=== PATIENT | male | born 1970 | race Caucasian/White ===

== ENCOUNTER 2019-08-17 10:34 | Emergency (ER) | payer SELFPAY ==
--- OUTSIDE RECORDS SUMMARY | 2019-08-17 10:36 | XMS REPORT ---
:1970 [facility] [address] [place] [address] Dr. Mccartney [address] [place] [id number] Care Team Providers Name Role Phone Unavailable Unavailable Unavailable Problems This patient has no known problems. Allergies, Adverse Reactions, Alerts This patient has no known allergies or adverse reactions. Medications This patient has no known medications.
[2019-08-17] MEDS ORDERED: NA CHLORIDE 0.9% 2,000 ML ONE (10:57)
[2019-08-17 11:29] LABS: Urine Blood 2+ (NEG); Urine Glucose TRACE (NEG); Urine Protein 2+ (NEG)
[2019-08-17 11:29] LABS: Protime INR 1.02
[2019-08-17 11:36] LABS: Barbiturates NEGATIVE (NEGATIVE); Benzodiazepines POSITIVE (NEGATIVE); Cocaine NEGATIVE (NEGATIVE); METHAMPHETAM NEGATIVE (NEGATIVE); Methadone NEGATIVE (NEGATIVE); Opiates NEGATIVE (NEGATIVE); Phencyclidine NEGATIVE (NEGATIVE); THC Cannibis NEGATIVE (NEGATIVE)
[2019-08-17 11:41] LABS: Absolute Lymphocytes (CBC) 2.1 K/uL (0.7-4.9); Basophils % 0.6 % (0-1.3); Hematocrit 45.2 % (39.6-49.0); Lymphocytes % 18.9 % (15.3-44.8); MPV 9.1 fL (7.6-11.3); RBC Red Blood Cell Count 5.22 M/uL (4.33-5.43)
[2019-08-17 11:45] LABS: ALT/SGPT 16 U/L (12-78); AST/SGOT 16 U/L (15-37); Albumin 4.1 g/dL (3.4-5.0); Alkaline Phosphatase 97 U/L (45-117); BUN Blood Urea Nitrogen 10 mg/dL (7-18); Bicarbonate 21 mmol/L (21-32); Bilirubin Direct 0.1 mg/dL (0-0.2); Bilirubin Total 0.7 mg/dL (0.2-1.0); Glucose Level 127 mg/dL (74-106); Lipase 49 U/L (73-393); Magnesium 1.7 mg/dL (1.8-2.4); NT PRO-BNP 34 pg/mL (<125); Potassium 3.3 mmol/L (3.5-5.1); Protein, Total 8.2 g/dL (6.4-8.2); Sodium Level 137 mmol/L (136-145); Troponin (Emerg Dept Use Only) < 0.02 ng/mL (0.0-0.045)
--- NOTE | 2019-08-17 11:56 | RAD REPORT ---
EXAM DESCRIPTION: Luis Single View08/17/2019 11:51 am CLINICAL HISTORY: Shortness of breath COMPARISON: 2017 FINDINGS: The lungs appear clear of acute infiltrate. The heart is normal size IMPRESSION: No acute abnormalities displayed
[2019-08-17] MEDS ORDERED: KCL 20 MEQ/100 mL IVPB 20 MEQ/100 ML BAG IV ONE (12:07)
[2019-08-17] MEDS ORDERED: LORazepam 2 MG/ML VIAL ONE (12:07)
[2019-08-17] MEDS ORDERED: cloNIDine HCL 0.1 MG TAB ONE (12:07)
[2019-08-17] MEDS ORDERED: MAGNESIUM SULFATE 1 gm IVPB 1 GM/100 ML BAG IV ONE (12:07)
[2019-08-17] MEDS ORDERED: ONDANSETRON 4 MG/2 ML VIAL ONE (12:20)
--- NOTE | 2019-08-17 13:42 | RAD REPORT ---
EXAM DESCRIPTION: CT - Abdomen Pelvis W Contrast - 08/17/2019 1:26 pm CLINICAL HISTORY: ABD PAIN COMPARISON: No comparisons TECHNIQUE: Biphasic, helical CT imaging of the abdomen and pelvis was performed following 100 ml non -ionic IV contrast. No oral contrast given. All CT scans are performed using dose optimization technique as appropriate and may include automated exposure control or mA/KV adjustment according to patient size. FINDINGS: No suspicious findings in the lung bases. The liver, spleen, and pancreas show no suspicious findings. Multiple punctate gallstones layer in th e dependent portion of the gallbladder. No active gallbladder process seen. No biliary tree abnormali ty. Symmetric renal function is seen with no hydronephrosis or suspicious renal mass. No pyelonephritis o r acute parenchymal process. No bladder abnormalities. No adrenal abnormalities. No dilated bowel loops or bowel wall thickening. Appendix is normal. No free air, free fluid or infla mmatory stranding. No hernia, mass or bulky lymphadenopathy. No suspicious bony findings. IMPRESSION: Contrast enhanced CT abdomen and pelvis showing no significant or suspicious finding. Punctate gallstones are present but there is no evidence for an active gallbladder or biliary tree pr ocess.
[2019-08-17] MEDS ORDERED: ACETAMINOPHEN 500 MG TAB ONE (13:49)
--- NOTE | 2019-08-17 14:37 | EKG ---
Test Date: 2019-08-17 Test Time: 11:13:02 Sales And Marketing Intern: OSMAR MEASUREMENT RESULTS: Intervals: Rate: 111 IL: 158 QRSD: 96 QT: 340 QTc: 462 [place]: P: 47 IL: 158 QRS: 39 T: 49 INTERPRETIVE STATEMENTS: Sinus tachycardia Otherwise normal ECG Compared to ECG 07/31/2017 21:41:24 Sinus rhythm no longer present Electronically Signed On 08-17-19 14:36:37 CDT by Tyler Carey
--- NOTE | 2019-08-17 14:57 | EDPHYS ---
Physician Documentation [facility] Name: Osbaldo León Age: 49 yrs Sex: Male : 1970 Arrival Date: 08/17/2019 Time: 10:36 Bed 2 Private MD: Joe Malloy ED Physician Chris Cohn HPI: 08/16 12:57 This 49 yrs old Male presents to ER via Wheelchair with complaints of jr8 Diarrhea, Urinary Frequency, Abdominal Pain, Shortness Of Breath. 12:57 The patient presents to the emergency department with nausea, vomiting, diarrhea. jr8 Onset: The symptoms/episode began/occurred gradually, 2 week(s) ago. Possible causes: withdrawal. The symptoms are aggravated by nothing. The symptoms are alleviated by nothing. Associated signs and symptoms: Pertinent positives: shortness of breath, anxiety and tremors. Severity of symptoms: At their worst the symptoms were moderate in the emergency department the symptoms are unchanged. It is unknown whether or not the patient has had similar symptoms in the past. The patient has not recently seen a physician. 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 Has been weaning himself off and finished about 2 weeks ago. Since then has had diffuse pain, n/v/d, anxiety. Historical: - Allergies: 10:54 Clindamycin; ca1 10:54 Morphine; ca1 - Home Meds: 10:54 lisinopril 5 mg oral tab 1 tab once daily [Active]; aspirin 81 mg Oral TbEC 1 tab once ca1 daily [Active]; Zoloft 150 mg Oral 1 tab once daily [Active]; Methadone 90 mg Oral 1 tab once daily [Active]; Seroquel 200 mg Oral tab 1 tab nightly [Active]; Insulin: Novolin R 10 units Sub-Q every morning [Active]; Insulin: Novolin N 10 units Sub-Q nightly [Active]; - PMHx: 10:54 CVA; Hypertension; Diabetes - IDDM; ca1 - PSHx: 10:54 None; ca1 - Immunization history:: Adult Immunizations up to date, Flu vaccine is not up to date. - Social history:: Smoking status: Patient denies any tobacco usage or history of. Patient/guardian denies using alcohol, street drugs, IV drugs. ROS: 12:57 Eyes: Negative for injury, pain, redness, and discharge, ENT: Negative for injury, jr8 pain, and discharge, Neck: Negative for injury, pain, and swelling, Cardiovascular: Negative for chest pain, palpitations, and edema, Back: Negative for injury and pain, MS/Extremity: Negative for injury and deformity, Skin: Negative for injury, rash, and discoloration. 12:57 Respiratory: Positive for shortness of breath. 12:57 Abdomen/GI: Positive for abdominal pain, nausea, vomiting, and diarrhea. 12:57 Neuro: Positive for tremor. Exam: 12:57 Eyes: Pupils equal round and reactive to light, extra-ocular motions intact. Lids and jr8 lashes normal. Conjunctiva and sclera are non-icteric and not injected. Cornea within normal limits. Periorbital areas with no swelling, redness, or edema. ENT: Nares patent. No nasal discharge, no septal abnormalities noted. Tympanic membranes are normal and external auditory canals are clear. Oropharynx with no redness, swelling, or masses, exudates, or evidence of obstruction, uvula midline. Mucous membranes moist. Neck: Trachea midline, no thyromegaly or masses palpated, and no cervical lymphadenopathy. Supple, full range of motion without nuchal rigidity, or vertebral point tenderness. No Meningismus. Respiratory: Lungs have equal breath sounds bilaterally, clear to auscultation and percussion. No rales, rhonchi or wheezes noted. No increased work of breathing, no retractions or nasal flaring. Abdomen/GI: Soft, non-tender, with normal bowel sounds. No distension or tympany. No guarding or rebound. No evidence of tenderness throughout. Back: No spinal tenderness. No costovertebral tenderness. Full range of motion. Skin: Warm, dry with normal turgor. Normal color with no rashes, no lesions, and no evidence of cellulitis. MS/ Extremity: Pulses equal, no cyanosis. Neurovascular intact. Full, normal range of motion. Neuro: Awake and alert, GCS 15, oriented to person, place, time, and situation. Cranial nerves II-XII grossly intact. Motor strength 5/5 in all extremities. Sensory grossly intact. Cerebellar exam normal. Normal gait. Resting tremor present 12:57 Cardiovascular: Rate: tachycardic, Rhythm: regular, Pulses: Pulses are 2+ in right radial artery and left radial artery. Heart sounds: normal, normal S1and S2, no S3 or S4, no murmur, no rub, no gallop, Edema: is not appreciated, JVD: is not appreciated. 12:57 ECG was reviewed by the Attending Physician. Vital Signs: 10:48 BP 146 / 129; Pulse 142; Resp 19 S; Temp 97.9(TE); Pulse Ox 100% on R/A; Weight 79.38 ca1 kg (R); Height 6 ft. 0 in. (182.88 cm) (R); 12:09 BP 168 / 112; Pulse 102; Resp 18; Pulse Ox 100% on R/A; em 12:30 BP 170 / 104; Pulse 101; Resp 16; Pulse Ox 98% ; jl7 13:00 BP 172 / 109; Pulse 102; Resp 16; Pulse Ox 98% ; jl7 13:41 BP 162 / 105; Pulse 103; Resp 16; Pulse Ox 97% ; jl7 14:22 BP 168 / 108; Pulse 124; Resp 15; Pulse Ox 100% ; jl7 14:37 BP 159 / 100; Pulse 98; Resp 16; Pulse Ox 100% ; jl7 10:48 Body Mass Index 23.73 (79.38 kg, 182.88 cm) ca1 MDM: 10:42 Patient medically screened. 8 14:04 Data reviewed: vital signs, nurses notes, lab test result(s), EKG, radiologic studies, jr8 CT scan. Data interpreted: Pulse oximetry: on room air is 97 %. Interpretation: normal. Counseling: I had a detailed discussion with the patient and/or guardian regarding: the historical points, exam findings, and any diagnostic results supporting the discharge/admit diagnosis, lab results, radiology results, the need for outpatient follow up, a family practitioner, to return to the emergency department if symptoms worsen or persist or if there are any questions or concerns that arise at home. 14:55 ED course: Patient doing better. Has moderate severity opioid withdrawal. Talked to Dr. geovanna Irizarry who will see patient in office on Tuesday. Will start on Buprenorphine/naloxone . 16:39 ED course: Patients prescriptions changed to Flexeril QD and Clonidine 0.1 mg TID per geovanna Irizarry since Buprenorphine/Naloxone cannot be prescribed at this time . 04/03 10:59 Order name: Basic Metabolic Panel; Complete Time: 12:11 jr8 08/16 10:59 Order name: CBC with Diff; Complete Time: 11:47 jr8 08/16 10:59 Order name: LFT's; Complete Time: 12:11 jr8 08/16 10:59 Order name: Magnesium; Complete Time: 12:11 jr8 08/16 10:59 Order name: NT PRO-BNP; Complete Time: 12:11 jr8 08/16 10:59 Order name: PT-INR; Complete Time: 11:42 jr8 08/16 10:59 Order name: Troponin (emerg Dept Use Only); Complete Time: 12:11 jr8 08/16 10:59 Order name: XRAY Chest (1 view); Complete Time: 12:00 08/16 10:59 Order name: Lipase; Complete Time: 12:11 8 08/16 10:59 Order name: Ketone, Serum; Complete Time: 12:11 8 08/16 10:59 Order name: Urine Drug Screen; Complete Time: 11:42 jr8 08/16 10:59 Order name: ETOH Level; Complete Time: 11:42 jr8 08/16 11:09 Order name: Glucose, Ancillary Testing; Complete Time: 11:22 EDMS 08/16 11:27 Order name: Urine Dipstick--Ancillary (enter results); Complete Time: 11:42 3 08/16 10:59 Order name: EKG; Complete Time: 11:00 jr8 08/16 10:59 Order name: Cardiac monitoring; Complete Time: 11:24 jr8 08/16 10:59 Order name: EKG - Nurse/Tech; Complete Time: 11:24 jr8 08/16 10:59 Order name: IV Saline Lock; Complete Time: 11:24 jr8 08/16 10:59 Order name: Labs collected and sent; Complete Time: 11:24 jr8 08/16 10:59 Order name: O2 Per Protocol; Complete Time: 11:24 8 08/16 10:59 Order name: O2 Sat Monitoring; Complete Time: 11:24 jr8 08/16 13:09 Order name: CT Abd/Pelvis - IV Contrast Only; Complete Time: 13:45 jr8 08/16 10:59 Order name: Urine Dipstick-Ancillary (obtain specimen); Complete Time: 13:19 jr8 08/16 10:59 Order name: Glucose Level; Complete Time: :23 jr8 EC:57 Rate is 111 beats/min. Rhythm is regular, Sinus tachycardia. QRS [place] is Normal. NE jr8 interval is normal at 158 msec. QRS interval is normal at 96 msec. QT interval is prolonged at 462 msec. No Q waves. T waves are Normal. No ST changes noted. Clinical impression: Sinus tachycardia. Interpreted by me. Reviewed by me. Administered Medications: 11:23 Drug: NS 0.9% 1000 ml Route: IV; Rate: 1000 ml; Site: left forearm; jl7 12:00 Follow up: Response: No adverse reaction; IV Status: Completed infusion; IV Intake: jl7 1000ml 11:24 Drug: NS 0.9% 1000 ml Route: IV; Rate: 1000 ml; Site: left forearm; jl7 13:19 Follow up: Response: No adverse reaction; IV Status: Completed infusion; IV Intake: jl7 1000ml 12:05 Drug: Ativan 1 mg Route: IVP; Site: left forearm; jl7 12:45 Follow up: Response: No adverse reaction jl7 12:08 Drug: cloNIDine 0.2 mg Route: PO; jl7 13:40 Follow up: Response: Blood pressure is unchanged jl7 12:17 Drug: Magnesium Sulfate 1 grams Route: IVPB; Infused Over: 1 hrs; Site: left forearm; jl7 13:18 Follow up: Response: No adverse reaction; IV Status: Completed infusion jl7 12:18 Drug: Potassium Chloride 20 mEq Route: IV; Rate: calculated rate; Site: left forearm; jl7 13:18 Follow up: IV Status: Completed infusion jl7 13:18 Follow up: Response: No adverse reaction jl7 12:19 Drug: Zofran (Ondansetron) 4 mg Route: IVP; Site: left forearm; jl7 12:30 Follow up: Response: No adverse reaction; Nausea is decreased jl7 13:46 Drug: Tylenol 1000 mg Route: PO; jl7 14:36 Follow up: Response: No adverse reaction jl7 Point of Care Testing: Blood Glucose: 11:03 Blood Glucose: 131 mg/dL; em Ranges: Critical Glucose Levels:Adult <50 mg/dl or >400 mg/dl <40 mg/dl or >180 mg/dl Disposition: 16:05 Co-signature as Attending Physician, Chris Cohn MD. rn Disposition: 08/17/19 14:57 Discharged to Home. Impression: Withdrawal from Opioid . - Condition is Stable. - Discharge Instructions: Opioid Withdrawal. - Medication Reconciliation Form, Thank You Letter, Antibiotic Education, Prescription Opioid Use form. - Follow up: Graeme Irizarry MD; When: 1 week; Reason: Recheck today's complaints, Continuance of care, Re-evaluation by your physician. - Problem is new. - Symptoms have improved. Signatures: Dispatcher [employer] EDMS Chris Cohn MD MD rn Colby Douglass PA PA jr8 Joleen Aiken RN RN jl7 Allison Bliss RN RN ca1 Corrections: (The following items were deleted from the chart) 15:26 14:57 08/17/2019 14:57 Discharged to Home. Impression: Withdrawal from Opioid . jl7 Condition is Stable. Forms are Medication Reconciliation Form, Thank You Letter, Antibiotic Education, Prescription Opioid Use. Follow up: Graeme Irizarry; When: 1 week; Reason: Recheck today's complaints, Continuance of care, Re-evaluation by your physician. Problem is new. Symptoms have improved. jr8
--- NOTE | 2019-08-17 14:57 | ER ---
Nurse's Notes [facility] Name: Osbaldo León Age: 49 yrs Sex: Male : 1970 Arrival Date: 08/17/2019 Time: 10:36 Bed 2 Private MD: Joe Malloy Diagnosis: Withdrawal from Opioid Presentation: 08/16 10:48 Chief complaint: Patient states: "I am experiencing withdrawal symptoms. On Methadone ca1 for 10 years and I ran out of it. I can't afford it anymore". Reports headache, N/V/diarrhea, abdominal pain, shakiness, cold chills and sweats. Coronavirus screen: Patient denies fever greater than 100.4F, cough, shortness of breath, or difficulty breathing. Proceed with normal triage process. Ebola Screen: Patient negative for fever greater than or equal to 101.5 degrees Fahrenheit, and additional compatible Ebola Virus Disease symptoms Patient denies exposure to infectious person. Patient denies travel to an Ebola-affected area in the 21 days before illness onset. No symptoms or risks identified at this time. Initial Sepsis Screen: Does the patient meet any 2 criteria? No. Patient's initial sepsis screen is negative. Does the patient have a suspected source of infection? No. Patient's initial sepsis screen is negative. Risk Assessment: Do you want to hurt yourself or someone else? Patient reports no desire to harm self or others. Onset of symptoms was August 17, 2019. 10:48 Method Of Arrival: Wheelchair ca1 10:48 Acuity: [place] 2 ca1 Historical: - Allergies: 10:54 Clindamycin; ca1 10:54 Morphine; ca1 - Home Meds: 10:54 lisinopril 5 mg oral tab 1 tab once daily [Active]; aspirin 81 mg Oral TbEC 1 tab once ca1 daily [Active]; Zoloft 150 mg Oral 1 tab once daily [Active]; Methadone 90 mg Oral 1 tab once daily [Active]; Seroquel 200 mg Oral tab 1 tab nightly [Active]; Insulin: Novolin R 10 units Sub-Q every morning [Active]; Insulin: Novolin N 10 units Sub-Q nightly [Active]; - PMHx: 10:54 CVA; Hypertension; Diabetes - IDDM; ca1 - PSHx: 10:54 None; ca1 - Immunization history:: Adult Immunizations up to date, Flu vaccine is not up to date. - Social history:: Smoking status: Patient denies any tobacco usage or history of. Patient/guardian denies using alcohol, street drugs, IV drugs. Screenin:15 Abuse screen: Denies threats or abuse. Denies injuries from another. Nutritional jl7 screening: No deficits noted. Tuberculosis screening: No symptoms or risk factors identified. Fall Risk IV access (20 points). Total Brown Fall Scale indicates No Risk (0-24 pts). Assessment: 10:45 General: Appears in no apparent distress. uncomfortable, Behavior is cooperative, jl7 anxious. Pain: Complains of pain in all over Pain currently is 9 out of 10 on a pain scale. Neuro: Level of Consciousness is awake, alert, obeys commands, Oriented to person, place, time, situation, pt hands noted to be shaking. Cardiovascular: Patient's skin is warm and dry. Respiratory: Airway is patent Respiratory effort is even, unlabored, Respiratory pattern is regular, symmetrical. GI: Abdomen is flat, non-distended, Reports diarrhea. : No signs and/or symptoms were reported regarding the genitourinary system. EENT: No signs and/or symptoms were reported regarding the EENT system. Derm: Skin is pink, warm \\T\\ dry. 11:45 Reassessment: Patient appears in no apparent distress at this time. No changes from jl7 previously documented assessment. Patient and/or family updated on plan of care and expected duration. Pain level reassessed. Patient is alert, oriented x 3, equal unlabored respirations, skin warm/dry/pink. 13:00 Reassessment: Patient appears in no apparent distress at this time. Patient and/or jl7 family updated on plan of care and expected duration. Pain level reassessed. Patient is alert, oriented x 3, equal unlabored respirations, skin warm/dry/pink. 14:00 Reassessment: Patient appears in no apparent distress at this time. Patient and/or jl7 family updated on plan of care and expected duration. Pain level reassessed. Patient is alert, oriented x 3, equal unlabored respirations, skin warm/dry/pink. 14:45 Reassessment: Pt requesting for ERP to give him suboxone, ERP notified and at bedside jl7 to discuss POC. Vital Signs: 10:48 BP 146 / 129; Pulse 142; Resp 19 S; Temp 97.9(TE); Pulse Ox 100% on R/A; Weight 79.38 ca1 kg (R); Height 6 ft. 0 in. (182.88 cm) (R); 12:09 BP 168 / 112; Pulse 102; Resp 18; Pulse Ox 100% on R/A; em 12:30 BP 170 / 104; Pulse 101; Resp 16; Pulse Ox 98% ; jl7 13:00 BP 172 / 109; Pulse 102; Resp 16; Pulse Ox 98% ; jl7 13:41 BP 162 / 105; Pulse 103; Resp 16; Pulse Ox 97% ; jl7 14:22 BP 168 / 108; Pulse 124; Resp 15; Pulse Ox 100% ; jl7 14:37 BP 159 / 100; Pulse 98; Resp 16; Pulse Ox 100% ; jl7 10:48 Body Mass Index 23.73 (79.38 kg, 182.88 cm) ca1 ED Course: 10:36 Patient arrived in ED. ag5 10:36 Joe Malloy MD is Private Physician. ag5 10:42 Colby Douglass PA is PHCP. jr8 10:42 Chris Cohn MD is Attending Physician. jr8 10:43 Joleen Aiken RN is Primary Nurse. jl7 10:50 Triage completed. ca1 10:54 Arm band placed on right wrist. ca1 11:15 Patient has correct armband on for positive identification. Placed in gown. Bed in low jl7 position. Call light in reach. Side rails up X 1. media monitor on. Pulse ox on. NIBP on. Warm blanket given. 11:18 EKG done, by mechanical engineering technician. reviewed by Colby CRAWFORD. at1 11:20 Initial lab(s) drawn, by wa, sent to lab. Inserted saline lock: 20 gauge in left jl7 forearm, using aseptic technique. Blood collected. 11:51 XRAY Chest (1 view) In Process Unspecified. EDMS 13:26 CT Abd/Pelvis - IV Contrast Only In Process Unspecified. EDMS 14:56 Graeme Irizarry MD is Referral Physician. jr8 15:26 No provider procedures requiring assistance completed. IV discontinued, intact, jl7 bleeding controlled, No redness/swelling at site. Pressure dressing applied. Administered Medications: 11:23 Drug: NS 0.9% 1000 ml Route: IV; Rate: 1000 ml; Site: left forearm; jl7 12:00 Follow up: Response: No adverse reaction; IV Status: Completed infusion; IV Intake: jl7 1000ml 11:24 Drug: NS 0.9% 1000 ml Route: IV; Rate: 1000 ml; Site: left forearm; jl7 13:19 Follow up: Response: No adverse reaction; IV Status: Completed infusion; IV Intake: jl7 1000ml 12:05 Drug: Ativan 1 mg Route: IVP; Site: left forearm; jl7 12:45 Follow up: Response: No adverse reaction jl7 12:08 Drug: cloNIDine 0.2 mg Route: PO; jl7 13:40 Follow up: Response: Blood pressure is unchanged jl7 12:17 Drug: Magnesium Sulfate 1 grams Route: IVPB; Infused Over: 1 hrs; Site: left forearm; jl7 13:18 Follow up: Response: No adverse reaction; IV Status: Completed infusion jl7 12:18 Drug: Potassium Chloride 20 mEq Route: IV; Rate: calculated rate; Site: left forearm; jl7 13:18 Follow up: IV Status: Completed infusion jl7 13:18 Follow up: Response: No adverse reaction jl7 12:19 Drug: Zofran (Ondansetron) 4 mg Route: IVP; Site: left forearm; jl7 12:30 Follow up: Response: No adverse reaction; Nausea is decreased jl7 13:46 Drug: Tylenol 1000 mg Route: PO; jl7 14:36 Follow up: Response: No adverse reaction jl7 Point of Care Testing: Blood Glucose: 11:03 Blood Glucose: 131 mg/dL; em Ranges: Intake: 12:00 IV: 1000ml; Total: 1000ml. jl7 13:19 IV: 1000ml; Total: 2000ml. jl7 Outcome: 14:57 Discharge ordered by . geovanna 15:26 Discharged to home ambulatory. jl7 15:26 Condition: stable 15:26 Discharge instructions given to patient, Instructed on discharge instructions, follow up and referral plans. medication usage, Demonstrated understanding of instructions, follow-up care, medications. 15:26 Patient left the ED. jl7 Signatures: Dispatcher [employer] Surinder Montano RN RN Colby Merchant PA PA jr8 Sara Valdez, [employer] managed service sales exec EKG Tat1 Joleen Aiken, RN RN jl7 Allison Bliss, RN RN ca1 Juliocesar Dunaway ag5
[2019-08-17 15:34] VITALS: TEMP 97.9
[2019-08-17 15:42] VITALS: O2SAT 100
[2019-08-17 15:43] VITALS: BP 159/100
== END 2019-08-17 15:26 | disposition home or self-care (01) ==
LOC: ER 10:34
DX: F11.23 Opioid dependence with withdrawal (principal); T40.2X5A Adverse effect of other opioids, initial encounter; I10 Essential (primary) hypertension; E11.9 Type 2 diabetes mellitus without complications; Z79.4 Long term (current) use of insulin; Z79.82 Long term (current) use of aspirin; Z88.3 Allergy status to other anti-infective agents; Z88.5 Allergy status to narcotic agent
CPT/HCPCS: 36415; 71045; 74177; 80048; 80076; 80307; 80320; 81003; 82010; 82947; 83690; 83735; 83880; 84484; 85025; 85610; 93005; 96361; 96365; 96375; 99285; J2405; J3475; J7030; Q9967

== ENCOUNTER 2019-08-18 08:25 | Emergency (ER) | payer SELFPAY ==
--- OUTSIDE RECORDS SUMMARY | 2019-08-18 08:28 | XMS REPORT ---
:1970 [facility] Address [address] [place] [address] Dr. Mccartney [address] [place] [id number] Care Team Providers Name Role Phone Unavailable Unavailable Unavailable Problems This patient has no known problems. Allergies, Adverse Reactions, Alerts This patient has no known allergies or adverse reactions. Medications This patient has no known medications.
[2019-08-18] MEDS ORDERED: METOPROLOL TAR 25 MG TAB ONE (08:44)
[2019-08-18] MEDS ORDERED: cloNIDine HCL 0.1 MG TAB ONE (08:44)
[2019-08-18] MEDS ORDERED: ONDANSETRON 4 MG/2 ML VIAL ONE ×2 (08:45→09:32)
[2019-08-18] MEDS ORDERED: NA CHLORIDE 0.9% 1,000 ML ONE (08:45)
[2019-08-18 09:01] LABS: Absolute Lymphocytes (CBC) 1.4 K/uL (0.7-4.9); Basophils % 0.6 % (0-1.3); Hematocrit 40.4 % (39.6-49.0); Lymphocytes % 21.3 % (15.3-44.8); MPV 8.5 fL (7.6-11.3); RBC Red Blood Cell Count 4.58 M/uL (4.33-5.43)
[2019-08-18 09:17] LABS: ALT/SGPT 12 U/L (12-78); AST/SGOT 13 U/L (15-37); Albumin 3.3 g/dL (3.4-5.0); Alkaline Phosphatase 79 U/L (45-117); BUN Blood Urea Nitrogen 7 mg/dL (7-18); Bicarbonate 18 mmol/L (21-32); Bilirubin Direct 0.1 mg/dL (0-0.2); Bilirubin Total 0.7 mg/dL (0.2-1.0); Glucose Level 159 mg/dL (74-106); Lipase 41 U/L (73-393); Potassium 3.5 mmol/L (3.5-5.1); Protein, Total 6.9 g/dL (6.4-8.2); Sodium Level 138 mmol/L (136-145)
[2019-08-18] MEDS ORDERED: LORazepam 2 MG/ML VIAL ONE (09:32)
[2019-08-18] MEDS ORDERED: Ringers Lactate 1,000 ML IV ONE (09:47)
[2019-08-18 09:53] LABS: Urine Blood 1+ (NEG); Urine Glucose 1+ (NEG); Urine Protein NEGATIVE (NEG); Urine Specific Gravity 1.015 (1.005-1.030); Urine pH 5.5 (5.0-7.0)
[2019-08-18 10:14] LABS: Barbiturates NEGATIVE (NEGATIVE); Benzodiazepines NEGATIVE (NEGATIVE); Cocaine NEGATIVE (NEGATIVE); METHAMPHETAM NEGATIVE (NEGATIVE); Methadone NEGATIVE (NEGATIVE); Opiates NEGATIVE (NEGATIVE); Phencyclidine NEGATIVE (NEGATIVE); THC Cannibis NEGATIVE (NEGATIVE)
--- NOTE | 2019-08-18 10:55 | EDPHYS ---
Physician Documentation [facility] Name: Osbaldo León Age: 49 yrs Sex: Male : 1970 Arrival Date: 08/18/2019 Time: 08:27 Bed 7 Private MD: ED Physician Chris Cohn HPI: 08/17 10:58 This 49 yrs old Male presents to ER via EMS with complaints of Methadone jr8 withdrawl. 10:58 The patient presents to the emergency department with a history of substance abuse. jr8 Onset: The symptoms/episode began/occurred gradually, 2 week(s) ago. Associated signs and symptoms: Pertinent positives; anxiety, nausea, substance abuse, vomiting, diarrhea. Severity of symptoms: At their worst the symptoms were moderate in the emergency department the symptoms are unchanged. The patient has experienced similar episodes in the past, a few times. The patient has been recently seen at the [facility] Emergency Department, yesterday, for similar complaints labs were performed, CT scan was performed, was given IV fluids, the patient was told to return for a recheck. 10:59 Patient returned to ED today with continued anxiety, tremors, n/v/d secondary to jr8 withdrawal. Stated that the Flexeril and clonidine has not been helping. Historical: - Allergies: 08:31 Clindamycin; sv 08:31 Morphine; sv - PMHx: 08:31 CVA; Diabetes - IDDM; Hypertension; sv - PSHx: 08:31 None; sv - Immunization history:: Adult Immunizations up to date. - Social history:: Smoking status: . ROS: 10:59 Eyes: Negative for injury, pain, redness, and discharge, ENT: Negative for injury, jr8 pain, and discharge, Neck: Negative for injury, pain, and swelling, Cardiovascular: Negative for chest pain, palpitations, and edema, Respiratory: Negative for shortness of breath, cough, wheezing, and pleuritic chest pain, Back: Negative for injury and pain, MS/Extremity: Negative for injury and deformity, Skin: Negative for injury, rash, and discoloration, Neuro: Negative for headache, weakness, numbness, tingling, and seizure. 10:59 Abdomen/GI: Positive for nausea, vomiting, and diarrhea, Negative for abdominal pain, abdominal cramps, abdominal distension. 10:59 Psych: Positive for anxiety, drug dependence. Exam: 10:59 Eyes: Pupils equal round and reactive to light, extra-ocular motions intact. Lids and jr8 lashes normal. Conjunctiva and sclera are non-icteric and not injected. Cornea within normal limits. Periorbital areas with no swelling, redness, or edema. ENT: Nares patent. No nasal discharge, no septal abnormalities noted. Tympanic membranes are normal and external auditory canals are clear. Oropharynx with no redness, swelling, or masses, exudates, or evidence of obstruction, uvula midline. Mucous membranes moist. Neck: Trachea midline, no thyromegaly or masses palpated, and no cervical lymphadenopathy. Supple, full range of motion without nuchal rigidity, or vertebral point tenderness. No Meningismus. Respiratory: Lungs have equal breath sounds bilaterally, clear to auscultation and percussion. No rales, rhonchi or wheezes noted. No increased work of breathing, no retractions or nasal flaring. Abdomen/GI: Soft, non-tender, with normal bowel sounds. No distension or tympany. No guarding or rebound. No evidence of tenderness throughout. Back: No spinal tenderness. No costovertebral tenderness. Full range of motion. Skin: Warm, dry with normal turgor. Normal color with no rashes, no lesions, and no evidence of cellulitis. MS/ Extremity: Pulses equal, no cyanosis. Neurovascular intact. Full, normal range of motion. Neuro: Awake and alert, GCS 15, oriented to person, place, time, and situation. Cranial nerves II-XII grossly intact. Motor strength 5/5 in all extremities. Sensory grossly intact. Cerebellar exam normal. Normal gait. Resting tremor present 10:59 Cardiovascular: Rate: tachycardic, Rhythm: regular, Pulses: Pulses are 2+ in right radial artery and left radial artery. Heart sounds: normal, normal S1and S2, no S3 or S4, no murmur, no rub, no gallop, Edema: is not appreciated, JVD: is not appreciated. Vital Signs: 08:22 BP 188 / 129; Pulse 107; Resp 18; Temp 98.3; Pulse Ox 99% ; Weight 79 kg; Height 6 ft. sv 0 in. (182.88 cm); 09:45 BP 183 / 125; Pulse 100; Resp 18; Pulse Ox 98% ; sv 10:03 BP 166 / 107; Pulse 99; Resp 18; Pulse Ox 97% ; sv 10:36 BP 174 / 104; Pulse 102; Resp 18; Pulse Ox 97% ; sv 11:31 BP 163 / 102; Pulse 97; Resp 16; Pulse Ox 99% ; sv 08:22 Body Mass Index 23.62 (79.00 kg, 182.88 cm) sv MDM: 08:29 Patient medically screened. jr8 10:50 Data reviewed: vital signs, nurses notes, lab test result(s). Data interpreted: Pulse jr8 oximetry: on room air is 97 %. Interpretation: normal. Counseling: I had a detailed discussion with the patient and/or guardian regarding: the historical points, exam findings, and any diagnostic results supporting the discharge/admit diagnosis, lab results, the need for outpatient follow up, a psychiatrist, to return to the emergency department if symptoms worsen or persist or if there are any questions or concerns that arise at home. ED course: Patient seen yesterday. Worse today dehydration virk. Doing better after treatment. Patient has been on clonidine and Flexeril which was suggested treatment for detox at the time since Buprenorphine cannot be prescribed. Patient still with scheduled appointment on Tuesday but concern for further withdrawal eminent. Discussed this with Dr. Cohn as well. Best course of action for emergent purposes is to put him on low dose short acting narcotic till visit. Will put one time 25mcg patch of Fentanyl on him and discharge home to follow up . 11:18 ED course: Consulted Dr. Irizarry as well who agrees that this is the only thing [facility] can likely do at this point. 08/17 08:33 Order name: Basic Metabolic Panel; Complete Time: 09:08/17 08:33 Order name: CBC with Diff; Complete Time: :08/17 08:33 Order name: Creatinine for Radiology; Complete Time: :08/17 08:33 Order name: Hepatic Function; Complete Time: :08/17 08:33 Order name: Lipase; Complete Time: :08/17 08:33 Order name: UDS; Complete Time: 10:21 08/17 09:34 Order name: Urine Dipstick--Ancillary (enter results); Complete Time: 10:21 eb 08/17 08:33 Order name: IV Saline Lock; Complete Time: 08:34 jr8 08/17 08:33 Order name: Labs collected and sent; Complete Time: 08:51 jr8 08/17 08:33 Order name: Urine Dipstick-Ancillary (obtain specimen); Complete Time: 09:39 jr8 Administered Medications: 08:51 Drug: NS 0.9% 1000 ml Route: IV; Rate: 1000 ml; Site: left hand; sv 11:31 Follow up: Response: No adverse reaction; IV Status: Completed infusion; IV Intake: sv 1000ml 08:51 Drug: Zofran (Ondansetron) 4 mg Route: IVP; Site: left hand; sv 09:44 Follow up: Response: No adverse reaction; No change in condition sv 09:35 Drug: Zofran (Ondansetron) 4 mg Route: IVP; Site: left hand; sv 10:01 Follow up: Response: No adverse reaction; Nausea is decreased sv 09:39 Drug: Ativan 2 mg Route: IVP; Site: left hand; sv 09:45 Follow up: Response: No adverse reaction sv 09:44 Drug: Ringers - Lactated Ringers Solution 1000 ml Route: IV; Rate: 999 ml/hr; Site: sv left hand; 11:30 Follow up: Response: No adverse reaction; IV Status: Completed infusion; IV Intake: sv 1000ml 10:01 Drug: cloNIDine 0.2 mg Route: PO; sv 11:31 Follow up: Response: No adverse reaction sv 10:01 Drug: Metoprolol 25 mg Route: PO; sv 11:31 Follow up: Response: No adverse reaction sv 11:30 Drug: fentaNYL Patch (25 mcg/hr) 1 patches {Note: rass1.} Route: Transdermal; Site: affected area; Disposition: 11:36 Co-signature as Attending Physician, Chris Cohn MD. rn Disposition: 08/18/19 10:54 Discharged to Home. Impression: Opioid dependence with withdrawal. - Condition is Stable. - Discharge Instructions: Chemical Dependency, Opioid Withdrawal. - Medication Reconciliation Form, Thank You Letter, Antibiotic Education, Prescription Opioid Use form. - Follow up: Private Physician; When: 2 - 3 days; Reason: Recheck today's complaints, Continuance of care, Re-evaluation by your physician. - Problem is new. - Symptoms have improved. Signatures: Dispatcher [employer] Kenisha Naqvi RN RN sv Nieto, Roman, MD MD rn Roszak, Josh, PA PA jr8 Corrections: (The following items were deleted from the chart) 11:00 10:58 The patient has been recently seen by a physician: geovanna jr8 11:32 10:54 08/18/2019 10:54 Discharged to Home. Impression: Opioid dependence with sv withdrawal. Condition is Stable. Forms are Medication Reconciliation Form, Thank You Letter, Antibiotic Education, Prescription Opioid Use. Follow up: Private Physician; When: 2 - 3 days; Reason: Recheck today's complaints, Continuance of care, Re-evaluation by your physician. Problem is new. Symptoms have improved. jr8
--- NOTE | 2019-08-18 10:55 | ER ---
Nurse's Notes [facility] Name: Osbaldo León Age: 49 yrs Sex: Male : 1970 Arrival Date: 08/18/2019 Time: 08:27 Bed 7 Private MD: Diagnosis: Opioid dependence with withdrawal Presentation: 08/17 08:22 Chief complaint: EMS states: called out for Methadone withdrawal, c/o n/v/d/decreased sv appetite. Was seen here yesterday and discharged with Suboxone but the pharmacy was unable to fill it for him. BP 170/100 HR-120 22G L hand. Coronavirus screen: Patient denies fever greater than 100.4F, cough, shortness of breath, or difficulty breathing. Proceed with normal triage process. Ebola Screen: Patient negative for fever greater than or equal to 101.5 degrees Fahrenheit, and additional compatible Ebola Virus Disease symptoms Patient denies exposure to infectious person. Patient denies travel to an Ebola-affected area in the 21 days before illness onset. No symptoms or risks identified at this time. Initial Sepsis Screen: Does the patient meet any 2 criteria? HR > 90 bpm. No. Patient's initial sepsis screen is negative. Does the patient have a suspected source of infection? No. Patient's initial sepsis screen is negative. Risk Assessment: Do you want to hurt yourself or someone else? Patient reports no desire to harm self or others. Onset of symptoms was August 17, 2019. 08:22 Method Of Arrival: EMS: [facility] 08:22 Acuity: [place] 2 sv Triage Assessment: 08:22 General: Appears in no apparent distress. uncomfortable, well developed, Behavior is sv calm, cooperative, appropriate for age. Pain: Denies pain. Neuro: Level of Consciousness is awake, alert, obeys commands, Oriented to person, place, time, situation, Moves all extremities. Full function Gait is steady, Speech is normal. Respiratory: Airway is patent Respiratory effort is even, unlabored, Respiratory pattern is regular, symmetrical. GI: Abdomen is flat, Reports diarrhea, intolerance of fluids, intolerance of food, nausea, vomiting. Derm: Skin is intact, Skin is pink, warm \T\ dry. Musculoskeletal: Range of motion: intact in all extremities. Historical: - Allergies: 08:31 Clindamycin; sv 08:31 Morphine; sv - PMHx: 08:31 CVA; Diabetes - IDDM; Hypertension; sv - PSHx: 08:31 None; sv - Immunization history:: Adult Immunizations up to date. - Social history:: Smoking status: . Screenin:33 Abuse screen: Denies threats or abuse. Denies injuries from another. Nutritional sv screening: No deficits noted. Tuberculosis screening: No symptoms or risk factors identified. Fall Risk None identified. Assessment: 09:45 Reassessment: Patient appears in no apparent distress at this time. No changes from sv previously documented assessment. Patient and/or family updated on plan of care and expected duration. Pain level reassessed. Patient is alert, oriented x 3, equal unlabored respirations, skin warm/dry/pink. 10:02 Reassessment: Patient appears in no apparent distress at this time. Patient and/or sv family updated on plan of care and expected duration. Pain level reassessed. Patient is alert, oriented x 3, equal unlabored respirations, skin warm/dry/pink. GI: Patient currently denies nausea, vomiting. 11:32 Reassessment: Patient appears in no apparent distress at this time. Patient and/or sv family updated on plan of care and expected duration. Pain level reassessed. Patient is alert, oriented x 3, equal unlabored respirations, skin warm/dry/pink. Vital Signs: 08:22 BP 188 / 129; Pulse 107; Resp 18; Temp 98.3; Pulse Ox 99% ; Weight 79 kg; Height 6 ft. sv 0 in. (182.88 cm); 09:45 BP 183 / 125; Pulse 100; Resp 18; Pulse Ox 98% ; sv 10:03 BP 166 / 107; Pulse 99; Resp 18; Pulse Ox 97% ; sv 10:36 BP 174 / 104; Pulse 102; Resp 18; Pulse Ox 97% ; sv 11:31 BP 163 / 102; Pulse 97; Resp 16; Pulse Ox 99% ; sv 08:22 Body Mass Index 23.62 (79.00 kg, 182.88 cm) sv ED Course: 08:22 Maintain EMS IV. Dressing intact. Good blood return noted. Site clean \T\ dry. Gauge \T\ sv site: 22G L hand. Flushed left hand with 5 ml normal saline. 08:27 Patient arrived in ED. jr8 08:28 Kenisha Medel, MARU is Primary Nurse. sv 08:29 Colby Douglass PA is PHCP. jr8 08:29 Chris Cohn MD is Attending Physician. jr8 08:31 Triage completed. sv 08:31 Arm band placed on Patient placed in an exam room, on a stretcher. sv 08:32 Nurse Practitioner and/or Physician Benefits Specialist Recruiter to see patient. sv 08:33 Patient has correct armband on for positive identification. Bed in low position. Call sv light in reach. Side rails up X 1. Pulse ox on. NIBP on. Door closed. Head of bed elevated. 08:43 Initial lab(s) drawn, by me, sent to lab. sv 11:31 No provider procedures requiring assistance completed. IV discontinued, intact, sv bleeding controlled, No redness/swelling at site. Pressure dressing applied. Administered Medications: 08:51 Drug: NS 0.9% 1000 ml Route: IV; Rate: 1000 ml; Site: left hand; sv 11:31 Follow up: Response: No adverse reaction; IV Status: Completed infusion; IV Intake: sv 1000ml 08:51 Drug: Zofran (Ondansetron) 4 mg Route: IVP; Site: left hand; sv 09:44 Follow up: Response: No adverse reaction; No change in condition sv 09:35 Drug: Zofran (Ondansetron) 4 mg Route: IVP; Site: left hand; sv 10:01 Follow up: Response: No adverse reaction; Nausea is decreased sv 09:39 Drug: Ativan 2 mg Route: IVP; Site: left hand; sv 09:45 Follow up: Response: No adverse reaction sv 09:44 Drug: Ringers - Lactated Ringers Solution 1000 ml Route: IV; Rate: 999 ml/hr; Site: sv left hand; 11:30 Follow up: Response: No adverse reaction; IV Status: Completed infusion; IV Intake: sv 1000ml 10:01 Drug: cloNIDine 0.2 mg Route: PO; sv 11:31 Follow up: Response: No adverse reaction sv 10:01 Drug: Metoprolol 25 mg Route: PO; sv 11:31 Follow up: Response: No adverse reaction sv 11:30 Drug: fentaNYL Patch (25 mcg/hr) 1 patches {Note: rass1.} Route: Transdermal; Site: sv affected area; Intake: 11:30 IV: 1000ml; Total: 1000ml. sv 11:31 IV: 1000ml; Total: 2000ml. sv Outcome: 10:54 Discharge ordered by MD. austin 11:31 Discharged to home ambulatory. sv 11:31 Condition: stable 11:31 Discharge instructions given to patient, Instructed on discharge instructions, follow up and referral plans. take off his Fentanyl patch on Tuesday. Demonstrated understanding of instructions, follow-up care. 11:32 Patient left the ED. sv Signatures: Kenisha Medel RN RN sv Colby Douglass, PA YVETTE jr8 Corrections: (The following items were deleted from the chart) 08:33 08:22 BP 188 / 129; Pulse 107bpm; Resp 18bpm; Pulse Ox 99%; Temp 98.3F; sv sv
[2019-08-18] MEDS ORDERED: FENTANYL 25 MCG/PATCH TD ONE (11:08)
[2019-08-18 11:41] VITALS: BP 163/102; O2SAT 99
== END 2019-08-18 11:32 | disposition home or self-care (01) ==
LOC: ER 08:25
DX: F11.23 Opioid dependence with withdrawal (principal); Z88.3 Allergy status to other anti-infective agents; Z88.6 Allergy status to analgesic agent
CPT/HCPCS: 36415; 80048; 80076; 80307; 81003; 83690; 85025; 96361; 96365; 96366; 96375; 99284; J2405; J7030; J7120

== ENCOUNTER 2019-10-16 18:34 | Emergency (ER) | payer SELFPAY ==
--- OUTSIDE RECORDS SUMMARY | 2019-10-16 18:36 | XMS REPORT | Continuity of Care Document ---
:1970 Author Organization [facility] t Address [address] [place] [address] Dr. Mccartney [address] [place] [id number] Care Team Providers Name Role Phone Unavailable Unavailable Unavailable Problems This patient has no known problems. Allergies, Adverse Reactions, Alerts This patient has no known allergies or adverse reactions. Medications This patient has no known medications. Procedures This patient has no known procedures. Results This patient has no known results.
[2019-10-16] MEDS ORDERED: NA CHLORIDE 0.9% 2,000 ML ONE (19:43)
[2019-10-16 20:05] LABS: Absolute Lymphocytes (CBC) 0.8 K/uL (0.7-4.9); Hematocrit 44.2 % (39.6-49.0); Lymphocytes % 10.8 % (15.3-44.8); MPV 9.4 fL (7.6-11.3); RBC Red Blood Cell Count 4.84 M/uL (4.33-5.43)
[2019-10-16 20:36] LABS: Blood Morphology Comment NOT SEEN (NOT SEEN); Platelet Estimate ADEQ; Urine White Blood Cell Casts OK
[2019-10-16 20:46] LABS: Urine Blood 1+ (NEG); Urine Glucose 2+ (NEG); Urine Protein NEGATIVE (NEG)
[2019-10-16 21:05] LABS: ALT/SGPT 20 U/L (12-78); AST/SGOT 15 U/L (15-37); Albumin 3.8 g/dL (3.4-5.0); Alkaline Phosphatase 117 U/L (45-117); BUN Blood Urea Nitrogen 19 mg/dL (7-18); Bicarbonate 15 mmol/L (21-32); Bilirubin Direct 0.2 mg/dL (0-0.2); Bilirubin Total 0.8 mg/dL (0.2-1.0); Lipase 21 U/L (73-393); Magnesium 1.8 mg/dL (1.8-2.4); NT PRO-BNP 350 pg/mL (<125); Potassium 4.3 mmol/L (3.5-5.1); Protein, Total 8.3 g/dL (6.4-8.2); Sodium Level 133 mmol/L (136-145); Troponin (Emerg Dept Use Only) < 0.02 ng/mL (0.0-0.045)
--- NOTE | 2019-10-16 21:07 | ER ---
Nurse's Notes [facility] Name: Osbaldo León Age: 49 yrs Sex: Male : 1970 Arrival Date: 10/16/2019 Time: 18:36 Bed 17 Private MD: Joe Malloy Diagnosis: Dyspnea;Essential (primary) hypertension;Type 1 diabetes mellitus-uncontrolled Presentation: 10/15 18:40 Chief complaint: Patient states: Pain in L upper quadrant, frequent urination, ph dizziness, also reports SOB w/ exertion, BGL at home 512, pt type 1 diabetic, took 10 units of regular insulin and 10 units of NPH, also reports recent N/V. Coronavirus screen: Patient denies a cough. Patient denies shortness of breath or difficulty breathing. Patient denies measured and/or subjective temperature greater than 100.4F prior to today's visit. Patient denies travel on a cruise ship or to a country the [facility] currently lists as an affected area. Patient denies contact with known and/or suspected case of COVID-19. Ebola Screen: No symptoms or risks identified at this time. Initial Sepsis Screen: Does the patient meet any 2 criteria? No. Patient's initial sepsis screen is negative. Does the patient have a suspected source of infection? No. Patient's initial sepsis screen is negative. Risk Assessment: Do you want to hurt yourself or someone else? Patient reports no desire to harm self or others. Onset of symptoms was October 16, 2019. 18:40 Method Of Arrival: Ambulatory ph 18:40 Acuity: [place] 2 ph Triage Assessment: 20:37 Respiratory: the patient has moderate shortness of breath. Historical: - Allergies: 18:50 Clindamycin; ph 18:50 Morphine; ph - Home Meds: 18:50 aspirin 81 mg Oral tab 1 tab once daily [Active]; Insulin: Novolin N 10 units Sub-Q ph nightly [Active]; Insulin: Novolin R 10 units Sub-Q every morning [Active]; lisinopril 5 mg Oral tab 1 tab once daily [Active]; Seroquel 200 mg Oral tab 1 tab nightly [Active]; Zoloft 150 mg Oral 1 tab once daily [Active]; Suboxone sublingual sublingual [Active]; - PMHx: 18:50 CVA; Diabetes - IDDM; Hypertension; ph - PSHx: 18:50 None; ph - Social history:: Smoking status: Patient denies any tobacco usage or history of. Screenin:35 Abuse screen: Denies threats or abuse. Nutritional screening: No deficits noted. Tuberculosis screening: No symptoms or risk factors identified. Fall Risk None identified. Assessment: 18:55 General: Appears in no apparent distress. Behavior is cooperative. Pain: Denies pain. Neuro: Level of Consciousness is awake, alert, Oriented to person, place, time, situation. Cardiovascular: Heart tones S1 S2 present Capillary refill < 3 seconds Patient's skin is warm and dry. Pulses are palpable in right radial artery and left radial artery Rhythm is sinus tachycardia. Respiratory: Airway is patent Respiratory effort is even, unlabored, Respiratory pattern is regular, symmetrical, Breath sounds are clear bilaterally. GI: Bowel sounds present X 4 quads. : Reports urinary frequency. Derm: Skin is intact, is healthy with good turgor. Vital Signs: 18:40 BP 139 / 89; Pulse 111; Resp 20; Temp 97.8; Pulse Ox 99% on R/A; Weight 78.47 kg; ph Height 6 ft. 0 in. (182.88 cm); 19:30 BP 151 / 90; Pulse 105; Resp 18; Pulse Ox 98% ; ah 18:40 Body Mass Index 23.46 (78.47 kg, 182.88 cm) ph ED Course: 18:36 Patient arrived in ED. ag5 18:36 Joe Malloy MD is Private Physician. ag5 18:49 Triage completed. ph 18:50 Arm band placed on Patient placed in an exam room. ph 19:10 Daniele Rivera MD is Attending Physician. [facility] 19:43 Abena Canchola, MARU is Primary Nurse. ah 20:36 Patient has correct armband on for positive identification. Placed in gown. Bed in low ah position. Call light in reach. Side rails up X 1. child monitor on. Pulse ox on. NIBP on. 20:46 XRAY Chest (1 view) In Process Unspecified. EDMS Administered Medications: 19:43 Drug: NS 0.9% 1000 ml Route: IV; Rate: 1 bolus; Site: right wrist; 19:44 Drug: NS 0.9% 1000 ml Route: IV; Rate: 1 bolus; Site: right wrist; Point of Care Testing: Blood Glucose: 18:51 Blood Glucose: High (>450 mg/dL); ph Ranges: Outcome: 20:56 Eloped from patient exam room, after seeing physician Pt walked out of room and out of the ER. When staff approached the Pt, he said " dont come near me" Staff explained that he could not leave with an IV in his arm so Pt ripped out his IV and threw it on the floor. Asked Pt why he was leaving and if someone upset him or something happened. Pt proceeded to walk out of the ER. 21:19 Patient left the ED. Signatures: Dispatcher [employer] EDDaniele Chávez MD MD cha Hall, Patricia, RN RN Juliocesar Taylor Amy, RN RN
--- NOTE | 2019-10-16 21:08 | EDPHYS ---
Physician Documentation [facility] Name: Osbaldo León Age: 49 yrs Sex: Male : 1970 Arrival Date: 10/16/2019 Time: 18:36 Bed 17 Private MD: Joe Malloy ED Physician Daniele Rivera HPI: 10/15 19:39 This 49 yrs old Male presents to ER via Ambulatory with complaints of deb Shortness Of Breath, High Blood Pressure. 19:39 The patient has shortness of breath at rest, with light activity. Onset: The deb symptoms/episode began/occurred 2 day(s) ago. Duration: The symptoms are continuous, and are steadily getting worse. The patient's shortness of breath is aggravated by walking, is alleviated by rest. Associated signs and symptoms: Pertinent positives: non-productive cough. Severity of symptoms: At their worst the symptoms were moderate in the emergency department the symptoms are unchanged. The patient has experienced similar episodes in the past, several times. Historical: - Allergies: 18:50 Clindamycin; ph 18:50 Morphine; ph - Home Meds: 18:50 aspirin 81 mg Oral tab 1 tab once daily [Active]; Insulin: Novolin N 10 units Sub-Q ph nightly [Active]; Insulin: Novolin R 10 units Sub-Q every morning [Active]; lisinopril 5 mg Oral tab 1 tab once daily [Active]; Seroquel 200 mg Oral tab 1 tab nightly [Active]; Zoloft 150 mg Oral 1 tab once daily [Active]; Suboxone sublingual sublingual [Active]; - PMHx: 18:50 CVA; Diabetes - IDDM; Hypertension; ph - PSHx: 18:50 None; ph - Social history:: Smoking status: Patient denies any tobacco usage or history of. ROS: 19:40 Constitutional: Negative for fever, chills, and weight loss, Eyes: Negative for injury, deb pain, redness, and discharge, ENT: Negative for injury, pain, and discharge, Neck: Negative for injury, pain, and swelling, Cardiovascular: Negative for chest pain, palpitations, and edema, Respiratory: Negative for shortness of breath, cough, wheezing, and pleuritic chest pain, Back: Negative for injury and pain, : Negative for injury, bleeding, discharge, and swelling, MS/Extremity: Negative for injury and deformity, Skin: Negative for injury, rash, and discoloration, Neuro: Negative for headache, weakness, numbness, tingling, and seizure, Psych: Negative for depression, anxiety, suicide ideation, homicidal ideation, and hallucinations, Allergy/Immunology: Negative for hives, rash, and allergies, Hematologic/Lymphatic: Negative for swollen nodes, abnormal bleeding, and unusual bruising. 19:40 Cardiovascular: Positive for palpitations. 19:40 Abdomen/GI: Positive for abdominal pain. 19:40 Endocrine: Positive for weight loss. Exam: 19:40 Constitutional: This is a well developed, well nourished patient who is awake, alert, deb and in no acute distress. Head/Face: Normocephalic, atraumatic. Eyes: Pupils equal round and reactive to light, extra-ocular motions intact. Lids and lashes normal. Conjunctiva and sclera are non-icteric and not injected. Cornea within normal limits. Periorbital areas with no swelling, redness, or edema. ENT: Nares patent. No nasal discharge, no septal abnormalities noted. Tympanic membranes are normal and external auditory canals are clear. Oropharynx with no redness, swelling, or masses, exudates, or evidence of obstruction, uvula midline. Mucous membranes moist. Neck: Trachea midline, no thyromegaly or masses palpated, and no cervical lymphadenopathy. Supple, full range of motion without nuchal rigidity, or vertebral point tenderness. No Meningismus. Chest/axilla: Normal chest wall appearance and motion. Nontender with no deformity. No lesions are appreciated. Respiratory: Lungs have equal breath sounds bilaterally, clear to auscultation and percussion. No rales, rhonchi or wheezes noted. No increased work of breathing, no retractions or nasal flaring. Abdomen/GI: Soft, non-tender, with normal bowel sounds. No distension or tympany. No guarding or rebound. No evidence of tenderness throughout. Back: No spinal tenderness. No costovertebral tenderness. Full range of motion. Male : Normal genitalia with no discharge or lesions. Skin: Warm, dry with normal turgor. Normal color with no rashes, no lesions, and no evidence of cellulitis. MS/ Extremity: Pulses equal, no cyanosis. Neurovascular intact. Full, normal range of motion. Neuro: Awake and alert, GCS 15, oriented to person, place, time, and situation. Cranial nerves II-XII grossly intact. Motor strength 5/5 in all extremities. Sensory grossly intact. Cerebellar exam normal. Normal gait. Psych: Awake, alert, with orientation to person, place and time. Behavior, mood, and affect are within normal limits. 19:40 Cardiovascular: Rate: tachycardic, Rhythm: regular, Pulses: Pulses are 4+ in bilateral radial, brachial, femoral, popliteal, posterior tibial and and dorsalis pedis arteries.. Heart sounds: normal, Edema: is not appreciated, JVD: is not appreciated. 20:15 ECG was reviewed by the Attending Physician. [facility] Vital Signs: 18:40 BP 139 / 89; Pulse 111; Resp 20; Temp 97.8; Pulse Ox 99% on R/A; Weight 78.47 kg; ph Height 6 ft. 0 in. (182.88 cm); 19:30 BP 151 / 90; Pulse 105; Resp 18; Pulse Ox 98% ; ah 18:40 Body Mass Index 23.46 (78.47 kg, 182.88 cm) ph MDM: 19:10 Patient medically screened. [facility] 19:43 Data reviewed: vital signs, nurses notes, lab test result(s), EKG, radiologic studies, [facility] plain films. 19:50 Differential diagnosis: Anxiety Reaction pulmonary edema, reactive airway disease, deb non-specific abd pain, urinary tract infection, dka. Antibiotic administration: Not indicated. The patient's Wells Deep Vein Thrombosis Score was calculated as follows: Total Score: 0-2 Pts- Low Risk. The patient's pulmonary embolism risk score was calculated as follows: Total Score: 0-2 points. This patient was found to be at low risk for a pulmonary embolism by using the Well's assessment criteria. Immunization status:. Immunization status:. Data interpreted: monitor car operator: rate is 111 beats/min, rhythm is normal sinus rhythm, Pulse oximetry: on room air is 99 %. Test interpretation: by ED physician or midlevel provider: ECG, plain radiologic studies. Counseling: I had a detailed discussion with the patient and/or guardian regarding: the historical points, exam findings, and any diagnostic results supporting the discharge/admit diagnosis, lab results, radiology results. Medication response: improved with fluids. 21:04 ED course: pt got upset for some unk reason, pulled iv out and left, tried to speak to deb him, to no avail, he left. 10/15 19:00 Order name: Glucose, Ancillary Testing; Complete Time: 19:39 [facility] 10/15 19:27 Order name: Urine Dipstick--Ancillary (enter results) ar5 10/15 19:39 Order name: Basic Metabolic Panel [facility] 10/15 19:39 Order name: CBC with Diff; Complete Time: 20:38 [facility] 10/15 19:39 Order name: LFT's [facility] 10/15 19:39 Order name: Magnesium [facility] 10/15 19:39 Order name: NT PRO-BNP [facility] 10/15 19:39 Order name: Troponin (emerg Dept Use Only) [facility] 10/15 19:39 Order name: XRAY Chest (1 view) [facility] 10/15 19:39 Order name: Lipase [facility] 10/15 19:39 Order name: Blood Culture Adult (2) [facility] 10/15 19:39 Order name: ABG [facility] 10/15 20:36 Order name: CBC Smear Scan; Complete Time: 20:38 [facility] 10/15 19:39 Order name: EKG; Complete Time: 19:40 [facility] 10/15 19:39 Order name: Cardiac monitoring; Complete Time: 20:07 [facility] 10/15 19:39 Order name: EKG - Nurse/Tech; Complete Time: 20:07 [facility] 10/15 19:39 Order name: IV Saline Lock; Complete Time: 20:07 [facility] 10/15 19:39 Order name: Labs collected and sent; Complete Time: 20:07 [facility] 10/15 19:39 Order name: O2 Per Protocol; Complete Time: 20:07 [facility] 10/15 19:39 Order name: O2 Sat Monitoring; Complete Time: 20:07 [facility] EC:15 Rate is 98 beats/min. Rhythm is regular. QRS [place] is Normal. MD interval is normal. QRS deb interval is normal. QT interval is normal. No Q waves. T waves are Normal. No ST changes noted. Clinical impression: Normal ECG and No evidence of ischemia. Interpreted by me. Reviewed by me. Administered Medications: 19:43 Drug: NS 0.9% 1000 ml Route: IV; Rate: 1 bolus; Site: right wrist; 19:44 Drug: NS 0.9% 1000 ml Route: IV; Rate: 1 bolus; Site: right wrist; Point of Care Testing: Blood Glucose: 18:51 Blood Glucose: High (>450 mg/dL); ph Ranges: Critical Glucose Levels:Adult <50 mg/dl or >400 mg/dl <40 mg/dl or >180 mg/dl Disposition: 10/16/19 21:06 Patient left the facility after being seen by provider. Preliminary diagnosis are Dyspnea, Essential (primary) hypertension, Type 1 diabetes mellitus - uncontrolled. - Patient left due to unknown. - Condition is Undetermined. - Problem is new. - Symptoms have improved. Signatures: Dispatcher [employer] [facility] Daniele Rivera MD MD cha Hall, Patricia, RN RN Abena Canchola RN RN Corrections: (The following items were deleted from the chart) 20:51 18:52 GLUCOSE+C.LAB.BRZ ordered. [facility] 21:19 21:06 10/16/2019 21:06 Patient left the facility after being seen by provider. Preliminary diagnosis is Dyspnea; Essential (primary) hypertension; Type 1 diabetes mellitus - uncontrolled. Reason stated they are leaving due to unknown. Condition is Undetermined. Problem is new. Symptoms have improved. deb
[2019-10-16 21:12] LABS: Glucose Level 535 mg/dL (74-106)
--- NOTE | 2019-10-16 21:21 | RAD REPORT ---
EXAM DESCRIPTION: Luis Single View10/16/2019 8:45 pm CLINICAL HISTORY: sob COMPARISON: August 2019 FINDINGS: The lungs appear clear of acute infiltrate. The heart is normal size IMPRESSION: No acute abnormalities displayed
[2019-10-16 21:30] VITALS: TEMP 97.8
[2019-10-16 21:31] VITALS: BP 151/90; O2SAT 98
--- NOTE | 2019-10-17 16:30 | EKG ---
Test Date: 2019-10-16 Test Time: 19:14:00 Maintenance Machinist: LOURDES MEASUREMENT RESULTS: Intervals: Rate: 98 MS: 154 QRSD: 92 QT: 350 QTc: 446 [place]: P: 59 MS: 154 QRS: 49 T: 65 INTERPRETIVE STATEMENTS: Normal sinus rhythm Possible Left atrial enlargement Borderline ECG Compared to ECG 08/17/2019 11:13:02 Sinus tachycardia no longer present Electronically Signed On 10-17-19 16:27:39 CDT by Tyler Carey
== END 2019-10-16 21:19 | disposition left against medical advice (07) ==
LOC: ER 18:34
DX: R06.00 Dyspnea, unspecified (principal); I10 Essential (primary) hypertension; E10.8 Type 1 diabetes mellitus with unspecified complications; Z79.4 Long term (current) use of insulin
CPT/HCPCS: 36415; 71045; 80048; 80076; 81003; 82947; 83690; 83735; 83880; 84484; 85025; 87040; 93005; 99284; J7030

== ENCOUNTER 2019-11-19 14:54 | Emergency (ER) | payer SELFPAY ==
[2019-11-19] MEDS ORDERED: NA CHLORIDE 0.9% 1,000 ML ONE ×2 (16:48→18:35)
[2019-11-19 16:59] LABS: Absolute Lymphocytes (CBC) 2.7 K/uL (0.7-4.9); Basophils % 0.6 % (0-1.3); Hematocrit 48.8 % (39.6-49.0); Lymphocytes % 21.8 % (15.3-44.8); MPV 9.2 fL (7.6-11.3)
--- OUTSIDE RECORDS SUMMARY | 2019-11-19 17:03 | XMS REPORT | Continuity of Care Document ---
:1970 Author Organization [facility] t Address [address] [place] [address] [place] [id number] Care Team Providers Name Role Phone Unavailable Unavailable Unavailable Problems This patient has no known problems. Allergies, Adverse Reactions, Alerts This patient has no known allergies or adverse reactions. Medications This patient has no known medications. Procedures This patient has no known procedures. Results This patient has no known results.
--- NOTE | 2019-11-19 17:12 | RAD REPORT ---
EXAM DESCRIPTION: RAD - Abdomen 1 View (KUB) - 11/19/2019 4:49 pm CLINICAL HISTORY: ABD PAIN COMPARISON: No comparisons FINDINGS: Bowel gas pattern is non-specific. No obstruction, free air or pneumatosis. No suspicious calcifications. Phleboliths are present in the pelvis. No significant bony findings IMPRESSION: Negative KUB examination for acute or significant finding.
[2019-11-19 17:19] LABS: ALT/SGPT 22 U/L (12-78); AST/SGOT 29 U/L (15-37); Albumin 4.7 g/dL (3.4-5.0); Alkaline Phosphatase 135 U/L (45-117); BUN Blood Urea Nitrogen 29 mg/dL (7-18); Bicarbonate 21 mmol/L (21-32); Bilirubin Direct 0.2 mg/dL (0-0.2); Glucose Level 90 mg/dL (74-106); Protein, Total 9.3 g/dL (6.4-8.2); Sodium Level 138 mmol/L (136-145)
[2019-11-19] MEDS ORDERED: POTASSIUM 25 MEQ EFFERV TAB ONE (18:35)
--- NOTE | 2019-11-19 18:37 | RAD REPORT ---
EXAM DESCRIPTION: CT - Abdomen Pelvis W Contrast - 11/19/2019 6:08 pm CLINICAL HISTORY: ABD PAIN COMPARISON: <Comparisons> TECHNIQUE: Axial 5 millimeter thick images of the abdomen were obtained following hand injection bo us of nonionic IV contrast. Patient had poor IV access. No oral contrast given. All CT scans are performed using dose optimization technique as appropriate and may include automated exposure control or mA/KV adjustment according to patient size. FINDINGS: No suspicious findings in the lung bases. Liver and spleen show no suspicious findings. No gallbladder or biliary tree abnormality identified. Pancreatic parenchymal atrophy changes are present as seen previously. No acute pancreatic process. Symmetric renal function is seen with no hydronephrosis or suspicious renal mass. No pyelonephritis o r acute parenchymal process. No bladder abnormalities. No adrenal abnormalities. No dilated bowel loops or bowel wall thickening. No acute GI process identifiable. No free air, free fluid or inflammatory stranding. No hernia, mass or bulky lymphadenopathy. No suspicious bony findings. IMPRESSION: Contrast enhanced CT abdomen and pelvis showing no significant or suspicious finding.
--- NOTE | 2019-11-19 18:49 | ER ---
Nurse's Notes [facility] Name: Osbaldo León Age: 49 yrs Sex: Male : 1970 Arrival Date: 11/19/2019 Time: 14:56 Bed 26 Private MD: Diagnosis: Abdominal tenderness;Unspecified kidney failure;Type 1 diabetes mellitus;Hypokalemia;Anxiety disorder, unspecified Presentation: 11/18 15:02 Chief complaint: EMS states: pt has a hx of anxiety/depression, stopped taking meds iw (suboxone) 3-4 days ago bc he felt like the dose was too high, now he "feels like someone messed with my medicine" states the numbness and burning on his left side has gotten worse over past week. Coronavirus screen: Proceed with normal triage. Patient denies a cough. Patient denies shortness of breath or difficulty breathing. Patient denies measured and/or subjective temperature greater than 100.4F prior to today's visit. Patient denies travel on a cruise ship or to a country the [facility] currently lists as an affected area. Patient denies contact with known and/or suspected case of COVID-19. Ebola Screen: Patient negative for fever greater than or equal to 101.5 degrees Fahrenheit, and additional compatible Ebola Virus Disease symptoms Patient denies exposure to infectious person. Patient denies travel to an Ebola-affected area in the 21 days before illness onset. No symptoms or risks identified at this time. Initial Sepsis Screen: Does the patient meet any 2 criteria? No. Patient's initial sepsis screen is negative. Does the patient have a suspected source of infection? No. Patient's initial sepsis screen is negative. Risk Assessment: Do you want to hurt yourself or someone else? Patient reports no desire to harm self or others. Onset of symptoms was November 19, 2019. 15:02 Method Of Arrival: EMS: [facility] iw 15:02 Acuity: [place] 3 iw Triage Assessment: 14:59 General: Appears in no apparent distress. Behavior is anxious. Neuro: No deficits ls4 noted. Cardiovascular: No deficits noted. Respiratory: No deficits noted. Historical: - Allergies: 15:06 Clindamycin; iw 15:06 Morphine; iw - Home Meds: 15:06 aspirin 81 mg Oral tab 1 tab once daily [Active]; lisinopril 5 mg Oral tab 1 tab once iw daily [Active]; Seroquel 200 mg Oral tab 1 tab nightly [Active]; Zoloft 150 mg Oral 1 tab once daily [Active]; Suboxone sublingual [Active]; - PMHx: 15:06 CVA; Diabetes - IDDM; Hypertension; iw - PSHx: 15:06 None; iw - Immunization history:: Adult Immunizations up to date. - Social history:: Smoking status: unknown. Screenin:00 Abuse screen: Denies threats or abuse. Denies injuries from another. Nutritional ls4 screening: No deficits noted. Tuberculosis screening: No symptoms or risk factors identified. Fall Risk None identified. Assessment: 15:00 Reassessment: attempted to start IV. upon starting IV, pt jumped up and pulled away ls4 from nurse and stated that it hurt. General: Appears in no apparent distress. comfortable, Behavior is anxious, uncooperative. Pain:. 15:00 Neuro: Level of Consciousness is awake, alert, obeys commands, Oriented to person, ls4 place, time, situation. Cardiovascular: Denies chest pain. Respiratory: Airway is patent Respiratory effort is even, unlabored, Respiratory pattern is regular, Breath sounds are clear bilaterally. GI: Abdomen is non-distended, Bowel sounds present X 4 quads. Derm: Skin is pink, warm \\T\\ dry. 17:15 Reassessment: Patient appears in no apparent distress at this time. Patient and/or ls4 family updated on plan of care and expected duration. Pain level reassessed. Patient is alert, oriented x 3, equal unlabored respirations, skin warm/dry/pink. Vital Signs: 15:02 BP 103 / 83; Pulse 111; Resp 16 S; Temp 98.3; Pulse Ox 97% on R/A; iw 16:00 BP 122 / 68; Pulse 89; Resp 16; Pulse Ox 99% on R/A; Pain 0/10; ls4 17:00 BP 117 / 74; Pulse 92; Resp 19; Pulse Ox 99% on R/A; ls4 18:32 BP 118 / 64; Pulse 88; Resp 18; Temp 98.2(O); Pulse Ox 98% on R/A; Pain 0/10; ls4 ED Course: 14:56 Patient arrived in ED. iw 15:00 Daniele Rivera MD is Attending Physician. [facility] 15:00 Patient has correct armband on for positive identification. Allergy band placed. Bed in ls4 low position. Call light in reach. Side rails up X 1. Pulse ox on. NIBP on. Warm blanket given. Verbal reassurance given. Diet: Patient is NPO. 15:00 No provider procedures requiring assistance completed. Patient maintains SpO2 ls4 saturation greater than 95% on room air. 15:05 Triage completed. iw 15:06 Arm band placed on. iw 15:59 Alla Tubbs, RN is Primary Nurse. ls4 16:37 Initial lab(s) drawn, by ma, sent to lab. Inserted saline lock: 22 gauge in left hand, em1 using aseptic technique. Blood collected. 16:49 Abdomen 1 View (KUB) XRAY In Process Unspecified. EDMS 18:08 CT Abd/Pelvis - IV Contrast Only In Process Unspecified. EDMS 19:01 IV discontinued, intact, bleeding controlled, No redness/swelling at site. Pressure ls4 dressing applied. Administered Medications: 16:24 Drug: NS 0.9% 1000 ml Route: IV; Rate: 1 bolus; Site: left hand; ls4 18:21 Drug: NS 0.9% 1000 ml Route: IV; Rate: 1 bolus; Site: left antecubital; ls4 18:21 Drug: Potassium Effervescent Tablet 50 mEq Route: PO; ls4 Outcome: 18:48 Discharge ordered by . deb 19:12 Patient left the ED. ls4 19:12 Discharged to home ambulatory. ls4 19:12 Condition: stable 19:12 Discharge instructions given to patient, Instructed on discharge instructions, follow up and referral plans. medication usage, Demonstrated understanding of instructions, follow-up care, medications, Prescriptions given X 3. Signatures: Dispatcher [employer] EDME Daniele Rivera MD MD cha Williams, Irene, RN MARU Nikos Young em1 Alla Tubbs, MARU RN ls4 Corrections: (The following items were deleted from the chart) [id number] 00:11 07/06 19:45 Patient left the ED. ls4 ls4
--- NOTE | 2019-11-19 18:49 | EDPHYS ---
Physician Documentation [facility] Name: Osbaldo León Age: 49 yrs Sex: Male : 1970 Arrival Date: 11/19/2019 Time: 14:56 Bed 26 Private MD: MIKE Physician Daniele Rivera HPI: 11/18 16:08 This 49 yrs old Male presents to ER via EMS with complaints of abdominal pain deb and psych issues. 16:08 The patient presents to the emergency department with anxiety, depression. Onset: The deb symptoms/episode began/occurred 2 day(s) ago. Past psychiatric history: Prior diagnosis: bipolar disorder, schizophrenia. The patient presents with abdominal pain in the left lower quadrant. Onset: The symptoms/episode began/occurred 2 day(s) ago. Associated signs and symptoms: The patient has no apparent associated signs or symptoms. Associated signs and symptoms: none. Severity of pain: At its worst the pain was mild in the emergency department the pain is unchanged. Historical: - Allergies: 15:06 Clindamycin; iw 15:06 Morphine; iw - Home Meds: 15:06 aspirin 81 mg Oral tab 1 tab once daily [Active]; lisinopril 5 mg Oral tab 1 tab once iw daily [Active]; Seroquel 200 mg Oral tab 1 tab nightly [Active]; Zoloft 150 mg Oral 1 tab once daily [Active]; Suboxone sublingual [Active]; - PMHx: 15:06 CVA; Diabetes - IDDM; Hypertension; iw - PSHx: 15:06 None; iw - Immunization history:: Adult Immunizations up to date. - Social history:: Smoking status: unknown. ROS: 16:10 Constitutional: Negative for fever, chills, and weight loss, Eyes: Negative for injury, deb pain, redness, and discharge, ENT: Negative for injury, pain, and discharge, Neck: Negative for injury, pain, and swelling, Cardiovascular: Negative for chest pain, palpitations, and edema, Respiratory: Negative for shortness of breath, cough, wheezing, and pleuritic chest pain, Back: Negative for injury and pain, : Negative for injury, bleeding, discharge, and swelling, MS/Extremity: Negative for injury and deformity, Skin: Negative for injury, rash, and discoloration, Neuro: Negative for headache, weakness, numbness, tingling, and seizure, Psych: Negative for depression, anxiety, suicide ideation, homicidal ideation, and hallucinations, Allergy/Immunology: Negative for hives, rash, and allergies, Endocrine: Negative for neck swelling, polydipsia, polyuria, polyphagia, and marked weight changes, Hematologic/Lymphatic: Negative for swollen nodes, abnormal bleeding, and unusual bruising. 16:10 Abdomen/GI: Positive for abdominal pain, of the left lower quadrant. Exam: 16:10 Constitutional: This is a well developed, well nourished patient who is awake, alert, deb and in no acute distress. Head/Face: Normocephalic, atraumatic. Eyes: Pupils equal round and reactive to light, extra-ocular motions intact. Lids and lashes normal. Conjunctiva and sclera are non-icteric and not injected. Cornea within normal limits. Periorbital areas with no swelling, redness, or edema. ENT: Nares patent. No nasal discharge, no septal abnormalities noted. Tympanic membranes are normal and external auditory canals are clear. Oropharynx with no redness, swelling, or masses, exudates, or evidence of obstruction, uvula midline. Mucous membranes moist. Neck: Trachea midline, no thyromegaly or masses palpated, and no cervical lymphadenopathy. Supple, full range of motion without nuchal rigidity, or vertebral point tenderness. No Meningismus. Chest/axilla: Normal chest wall appearance and motion. Nontender with no deformity. No lesions are appreciated. Respiratory: Lungs have equal breath sounds bilaterally, clear to auscultation and percussion. No rales, rhonchi or wheezes noted. No increased work of breathing, no retractions or nasal flaring. Back: No spinal tenderness. No costovertebral tenderness. Full range of motion. Male : Normal genitalia with no discharge or lesions. Skin: Warm, dry with normal turgor. Normal color with no rashes, no lesions, and no evidence of cellulitis. MS/ Extremity: Pulses equal, no cyanosis. Neurovascular intact. Full, normal range of motion. Neuro: Awake and alert, GCS 15, oriented to person, place, time, and situation. Cranial nerves II-XII grossly intact. Motor strength 5/5 in all extremities. Sensory grossly intact. Cerebellar exam normal. Normal gait. Psych: Awake, alert, with orientation to person, place and time. Behavior, mood, and affect are within normal limits. 16:10 Cardiovascular: Rate: tachycardic, Rhythm: regular, Pulses: Pulses are 4+ in bilateral radial, brachial, femoral, popliteal, posterior tibial and and dorsalis pedis arteries.. Heart sounds: normal, normal S1and S2, no S3 or S4, no murmur, no rub, no gallop, murmur, not appreciated, Edema: is not appreciated, JVD: is not appreciated. 16:10 Abdomen/GI: Inspection: abdomen appears normal, Bowel sounds: normal, Palpation: mild abdominal tenderness, in the left lower quadrant. 16:10 Psych: Behavior/mood is pleasant, cooperative, Affect is calm, Oriented to person, place, time, Patient has no thoughts/intents to harm self or others. Judgement / Insight is normal. Vital Signs: 15:02 BP 103 / 83; Pulse 111; Resp 16 S; Temp 98.3; Pulse Ox 97% on R/A; iw 16:00 BP 122 / 68; Pulse 89; Resp 16; Pulse Ox 99% on R/A; Pain 0/10; ls4 17:00 BP 117 / 74; Pulse 92; Resp 19; Pulse Ox 99% on R/A; ls4 18:32 BP 118 / 64; Pulse 88; Resp 18; Temp 98.2(O); Pulse Ox 98% on R/A; Pain 0/10; ls4 MDM: 15:00 Patient medically screened. [facility] 16:12 Data reviewed: vital signs, nurses notes, lab test result(s), EKG, radiologic studies, deb plain films. 17:48 Differential diagnosis: drug withdrawal. acute psychotic break, depression, psychosis deb secondary to non-compliance, bowel obstruction, gastritis, urinary tract infection. Data interpreted: radiation monitor: not applicable for this patient encounter. rate is 111 beats/min, rhythm is normal sinus rhythm, regular, Pulse oximetry: on room air is 97 %. Test interpretation: by ED physician or midlevel provider: ECG, plain radiologic studies. Counseling: I had a detailed discussion with the patient and/or guardian regarding: the historical points, exam findings, and any diagnostic results supporting the discharge/admit diagnosis, lab results, radiology results, the need for outpatient follow up, for definitive care, a family practitioner. ED course: abdominal pain persist, left lower quadrant, wbc count 12 k , ct pending and id neg will dc with follow up. 11/18 16:01 Order name: Acetaminophen; Complete Time: 17:39 [facility] 11/18 16:01 Order name: Basic Metabolic Panel; Complete Time: 17:39 [facility] 11/18 16:01 Order name: CBC with Diff; Complete Time: 17:39 [facility] 11/18 16:01 Order name: ETOH Level; Complete Time: 17:39 [facility] 11/18 16:01 Order name: Hepatic Function; Complete Time: 17:39 [facility] 11/18 16:01 Order name: Salicylate; Complete Time: 17:39 [facility] 11/18 16: Order name: EKG; Complete Time: 16:02 [facility] 11/18 16:01 Order name: EKG - Nurse/Tech; Complete Time: 16:37 [facility] 11/18 16:01 Order name: Abdomen 1 View (KUB) XRAY; Complete Time: 17:39 [facility] 11/18 17:41 Order name: CT Abd/Pelvis - IV Contrast Only [facility] 11/18 16:01 Order name: IV Saline Lock; Complete Time: 16:37 [facility] 11/18 16:01 Order name: Labs collected and sent; Complete Time: 16:37 [facility] Administered Medications: 16:24 Drug: NS 0.9% 1000 ml Route: IV; Rate: 1 bolus; Site: left hand; ls4 18:21 Drug: NS 0.9% 1000 ml Route: IV; Rate: 1 bolus; Site: left antecubital; ls4 18:21 Drug: Potassium Effervescent Tablet 50 mEq Route: PO; ls4 Disposition: 11/19/19 18:48 Discharged to Home. Impression: Abdominal tenderness, Unspecified kidney failure, Type 1 diabetes mellitus, Hypokalemia, Anxiety disorder, unspecified. - Condition is Stable. - Discharge Instructions: Abdominal Pain, Adult, Panic Attacks, Potassium Content of Foods, Abdominal Pain, Adult, [id number], Panic Attacks, [id number], Hypokalemia. - Prescriptions for Bentyl 20 mg Oral Tablet - take 1 tablet by ORAL route every 6 hours As needed; 20 tablet. Pepcid 20 mg Oral Tablet - take 1 tablet by ORAL route every 12 hours for 10 days; 20 tablet. Zofran 4 mg Oral Tablet - take 1 tablet by ORAL route every 12 hours As needed; 14 tablet. - Medication Reconciliation Form, Thank You Letter, Antibiotic Education, Prescription Opioid Use form. - Follow up: Private Physician; When: 2 - 3 days; Reason: Recheck today's complaints, Continuance of care, Re-evaluation by your physician. - Problem is new. - Symptoms have improved. Signatures: Dispatcher [employer] EDDaniele Chávez MD MD cha Williams, Irene, RN RN iw Stewart, Lisa, RN RN ls4 Corrections: (The following items were deleted from the chart) 19:21 16:01 Urine Dipstick-Ancillary ordered. deb ls4 19:45 18:48 11/19/2019 18:48 Discharged to Home. Impression: Abdominal tenderness; ls4 Unspecified kidney failure; Type 1 diabetes mellitus; Hypokalemia; Anxiety disorder, unspecified. Condition is Stable. Discharge Instructions: Abdominal Pain, Adult, Potassium Content of Foods, Abdominal Pain, Adult, [id number], Hypokalemia, Panic Attacks, Panic Attacks, [id number]. Prescriptions for Bentyl 20 mg Oral Tablet - take 1 tablet by ORAL route every 6 hours As needed; 20 tablet, Pepcid 20 mg Oral Tablet - take 1 tablet by ORAL route every 12 hours for 10 days; 20 tablet, Zofran 4 mg Oral Tablet - take 1 tablet by ORAL route every 12 hours As needed; 14 tablet. and Forms are Medication Reconciliation Form, Thank You Letter, Antibiotic Education, Prescription Opioid Use. Follow up: Private Physician; When: 2 - 3 days; Reason: Recheck today's complaints, Continuance of care, Re-evaluation by your physician. Problem is new. Symptoms have improved. deb
[2019-11-19 19:55] VITALS: BP 103/83; TEMP 98.3; O2SAT 97
--- NOTE | 2019-11-20 10:56 | EKG ---
Test Date: 2019-11-19 Test Time: 16:23:33 [employer] Sales Advisor: NICOLE MEASUREMENT RESULTS: Intervals: Rate: 126 UT: 140 QRSD: 86 QT: 322 QTc: 466 [place]: P: 60 UT: 140 QRS: 51 T: 59 INTERPRETIVE STATEMENTS: Sinus tachycardia Otherwise normal ECG Compared to ECG 10/16/2019 19:14:00 Sinus rhythm no longer present Electronically Signed On 11-20-19 10:54:04 CDT by Tyler Carey
== END 2019-11-19 19:45 | disposition home or self-care (01) ==
LOC: ER 14:54
DX: N19 Unspecified kidney failure (principal); E23.2 Diabetes insipidus; F41.9 Anxiety disorder, unspecified; I10 Essential (primary) hypertension; Z86.73 Personal history of transient ischemic attack (TIA), and cerebral infarction without residual deficits; Z79.82 Long term (current) use of aspirin; Z88.1 Allergy status to other antibiotic agents; Z88.5 Allergy status to narcotic agent
CPT/HCPCS: 36415; 74018; 74177; 80048; 80076; 80320; 80329; 85025; 93005; 99285; J7030; Q9967

== ENCOUNTER 2020-02-19 06:28 | Inpatient (IN) | payer SELFPAY ==
[2020-02-19] MEDS ORDERED: NA CHLORIDE 0.9% 1,000 ML ONE ×3 (07:27→19:18)
[2020-02-19] MEDS ORDERED: ONDANSETRON 4 MG/2 ML VIAL ONE ×2 (07:27→17:39)
[2020-02-19] MEDS ORDERED: ACETAMINOPHEN 500 MG TAB ONE (07:52)
[2020-02-19] MEDS ORDERED: PROMETHAZINE INJ 25 MG/ML AMP ONE ×2 (07:58→11:30)
[2020-02-19] MEDS ORDERED: INSULIN -REGULAR HUMAN 50 UNIT/0.5 ML ML ONE ×2 (08:21→08:30)
--- NOTE | 2020-02-19 08:22 | RAD REPORT ---
EXAM DESCRIPTION: CT - Abdomen Pelvis W Contrast - 02/19/2020 8:03 am CLINICAL HISTORY: Abdominal pain COMPARISON: August 2019 TECHNIQUE: Computed axial tomography of the abdomen pelvis was obtained. 100 cc Isovue-300 was admin istered intravenously. Oral contrast was not requested which limits evaluation of bowel. All CT scans are performed using dose optimization technique as appropriate and may include automated exposure control or mA/KV adjustment according to patient size. FINDINGS: The liver, spleen, pancreas, adrenal and kidneys appear unremarkable. There is no evidence of diverticulitis. Normal appendix. Small hiatal hernia. Gallstones. No gallbladder wall thickening IMPRESSION: Cholelithiasis without evidence cholecystitis
[2020-02-19] MEDS ORDERED: MEPERIDINE HCL 50 MG/ML ONE (08:54)
[2020-02-19 09:07] LABS: Absolute Lymphocytes (CBC) 0.6 K/uL (0.7-4.9); Basophils % 0.1 % (0-1.3); Hematocrit 38.8 % (39.6-49.0); Lymphocytes % 3.1 % (15.3-44.8); MPV 10.5 fL (7.6-11.3); RBC Red Blood Cell Count 4.19 M/uL (4.33-5.43)
[2020-02-19 09:23] LABS: ALT/SGPT 314 U/L (12-78); AST/SGOT 330 U/L (15-37); Albumin 3.2 g/dL (3.4-5.0); Alkaline Phosphatase 118 U/L (45-117); BUN Blood Urea Nitrogen 24 mg/dL (7-18); Bilirubin Direct 0.4 mg/dL (0-0.2); Bilirubin Total 0.9 mg/dL (0.2-1.0); Glucose Level 491 mg/dL (74-106); Lipase 18 U/L (73-393); Potassium 4.7 mmol/L (3.5-5.1); Protein, Total 7.2 g/dL (6.4-8.2); Sodium Level 138 mmol/L (136-145)
[2020-02-19 09:25] LABS: Bicarbonate 14 mmol/L (21-32)
[2020-02-19] MEDS ORDERED: INSULIN -REGULAR HUMAN 100 UNIT in NA CHLORIDE 0.9% 100 ML IV ONE (10:00)
[2020-02-19 10:21] LABS: Blood Morphology Comment NOT SEEN (NOT SEEN); Platelet Estimate ADEQ
[2020-02-19] MEDS ORDERED: Ringers Lactate 1,000 ML IV ONE (10:21)
--- NOTE | 2020-02-19 10:40 | RAD REPORT ---
EXAM DESCRIPTION: US - Abdomen Exam Limited - 02/19/2020 10:15 am CLINICAL HISTORY: Abdominal pain. COMPARISON: None. FINDINGS: The gallbladder wall is not thickened. A couple of tiny gallstones are present. The biliary tree is normal caliber. IMPRESSION: Several tiny gallstones without evidence of cholecystitis
[2020-02-19 11:00] LABS: Arterial Blood Carboxyhemoglob 1.8 % (0-1.5); Blood O2 Saturation 94.7 % (92-98.5)
--- NOTE | 2020-02-19 11:03 | ER ---
Nurse's Notes [facility] Name: Osbaldo León Age: 49 yrs Sex: Male : 1970 Arrival Date: 02/19/2020 Time: 06:31 Bed 7 Private MD: Diagnosis: Other specified diabetes mellitus with ketoacidosis without coma;Dehydration Presentation: 02/18 06:33 Chief complaint: EMS states: they were toned out for report of pt with nausea and bb vomiting x 4 days. Coronavirus screen: At this time, the client does not indicate any symptoms associated with coronavirus-19. Ebola Screen: No symptoms or risks identified at this time. Initial Sepsis Screen: Does the patient meet any 2 criteria? RR > 20 per min. HR > 90 bpm. Yes Does the patient have a suspected source of infection? No. Patient's initial sepsis screen is negative. Risk Assessment: Do you want to hurt yourself or someone else? Patient reports no desire to harm self or others. Onset of symptoms was February 15, 2020. Care prior to arrival: Medication(s) given: Normal saline infusion, 350 mL zofran 4 mg, IV initiated. 20 GA, in the left hand, Glucose check: 450. 06:33 Method Of Arrival: EMS: [facility] bb 06:33 Acuity: [place] 2 bb Historical: - Allergies: 06:36 Clindamycin; bb 06:36 Morphine; bb - Home Meds: 06:36 aspirin 81 mg Oral tab 1 tab once daily [Active]; Insulin: Novolin N 10 units Sub-Q bb nightly [Active]; Insulin: Novolin R 10 units Sub-Q every morning [Active]; lisinopril 5 mg Oral tab 1 tab once daily [Active]; Methadone 90 mg Oral 1 tab once daily [Active]; Seroquel 200 mg Oral tab 1 tab nightly [Active]; Suboxone sublingual [Active]; Zoloft 150 mg Oral 1 tab once daily [Active]; - PMHx: 06:36 CVA; Diabetes - IDDM; Hypertension; bb - PSHx: 06:36 None; bb - Immunization history:: Adult Immunizations up to date. - Social history:: Smoking status: unknown Patient/guardian denies using alcohol, street drugs. - Family history:: not pertinent. - Hospitalizations: : No recent hospitalization is reported. Screenin:30 Abuse screen: Denies threats or abuse. Nutritional screening: No deficits noted. jb4 Tuberculosis screening: No symptoms or risk factors identified. Fall Risk IV access (20 points). Total Brown Fall Scale indicates No Risk (0-24 pts). Assessment: 06:30 General: Appears in no apparent distress. uncomfortable, Behavior is calm, cooperative, jb4 appropriate for age. Pain: Complains of pain in body aches Pain does not radiate. Pain currently is 8 out of 10 on a pain scale. Quality of pain is described as aching. Neuro: Level of Consciousness is awake, alert, obeys commands, Oriented to person, place, time, situation. Cardiovascular: Patient's skin is warm and dry. Respiratory: Airway is patent Respiratory effort is even, unlabored, Respiratory pattern is regular, symmetrical. GI: Abdomen is flat, non-distended, Bowel sounds present X 4 quads. Abd is soft and non tender X 4 quads. : No signs and/or symptoms were reported regarding the genitourinary system. EENT: No signs and/or symptoms were reported regarding the EENT system. Derm: Skin is intact, Skin is pink, warm \T\ dry. Musculoskeletal: Circulation, motion, and sensation intact. Range of motion: intact in all extremities. 07:45 Reassessment: pt in CT via stretcher. em 07:53 Reassessment: Pt actively vomiting in CT. Dr. Cohn notified, phenergan administered as hb ordered. 08:20 Reassessment: lab at bedside. em 10:01 Reassessment: pt wheeled to US via wheelchair. em 10:20 Reassessment: delay in collecting blood for repeat glucose due to difficult stick, em provider notified, lab called to recollect. 11:05 Reassessment: reports nausea is returning, Dr. Cohn notified. em 12:27 Reassessment: pt reports having stopped taking his methadone due to not being able to em afford it, provider notified. 13:30 Reassessment: Patient appears in no apparent distress at this time. Patient and/or em family updated on plan of care and expected duration. Pain level reassessed. Patient is alert, oriented x 3, equal unlabored respirations, skin warm/dry/pink. Vital Signs: 06:33 BP 124 / 81; Pulse 125; Resp 24 S; Temp 98.3(TE); Pulse Ox 99% on R/A; Weight 74.84 kg bb (R); Height 6 ft. 0 in. (182.88 cm) (R); Pain 8/10; 08:09 BP 142 / 69; Pulse 127; Resp 20; Pulse Ox 100% on R/A; Pain 8/10; em 09:30 BP 118 / 57; Pulse 132; Resp 18; Pulse Ox 99% on R/A; em 11:02 BP 138 / 81; Pulse 135; Resp 18; Temp 98.0(O); Pulse Ox 98% on R/A; em 12:36 BP 149 / 90; Pulse 130; Resp 16; Pulse Ox 100% on R/A; em 13:48 BP 137 / 66; Pulse 129; Resp 18; Pulse Ox 98% on R/A; em 06:33 Body Mass Index 22.38 (74.84 kg, 182.88 cm) ED Course: 06:30 Patient has correct armband on for positive identification. Bed in low position. Call jb4 light in reach. Side rails up X 1. Pulse ox on. NIBP on. 06:31 Patient arrived in ED. cl3 06:35 Triage completed. bb 06:36 Arm band placed on Patient placed in an exam room, on a stretcher, on pulse oximetry. bb 06:46 Jong Gorman, RN is Primary Nurse. jb4 06:57 Chris Cohn MD is Attending Physician. rn 07:10 Maintain EMS IV. Dressing intact. Site clean \T\ dry. Gauge \T\ site: 20 G left hand. em 08:04 CT Abd/Pelvis - IV Contrast Only In Process Unspecified. EDMS 10:15 US Abdomen Limited In Process Unspecified. EDMS 11:01 Quang Lewis is Hospitalizing Provider. rn 14:30 No provider procedures requiring assistance completed. Patient transferred, IV remains em in place. Administered Medications: 07:18 Drug: NS 0.9% 1000 ml Route: IV; Rate: 1000 ml; Site: left hand; em 08:30 Follow up: IV Status: Completed infusion; IV Intake: 1000ml em 07:20 Drug: Zofran (Ondansetron) 4 mg Route: IVP; Site: left hand; em 08:00 Follow up: Response: No adverse reaction; No change in condition em 07:43 Drug: Tylenol 1000 mg Route: PO; em 08:40 Follow up: Response: No adverse reaction; No change in condition em 07:52 Drug: Phenergan 12.5 mg Route: IVP; Site: left hand; hb 08:30 Follow up: Response: No adverse reaction; Nausea is decreased em 08:43 Drug: Insulin Regular Human 5 units {Co-Signature: hb (Anastasia Ureña RN).} Route: IVP; em Site: left hand; 10:55 Follow up: Response: No adverse reaction; Blood sugar is lowered em 08:43 Drug: NS 0.9% 1000 ml Route: IV; Rate: 1000 ml; Site: left hand; em 08:45 Drug: Demerol 25 mg Route: IVP; Site: left hand; em 10:28 Follow up: Response: No adverse reaction; Marked relief of symptoms; Pain is decreased em 08:48 Drug: Insulin Regular Human 10 units {Co-Signature: hb (Anastasia Ureña RN).} Route: em Sub-Q; Site: left lower abdomen; 10:55 Follow up: Response: No adverse reaction; Blood sugar is lowered em 10:32 Drug: Insulin Drip - (Insulin Regular Human 100 units, NS 0.9% 100 ml) {Co-Signature: em iw (Priya Craig RN).} Route: IV; Rate: calculated rate; Site: left hand; 10:32 Drug: Lactated Ringers Solution 1000 ml Route: IV; Rate: 200 ml/hr; Site: left hand; em 11:25 Drug: Phenergan 12.5 mg Route: IVP; Site: left hand; em 11:27 Drug: Ativan 1 mg Route: IVP; Site: left hand; em 12:36 Drug: Ativan 1 mg Route: IVP; Site: left hand; em 13:44 Drug: D5-LR 1000 ml Route: IV; Rate: 250 calculated rate; Site: left hand; em Point of Care Testing: Blood Glucose: 11:30 Blood Glucose: 429 mg/dL; em 12:12 Blood Glucose: 345 mg/dL; em Ranges: Intake: 08:30 IV: 1000ml; Total: 1000ml. em Outcome: 11:02 Decision to Hospitalize by Provider. rn 14:31 Patient left the ED. iw 14:31 Admitted to ICU accompanied by nurse, via wheelchair, room ER 11, with chart, Report em called to MARU Goins 14:31 Condition: good em 14:31 Instructed on the need for transfer, Demonstrated understanding of instructions. Signatures: Dispatcher [employer] Surinder Montano RN RN em Ballard, Brenda, RN RN Priya Craig RN RN iw Chris Cohn MD MD rn Baxter, Heather, RN RN Jong Gorman RN RN jb4 Juan Pedraza cl3 Anastasia Ureña RN Priya Craig RN Corrections: (The following items were deleted from the chart) 14:35 14:31 Admitted to ICU accompanied by nurse, via wheelchair, room ER 11, with chart, em Report called to MARU Goins em
--- NOTE | 2020-02-19 11:03 | EDPHYS ---
Physician Documentation [facility] Name: Osbaldo León Age: 49 yrs Sex: Male : 1970 Arrival Date: 02/19/2020 Time: : Bed 7 Private MD: ED Physician Chris Cohn HPI: 02/18 07:04 This 49 yrs old Male presents to ER via EMS with complaints of Abdominal rn Pain, nausea/vomiting. 07:04 The patient presents to the emergency department with nausea, vomiting, abdominal pain. rn Onset: The symptoms/episode began/occurred 4 day(s) ago. Possible causes: unknown. The symptoms are aggravated by nothing. The symptoms are alleviated by nothing. Severity of symptoms: At their worst the symptoms were moderate in the emergency department the symptoms are unchanged. The patient has experienced similar episodes in the past. The patient has not recently seen a physician. Reports 4 days of nausea/vomiting, central abd pain, reports thirsty and generalized weakness. No blood in emesis or stool. Reports glucose in 400s. No sick contacts. No fever. Reports can't keep anything down. . Historical: - Allergies: 06:36 Clindamycin; bb 06:36 Morphine; bb - Home Meds: 06:36 aspirin 81 mg Oral tab 1 tab once daily [Active]; Insulin: Novolin N 10 units Sub-Q bb nightly [Active]; Insulin: Novolin R 10 units Sub-Q every morning [Active]; lisinopril 5 mg Oral tab 1 tab once daily [Active]; Methadone 90 mg Oral 1 tab once daily [Active]; Seroquel 200 mg Oral tab 1 tab nightly [Active]; Suboxone sublingual [Active]; Zoloft 150 mg Oral 1 tab once daily [Active]; - PMHx: 06:36 CVA; Diabetes - IDDM; Hypertension; bb - PSHx: 06:36 None; bb - Immunization history:: Adult Immunizations up to date. - Social history:: Smoking status: unknown Patient/guardian denies using alcohol, street drugs. - Family history:: not pertinent. - Hospitalizations: : No recent hospitalization is reported. ROS: 07:04 Constitutional: Negative for fever, chills, and weight loss, Eyes: Negative for injury, rn pain, redness, and discharge, Neck: Negative for injury, pain, and swelling, Cardiovascular: Negative for chest pain, palpitations, and edema, Respiratory: Negative for shortness of breath, cough, wheezing, and pleuritic chest pain, Abdomen/GI: + abd pain/nausea/vomiting, negative for diarrhea Back: Negative for injury and pain, MS/Extremity: Negative for injury and deformity, Skin: Negative for injury, rash, and discoloration, Neuro: Negative for headache, numbness, tingling, and seizure. Exam: 07:04 Constitutional: This is a well developed, well nourished patient who is awake, alert, rn and in no acute distress. Head/Face: Normocephalic, atraumatic. Eyes: Pupils equal round and reactive to light, extra-ocular motions intact. Lids and lashes normal. Conjunctiva and sclera are non-icteric and not injected. Cornea within normal limits. Periorbital areas with no swelling, redness, or edema. ENT: dry MM Cardiovascular: Tachycardic, regular Respiratory: Mild tachypnea, no retractions Abdomen/GI: soft, mild periumbilical tenderness, no rebound, non-distended Skin: Warm, dry MS/ Extremity: Pulses equal, no cyanosis. Neurovascular intact. Full, normal range of motion. Equal circumference. Neuro: Awake and alert, GCS 15, oriented to person, place, time, and situation. Vital Signs: 06:33 BP 124 / 81; Pulse 125; Resp 24 S; Temp 98.3(TE); Pulse Ox 99% on R/A; Weight 74.84 kg bb (R); Height 6 ft. 0 in. (182.88 cm) (R); Pain 8/10; 08:09 BP 142 / 69; Pulse 127; Resp 20; Pulse Ox 100% on R/A; Pain 8/10; em 09:30 BP 118 / 57; Pulse 132; Resp 18; Pulse Ox 99% on R/A; em 11:02 BP 138 / 81; Pulse 135; Resp 18; Temp 98.0(O); Pulse Ox 98% on R/A; em 12:36 BP 149 / 90; Pulse 130; Resp 16; Pulse Ox 100% on R/A; em 13:48 BP 137 / 66; Pulse 129; Resp 18; Pulse Ox 98% on R/A; em 06:33 Body Mass Index 22.38 (74.84 kg, 182.88 cm) bb MDM: 06:57 Patient medically screened. rn 11:00 Differential diagnosis: Nonspecific abd pain, gastritis, cholecystitis, pancreatitis, rn appendicitis, diverticulitis, viral gastroenteritis, gastroenteritis, DKA. Data reviewed: vital signs, nurses notes, lab test result(s), radiologic studies, CT scan, ultrasound, and as a result, I will admit patient. Counseling: I had a detailed discussion with the patient and/or guardian regarding: the historical points, exam findings, and any diagnostic results supporting the discharge/admit diagnosis, lab results, radiology results, the need for further work-up and treatment in the hospital. Response to treatment: the patient's symptoms have mildly improved after treatment, and as a result, I will admit patient. Admission orders: after a detailed discussion of the patient's condition and case, the admit orders are written by me. ED course: Pt admitted for DKA, mild elevation of LFTs, alk phos has been elevated before this visit, CT abdomen shows gallstones without infection, ultrasound without biliary tree abnormality or dilated CBD. Will admit to Dr. Lewis, in ICU, for DKA.. 11:41 ED course: Dr. Lewis notified of admission. . rn 02/18 07:03 Order name: Basic Metabolic Panel; Complete Time: 09:27 rn 02/18 07:03 Order name: CBC with Diff; Complete Time: 10:49 rn 02/18 07:03 Order name: Hepatic Function; Complete Time: 09:27 rn 02/18 07:03 Order name: Lipase; Complete Time: 09:27 rn 02/18 07:03 Order name: Ketone, Serum; Complete Time: 09:27 rn 02/18 07:07 Order name: Glucose, Ancillary Testing; Complete Time: 07:44 EDMS 02/18 07:48 Order name: CREATININE WHOLE BLOOD; Complete Time: 07:49 EDMS 02/18 09:45 Order name: Glucose; Complete Time: 11:00 iw 02/18 09:53 Order name: ABG; Complete Time: 11:16 em 02/18 09:54 Order name: Glucose, Ancillary Testing; Complete Time: 09:54 EDMS 02/18 10:21 Order name: Manual Differential; Complete Time: 10:49 EDMS 02/18 10:57 Order name: SARS-COV-2 RT PCR EDMS 02/18 11:41 Order name: Glucose, Ancillary Testing EDMS 02/18 07:03 Order name: CT Abd/Pelvis - IV Contrast Only; Complete Time: 08:29 rn 02/18 09:29 Order name: US Abdomen Limited; Complete Time: 10:49 rn 02/18 12:33 Order name: Glucose, Ancillary Testing EDMS 02/18 13:42 Order name: Glucose, Ancillary Testing EDMS 02/18 07:03 Order name: IV Saline Lock; Complete Time: 07:43 rn 02/18 07:03 Order name: Labs collected and sent; Complete Time: 07:43 rn 02/18 07:03 Order name: Glucose Level; Complete Time: 07:08 rn 02/18 07:04 Order name: EKG; Complete Time: 07:04 rn 02/18 07:04 Order name: EKG - Nurse/Tech; Complete Time: 10:28 rn 02/18 07:30 Order name: Labs - recollect needed: recollect green and lavendar top; Complete Time: bd 07:43 02/18 08:06 Order name: Labs - recollect needed: recollect green and lavendar top; Complete Time: bd 08:46 Administered Medications: 07:18 Drug: NS 0.9% 1000 ml Route: IV; Rate: 1000 ml; Site: left hand; em 08:30 Follow up: IV Status: Completed infusion; IV Intake: 1000ml em 07:20 Drug: Zofran (Ondansetron) 4 mg Route: IVP; Site: left hand; em 08:00 Follow up: Response: No adverse reaction; No change in condition em 07:43 Drug: Tylenol 1000 mg Route: PO; em 08:40 Follow up: Response: No adverse reaction; No change in condition em 07:52 Drug: Phenergan 12.5 mg Route: IVP; Site: left hand; hb 08:30 Follow up: Response: No adverse reaction; Nausea is decreased em 08:43 Drug: Insulin Regular Human 5 units {Co-Signature: hb (Anastasia Ureña RN).} Route: IVP; em Site: left hand; 10:55 Follow up: Response: No adverse reaction; Blood sugar is lowered em 08:43 Drug: NS 0.9% 1000 ml Route: IV; Rate: 1000 ml; Site: left hand; em 08:45 Drug: Demerol 25 mg Route: IVP; Site: left hand; em 10:28 Follow up: Response: No adverse reaction; Marked relief of symptoms; Pain is decreased em 08:48 Drug: Insulin Regular Human 10 units {Co-Signature: hb (Anastasia Ureña RN).} Route: em Sub-Q; Site: left lower abdomen; 10:55 Follow up: Response: No adverse reaction; Blood sugar is lowered em 10:32 Drug: Insulin Drip - (Insulin Regular Human 100 units, NS 0.9% 100 ml) {Co-Signature: em iw (Priya Craig RN).} Route: IV; Rate: calculated rate; Site: left hand; 10:32 Drug: Lactated Ringers Solution 1000 ml Route: IV; Rate: 200 ml/hr; Site: left hand; em 11:25 Drug: Phenergan 12.5 mg Route: IVP; Site: left hand; em 11:27 Drug: Ativan 1 mg Route: IVP; Site: left hand; em 12:36 Drug: Ativan 1 mg Route: IVP; Site: left hand; em 13:44 Drug: D5-LR 1000 ml Route: IV; Rate: 250 calculated rate; Site: left hand; em Point of Care Testing: Blood Glucose: 11:30 Blood Glucose: 429 mg/dL; em 12:12 Blood Glucose: 345 mg/dL; em Ranges: Critical Glucose Levels:Adult <50 mg/dl or >400 mg/dl <40 mg/dl or >180 mg/dl Disposition: 02/19/20 11:02 Hospitalization ordered by Quang Lewis for Inpatient Admission. Preliminary diagnosis are Other specified diabetes mellitus with ketoacidosis without coma, Dehydration. - Bed requested for Intensive Care Unit. - Status is Inpatient Admission. iw - Condition is Stable. - Problem is new. - Symptoms have improved. Signatures: Dispatcher [employer] Marielena Mejia Edgar, RN RN em Kassandra Preston RN RN bb Williams, Irene, RN RN iw Chris Cohn MD MD rn Baxter, Heather, RN RN hb Anastasia Craig RN iw Corrections: (The following items were deleted from the chart) 10:57 10:18 CORONAVIRUS+[email or web address] ordered. EDMS EDMS 14:31 11:02 Hospitalization Ordered by Quang Lewis for Inpatient Admission. Preliminary iw diagnosis is Other specified diabetes mellitus with ketoacidosis without coma; Dehydration. Bed requested for Intensive Care Unit. Status is Inpatient Admission. Condition is Stable. Problem is new. Symptoms have improved. rn
[2020-02-19] MEDS ORDERED: LORazepam 2 MG/ML VIAL ONE (11:30)
[2020-02-19] MEDS ORDERED: D5LR 1,000 ML IV ONE (13:52)
--- NOTE | 2020-02-19 13:54 | P.HP ---
Certification for Inpatient Patient admitted to: Inpatient With expected LOS: >2 Midnights Practitioner: I am a practitioner with admitting privileges, knowledge of patient current condition, hospital course, and medical plan of care. Services: Services provided to patient in accordance with Admission requirements found in Title 42 Section 412.3 of the Code of Federal Regulations Patient History Date of Service: 02/19/20 Reason for admission: Nausea and vomiting History of Present Illness: 49-year-old gentleman with a history of type 1 diabetes, known opioid abuse, recently on methadone maintenance therapy presented to the emergency department with a complaint nausea and vomiting and abdominal pain which has been present for about 4 days. Patient report he stopped taking the methadone about 4 days ago because he could not afford the monthly. Patient denied any fever but endorsed chills. He denied any diarrhea. He denied any dysuria. Blood work done in the emergency department suggested DKA, with glucose up to 500 and bicarb of 14, metabolic acidosis with high anion gap and moderate acetone in the blood. DKA protocol initiated with IV insulin followed by insulin drip and IV normal saline. Patient denied any noncompliance with his insulin. He is admitted for further management. Allergies propoxyphene Allergy (Verified 02/19/20 15:33) Nausea/Vomiting morphine Adverse Reaction (Intermediate, Verified 02/19/20 15:33) pt does not like the way he feels Clindamycin Allergy (Uncoded 02/19/20 15:33) Hives/Rash Home Medications: Alprazolam [Xanax] 0.5 mg PO TID 02/19/20 Amoxicillin 2 cap PO Q8H 02/19/20 Aspirin [Adult Low Dose Aspirin EC] 81 mg PO DAILY 02/19/20 Dicyclomine [Bentyl] 20 mg PO Q12H 02/19/20 Insulin -Regular Human [Novolin -R*] 10 unit SQ BID 02/19/20 Insulin NPH Human Isophane [Novolin N] 10 unit SQ BID 02/19/20 Methadone HCl [Dolophine] 40 mg PO DAILY 02/19/20 Sertraline [Zoloft] 150 mg PO DAILY 02/19/20 Trazodone [Desyrel*] 50 mg PO BEDTIME 02/19/20 hydrOXYzine HCL [Hydroxyzine HCl] 25 mg PO TID PRN 02/19/20 lisinopriL [Lisinopril] 5 mg PO DAILY 02/19/20 - Past Medical/Surgical History -: HTN -: Insulin-dependent diabetes mellitus - Family History Father -: Heart disease Brother -: Diabetes - Social History Alcohol use: No CD- Drugs: No Review of Systems Other: Except as documented, all other systems reviewed and negative. Physical Examination - Physical Exam General: Alert, In no apparent distress, Oriented x3 HEENT: Normocephalic, Mucous membr. moist/pink, Sclerae nonicteric Neck: Supple, JVD not distended Respiratory: Clear to auscultation bilaterally, Normal air movement Cardiovascular: No edema, Normal pulses, Regular rate/rhythm, Normal S1 S2 Capillary refill: <2 Seconds Gastrointestinal: Normal bowel sounds, Soft and benign, Non-distended, No tenderness Musculoskeletal: No swelling, No erythema Integumentary: No rashes Neurological: Normal strength at 5/5 x4 extr, Cranial nerves 3-12 intact Lymphatics: No axilla or inguinal lymphadenopathy - Studies Laboratory Data (last 24 hrs) 02/19/20 10:30: Glucose 456 H* 02/19/20 08:38: WBC 19.5 H, Hgb 12.7 L, Hct 38.8 L, Plt Count 294 02/19/20 08:38: Sodium 138, Potassium 4.7, BUN 24 H, Creatinine 1.51 H, Glucose 491 H*, Total Bilirubin 0.9, AST 330 H*, ALT 314 H*, Alkaline Phosphatase 118 H, Lipase 18 L Assessment and Plan - Problems (Diagnosis) (1) DKA (diabetic ketoacidoses) Current Visit: Yes Status: Acute (2) Substance abuse Current Visit: Yes Status: Acute - Plan Admit to the ICU. Continue DKA protocol initiated in the ED. IV hydration and insulin drip per protocol. Watch for opioid withdrawal. Patient states he has not taken methadone for about 4 days. Need to confirm his methadone program to find out whether to continue the methadone. Monitor BMP. - Advance Directives Does patient have a Living Will: No Does patient have a Durable POA for Healthcare: No
[2020-02-19] MEDS ORDERED: INSULIN -REGULAR HUMAN 100 UNIT in NA CHLORIDE 0.9% 100 ML IV SCH (14:03)
[2020-02-19] MEDS: NACHLORIDE 0.45% 1,000 ML IV SCH ×3 (14:52→22:03)
[2020-02-19] MEDS ORDERED: NACHLORIDE 0.45% 1,000 ML IV ONE ×3 (15:02→23:29)
[2020-02-19 17:03] LABS: Potassium 3.8 mmol/L (3.5-5.1)
[2020-02-19] MEDS: ONDANSETRON 4 MG/2 ML VIAL IV PRN (17:27)
[2020-02-19] MEDS: ENOXAPARIN 40 MG/0.4 ML SQ SCH (17:27)
[2020-02-19] MEDS ORDERED: ENOXAPARIN 40 MG/0.4 ML SQ ONE (17:39)
[2020-02-19] MEDS ORDERED: KCL 20 MEQ/100 mL IVPB 20 MEQ/100 ML BAG IV SCH (18:00)
[2020-02-19] MEDS ORDERED: MELATONIN 5 MG TABLET PO ONE ×2 (20:53→21:30)
[2020-02-19 21:09] LABS: Potassium 4.1 mmol/L (3.5-5.1)
[2020-02-19] MEDS: HYDROCODONE/APAP 10/325 TAB PO PRN (21:30)
[2020-02-20 01:11] LABS: Potassium 3.8 mmol/L (3.5-5.1)
[2020-02-20] MEDS ORDERED: HYDROCODONE/APAP 10/325 TAB ONE ×6 (01:25→23:31)
[2020-02-20] MEDS: HYDROCODONE/APAP 10/325 TAB PO PRN ×5 (01:30→20:29)
[2020-02-20] MEDS: NACHLORIDE 0.45% 1,000 ML IV SCH ×2 (01:33→06:24)
[2020-02-20 05:16] LABS: Magnesium 1.9 mg/dL (1.8-2.4)
[2020-02-20 05:40] LABS: Potassium 3.9 mmol/L (3.5-5.1)
--- NOTE | 2020-02-20 05:57 | EKG ---
Test Date: 2020-02-19 Test Time: 10:25:39 Director Prison: CHASIDY MEASUREMENT RESULTS: Intervals: Rate: 132 WI: 144 QRSD: 88 QT: 306 QTc: 453 Harris: P: 71 WI: 144 QRS: 76 T: 74 INTERPRETIVE STATEMENTS: Sinus tachycardia Possible Left atrial enlargement Nonspecific ST abnormality Abnormal ECG Compared to ECG 11/19/2019 16:23:33 ST (T wave) deviation now present Electronically Signed On 02-20-20 05:55:42 CDT by Tyler Carey
[2020-02-20] MEDS ORDERED: NACHLORIDE 0.45% 1,000 ML IV ONE (06:27)
[2020-02-20] MEDS ORDERED: GLUCAGON 1 MG/VIAL IM PRN ×2 (08:26→21:49)
[2020-02-20] MEDS ORDERED: D50W 25 GM/50 ML SYRINGE/VIAL IV PRN ×2 (08:26→21:49)
[2020-02-20] MEDS: INSULIN 70/30 100 UNITS/ML SQ SCH ×2 (08:30→10:11)
[2020-02-20] MEDS ORDERED: ENOXAPARIN 40 MG/0.4 ML SQ ONE (09:27)
[2020-02-20] MEDS: ONDANSETRON 4 MG/2 ML VIAL IV PRN ×2 (09:28→17:28)
[2020-02-20] MEDS: ENOXAPARIN 40 MG/0.4 ML SQ SCH (09:28)
[2020-02-20] MEDS ORDERED: ONDANSETRON 4 MG/2 ML VIAL ONE ×2 (09:40→17:39)
[2020-02-20] MEDS: D5 0.45 NS 1,000 ML IV SCH ×2 (10:12→18:02)
[2020-02-20] MEDS ORDERED: INSULIN 70/30 100 UNITS/ML SQ ONE (10:21)
[2020-02-20 11:38] LABS: Potassium 4.2 mmol/L (3.5-5.1)
[2020-02-20] MEDS ORDERED: HYDRALAZINE HCL 20 MG/ML VIAL IV PRN (14:21)
--- NOTE | 2020-02-20 14:21 | P.PN ---
Subjective Date of Service: 02/20/20 Chief Complaint: Nausea and vomiting Subjective: Other (Patient is still lethargic. He is unable to tolerate PO. AG reopened. He is still on insulin drip.) Physical Examination - Vital Signs Temperature: 98.5 F Blood Pressure: 151/91 Pulse: 89 Respirations: 20 Pulse Ox (%): 99 - Physical Exam General: Cooperative, Other (lethargic) HEENT: Atraumatic, Normocephalic, EOMI Neck: Supple Respiratory: Clear to auscultation bilaterally, Normal air movement Cardiovascular: No edema, Normal pulses, Regular rate/rhythm, Normal S1 S2 Gastrointestinal: Non-distended, Tenderness Musculoskeletal: No clubbing, No swelling, No contractures, No erythema, No tenderness, No warmth Integumentary: No rashes, No breakdown, No significant lesion, No tenderness/swelling, No erythema, No warmth, No cyanosis Neurological: Normal speech, Normal affect Assessment & Plan - Problems (Diagnosis) (1) DKA (diabetic ketoacidoses) Current Visit: Yes Status: Acute Physician Review Additional Text: Assessment Patient is a 49 year old male with uncontrolled diabetes mellitus admitted with DKA. He is still on insulin drip, unable to be transitioned to a diet due to poor oral intake and extreme nausea. DKA HTN PLAN Continue ICU stay while on insulin drip Change IVF to D5 1/2 NS Monitor fingerstick hourly and BMP q 4 hours Hydralazine PRN for elevated blood pressure, SBP > 170 mmHg
[2020-02-20 15:17] LABS: Potassium 3.9 mmol/L (3.5-5.1)
[2020-02-20] MEDS: ALPRAZOLAM 0.5 MG TABLET PO PRN ×2 (16:33→23:20)
[2020-02-20] MEDS: SERTRALINE HCL 100 MG TAB PO SCH (16:39)
[2020-02-20] MEDS ORDERED: ALPRAZOLAM 0.5 MG TABLET ONE ×2 (16:44→23:31)
[2020-02-20] MEDS ORDERED: D5 0.45 NS 1,000 ML IV ONE (18:14)
[2020-02-20 22:34] LABS: BUN Blood Urea Nitrogen 8 mg/dL (7-18); Bicarbonate 21 mmol/L (21-32); Glucose Level 263 mg/dL (74-106); Potassium 3.9 mmol/L (3.5-5.1); Sodium Level 137 mmol/L (136-145)
[2020-02-20] MEDS: INSULIN -REGULAR HUMAN 50 UNIT/0.5 ML ML SQ SCH (23:21)
[2020-02-20] MEDS ORDERED: INSULIN -REGULAR HUMAN 50 UNIT/0.5 ML ML ONE (23:32)
[2020-02-21] MEDS: HYDROCODONE/APAP 10/325 TAB PO PRN ×5 (00:23→20:20)
[2020-02-21] MEDS: INSULIN -REGULAR HUMAN 50 UNIT/0.5 ML ML SQ SCH ×5 (03:09→21:21)
[2020-02-21] MEDS ORDERED: HYDROCODONE/APAP 10/325 TAB ONE ×3 (03:20→14:22)
[2020-02-21] MEDS ORDERED: INSULIN -REGULAR HUMAN 50 UNIT/0.5 ML ML ONE ×2 (03:21→11:50)
[2020-02-21 05:06] LABS: Absolute Lymphocytes (CBC) 1.8 K/uL (0.7-4.9); Basophils % 0.9 % (0-1.3); Hematocrit 36.2 % (39.6-49.0); MPV 9.1 fL (7.6-11.3); RBC Red Blood Cell Count 4.03 M/uL (4.33-5.43)
[2020-02-21 05:21] LABS: BUN Blood Urea Nitrogen 9 mg/dL (7-18); Bicarbonate 26 mmol/L (21-32); Glucose Level 180 mg/dL (74-106); Magnesium 1.9 mg/dL (1.8-2.4); Phosphorus 1.3 mg/dL (2.5-4.9); Potassium 3.5 mmol/L (3.5-5.1); Sodium Level 139 mmol/L (136-145)
[2020-02-21] MEDS ORDERED: GLUCAGON 1 MG/VIAL IM PRN (07:01)
[2020-02-21] MEDS ORDERED: hydrOXYzine HCL 25 MG TAB PO PRN (07:01)
[2020-02-21] MEDS ORDERED: D50W 25 GM/50 ML SYRINGE/VIAL IV PRN (07:01)
[2020-02-21] MEDS: DICYCLOMINE HCL 10 MG CAP PO SCH ×2 (08:37→20:20)
[2020-02-21] MEDS: ASPIRIN EC 81 MG TAB PO SCH (08:37)
[2020-02-21] MEDS: lisinopriL 5 MG TAB PO SCH (08:39)
[2020-02-21] MEDS ORDERED: ALPRAZOLAM 0.5 MG TABLET ONE (08:47)
[2020-02-21] MEDS ORDERED: lisinopriL 5 MG TAB ONE (08:47)
[2020-02-21] MEDS ORDERED: ASPIRIN EC 81 MG TAB PO ONE (08:47)
[2020-02-21] MEDS ORDERED: ENOXAPARIN 40 MG/0.4 ML SQ ONE (08:47)
[2020-02-21] MEDS ORDERED: DICYCLOMINE HCL 10 MG CAP ONE (08:47)
[2020-02-21] MEDS: METHADONE HCL 10 MG TAB PO SCH (09:00)
[2020-02-21] MEDS: SERTRALINE HCL 100 MG TAB PO SCH ×2 (09:00)
[2020-02-21] MEDS: ENOXAPARIN 40 MG/0.4 ML SQ SCH (09:00)
[2020-02-21] MEDS ORDERED: SODIUM PHOSPHATE 30 MM in NA CHLORIDE 0.9% 500 ML IV ONE (09:00)
[2020-02-21] MEDS: NPH (HUMAN) 100 UNITS/ML INSULIN SQ SCH ×2 (09:00→21:20)
[2020-02-21] MEDS: ALPRAZOLAM 0.5 MG TABLET PO PRN (09:25)
--- NOTE | 2020-02-21 09:56 | P.PN ---
Subjective Date of Service: 02/21/20 Chief Complaint: Nausea and vomiting Subjective: Improving (No acute events Overnite. Patient is not tolerating diet.) Physical Examination - Vital Signs Temperature: 98.1 F Blood Pressure: 132/69 Pulse: 84 Respirations: 20 Pulse Ox (%): 99 - Physical Exam General: In no apparent distress, Cooperative, Other (For energetic) HEENT: Atraumatic, Normocephalic, EOMI Neck: Supple Respiratory: Clear to auscultation bilaterally, Normal air movement Cardiovascular: No edema, Normal pulses, Regular rate/rhythm, Normal S1 S2 Gastrointestinal: Normal bowel sounds, Soft and benign, Non-distended Musculoskeletal: No clubbing, No swelling, No contractures, No erythema, No tenderness, No warmth Integumentary: No rashes, No breakdown, No significant lesion, No tenderness/swelling, No erythema, No warmth, No cyanosis Neurological: Normal speech, Sensation intact, Normal affect Assessment & Plan - Problems (Diagnosis) (1) DKA (diabetic ketoacidoses) Current Visit: Yes Status: Acute Physician Review Additional Text: Assessment Patient is a 49 year old male with uncontrolled diabetes mellitus admitted with DKA. DKA HTN PLAN Transitioned from insulin drip to NPH Continue IV fluid infusion with D5 half NS until patient is tolerating oral diet Monitor for a few hr and transitioned to general floor with no complications Hydralazine PRN for elevated blood pressure, SBP > 170 mmHg
[2020-02-21] MEDS ORDERED: INSULIN 70/30 100 UNITS/ML SQ ONE (10:12)
--- OUTSIDE RECORDS SUMMARY | 2020-02-21 10:22 | XMS REPORT | Continuity of Care Document ---
:1970 Author Organization [facility] t Address [address] [place] [address] [address] [place] [address] Care Team Providers Name Role Phone Yin Craig DO Attending Clinician Problems This patient has no known problems. Allergies, Adverse Reactions, Alerts This patient has no known allergies or adverse reactions. Medications This patient has no known medications. Procedures This patient has no known procedures. Encounters Start End Encounter Admission Attending Care Care Encounter Source Date/Time Date/Time Type Type Clinicians Facility Department ID 2019-12-17 2019-12-17 Emergency LUCIANA Craig [id number] 18:51:00 20:05:00 Eliza Salinas [id number] [place] [id number] [place] [id number] Results This patient has no known results.
--- OUTSIDE RECORDS SUMMARY | 2020-02-21 10:22 | XMS REPORT | Summary of Care ---
:1970 Author Organization [facility] - [facility] Address [address] [place] [id number] Care Team Providers Name Role Phone Binh Aiken Primary Care Provider Reason for Visit Reason Comments WITHDRAWAL Auth/Cert Status Reason Specialty Diagnoses / Referred By Referred To Procedures Contact Contact Emergency Medicine [facility] Em ergency Dept [address] [place] [address] Fax: Encounter Details Date Type Department Care Team Description 12/17/2019 Emergency ADC-Emergency Eliza Craig Withdra wal from Department DO opioids (Primary Dx) [address] [place] [id number] [place] [address] [phone] Allergies Active Allergy Reactions Severity Noted Date Comments Clindamycin Rash 12/26/2015 Morphine Itching 12/17/2019 Pins and needle s documented as of this encounter (statuses as of 12/17/2019) Medications Medication Sig Dispensed Refills Start Date End Date Status insulin regular inject 10 Units 0 Active human 100 unit/mL under the skin 2 injection (two) times daily before breakfast and dinner. insulin NPH 100 inject 10 Units 0 Active unit/mL injection under the skin every morning and evening. methadone 10 mg Take 90 mg by 0 Active tablet mouth daily. zolpidem (AMBIEN) 10 Take 10 mg by 0 Active mg tablet mouth at bedtime. proMETHazine 25 mg Take 1 tablet by 12 tablet 0 07/25/2016 Active tablet mouth every 6 (six) hours as needed for Nausea and Vomiting (N/V). atorvastatin 40 mg Take 1 tablet by 90 tablet 3 08/08/2017 Active tablet mouth every evening. lisinopril 20 mg Take 1 tablet by 90 tablet 2 08/09/2017 Active tablet mouth daily. clopidogrel 75 mg Take 1 tablet by 30 tablet 0 08/09/2017 Active tablet mouth daily. clopidogrel 75 mg Take 1 tablet by 180 tablet 0 08/08/2017 Active tablet mouth daily. ALPRAZolam (XANAX) Take 0.5 mg by 0 Active 0.25 mg tablet mouth 3 (three) times daily. SERTraline (ZOLOFT) Take 150 mg by 0 Active 100 mg tablet mouth daily. haloperidol 10 mg Take 10 mg by 0 Active tablet mouth 2 (two) times daily. cloNIDine 0.1 mg Take 1 tablet by 30 tablet 0 12/17/201912/26 Active tabletIndications: mouth 3 (three) Withdrawal from times daily for opioids 10 days. documented as of this encounter (statuses as of 12/17/2019) Active Problems Problem Noted Date Weakness 08/06/2017 documented as of this encounter (statuses as of 12/17/2019) Immunizations Name Administration Dates Next Due Influenza Virus Vaccine Quad IM 3+ YRS 08/08/2017 documented as of this encounter Social History Tobacco Use Types Packs/Day Years Used Date Never Smoker Smokeless Tobacco: Never Used Sex Assigned at Date Recorded Not on file COVID-19 Exposure Response Date Recorded In the last month, have you been in contact with No / Unsure 12/17/2019 6:37 PM CDT someone who was confirmed or suspected to have Coronavirus / COVID-19? documented as of this encounter Last Filed Vital Signs Vital Sign Reading Time Taken Comments Blood Pressure 161/128 12/17/2019 6:44 PM CDT Pulse 119 12/17/2019 6:44 PM CDT Temperature 37.6 C (99.7 F) 12/17/2019 6:44 PM CDT Respiratory Rate 18 12/17/2019 6:44 PM CDT Oxygen Saturation 98% 12/17/2019 6:44 PM CDT Inhaled Oxygen Concentration - - Weight 79.4 kg (175 lb) 12/17/2019 6:44 PM CDT Height 182.9 cm (6') 12/17/2019 6:44 PM CDT Body Mass Index 23.73 12/17/2019 6:44 PM CDT documented in this encounter Discharge Instructions Eliza Bell DO - 12/17/2019DIAGNOSIS 1. Withdrawal NO LIFE-THREATENING FINDINGS ON TODAY'S EXAM. PROCEDURES IN THE ER TODAY: None MEDICATIONS ADMINISTERED IN THE ER TODAY: Clonidine YOUR PRESCRIPTIONS AND [id number] MEDICATION RECOMMENDATIONS: Clonidine by mouth three times a day to help with withdrawal symptoms. You may also use over the counter imodium to help with your withdrawal symptoms. SPECIAL CARE INSTRUCTIONS: None FOLLOW-UP RECOMMENDATIONS: RECOMMEND FOLLOW-UP WITH A PRIMARY CARE PROVIDER OR SPECIALIST IN 2-5 DAYS, ESPECIALLY IF NO IMPROVEMENT IN SYMPTOMS. TO FOLLOW-UP WITHIN THE [facility], TRY THESE OPTIONS (CLINIC APPOINTMENTS AVAILABLE ON VJFZ-HE-DHAS BASIS): 1. SCHEDULE AN APPOINTMENT ONLINE AT [facility] 2. OR CALL THE [facility] AT OR 3. OR CALL YOUR [facility] PHYSICIAN'S OFFICE DIRECTLY IF YOU ARE ALREADY AN ESTABLISHED [facility] PATIENT. OR, YOU MAY FOLLOW-UP WITH A PROVIDER OF YOUR CHOICE, SUCH : 1. A PHYSICIAN OF YOUR CHOICE 2. [facility], . LOCATIONS IN ED [facility] 3. [facility], [address] [place] [address]; [phone] RETURN TO ER FOR WORSENING OF SYMPTOMS. AttachmentsThe following attachments cannot be sent through Care Everywhere. Opioid Withdrawal (Turkmen)documented in this encounter ED Notes Yumiko Lindquist RN - 12/17/2019 6:37 PM CDTCC: Pt presents to ER from home. Stating that he is withdrawing from methadone. Pt states he has been using it everyday since 2007. Pt stated he cut it in half starting july and was taking 90 mg dailyfor one month. Then stopped taking it and got sick and started taking suboxin and then stopped taking that two weeks ago. + Withdrawal + Diarrhea + Nausea/ Vomiting PMHx: IDDM, drug abuse, depression, anxiety, panic attacks, HTN, stoke PSH: Denies MEDS: See Hx Tetanus: UTD Awake, alert, oriented, resp reg unlabored, skin warm, color appropriate for race, moves all ext without difficulty, amb without assist. Appears in no distress Eliza Craig DO - 12/17/2019 6:29 PM CDT [facility] Emergency Department Note Patient Name: Osbaldo León Date of : 1970 49 year old male Treatment Room: [address] Primary Care Physician: Binh Aiken Patient Escorted by: Self [9] Mode of Arrival: Personal means [1] EMS Treatment Prior to ED Arrival: Travel and Exposure Screening: Symptoms Does patient have any of these symptoms?: (not recorded) Exposure Screening Has patient had contact with someone with a communicable disease in the last month?: (not recorded) Diseases exposed to:: (not recorded) Is Patient ?: (not recorded) Exposure Date: (not recorded) Chief Complaint: Chief Complaint Patient presents with WITHDRAWAL History of Present Illness: Patient presents for eval for withdrawal symptoms. Has been on methadone for 20+ years and took himself off of it beginning of August when he switched to suboxone. Stopped suboxone about 10 days ago.Since then has started with diarrhea, insomnia, goose bumps and general not feeling well. Not usingmeds at home to help with withdrawal. No cp or sob. No n/v. Has h/o htn and IDDM. Here for eval. Past Medical History/Immunizations: Past Medical History: Diagnosis Date HTN (hypertension) IDDM (insulin dependent diabetes mellitus) Insomnia Allergies: Allergies Allergen Reactions Clindamycin Rash Morphine Itching Pins and needles Past Social History: Tobacco Use Never smoked or used smokeless tobacco. Past Surgical History: History reviewed. No pertinent surgical history. Review of Systems: Review of Systems Constitutional: Negative for chills and fever. Respiratory: Negative for shortness of breath. Cardiovascular: Negative for chest pain. Gastrointestinal: Negative for abdominal pain and vomiting. Genitourinary: Negative for dysuria. Musculoskeletal: Negative for arthralgias, neck pain and neck stiffness. Neurological: Negative for dizziness. Psychiatric/Behavioral: Negative for agitation. Endocrine: Negative for goiter. Physical Exam: ED Triage Vitals [12/17/19 1844] Weight 79.4 kg (175 lb) Actual or estimated Estimated by patient/family report Height 1.829 m (6') BP (!) 161/128 Pulse 119 Resp 18 Temp 37.6 C (99.7 F) Temp source Oral SpO2 98 % Measured on Room air Physical Exam Vitals signs and nursing note reviewed. Constitutional: Appearance: Normal appearance. HENT: Head: Normocephalic and atraumatic. Eyes: Extraocular Movements: Extraocular movements intact. Conjunctiva/sclera: Conjunctivae normal. Pupils: Pupils are equal, round, and reactive to light. Neck: Musculoskeletal: Normal range of motion. Cardiovascular: Rate and Rhythm: Normal rate. Abdominal: General: Abdomen is flat. There is no distension. Palpations: There is no mass. Tenderness: There is no abdominal tenderness. There is no guarding. Musculoskeletal: Normal range of motion. Skin: General: Skin is warm. Neurological: General: No focal deficit present. Mental Status: He is alert. Radiology: No results found for this visit on 12/17/19. Lab Results (24h): No results found for this or any previous visit (from the past 24 hour(s)). Orders and Treatments: No orders of the defined types were placed in this encounter. Orders Placed This Encounter Medications ALPRAZolam (XANAX) 0.25 mg tablet SERTraline (ZOLOFT) 100 mg tablet haloperidol 10 mg tablet cloniDINE (CATAPRES-TTS 1) 0.1 mg/24 hr patch 1 Patch ED COURSE patient presents for eval for withdrawal sx for about 10 days. Was on methadone for 20+ years. Stopped in August of this year when he switched to suboxone. Stopped that about 10 days ago when sx started. No cp or sob. Having diarrhea, insomnia, goose bumps and general not feeling well. VSS here in the EC. PERRL. Abdomen soft and not tender. Will give clonidine to help with withdrawal sx. Stable here in the EC and is ok for discharge home with PCP f/u. MDM: Coding Diagnosis/Impression: No diagnosis found. Disposition/Condition: ED Disposition None Discharge Medications: Patient's Medications START taking these medications No medications on file CONTINUE taking these medications which have NOT CHANGED ALPRAZOLAM (XANAX) 0.25 MG TABLET Take 0.5 mg by mouth 3 (three) times daily. ATORVASTATIN 40 MG TABLET Take 1 tablet by mouth every evening. CLOPIDOGREL 75 MG TABLET Take 1 tablet by mouth daily. CLOPIDOGREL 75 MG TABLET Take 1 tablet by mouth daily. HALOPERIDOL 10 MG TABLET Take 10 mg by mouth 2 (two) times daily. INSULIN NPH 100 UNIT/ML INJECTION inject 10 Units under the skin every morning and evening. INSULIN REGULAR HUMAN 100 UNIT/ML INJECTION inject 10 Units under the skin 2 (two) times daily before breakfast and dinner. LISINOPRIL 20 MG TABLET Take 1 tablet by mouth daily. METHADONE 10 MG TABLET Take 90 mg by mouth daily. PROMETHAZINE 25 MG TABLET Take 1 tablet by mouth every 6 (six) hours as needed for Nausea and Vomiting (N/V). SERTRALINE (ZOLOFT) 100 MG TABLET Take 150 mg by mouth daily. ZOLPIDEM (AMBIEN) 10 MG TABLET Take 10 mg by mouth at bedtime. START taking Modified Medications as Prescribed No medications on file STOP taking these medications No medications on file Follow-up: Electronically signed by: Eliza Craig DO 12/17/2019 7:15 PM documented in this encounter Miscellaneous Notes ED Nurse Note - Yumiko Lindquist RN - 12/17/2019 8:03 PM CDTPt given printed and verbal discharge instructions regarding withdrawal, encouraged hydration, Prescriptions provided Clonidine Discussed ibuprofen and to take with food to avoid GI distress. Pt verbalized understanding of instructions, pt awake alert oriented, resp reg unlabored, skin w/d, color appropriate for race, moves all ext well,pt encouraged to follow up with pcp and rehab facility Advised to seek medical attention for new/prolonged/worsening of symptoms, Symptoms increase nausea vomiting, diarrhea No adverse reaction to meds given in ER noted upon discharge PIV d'cd, dressing to site, catheter in tact. Awake, alert oriented, resp reg unlabored, skin w/d, pt leaving amb with steady gait, in no apparent distress, documented in this encounter Plan of Treatment Health Maintenance Due Date Last Done Comments DTaP,Tdap,and Td Vaccines (1 - 1983 Tdap) Depression Screening 1984 INFLUENZA VACCINE (#1) 2020 08/08/2017 PNEUMOCOCCAL 0-64 YEARS COMBINED Aged Out No longer eligible based on SERIES patient's age to complete this topic documented as of this encounter Procedures Procedure Name Priority Date/Time Associated Diagnosis Comme nts ASSIGNMENT OF BENEFITS Routine 12/17/2019 6:33 PM CDT NOTICE OF PRIVACY Routine 12/17/2019 6:32 PM PRACTICES CDT CONSENT/REFUSAL FOR Routine 12/17/2019 6:32 PM DIAGNOSIS AND TREATMENT CDT documented in this encounter Results Not on filedocumented in this encounter Visit Diagnoses Diagnosis Withdrawal from opioids - Primary Drug withdrawal documented in this encounter Administered Medications Medication Order MAR Action Action Date Dose Rate Site cloNIDine (CATAPRES) tablet 0.1 Given 12/17/2019 7:56 PM CDT 0. 1 mg mg 0.1 mg, Oral, ONCE, 1 dose, Tue12/17/19 at 2044, STAT documented in this encounter
[2020-02-21] MEDS ORDERED: ALPRAZOLAM 0.5 MG TABLET PO PRN (14:00)
[2020-02-21 14:15] VITALS: O2SAT 98
[2020-02-21 14:23] VITALS: BMI 22.4
[2020-02-21] MEDS ORDERED: POTASSIUM CL SA 10 MEQ TAB PO ONE (18:00)
[2020-02-21] MEDS ORDERED: TRAZODONE 50 MG TABLET PO SCH (21:00)
[2020-02-22] MEDS: HYDROCODONE/APAP 10/325 TAB PO PRN ×3 (00:14→08:16)
[2020-02-22 06:36] LABS: BUN Blood Urea Nitrogen 8 mg/dL (7-18); Bicarbonate 25 mmol/L (21-32); Glucose Level 132 mg/dL (74-106); Magnesium 1.9 mg/dL (1.8-2.4); Phosphorus 2.3 mg/dL (2.5-4.9); Potassium 3.6 mmol/L (3.5-5.1); Sodium Level 141 mmol/L (136-145)
--- NOTE | 2020-02-22 07:50 | P.DS ---
Admission Date: 02/19/20 Discharge Date: 02/22/20 Disposition: ROUTINE DISCHARGE Discharge Condition: GOOD Reason for Admission: Nausea and vomiting - Problems (1) DKA (diabetic ketoacidoses) Current Visit: Yes Status: Acute Brief History of Present Illness: Please refer to H&P Hospital Course: Patient is a 49 year old male with type I diabets mellitus who was admitted with DKA. He states that he ran out of the needles he uses to draw insulin from the vial, then became too sick to make the trip to [facility] to r efill those needles. He was in DKA during this admission and was managed with insulin infusion. He was been successfully transition to his usual regimen of insulin. Vital Signs/Physical Exam: Temp Pulse Resp BP Pulse Ox 97.8 F 89 16 132/87 96 02/22/20 04:00 02/22/20 04:00 02/22/20 05:16 02/22/20 04:00 02/22/20 05:16 General: Alert, In no apparent distress, Cooperative HEENT: Atraumatic, Normocephalic, EOMI Neck: Supple Respiratory: Clear to auscultation bilaterally, Normal air movement Cardiovascular: No edema, Normal pulses, Regular rate/rhythm, Normal S1 S2 Gastrointestinal: Normal bowel sounds, Soft and benign, Non-distended, No tenderness Musculoskeletal: No clubbing, No swelling, No contractures, No erythema, No tenderness, No warmth Neurological: Normal speech, Normal tone, Normal affect Laboratory Data at Discharge: WBC 9.0 K/uL (4.3-10.9) D 02/21/20 04:39 Hgb 12.6 g/dL (13.6-17.9) L 02/21/20 04:39 Hct 36.2 % (39.6-49.0) L 02/21/20 04:39 Plt Count 240 K/uL (152-406) 02/21/20 04:39 Sodium 141 mmol/L (136-145) 02/22/20 05:45 Potassium 3.6 mmol/L (3.5-5.1) 02/22/20 05:45 BUN 8 mg/dL (7-18) 02/22/20 05:45 Creatinine 0.82 mg/dL (0.55-1.3) 02/22/20 05:45 Glucose 132 mg/dL (74-106) H 02/22/20 05:45 Phosphorus 2.3 mg/dL (2.5-4.9) L D 02/22/20 05:45 Magnesium 1.9 mg/dL (1.8-2.4) 02/22/20 05:45 Total Bilirubin 0.9 mg/dL (0.2-1.0) 02/19/20 08:38 AST 330 U/L (15-37) H* 02/19/20 08:38 ALT 314 U/L (12-78) H* 02/19/20 08:38 Alkaline Phosphatase 118 U/L (45-117) H 02/19/20 08:38 Triglycerides 174 mg/dL (<150) H 02/20/20 04:38 Cholesterol 122 mg/dL (<200) 02/20/20 04:38 HDL Cholesterol 45 mg/dL (40-60) 02/20/20 04:38 Cholesterol/HDL Ratio 2.71 02/20/20 04:38 Lipase 18 U/L (73-393) L 02/19/20 08:38 Home Medications: Alprazolam [Xanax] 0.5 mg PO TID 02/19/20 Aspirin [Adult Low Dose Aspirin EC] 81 mg PO DAILY 02/19/20 Dicyclomine [Bentyl*] 20 mg PO Q12H 02/19/20 Insulin -Regular Human [Novolin -R*] 10 unit SQ BID 02/19/20 Insulin NPH Human Isophane [Novolin N] 10 unit SQ BID 02/19/20 Methadone HCl [Methadone HCl*] 40 mg PO DAILY 02/19/20 Sertraline [Zoloft*] 150 mg PO DAILY 02/19/20 hydrOXYzine HCL [Hydroxyzine HCl] 25 mg PO TID PRN 02/19/20 lisinopriL [Lisinopril] 5 mg PO DAILY 02/19/20 Hydrocodone 10/APAP 325 [[place] 10325*] 1 tab PO Q4H PRN tab 02/22/20 Insulin -Regular Human [Novolin -R*] See Protocol SQ ACHS ml 02/22/20 Diet: ADA
[2020-02-22] MEDS ORDERED: POTASSIUM CL SA 10 MEQ TAB PO ONE (08:00)
[2020-02-22] MEDS: POTASS/SODIUM PHOSPHATE 1 PKT POWD.PACK PO SCH ×3 (08:14→10:00)
[2020-02-22] MEDS: INSULIN -REGULAR HUMAN 50 UNIT/0.5 ML ML SQ SCH (08:15)
[2020-02-22] MEDS: ASPIRIN EC 81 MG TAB PO SCH (08:16)
[2020-02-22] MEDS: SERTRALINE HCL 100 MG TAB PO SCH (08:17)
[2020-02-22] MEDS: lisinopriL 5 MG TAB PO SCH (08:17)
[2020-02-22] MEDS: DICYCLOMINE HCL 10 MG CAP PO SCH (08:18)
[2020-02-22] MEDS: ENOXAPARIN 40 MG/0.4 ML SQ SCH (08:18)
[2020-02-22 08:20] VITALS: BP 140/81
[2020-02-22] MEDS: NPH (HUMAN) 100 UNITS/ML INSULIN SQ SCH (08:34)
[2020-02-22] MEDS: METHADONE HCL 10 MG TAB PO SCH (08:34)
[2020-02-22 09:04] VITALS: TEMP 98
== END 2020-02-22 10:22 | disposition home or self-care (01) | DRG 639 ==
LOC: ER 06:28 → ERHOLD 13:43 → 2ND 02-21 14:39
PROVIDERS: ADMIT Internal Medicine; ATTEND Internal Medicine
DX: E10.10 Type 1 diabetes mellitus with ketoacidosis without coma (principal); I10 Essential (primary) hypertension; F11.10 Opioid abuse, uncomplicated; Z88.1 Allergy status to other antibiotic agents; Z88.5 Allergy status to narcotic agent; Z79.82 Long term (current) use of aspirin; Z79.4 Long term (current) use of insulin; Z79.899 Other long term (current) drug therapy; Z86.73 Personal history of transient ischemic attack (TIA), and cerebral infarction without residual deficits; Z91.14 Patient's other noncompliance with medication regimen; Z79.01 Long term (current) use of anticoagulants; Z20.828 Contact with and (suspected) exposure to other viral communicable diseases
CPT/HCPCS: 36415; 74177; 76705; 80048; 80061; 80076; 82010; 82565; 82805; 82947; 83690; 83735; 84100; 85025; 93005; 96361; 96372; 96374; 96375; 99285; J1650; J1815; J2175; J2405; J2550; J3480; J7030; J7040; J7120; J7121; J7799; Q9967; U0003

== ENCOUNTER 2020-09-06 11:57 | Emergency (ER) | payer SELFPAY ==
--- OUTSIDE RECORDS SUMMARY | 2020-09-06 12:00 | XMS REPORT | Continuity of Care Document ---
:1970 Author Organization [facility] t Address [address] [place] [address] [address] [place] [address] Care Team Providers Name Role Phone Yin [...] Clinicians Facility Department ID 2019-12-17 2019-12-17 Emergency Rafa [facility] [id number] 18:51:00 20:05:00 Eliza Salinas [id number] [place] [id number] [place] [phone] [id number] Results This patient has no known results.
[2020-09-06] MEDS ORDERED: ONDANSETRON 4 MG (ODT) TAB ONE (12:51)
--- NOTE | 2020-09-06 17:46 | ER ---
Nurse's Notes [facility] Name: Osbaldo León Age: 50 yrs Sex: Male : 1970 Arrival Date: 09/06/2020 Time: 12:01 Bed External Waiting Private MD: Diagnosis: Presentation: 09/06 12:28 Chief complaint: Patient states: N/V since 5 am. Hurts all over, states he threw up his ss methadone. No known fever. Coronavirus screen: Client denies travel out of the [place] in the last 14 days. fatigue, nausea, vomiting. Client presents with at least one sign or symptom that may indicate coronavirus-19. Standard/surgical mask placed on the client. Ebola Screen: Patient denies travel to an Ebola-affected area in the 21 days before illness onset. Initial Sepsis Screen: Does the patient meet any 2 criteria? HR > 90 bpm. No. Patient's initial sepsis screen is negative. Does the patient have a suspected source of infection? Yes: Acute abdominal pain. Risk Assessment: Do you want to hurt yourself or someone else? Patient reports no desire to harm self or others. Onset of symptoms was September 06, 2020. 12:28 Method Of Arrival: Ambulatory ss 12:28 Acuity: [place] 3 ss Triage Assessment: 12:30 General: Appears ill, Behavior is calm, cooperative, appropriate for age. Pain: ll1 Complains of pain in all over Quality of pain is described as aching, Aggravated by n/v. Neuro: No deficits noted. Cardiovascular: Reports chest pain, Heart tones S1 S2 Capillary refill < 3 seconds Clubbing of nail beds is absent JVD Patient's skin is warm and dry. Respiratory: No deficits noted. GI: Abdomen is flat, Reports cramping, nausea, vomiting. : No deficits noted. Musculoskeletal: Circulation, motion, and sensation intact. Capillary refill < 3 seconds, Range of motion: intact in all extremities, Reports pain all over. Historical: - Allergies: 12:29 Clindamycin; ss 12:29 Morphine; ss - PMHx: 12:29 CVA; Hypertension; Diabetes - IDDM; ss - PSHx: 12:29 None; ss - Immunization history:: Client reports receiving the 1st dose of the Covid vaccine, Flu vaccine is up to date. - Social history:: Smoking status: Patient denies any tobacco usage or history of. Vital Signs: 12:28 BP 115 / 78; Pulse 104; Resp 17; Temp 97.8; Pulse Ox 100% ; Weight 72.57 kg; Height 5 ss ft. 11 in. (180.34 cm); Pain 10/10; 12:28 Body Mass Index 22.32 (72.57 kg, 180.34 cm) ED Course: 12:01 Patient arrived in ED. ds1 12:29 Triage completed. ss 12:30 Arm band placed on. ss Administered Medications: 12:35 Drug: Zofran (Ondansetron) 4 mg Route: PO; ss Outcome: 17:46 Patient left the ED. Signatures: Lora Galindo ds1 Carey Jewell, RN RN Eddie Pedraza RN RN ll1
[2020-09-06 18:08] VITALS: BP 115/78; TEMP 97.8; O2SAT 100
== END 2020-09-06 17:46 | disposition left against medical advice (07) ==
LOC: ER 11:57
DX: Z53.21 Procedure and treatment not carried out due to patient leaving prior to being seen by health care provider (principal)
CPT/HCPCS: 99282

== ENCOUNTER 2021-01-04 12:45 | Emergency (ER) | payer SELFPAY ==
--- OUTSIDE RECORDS SUMMARY | 2021-01-04 12:47 | XMS REPORT | Continuity of Care Document ---
:1970 Author Organization [facility] t Address [address] [place] [address] [address] [place] [address] Care Team Providers Name Role Phone Callie Perrin RN Attending Clinician Doctor Unassigned, Name Attending Clinician Unavailable Himanshu Attending Clinician Lalit Martinez MD Attending Clinician Kai Guy MD Attending Clinician Felipe ROBBINS Attending Clinician Astrid Arce Attending Clinician Tye ROBBINS Attending Clinician Yin Craig DO Attending Clinician Kai Guy MD Admitting Clinician Tye ROBBINS Admitting Clinician Problems This patient has no known problems. Allergies, Adverse Reactions, Alerts This patient has no known allergies or adverse reactions. Medications This patient has no known medications. Procedures This patient has no known procedures. Encounters Start End Encounter Admission Attending Care Care Encounter Source Date/Time Date/Time Type Type Clinicians Facility Department ID 2020-11-18 2020-11-18 Patient Kelly Perrin [id number] 00:00:00 00:00:00 Outreach E P[place] [id number] [place] [id number] 2020-10-01 2020-10-01 Orders Doctor BEKAH [id number] 00:00:00 00:00:00 Only Unassigned, [place] [id number] [place] [facility] [id number] 2020-09-16 2020-09-16 Patient Kelly Perrin [id number] 00:00:00 00:00:00 Outreach E [place] [id number] [place] [id number] 2020-09-12 2020-09-12 Transition Delfina Downs [id number] 00:00:00 00:00:00 of Care Genevieve Zhao [id number] [place] [id number] 2020-09-12 2020-09-12 Telephone BEKAH Martinez [id number] 00:00:00 00:00:00 Aaron BLANCHARD [id number] [facility] [id number] 2020-09-08 2020-09-11 [facility] Michelle Guyguanakitogwen Shahidnie 1.2.840 .[id number] 09:00:00 14:25:00 Encounter JuwanMichaelMelvin King [place] [id number] .10 [facility] [id number] 2020-09-09 2020-09-09 Transition Delfina Downs [id number] 00:00:00 00:00:00 of Care Genevieve Zhao [id number] [place] [id number] 2020-09-06 2020-09-07 [facility] Ike Soler [facility] [id number] 17:29:00 12:00:00 Encounter Андрей Gamble [id number] [place] [id number] [place] [id number] 2019-12-17 2019-12-17 Emergency [facility] 1.2.840.114 [id number] 18:51:00 20:05:00 Eliza Salinas [id number] [place] [id number] [place] [id number] Results This patient has no known results.
--- NOTE | 2021-01-04 14:44 | ER ---
Nurse's Notes [facility] Name: Osbaldo León Age: 50 yrs Sex: Male : 1970 Arrival Date: 01/04/2021 Time: 12:46 Bed Waiting Private MD: Diagnosis: Presentation: 01/04 13:49 Chief complaint: Patient states: Pt stated, ", I haven't slept in the last 3 days and kg hearing things for the last couple months and I just try to go to sleep." Pt denies having any suicidal or homicidal ideations. Pt stated, " It tells me to leave my house, that I don't live there.". Coronavirus screen: Client denies travel out of the [place] in the last 14 days. At this time, unable to obtain information related to travel outside the [place] At this time, the client does not indicate any symptoms associated with coronavirus-19. Ebola Screen: Patient negative for fever greater than or equal to 101.5 degrees Fahrenheit, and additional compatible Ebola Virus Disease symptoms Patient denies exposure to infectious person. Patient denies travel to an Ebola-affected area in the 21 days before illness onset. Initial Sepsis Screen: Does the patient meet any 2 criteria? No. Patient's initial sepsis screen is negative. Does the patient have a suspected source of infection? No. Patient's initial sepsis screen is negative. Risk Assessment: Do you want to hurt yourself or someone else? Patient reports no desire to harm self or others. Onset of symptoms was January 01, 2021. 13:49 Method Of Arrival: Ambulatory kg 13:49 Acuity: [place] 4 kg Triage Assessment: 13:52 General: Appears in no apparent distress. Behavior is calm, cooperative, appropriate kg for age, quiet. Pain: Complains of pain in left foot Pain radiates to left leg Pain currently is 8 out of 10 on a pain scale. at worst was 10 out of 10 on a pain scale. level that patient reports is acceptable is 3 out of 10 on a pain scale. Quality of pain is described as burning, sharp, tingling. Historical: - Allergies: 13:52 Clindamycin; kg 13:52 Morphine; kg - Home Meds: 13:52 aspirin 81 mg Oral tab 1 tab once daily [Active]; Insulin: Novolin N 10 units Sub-Q kg nightly [Active]; Insulin: Novolin R 10 units Sub-Q every morning [Active]; lisinopril 5 mg Oral tab 1 tab once daily [Active]; Methadone 90 mg Oral 1 tab once daily [Active]; Plavix 75 mg Oral tab 1 tab once daily [Active]; - PMHx: 13:52 CVA; Diabetes - IDDM; Hypertension; [place]; kg - PSHx: 13:52 Cardiac stent; kg - Immunization history:: Adult Immunizations up to date, Client reports receiving the 2nd dose of the Covid vaccine, Moderna Client reports receiving the 1st dose of the Covid vaccine, Moderna Client reports receiving the 2nd dose of the Covid vaccine, Date received: September 25, 2020 Client reports receiving the 1st dose of the Covid vaccine, August 25, 2020. - Social history:: Smoking status: Patient denies any tobacco usage or history of. Patient uses alcohol, occasionally. Screenin:56 Abuse screen: Denies threats or abuse. Denies injuries from another. Nutritional kg screening: No deficits noted. Tuberculosis screening: No symptoms or risk factors identified. Vital Signs: 13:49 BP 113 / 82; Pulse 105; Resp 18; Temp 98.5; Pulse Ox 97% on R/A; Weight 74.84 kg (R); kg Height 6 ft. 0 in. (182.88 cm) (R); Pain 7/10; 13:49 Body Mass Index 22.38 (74.84 kg, 182.88 cm) kg ED Course: 12:46 Patient arrived in ED. as 13:52 Triage completed. kg 13:52 Arm band placed on right wrist. kg Administered Medications: No medications were administered Outcome: 14:43 Patient left the ED. kg Signatures: Sandy Young Kristen, RN RN kg
[2021-01-04 14:48] VITALS: BP 113/82; TEMP 98.5; O2SAT 97
== END 2021-01-04 14:43 | disposition left against medical advice (07) ==
LOC: ER 12:45
DX: Z53.21 Procedure and treatment not carried out due to patient leaving prior to being seen by health care provider (principal)
CPT/HCPCS: 82947; 99281

== ENCOUNTER 2021-01-09 17:50 | Inpatient (IN) | payer SELFPAY ==
--- OUTSIDE RECORDS SUMMARY | 2021-01-09 17:54 | XMS REPORT | Continuity of Care Document ---
:1970 Author Organization [facility] t Address [address] [place] [address] [address] [place] [address] Care Team Providers Name Role Phone Callie [...] 2020-11-18 2020-11-18 Patient Kelly Perrin [id number] 00:00:00 00:00:00 Outreach E Pavel [id number] [place] [id number] 2020-10-01 2020-10-01 Orders Doctor BEKAH [id number] 00:00:00 00:00:00 Only Unassigned, SANTO [id number] [place] [facility] [id number] 2020-09-16 2020-09-16 Patient Kelly Perrin [id number] 00:00:00 00:00:00 Outreach E Pavel [id number] [place] [id number] 2020-09-12 2020-09-12 Transition Delfina Downs [id number] 00:00:00 00:00:00 of Care Genevieve Zhao [id number] [place] [id number] 2020-09-12 2020-09-12 Telephone BEKAH Martinez [id number] 00:00:00 00:00:00 Aaron BLANCHARD [id number] [facility] [id number] 2020-09-08 2020-09-11 [facility] Michelle Guyguanakitogwen Shahidnie 1.2.840 .114 [id number] 09:00:00 14:25:00 Encounter JuwanMichaelMelvin King [place] [id number] [facility] [id number] 2020-09-09 2020-09-09 Transition Delfina Downs [id number] 00:00:00 00:00:00 of Care Genevieve Zhao [id number] [place] [id number] 2020-09-06 2020-09-07 [facility] Ike Soler [facility] [id number] 17:29:00 12:00:00 Encounter Андрей Gamble [id number] [id number] [place] [id number] 2019-12-17 2019-12-17 Emergency [facility] [id number] 18:51:00 20:05:00 Eliza Salinas [id number] [id number] [place] [id number] Results This patient has no known results.
[2021-01-09 18:35] LABS: Absolute Lymphocytes (CBC) 0.9 K/uL (0.7-4.9); Basophils % 0.3 % (0-1.3); Hematocrit 38.5 % (39.6-49.0); Lymphocytes % 10.7 % (15.3-44.8); MPV 9.4 fL (7.6-11.3); Protime INR 1.03; RBC Red Blood Cell Count 4.22 M/uL (4.33-5.43)
[2021-01-09] MEDS ORDERED: ONDANSETRON 4 MG/2 ML VIAL ONE (18:51)
[2021-01-09] MEDS ORDERED: MORPHINE 4 MG/ML SYR ONE (18:51)
[2021-01-09] MEDS ORDERED: NA CHLORIDE 0.9% 1,000 ML ONE ×4 (18:51→20:59)
--- NOTE | 2021-01-09 19:01 | RAD REPORT ---
EXAM DESCRIPTION: Luis Single View01/09/2021 6:36 pm CLINICAL HISTORY: Chest pain COMPARISON: 2019 FINDINGS: The lungs appear clear of acute infiltrate. The heart is normal size IMPRESSION: No acute abnormalities displayed
[2021-01-09 19:02] LABS: White Blood Cell Scan OK (OK)
[2021-01-09 19:03] LABS: Blood Morphology Comment NOT SEEN (NOT SEEN); Platelet Estimate ADEQ
[2021-01-09 19:06] LABS: ALT/SGPT 15 U/L (12-78); AST/SGOT 12 U/L (15-37); Albumin 4.1 g/dL (3.4-5.0); Alkaline Phosphatase 79 U/L (45-117); BUN Blood Urea Nitrogen 45 mg/dL (7-18); Bilirubin Direct 0.3 mg/dL (0-0.2); Bilirubin Total 1.1 mg/dL (0.2-1.0); Glucose Level 582 mg/dL (74-106); Magnesium 2.2 mg/dL (1.8-2.4); NT PRO-BNP 683 pg/mL (<125); Potassium 5.1 mmol/L (3.5-5.1); Protein, Total 7.8 g/dL (6.4-8.2); Sodium Level 129 mmol/L (136-145); Troponin (Emerg Dept Use Only) < 0.02 ng/mL (0.0-0.045)
[2021-01-09 19:08] LABS: Bicarbonate 14 mmol/L (21-32)
[2021-01-09] MEDS ORDERED: INSULIN -REGULAR HUMAN 50 UNIT/0.5 ML ML ONE ×2 (20:12→20:58)
[2021-01-09] MEDS ORDERED: NA CHLORIDE 0.9% 100 ML ONE (20:59)
[2021-01-09] MEDS ORDERED: Ringers Lactate 1,000 ML IV ONE (21:04)
--- NOTE | 2021-01-09 21:26 | RAD REPORT ---
EXAM DESCRIPTION: CT - Chest Abd Pelvis Wo Con - 01/09/2021 9:09 pm CLINICAL HISTORY: Chest and abd pain COMPARISON: 2019 CT abdomen TECHNIQUE: Computed axial tomography of the chest, abdomen and pelvis was obtained. Oral contrast wa s given. IV contrast was not requested. All CT scans are performed using dose optimization technique as appropriate and may include automated exposure control or mA/KV adjustment according to patient size. FINDINGS: The evaluation of mediastinum, minor, vessels and solid organs is limited secondary to the lack of IV contrast administration Some images are degraded by patient motion artifact Lungs are clear. Right hilar calcified node. No mediastinal or left hilar lymphadenopathy. A pleural effusion is not present. A pericardial effusion is not seen. Small hiatal hernia Small gallstones. No gallbladder wall thickening The liver, spleen, pancreas, adrenals and kidneys appear grossly normal There is no evidence of diverticulitis. The rectum is distended with stool measuring 6 centimeters. Moderate amount of stool is present withi n the transverse and right colon. IMPRESSION: The rectum is distended with stool measuring 6 centimeters. Moderate amount of stool is present within the transverse and right colon. Cholelithiasis without evidence of cholecystitis
--- NOTE | 2021-01-09 21:49 | P.HP ---
Certification for Inpatient Patient admitted to: Inpatient With expected LOS: >2 Midnights Patient will require the following post-hospital care: None Practitioner: I am a practitioner with admitting privileges, knowledge of patient current condition, hospital course, and medical plan of care. Services: Services provided to patient in accordance with Admission requirements found in Title 42 Section 412.3 of the Code of Federal Regulations Patient History Date of Service: 01/09/21 Reason for admission: DKA, chest pain History of Present Illness: Mr. León is a 50 yo M with T2DM, HTN, history of opiate abuse now on methadone, h/o of [place] w cardiac stent (6 mo ago) and CVA (2018) who presents to the ED with chest pain and nausea and vomiting. He says the vomiting worsened this morning but has been going on for the past week. He reports night sweats and chills and denies abdominal pain. He has still been giving himself insulin and says that his sugars have been well-controlled. He said this happened two weeks ago as well but the vomiting resolved. He also reports 10/10 constant poking pain in his chest that radiates to the right for the past week. He says he does not have a registered respiratory technician and hasn't seen one since the stent was placed at [facility]. Na 129, K 5.1, Cl 91, CO3 14, BUN 45, Cr 2.07, GFR 34, Glu 582, BNP 683. Initial troponin and EKG wnl. CXR wnl. CT CAP shows rectum is distended with stool measuring 6 cm, moderate amount of stool present within transverse and right colon, and cholelithiasis without evidence of norm cystitis. Received several liters of fluid, single dose of morphine and insulin drip initiated in the ED. Allergies propoxyphene Allergy (Verified 02/19/20 15:33) Nausea/Vomiting morphine Adverse Reaction (Intermediate, Verified 02/19/20 15:33) pt does not like the way he feels Clindamycin Allergy (Uncoded 02/19/20 15:33) Hives/Rash Home Medications: Alprazolam [Xanax] 0.5 mg PO TID 02/19/20 Aspirin [Adult Low Dose Aspirin EC] 81 mg PO DAILY 02/19/20 Dicyclomine [Bentyl*] 20 mg PO Q12H 10/06/20 Insulin -Regular Human [Novolin -R*] 10 unit SQ BID 02/19/20 Insulin NPH Human Isophane [Novolin N] 10 unit SQ BID 02/19/20 Methadone HCl [Methadone HCl*] 40 mg PO DAILY 02/19/20 Sertraline [Zoloft*] 150 mg PO DAILY 02/19/20 hydrOXYzine HCL [Hydroxyzine HCl] 25 mg PO TID PRN 02/19/20 lisinopriL [Lisinopril] 5 mg PO DAILY 02/19/20 Hydrocodone 10/APAP 325 [[place] [address]*] 1 tab PO Q4H PRN tab 02/22/20 Insulin -Regular Human [Novolin -R*] See Protocol SQ ACHS ml 02/22/20 Insulin Regular, Human [Novolin R] See Protocol IJ ACHS #1 vial 02/22/20 NPH, Human Insulin Isophane [Humulin N] 10 unit SQ BID #1 ml 02/22/20 - Past Medical/Surgical History Diabetic: Yes -: HTN -: Insulin-dependent diabetes mellitus -: cva, weaker on the left side, and has slight numbness noted to left side -: opioid abuse -: injury to right eye, poor vision -: depression -: panic attacks -: ibs -: [place] 2020 -: cardiac stent 2020 - Family History Father -: Heart disease Brother -: Diabetes - Social History Smoking Status: Never smoker Alcohol use: Yes CD- Drugs: No Caffeine use: No Place of Residence: Home Review of Systems 10-point ROS is otherwise unremarkable General: Chills, Sweats Cardiovascular: Chest Pain Gastrointestinal: Nausea, Vomiting Physical Examination - Physical Exam General: Alert, In no apparent distress, Oriented x3, Cooperative HEENT: Atraumatic, PERRLA, Mucous membr. moist/pink, EOMI, Sclerae nonicteric Neck: Supple, 2+ carotid pulse no bruit, No LAD, Without JVD or thyroid abnormal ity Respiratory: Clear to auscultation bilaterally, Normal air movement Cardiovascular: Normal S1 S2, Other (tachycardic), Irregular heart rate/rhythm Capillary refill: <2 Seconds Gastrointestinal: Normal bowel sounds, Soft and benign, Non-distended, No ascites, No tenderness, No masses, No rebound, No guarding Musculoskeletal: No tenderness Integumentary: No rashes Neurological: Normal speech, Normal strength at 5/5 x4 extr, Normal tone, Normal affect Lymphatics: No axilla or inguinal lymphadenopathy - Studies Laboratory Data (last 24 hrs) 01/09/21 18:24: Lipase 74 01/09/21 18:24: PT 11.9, INR 1.03 01/09/21 18:24: WBC 8.10, Hgb 12.3 L, Hct 38.5 L, Plt Count 307 01/09/21 18:24: Sodium 129 L, Potassium 5.1, BUN 45 H, Creatinine 2.07 H, Glucose 582 H*, Magnesium 2.2, Total Bilirubin 1.1 H, AST 12 L, ALT 15, Alkaline Phosphatase 79 Assessment and Plan - Problems (Diagnosis) (1) History of CVA (cerebrovascular accident) Current Visit: Yes Status: Chronic (2) CAD (coronary artery disease) Current Visit: Yes Status: Chronic Qualifiers: Coronary Disease-Associated Artery/Lesion type: [place] artery [place] vs. transplanted heart: [place] heart Associated angina: unspecified whether angina present Qualified Code(s): I25.10 - Atherosclerotic heart disease of [place] coronary artery without angina pectoris (3) HTN (hypertension) Current Visit: Yes Status: Chronic Qualifiers: Hypertension type: primary hypertension Qualified Code(s): I10 - Essential (primary) hypertension (4) DKA (diabetic ketoacidoses) Current Visit: No Status: Acute Qualifiers: Diabetes mellitus type: type 1 Diabetes mellitus complication detail: without coma Qualified Code(s): E10.10 - Type 1 diabetes mellitus with ketoacidosis without coma (5) Substance abuse Current Visit: No Status: Chronic - Plan on telemetry, trend troponins, repeat EKG in the AM continue aggressive IVF hydration, insulin drip q4hr BMP and q1hr BG checks, monitor for improvement in kidney function will transition to subQ insulin once AG closes and patient able to tolerate PO thyroid and lipid panel pending hold BP medications DVT ppx Discharge Plan: Home Plan to discharge in: 48 Hours - Advance Directives Does patient have a Living Will: No Does patient have a Durable POA for Healthcare: No - Code Status/Comfort Care Code Status Assessed: Yes (full code ) Critical Care: No Time Spent Managing Pts Care (In Minutes): 70
--- NOTE | 2021-01-09 22:47 | EDPHYS ---
Physician Documentation [facility] Name: Osbaldo León Age: 50 yrs Sex: Male : 1970 Arrival Date: 01/09/2021 Time: 17:51 Bed 15 Private MD: ED Physician Chris Cohn Historical: - Allergies: 01/09 18:39 Clindamycin; aj2 18:39 Morphine; aj2 - Home Meds: 18:39 aspirin 81 mg Oral tab 1 tab once daily [Active]; Insulin: Novolin R 10 units Sub-Q aj2 every morning [Active]; Insulin: Novolin N 10 units Sub-Q nightly [Active]; lisinopril 5 mg Oral tab 1 tab once daily [Active]; Methadone 90 mg Oral 1 tab once daily [Active]; Plavix 75 mg Oral tab 1 tab once daily [Active]; Seroquel 200 mg Oral tab 1 tab nightly [Active]; Suboxone sublingual [Active]; Zoloft 150 mg Oral 1 tab once daily [Active]; - PMHx: 18:39 CVA; Diabetes - IDDM; Hypertension; [place]; aj2 - PSHx: 18:39 cardiac stent; aj2 - Immunization history:: Client reports receiving the 2nd dose of the Covid vaccine, Date received: 2020. - Social history:: Smoking status: unknown Patient/guardian denies using [employer]. Vital Signs: 18:44 BP 93 / 43; Pulse 102; Resp 20; Temp 97.0; Pulse Ox 99% on NC; Weight 72.57 kg; Height aj2 6 ft. (182.88 cm); 19:30 BP 85 / 55; Pulse 96; Resp 20; Temp 98.4; Pulse Ox 98% ; Pain 8/10; mg4 19:45 BP 81 / 38; Pulse 97; Resp 20; Temp 98.4; Pulse Ox 97% ; Pain 8/10; mg4 20:00 BP 78 / 39; Pulse 20; Resp 19; Temp 98.4; Pulse Ox 96% ; Pain 8/10; mg4 20:15 BP 62 / 49; Pulse 108; Resp 18; Temp 98.4; Pulse Ox 98% ; Pain 8/10; mg4 20:30 BP 84 / 39; Pulse 106; Resp 20; Temp 98.6; Pulse Ox 97% ; Pain 8/10; mg4 20:45 BP 91 / 54; Pulse 113; Resp 18; Temp 98.4; Pulse Ox 97% ; Pain 8/10; mg4 21:00 BP 93 / 51; Pulse 111; Resp 16; Temp 98.6; Pulse Ox 100% ; Pain 8/10; mg4 21:30 BP 106 / 61; Pulse 116; Resp 18; Temp 98.4; Pulse Ox 100% ; Pain 8/10; mg4 22:00 BP 107 / 61; Pulse 117; Resp 16; Temp 98.6; Pulse Ox 98% ; Pain 8/10; mg4 22:30 BP 107 / 62; Pulse 116; Resp 17; Temp 98.4; Pulse Ox 100% ; Pain 7/10; mg4 23:00 BP 109 / 58; Pulse 120; Resp 19; Temp 98.4; Pulse Ox 99% ; Pain 6/10; mg4 23:30 BP 127 / 89; Pulse 110; Resp 19; Temp 98.4; Pulse Ox 98% ; Pain 6/10; mg4 01/10 00:00 BP 122 / 86; Pulse 112; Resp 17; Temp 98.4; Pulse Ox 94% ; Pain 6/10; mg4 00:30 BP 96 / 57; Pulse 106; Resp 17; Temp 98.4; Pulse Ox 100% ; Pain 5/10; mg4 01:00 BP 106 / 55; Pulse 118; Resp 18; Temp 98.4; Pulse Ox 100% ; Pain 4/10; mg4 01:30 BP 104 / 56; Pulse 114; Resp 16; Temp 98.4; Pulse Ox 100% ; Pain 2/10; mg4 02:00 BP 109 / 64; Pulse 112; Resp 17; Temp 98.4; Pain 0/10; mg4 02:30 BP 106 / 55; Pulse 17; Resp 16; Temp 98.4; Pulse Ox 100% ; Pain 0/10; mg4 03:00 BP 106 / 62; Pulse 17; Resp 16; Temp 98.4; Pulse Ox 100% ; Pain 0/10; mg4 03:30 BP 111 / 66; Pulse 106; Resp 17; Temp 98.6; Pulse Ox 100% ; Pain 0/10; mg4 04:00 BP 125 / 79; Pulse 112; Resp 17; Temp 98.6; Pulse Ox 100% ; Pain 0/10; mg4 01/09 18:44 Body Mass Index 21.70 (72.57 kg, 182.88 cm) aj2 Procedures: 01/09 20:37 Peripheral line: by aseptic technique a peripheral line was placed in the left rn antecubital vein, By Dr. Cohn using ultrasound guidance, single stick, good flow, easy flush. Tolerated well. MDM: 18:26 Patient medically screened. [facility] 22:42 Data reviewed: vital signs, nurses notes. Counseling: I had a detailed discussion with reginald the patient and/or guardian regarding: the historical points, exam findings, and any diagnostic results supporting the discharge/admit diagnosis, lab results, the need for further work-up and treatment in the hospital. ED course: I discussed the patient with Dominic Bradford whom accepted the patient to Dr. Silva's service. . 01/10 04:21 ED course: Repeat troponin markedly elevated, hospitalist notified, repeat EKG obtained rn and shows sinus tachycardia without ST elevation. Likely type II [place] related to the DKA. Initial troponin negative and earlier EKG without ST elevation as well.. 06:56 ED course: Notified by charge nurse that hospitalist put incorrect order in [facility] rn for heparin order. I reordered heparin drip per [place] protocol in [facility] so the nursing could chart it.. 01/09 17:57 Order name: Basic Metabolic Panel; Complete Time: 19:11 [facility] 01/09 17:57 Order name: CBC with Diff; Complete Time: 19:03 [facility] 01/09 17:57 Order name: LFT's; Complete Time: 19:11 [facility] 01/09 17:57 Order name: Magnesium; Complete Time: 19:11 [facility] 01/09 17:57 Order name: NT PRO-BNP; Complete Time: 19:11 [facility] 01/09 17:57 Order name: PT-INR; Complete Time: 18:42 [facility] 01/09 17:57 Order name: Troponin (emerg Dept Use Only); Complete Time: 19:11 [facility] 01/09 18:20 Order name: Lipase; Complete Time: 19:07 [facility] 01/09 19:02 Order name: CBC Smear Scan; Complete Time: 19:03 EDMS 01/09 20:56 Order name: Glucose, Ancillary Testing; Complete Time: 21:07 EDMS 01/09 21:46 Order name: SARS-COV-2 RT PCR; Complete Time: 22:22 EDMS 01/09 22:03 Order name: Glucose, Ancillary Testing; Complete Time: 22:22 EDMS 01/09 23:58 Order name: Glucose, Ancillary Testing; Complete Time: 00:04 EDMS 01/10 01:05 Order name: Glucose, Ancillary Testing; Complete Time: 01:07 EDMS 01/10 02:10 Order name: Glucose, Ancillary Testing; Complete Time: 02:33 EDMS 01/10 03:24 Order name: Glucose, Ancillary Testing; Complete Time: 03:59 EDMS 01/10 03:27 Order name: Acetone Level; Complete Time: 03:59 EDMS 01/10 03:58 Order name: Basic Metabolic Panel; Complete Time: 03:59 EDMS 01/10 03:58 Order name: Troponin I; Complete Time: 03:59 EDMS 01/10 04:03 Order name: Procalcitonin; Complete Time: 06:56 EDMS 01/10 04:15 Order name: Glucose, Ancillary Testing; Complete Time: 06:56 EDMS 01/10 04:18 Order name: Urine Dipstick-Ancillary; Complete Time: 06:56 EDMS 01/10 05:39 Order name: Glucose, Ancillary Testing; Complete Time: 06:56 EDMS 01/10 05:44 Order name: Urinalysis; Complete Time: 06:56 EDMS 01/10 06:12 Order name: CBC with Automated Diff; Complete Time: 06:56 EDMS 01/10 06:15 Order name: Lactate; Complete Time: 06:56 EDMS 01/10 06:22 Order name: Calcium Level; Complete Time: 06:56 EDMS 01/10 06:22 Order name: Phosphorus; Complete Time: 06:56 EDMS 01/10 06:22 Order name: Lipid Profile; Complete Time: 06:56 EDMS 01/10 06:22 Order name: T4 Free; Complete Time: 06:56 EDMS 01/10 06:22 Order name: Magnesium; Complete Time: 06:56 EDMS 01/10 06:22 Order name: Thyroid Stimulating Hormone; Complete Time: 06:56 EDMS 01/10 06:54 Order name: Glucose, Ancillary Testing; Complete Time: 21:46 EDMS 01/10 07:52 Order name: Basic Metabolic Panel; Complete Time: 21:46 EDMS 01/10 08:08 Order name: Acetone Level; Complete Time: 21:46 EDMS 01/10 08:20 Order name: Glucose, Ancillary Testing; Complete Time: 21:46 EDMS 01/10 08:46 Order name: Hemoglobin A1c; Complete Time: 21:46 EDMS 01/10 09:37 Order name: Glucose, Ancillary Testing; Complete Time: 21:46 EDMS 01/10 10:53 Order name: Troponin I; Complete Time: 21:46 EDMS 01/10 11:13 Order name: Ptt, Activated iw 01/10 11:43 Order name: Glucose, Ancillary Testing; Complete Time: 21:46 EDMS 01/10 11:54 Order name: PTT, Activated Partial Thromb; Complete Time: 21:46 EDMS 01/10 12:15 Order name: Acetone Level; Complete Time: 21:46 EDMS 01/10 13:02 Order name: Basic Metabolic Panel; Complete Time: 21:46 EDMS 01/10 13:02 Order name: Troponin I; Complete Time: 21:46 EDMS 01/10 14:21 Order name: Urine Dipstick-Ancillary; Complete Time: 21:46 EDMS 01/10 16:16 Order name: PTT, Activated Partial Thromb; Complete Time: 21:46 EDMS 01/10 17:12 Order name: Basic Metabolic Panel; Complete Time: 21:46 EDMS 01/10 18:20 Order name: Glucose, Ancillary Testing; Complete Time: 21:46 EDMS 01/10 20:48 Order name: PTT, Activated Partial Thromb; Complete Time: 21:46 EDMS 01/10 20:55 Order name: NT PRO-BNP; Complete Time: 21:46 EDMS 01/10 21:07 Order name: Glucose, Ancillary Testing; Complete Time: 21:46 EDMS 01/10 21:44 Order name: Basic Metabolic Panel; Complete Time: 21:46 EDMS 01/11 00:48 Order name: Troponin I; Complete Time: 20:05 EDMS 01/11 00:50 Order name: NT PRO-BNP; Complete Time: 20:05 EDMS 01/11 02:15 Order name: PTT, Activated Partial Thromb; Complete Time: 20:05 EDMS 01/11 02:16 Order name: CBC with Automated Diff; Complete Time: 20:05 EDMS 01/11 02:25 Order name: Calcium Level; Complete Time: 20:05 EDMS 01/11 02:25 Order name: Phosphorus; Complete Time: 20:05 EDMS 01/11 02:25 Order name: Magnesium; Complete Time: 20:06 EDMS 01/11 02:42 Order name: Comprehensive Metabolic Panel; Complete Time: 20:05 EDMS 01/09 17:57 Order name: XRAY Chest (1 view); Complete Time: 19:03 m 01/09 17:57 Order name: EKG; Complete Time: 17:58 m 01/09 17:57 Order name: Cardiac monitoring; Complete Time: 18:29 m 01/09 17:57 Order name: EKG - Nurse/Tech; Complete Time: 18:30 m 01/09 17:57 Order name: IV Saline Lock; Complete Time: 18:30 [facility] 01/09 17:57 Order name: Labs collected and sent; Complete Time: 18:30 [facility] 01/09 17:57 Order name: O2 Per Protocol; Complete Time: 18:30 m 01/09 17:57 Order name: O2 Sat Monitoring; Complete Time: 18:30 m 01/09 20:15 Order name: CT Chest Abdomen Pelvis W/O Contrast; Complete Time: 21:30 jmm 01/11 07:25 Order name: PTT, Activated Partial Thromb; Complete Time: 20:05 EDMS 01/11 07:36 Order name: NT PRO-BNP; Complete Time: 20:05 EDMS 01/11 08:05 Order name: Osmolality, Serum; Complete Time: 20:05 EDMS 01/11 08:28 Order name: Glucose, Ancillary Testing; Complete Time: 20:05 EDMS 01/11 13:15 Order name: Glucose, Ancillary Testing; Complete Time: 20:05 EDMS 01/11 17:29 Order name: Glucose, Ancillary Testing; Complete Time: 20:05 EDMS 01/12 03:11 Order name: CBC with Automated Diff; Complete Time: 20:05 EDMS 01/12 03:13 Order name: PTT, Activated Partial Thromb; Complete Time: 20:05 EDMS 01/12 03:23 Order name: Comprehensive Metabolic Panel; Complete Time: 20:05 EDMS 01/12 03:23 Order name: Phosphorus; Complete Time: 20:05 EDMS 01/12 03:23 Order name: Magnesium; Complete Time: 20:05 EDMS 01/12 08:33 Order name: Glucose, Ancillary Testing; Complete Time: 20:05 EDMS Administered Medications: 01/09 18:31 Drug: NS 0.9% 1000 ml Route: IV; Rate: 1 bolus; Site: left wrist; tr6 18:31 Drug: morphine 4 mg Route: IVP; Site: left wrist; tr6 18:31 Drug: Zofran (Ondansetron) 4 mg Route: IVP; Site: left wrist; tr6 19:55 Drug: NS 0.9% 1000 ml Route: IV; Rate: 1 bolus; Site: left hand; zb 19:56 Drug: Insulin Regular Human 10 units {Co-Signature: sh9 (Chana Pereyra RN).} Route: IVP; zb Site: left hand; 20:37 Drug: Sodium Bicarbonate 1 amp Route: IVP; Site: left antecubital; bb 20:45 Drug: Insulin Drip - (Insulin Regular Human 100 units, NS 0.9% 100 ml) {Co-Signature: zb mg4 (Lisette Dozier).} Route: IV; Rate: calculated rate; Site: left antecubital; 20:45 Drug: NS 0.9% 1000 ml Route: IV; Rate: 1000 ml; Site: right antecubital; mg4 01/10 07:20 Drug: Heparin ([place]-Bolus No thrombolytic) - HEParin 60 units/kg {Co-Signature: kh1 bb (Kathie Canchola).} Route: IVP; Site: right upper arm; 07:21 Drug: Heparin ([place] Drip) 12 units/kg/hr - (HEParin 15927 units, D5W 500 ml) bb {Co-Signature: kh1 (Kathie Canchola).} Route: IV; Rate: calculated rate; Site: right upper arm; Disposition Summary: 01/09/21 22:46 Hospitalization Ordered Hospitalization Status: Inpatient Admission jmm Provider: Major Silva Condition: Stable jmm Problem: an acute exacerbation jmm Symptoms: have improved jmm Bed/Room Type: Standard [facility] Location: [facility] ER HOLD(01/09/21 23:46) bb Room Assignment: ERHOLD-(01/09/21 23:46) stephanie Diagnosis - Diabetic Ketoacidosis jmm - Chest Pain [facility] Forms: - Medication Reconciliation Form jm - SBAR form [facility] Addendum: 01/14/2021 07:14 Co-signature as Attending Physician, Chris Cohn MD I agree with the assessment and r n plan of care. Attestation: The patient's history, exam findings, diagnostics, and a summary of any interventions or procedures was reviewed in detail with Joni CRAWFORD. 21:32 Addendum: HPI - this is a 50-year-old male with history of diabetes mellitus type j mm presents ER with complaints of vomiting for the past 3 days with substernal chest pain. Patient is concerned he may be having a heart attack. She also states that he has had diabetic ketoacidosis in the past. Review of systems positive for chest pain, vomiting, nausea. All other systems negative Physical exam -HEENT is atraumatic. GEN patient is anxious, alert and oriented x3. Abdomen soft, mildly tender to palpation. Psych patient is anxious. Cardio patient is tachycardic. Resp lungs clear to auscultation bilaterally. Extremities no edema is appreciated bilaterally. Neuro patient is ANO x3. Signatures: Dispatcher [employer] EDMA Joni Ko PA PA jmm Ballard, Brenda, RN RN bb Nieto, Roman, MD MD rn Marinas, Patrick, JENNY CVICU RN pm1 Tanya Elliott RN RN zb Ramnanan, Tiffany, RN RN tr6 Whitley Oliveros2 Lisette Dozier mg4 Chana Pereyra RN 9 Lisette Dozier mg4 Kathie Canchola 1 Corrections: (The following items were deleted from the chart) 01/09 20:48 20:30 CORONAVIRUS+MR.LAB.BRZ ordered. EDMA EDMA 23:46 22:46 Telemetry/MedSurg (Inpatient) [facility] stephanie 23:46 22:46 shola brown
--- NOTE | 2021-01-09 22:47 | ER ---
Nurse's Notes [facility] Name: Osbaldo León Age: 50 yrs Sex: Male : 1970 Arrival Date: 01/09/2021 Time: 17:51 Bed 15 Private MD: Diagnosis: Diabetic Ketoacidosis;Chest Pain Presentation: 01/09 19:00 Chief complaint: Patient states: Patient report radiating c/p x 3 days. Denies any aj2 alleviating factors. Reports pain increases with movement. Coronavirus screen: Vaccine status: Patient reports receiving the 2nd dose of the covid vaccine. Date 2020 Ebola Screen: No symptoms or risks identified at this time. Initial Sepsis Screen: Does the patient meet any 2 criteria? No. Patient's initial sepsis screen is negative. Initial Sepsis Screen: Does the patient have a suspected source of infection?. Risk Assessment: Do you want to hurt yourself or someone else? Patient reports no desire to harm self or others. Onset of symptoms was January 06, 2021. 19:00 Acuity: [place] 2 aj2 19:00 Method Of Arrival: EMS: [facility] aj2 Triage Assessment: 19:00 General: Appears uncomfortable, Behavior is cooperative, agitated, fussy. aj2 Historical: - Allergies: 18:39 Clindamycin; aj2 18:39 Morphine; aj2 - Home Meds: 18:39 aspirin 81 mg Oral tab 1 tab once daily [Active]; Insulin: Novolin R 10 units Sub-Q aj2 every morning [Active]; Insulin: Novolin N 10 units Sub-Q nightly [Active]; lisinopril 5 mg Oral tab 1 tab once daily [Active]; Methadone 90 mg Oral 1 tab once daily [Active]; Plavix 75 mg Oral tab 1 tab once daily [Active]; Seroquel 200 mg Oral tab 1 tab nightly [Active]; Suboxone sublingual [Active]; Zoloft 150 mg Oral 1 tab once daily [Active]; - PMHx: 18:39 CVA; Diabetes - IDDM; Hypertension; [place]; aj2 - PSHx: 18:39 cardiac stent; aj2 - Immunization history:: Client reports receiving the 2nd dose of the Covid vaccine, Date received: 2020. - Social history:: Smoking status: unknown Patient/guardian denies using [employer]. Screenin:33 Abuse screen: Denies threats or abuse. Denies injuries from another. aj2 18:44 Nutritional screening: Reports he has not eaten or drank any fluids all day. Reports he aj2 has access to food.. 18:44 Tuberculosis screening: No symptoms or risk factors identified. Fall Risk None aj2 identified. Assessment: 18:44 Pain: Complains of pain in chest Pain currently is 10 out of 10 on a pain scale. aj2 Quality of pain is described as radiating, Pain began 2-3 days ago. Is continuous, Alleviated by nothing. Aggravated by. Cardiovascular: Rhythm is sinus tachycardia. 19:30 General: Appears distressed, uncomfortable, Behavior is restless, Reports chest pain mg4 and nausea. Neuro: No deficits noted. Cardiovascular: Reports chest pain, lightheadedness, Capillary refill < 3 seconds Patient's skin is warm and dry. Chest pain is described as diffuse. Respiratory: No deficits noted. Airway is patent. GI: Reports nausea. : No deficits noted. EENT: No deficits noted. Musculoskeletal: No deficits noted. 20:30 Reassessment: No changes from previously documented assessment. Patient and/or family mg4 updated on plan of care and expected duration. Pain level reassessed. Patient is alert, oriented x 3, equal unlabored respirations, skin warm/dry/pink. Patient states symptoms have not improved. 21:30 Reassessment: No changes from previously documented assessment. Patient and/or family mg4 updated on plan of care and expected duration. Pain level reassessed. Patient states symptoms have not improved. Pt's BP is very low. Dr Fisher was made aware. assessed the patient, and orders were placed.. 22:00 Reassessment: No changes from previously documented assessment. Patient and/or family mg4 updated on plan of care and expected duration. Pain level reassessed. Patient states symptoms have not improved. continuing to monitor pt's BP at bedside. 23:00 Reassessment: No changes from previously documented assessment. Patient and/or family mg4 updated on plan of care and expected duration. Pain level reassessed. BP is stabalizing. continuing to monitor BP, and execute orders. 01/10 00:00 Reassessment: Patient and/or family updated on plan of care and expected duration. Pain mg4 level reassessed. Patient states feeling better. Cardiovascular: Reports feeling better, just tired. Vital Signs: 01/09 18:44 BP 93 / 43; Pulse 102; Resp 20; Temp 97.0; Pulse Ox 99% on NC; Weight 72.57 kg; Height aj2 6 ft. (182.88 cm); 19:30 BP 85 / 55; Pulse 96; Resp 20; Temp 98.4; Pulse Ox 98% ; Pain 8/10; mg4 19:45 BP 81 / 38; Pulse 97; Resp 20; Temp 98.4; Pulse Ox 97% ; Pain 8/10; mg4 20:00 BP 78 / 39; Pulse 20; Resp 19; Temp 98.4; Pulse Ox 96% ; Pain 8/10; mg4 20:15 BP 62 / 49; Pulse 108; Resp 18; Temp 98.4; Pulse Ox 98% ; Pain 8/10; mg4 20:30 BP 84 / 39; Pulse 106; Resp 20; Temp 98.6; Pulse Ox 97% ; Pain 8/10; mg4 20:45 BP 91 / 54; Pulse 113; Resp 18; Temp 98.4; Pulse Ox 97% ; Pain 8/10; mg4 21:00 BP 93 / 51; Pulse 111; Resp 16; Temp 98.6; Pulse Ox 100% ; Pain 8/10; mg4 21:30 BP 106 / 61; Pulse 116; Resp 18; Temp 98.4; Pulse Ox 100% ; Pain 8/10; mg4 22:00 BP 107 / 61; Pulse 117; Resp 16; Temp 98.6; Pulse Ox 98% ; Pain 8/10; mg4 22:30 BP 107 / 62; Pulse 116; Resp 17; Temp 98.4; Pulse Ox 100% ; Pain 7/10; mg4 23:00 BP 109 / 58; Pulse 120; Resp 19; Temp 98.4; Pulse Ox 99% ; Pain 6/10; mg4 23:30 BP 127 / 89; Pulse 110; Resp 19; Temp 98.4; Pulse Ox 98% ; Pain 6/10; mg4 01/10 00:00 BP 122 / 86; Pulse 112; Resp 17; Temp 98.4; Pulse Ox 94% ; Pain 6/10; mg4 00:30 BP 96 / 57; Pulse 106; Resp 17; Temp 98.4; Pulse Ox 100% ; Pain 5/10; mg4 01:00 BP 106 / 55; Pulse 118; Resp 18; Temp 98.4; Pulse Ox 100% ; Pain 4/10; mg4 01:30 BP 104 / 56; Pulse 114; Resp 16; Temp 98.4; Pulse Ox 100% ; Pain 2/10; mg4 02:00 BP 109 / 64; Pulse 112; Resp 17; Temp 98.4; Pain 0/10; mg4 02:30 BP 106 / 55; Pulse 17; Resp 16; Temp 98.4; Pulse Ox 100% ; Pain 0/10; mg4 03:00 BP 106 / 62; Pulse 17; Resp 16; Temp 98.4; Pulse Ox 100% ; Pain 0/10; mg4 03:30 BP 111 / 66; Pulse 106; Resp 17; Temp 98.6; Pulse Ox 100% ; Pain 0/10; mg4 04:00 BP 125 / 79; Pulse 112; Resp 17; Temp 98.6; Pulse Ox 100% ; Pain 0/10; mg4 01/09 18:44 Body Mass Index 21.70 (72.57 kg, 182.88 cm) aj2 ED Course: 01/09 17:51 Patient arrived in ED. ds1 17:52 Joni Ko PA is PHCP. [facility] 17:52 Riley Pelayo MD is Attending Physician. jm 18:31 Whitley Oliveros is Primary Nurse. aj2 18:31 Inserted saline lock: 18 gauge in left wrist, using aseptic technique. Blood collected. tr6 18:33 No provider procedures requiring assistance completed. EKG done, by ED staff. Oxygen aj2 administration via nasal cannula \T\ 2L/min. 18:33 Patient has correct armband on for positive identification. aj2 18:33 delinquent account clerk on. Pulse ox on. aj2 18:35 XRAY Chest (1 view) In Process Unspecified. EDMS 19:10 Triage completed. aj2 20:00 Attending Physician role handed off by Riley Pelayo MD rn 20:00 Chris Cohn MD is Attending Physician. rn 21:09 CT Chest Abdomen Pelvis W/O Contrast In Process Unspecified. EDMS 22:45 Major Silva MD is Hospitalizing Provider. [facility] Administered Medications: 18:31 Drug: NS 0.9% 1000 ml Route: IV; Rate: 1 bolus; Site: left wrist; tr6 18:31 Drug: morphine 4 mg Route: IVP; Site: left wrist; tr6 18:31 Drug: Zofran (Ondansetron) 4 mg Route: IVP; Site: left wrist; tr6 19:55 Drug: NS 0.9% 1000 ml Route: IV; Rate: 1 bolus; Site: left hand; zb 19:56 Drug: Insulin Regular Human 10 units {Co-Signature: sh9 (Chana Pereyra RN).} Route: IVP; zb Site: left hand; 20:37 Drug: Sodium Bicarbonate 1 amp Route: IVP; Site: left antecubital; bb 20:45 Drug: Insulin Drip - (Insulin Regular Human 100 units, NS 0.9% 100 ml) {Co-Signature: dina mg4 (Lisette Dozier).} Route: IV; Rate: calculated rate; Site: left antecubital; 20:45 Drug: NS 0.9% 1000 ml Route: IV; Rate: 1000 ml; Site: right antecubital; mg4 01/10 07:20 Drug: Heparin ([place]-Bolus No thrombolytic) - HEParin 60 units/kg {Co-Signature: kh1 bb (Kathie Canchola).} Route: IVP; Site: right upper arm; 07:21 Drug: Heparin ([place] Drip) 12 units/kg/hr - (HEParin 69152 units, D5W 500 ml) bb {Co-Signature: kh1 (Kathie Canchola).} Route: IV; Rate: calculated rate; Site: right upper arm; Outcome: 01/09 22:46 Decision to Hospitalize by Provider. reginald 01/12 09:35 Patient left the ED. tr6 Signatures: Dispatcher [employer] EDMS Joni Ko PA PA jmm Sanford, Demi ds1 Kassandra Preston RN RN bb Nieto, Roman, MD MD rn Brown, Zipporah, RN RN zb Ramnanan, Tiffany, RN RN tr6 Whitley Oliveros [place] mg4 Chana Pereyra RN sh9 Lisette Dozier mg4 Kathie Canchola kh1 Corrections: (The following items were deleted from the chart) 01/09 20:59 20:55 Insulin Drip - (Insulin Regular Human 100 units, NS 0.9% 100 ml) IV at calculated zb rate in left antecubital zb
[2021-01-10] MEDS ORDERED: Ringers Lactate 1,000 ML IV ONE (02:05)
[2021-01-10] MEDS: Ringers Lactate 1,000 ML IV SCH ×2 (02:54→06:54)
[2021-01-10] MEDS: D5 0.45 NS 1,000 ML IV SCH ×2 (02:54)
[2021-01-10] MEDS ORDERED: HEPARIN 5000 UNIT/ML 1 ML VIAL SQ SCH (02:54)
[2021-01-10] MEDS ORDERED: INSULIN -REGULAR HUMAN 100 UNIT in NA CHLORIDE 0.9% 100 ML IV SCH (02:54)
[2021-01-10] MEDS ORDERED: D5 0.9 NS 1,000 ML IV ONE (03:29)
[2021-01-10 03:55] LABS: BUN Blood Urea Nitrogen 41 mg/dL (7-18); Bicarbonate 26 mmol/L (21-32); Glucose Level 232 mg/dL (74-106); Potassium 4.2 mmol/L (3.5-5.1); Sodium Level 140 mmol/L (136-145)
[2021-01-10] MEDS ORDERED: D5 0.9 NS 1,000 ML IV SCH (04:00)
[2021-01-10] MEDS ORDERED: ASPIRIN 81 MG CHEWABLE TABLET PO ONE (04:04)
[2021-01-10 04:17] LABS: Urine Blood Trace-lysed (Negative); Urine Glucose 2+ (Negative); Urine Protein Negative (Negative); Urine Specific Gravity 1.015 (1.005-1.030); Urine pH 5.5 (5.0-7.0)
[2021-01-10] MEDS ORDERED: GLUCAGON 1 MG/VIAL IM PRN (04:27)
[2021-01-10] MEDS ORDERED: D50W 25 GM/50 ML SYRINGE IV PRN (04:27)
[2021-01-10] MEDS ORDERED: HEPARIN/D5W 25,000 UNIT/500 ML BAG IV SCH ×2 (05:00→06:12)
[2021-01-10 05:19] LABS: Urine Appearance CLEAR (Clear); Urine Blood NEGATIVE (Negative); Urine Color YELLOW (Yellow); Urine Glucose 3+ (Negative); Urine Protein NEGATIVE (Negative); Urine Specific Gravity 1.015 (1.005-1.030); Urine Urobilinogen 0.2 mg/dL (0.2-1.0)
[2021-01-10 05:43] LABS: Urine Bilirubin NEGATIVE (Negative); Urine Microscopic Reflex NO UMIC
[2021-01-10 06:07] LABS: Basophils % 0.3 % (0-1.3); Hematocrit 35.9 % (39.6-49.0); Lymphocytes % 15.2 % (15.3-44.8); MPV 8.8 fL (7.6-11.3); RBC Red Blood Cell Count 4.11 M/uL (4.33-5.43)
[2021-01-10 06:22] LABS: Phosphorus 2.3 mg/dL (2.5-4.9); Thyroid Stimulating Hormone 0.329 uIU/mL (0.360-3.740)
[2021-01-10] MEDS: INSULIN -REGULAR HUMAN 50 UNIT/0.5 ML ML SQ SCH ×6 (07:30→21:00)
[2021-01-10] MEDS ORDERED: HEPARIN 5000 UNIT/ML 1 ML VIAL ONE (07:31)
[2021-01-10] MEDS ORDERED: HEPARIN/D5W 25,000 UNIT/500 ML BAG IV ONE (07:31)
[2021-01-10 07:51] LABS: BUN Blood Urea Nitrogen 39 mg/dL (7-18); Bicarbonate 23 mmol/L (21-32); Glucose Level 220 mg/dL (74-106); Potassium 4.2 mmol/L (3.5-5.1); Sodium Level 140 mmol/L (136-145)
[2021-01-10] MEDS ORDERED: NPH (HUMAN) 100 UNITS/ML INSULIN SQ ONE (08:00)
[2021-01-10] MEDS ORDERED: ASPIRIN 81 MG CHEWABLE TABLET ONE (08:53)
[2021-01-10] MEDS ORDERED: ONDANSETRON 4 MG/2 ML VIAL ONE ×3 (08:53→21:11)
[2021-01-10] MEDS: NA CHLORIDE 0.9% 1,000 ML IV SCH ×6 (09:00→22:20)
[2021-01-10] MEDS ORDERED: NA CHLORIDE 0.9% 1,000 ML ONE (09:02)
[2021-01-10] MEDS: ONDANSETRON 4 MG/2 ML VIAL IV PRN ×2 (09:31→15:50)
--- NOTE | 2021-01-10 10:01 | P.PN ---
Subjective Date of Service: 01/10/21 Chief Complaint: DKA, chest pain Subjective: New changes (elevated troponin) Review of Systems 10-point ROS is otherwise unremarkable Cardiovascular: Chest Pain (08/23) Physical Examination - Vital Signs Temperature: 98.4 F Blood Pressure: 116/59 Pulse: 102 Respirations: 17 Pulse Ox (%): 94 - Physical Exam General: Alert, In no apparent distress HEENT: Atraumatic, PERRLA, EOMI Neck: Supple, JVD not distended Respiratory: Clear to auscultation bilaterally, Normal air movement Cardiovascular: Regular rate/rhythm, Normal S1 S2 Gastrointestinal: Normal bowel sounds, No tenderness Musculoskeletal: No tenderness Integumentary: No rashes Neurological: Normal speech, Normal tone, Normal affect Lymphatics: No axilla or inguinal lymphadenopathy - Studies Laboratory Data (last 24 hrs) 01/09/21 18:24: Lipase 74 01/09/21 18:24: PT 11.9, INR 1.03 01/09/21 18:24: WBC 8.10, Hgb 12.3 L, Hct 38.5 L, Plt Count 307 01/09/21 18:24: Sodium 129 L, Potassium 5.1, BUN 45 H, Creatinine 2.07 H, Glucose 582 H*, Magnesium 2.2, Total Bilirubin 1.1 H, AST 12 L, ALT 15, Alkaline Phosphatase 79 Assessment & Plan - Problems (Diagnosis) (1) CAD (coronary artery disease) Current Visit: Yes Status: Chronic Plan: Patient had a stent placed in July in [facility]. He has not had follow up with cardiology. He has been having chest pain and vomiting for a week. Qualifiers: Coronary Disease-Associated Artery/Lesion type: [place] artery [place] vs. transplanted heart: [place] heart Associated angina: unspecified whether angina present Qualified Code(s): I25.10 - Atherosclerotic heart disease of [place] coronary artery without angina pectoris (2) HTN (hypertension) Current Visit: Yes Status: Chronic Plan: Well controlled. Will continue his current medications and adjust as necessary. Qualifiers: Hypertension type: primary hypertension Qualified Code(s): I10 - Essential (primary) hypertension (3) DKA (diabetic ketoacidoses) Current Visit: No Status: Acute Plan: Patient is doing better. His gap has controlled. The patient has a history of well controlled diabetes. Takes insulin at home. His a1c is 7.7. Most likely his cad caused the elevation of his sugars and the dka Qualifiers: Diabetes mellitus type: type 1 Diabetes mellitus complication detail: without coma Qualified Code(s): E10.10 - Type 1 diabetes mellitus with ketoacidosis without coma (4) Acute on chronic renal failure Current Visit: Yes Status: Acute Plan: Patient is normal seen By Dr. Rodriguez. Her partner Dr. Camacho is automation and controls instructor. His baseline creatine is 1.5 approx. Is up to 2 at this time. Increase his fluid s. Add a lacy. Will get a U/A if not already done. Will most likely need a cath at some point so we should try to improve his kidney status before he gets IV contrast. Qualifiers: Chronic kidney disease stage: stage 4 (severe) Discharge Plan: Home - Code Status/Comfort Care Code Status Assessed: No Physician Review: Patient Assessed, Agree with Above Assessment and Plan Critical Care: No Time Spent Managing Pts Care (In Minutes): 30
[2021-01-10 12:59] LABS: BUN Blood Urea Nitrogen 33 mg/dL (7-18); Bicarbonate 21 mmol/L (21-32); Glucose Level 205 mg/dL (74-106); Potassium 4.1 mmol/L (3.5-5.1); Sodium Level 140 mmol/L (136-145)
[2021-01-10] MEDS: INSULIN GLARGINE 100 UNITS/ML SQ SCH (13:30)
[2021-01-10] MEDS ORDERED: SERTRALINE HCL 100 MG TAB PO ONE (14:00)
--- NOTE | 2021-01-10 15:54 | CON ---
Date of Consultation: 01/10/2021 Requesting Provider: Majro Silva MD. Reason For Consultation: Renal insufficiency. History Of Present Illness: Mr. León is a 50-year-old male with a history of type 1 diabetes; anxiety; chronic pain, on methadone and also Suboxone, who has had multiple ER visits in the past for abdominal pain and panic attacks, who presented to the hospital now with chest pain. He has a histo ry of NSTEMI by PCI of the LAD and PTCA of another vessel, who also sees Dr. Malloy, my partner in the clinic for management of chronic issues. He has a long history of nonadherence. He is currently seen in the emergency room. The patient had elevated cardiac markers and is awaiting evaluation by Cardiology versus transfer for possible intervention. Our consultation is requested for renal manage ment. The patient does have episodes of acute kidney injury, usually associated with uncontrolled di abetes and DKA. He is being managed with insulin drip today. Creatinine is 1.56 and he has had labile renal function as stated. The patient denies any NSAID use. Past Medical History: As per HPI. Physical Examination: Vital Signs: Blood pressure 121/72, pulse 101, afebrile. General: No acute distress. Heart: Regular rate and rhythm. No murmurs, rubs, gallops. Lungs: Clear to auscultation bilaterally. Abdomen: Soft, nontender, nondistended. Extremities: No significant edema. Diagnostic Imaging: Reviewed. Chest x-ray clear. Abdominal CT shows significant stool burden. Medications: Current medications were noted. Patient is on normal saline at 125 mL an hour. Impression: 1.Renal insufficiency likely related to volume depletion, underlying chronic kidney disease. 2.Vci-TO-kyausir elevation myocardial infarction. 3.History of coronary artery disease with stents. 4.Diabetes/diabetic ketoacidosis. Plan: The patient's renal function is stable. Agree with continuing IV hydration. Monitor strict i nput and output. Avoid NSAIDs. Continue to monitor renal function daily. Continue management of DKA per primary team. Start the patient on bowel regimen. SE/MODL Voice ID: [id number] Report ID: [id number]
[2021-01-10] MEDS ORDERED: INSULIN GLARGINE 100 UNITS/ML SQ ONE (15:56)
[2021-01-10] MEDS ORDERED: PROMETHAZINE INJ 25 MG/ML AMP IM PRN (16:08)
[2021-01-10] MEDS: MORPHINE 4 MG/ML SYR IM PRN (16:27)
[2021-01-10] MEDS ORDERED: MORPHINE 4 MG/ML SYR ONE (16:28)
[2021-01-10] MEDS ORDERED: NA CHLORIDE 0.9% 250 ML ONE (16:29)
[2021-01-10] MEDS ORDERED: PROMETHAZINE INJ 25 MG/ML AMP ONE ×2 (16:32→22:15)
[2021-01-10 16:36] LABS: Potassium 4.2 mmol/L (3.5-5.1)
[2021-01-10] MEDS: HEPARIN 5000 UNIT/ML 1 ML VIAL IV SCH (17:00)
[2021-01-10] MEDS ORDERED: NITROGLYCERIN/D5W 50 MG/250 ML BTL IV ONE (18:16)
[2021-01-10] MEDS ORDERED: INSULIN -REGULAR HUMAN 50 UNIT/0.5 ML ML ONE ×2 (18:59→21:29)
--- NOTE | 2021-01-10 20:42 | CON ---
Date of Consultation: 01/10/2021 Reason For Consultation: Uuy-II-abyyfupnv myocardial infarction. History Of Present Illness: A 50-year-old male comes in with chest pain. Has history of diabetes, h ypertension, coronary artery disease, chronic pain management on methadone, came in with chest pain, nausea, vomiting. The patient apparently had a stent about 6 months ago due to DE in [facility]. Initial troponin was negative and then went up to a very high level and continues to have chest pain. I was consulted and discussed the case with the primary care physician and recommended immediate transfer t o higher level of care facility for an urgent coronary angiogram today. Past Medical History: As outlined above in the HPI. Medication: Refer to reconciliation sheet for detailed list. Allergies: PROPOXYPHENE, MORPHINE, AND CLINDAMYCIN. Family History: No premature coronary artery disease or cancer. Social History: Does not smoke or drink. Does not use any drugs. Review of Systems: All systems reviewed and they were negative except as mentioned in HPI. Physical Examination: Vital Signs: Reviewed. Head and Neck: Pupils are equal, reactive to light. Intact eye movements. No JVD. No cervical. Neck: Supple. Thyroid is not enlarged. Lungs: Clear to auscultation bilaterally. No rhonchi, rales, or crackles. No accessory muscle use. Heart: Regular rate and rhythm. No extra sounds. Abdomen: Soft, nontender. Bowel sounds positive. No organomegaly. No masses or hernia. No rigidi ty or rebound. Extremities: No clubbing, cyanosis. Intact pulses. Skin: No rash. Neurologic: Alert, awake, oriented x3. No acute focal deficits appreciated. Investigations: On arrival, the glucose was 582 and CO2 level was 14. Troponin was negative. Then, troponin peaked at 71 and down to 60, now. His creatinine is 1.29. EKG without ST elevation. Assessment And Recommendation: 1.Non-ST elevation myocardial infarction with ongoing chest pain. I recommended transfer to a [facility] where a coronary angiogram can be done emergently. Discussed with the staff and transfer process was started. The patient was accepted to [facility]. In the interim, continue asp irin. Start on IV nitroglycerin drip and IV heparin for therapeutic PTT and pain control with morphi ne as needed. 2.Chronic pain management on methadone with nausea and vomiting. Recommended to resume methadone. 3.Diabetic ketoacidosis, which seems to be resolved. SR/MODL Voice ID: [id number] Report ID: [id number]
[2021-01-10 21:39] LABS: Potassium 4.5 mmol/L (3.5-5.1)
[2021-01-10] MEDS: NITROGLYCERIN/D5W 50 MG/250 ML BTL IV PRN ×2 (21:56→22:34)
[2021-01-10] MEDS ORDERED: METOPROLOL TARTRATE 5 MG/5 ML INJ IV STA (22:13)
[2021-01-10] MEDS ORDERED: METOPROLOL TARTRATE 5 MG/5 ML INJ IV ONE (22:23)
[2021-01-11] MEDS: NA CHLORIDE 0.9% 1,000 ML IV SCH ×2 (01:00→03:00)
[2021-01-11 02:10] LABS: Absolute Lymphocytes (CBC) 1.4 K/uL (0.7-4.9); Basophils % 0.4 % (0-1.3); Hematocrit 35.9 % (39.6-49.0); Lymphocytes % 8.7 % (15.3-44.8); MPV 8.8 fL (7.6-11.3); RBC Red Blood Cell Count 4.13 M/uL (4.33-5.43)
[2021-01-11 02:24] LABS: Phosphorus 1.8 mg/dL (2.5-4.9)
[2021-01-11 02:34] LABS: Albumin 3.4 g/dL (3.4-5.0); Bilirubin Total 0.5 mg/dL (0.2-1.0); Potassium 3.9 mmol/L (3.5-5.1); Protein, Total 6.8 g/dL (6.4-8.2)
[2021-01-11 03:06] VITALS: BMI 18.6
[2021-01-11] MEDS ORDERED: NA CHLORIDE 0.9% 1,000 ML ONE (03:09)
[2021-01-11] MEDS ORDERED: SODIUM CHLORIDE 0.9% 10ML INJ IV PRN (08:22)
[2021-01-11] MEDS ORDERED: MORPHINE 4 MG/ML SYR ONE (08:27)
[2021-01-11] MEDS ORDERED: ONDANSETRON 4 MG/2 ML VIAL ONE (08:27)
[2021-01-11] MEDS: INSULIN GLARGINE 100 UNITS/ML SQ SCH (08:45)
[2021-01-11] MEDS: NACHLORIDE 0.45% 1,000 ML IV SCH (08:45)
[2021-01-11] MEDS: PANTOPRAZOLE 40 MG INJ IVP SCH (08:45)
[2021-01-11] MEDS: INSULIN -REGULAR HUMAN 50 UNIT/0.5 ML ML SQ SCH ×4 (08:45→21:00)
[2021-01-11] MEDS ORDERED: SODIUM PHOSPHATE 20 MM in NA CHLORIDE 0.9% 250 ML IV SCH (09:00)
[2021-01-11] MEDS: ONDANSETRON 4 MG/2 ML VIAL IV PRN (09:00)
[2021-01-11] MEDS: SERTRALINE HCL 100 MG TAB PO SCH (09:00)
[2021-01-11] MEDS ORDERED: METHADONE HCL 10 MG TAB PO SCH (09:00)
[2021-01-11] MEDS: SERTRALINE HCL 50 MG TAB PO SCH (09:00)
[2021-01-11] MEDS: MORPHINE 4 MG/ML SYR IM PRN (09:00)
[2021-01-11] MEDS ORDERED: SERTRALINE HCL 100 MG TAB PO SCH ×2 (09:00)
[2021-01-11] MEDS ORDERED: INSULIN GLARGINE 100 UNITS/ML SQ ONE ×2 (09:01→13:31)
[2021-01-11] MEDS ORDERED: INSULIN -REGULAR HUMAN 50 UNIT/0.5 ML ML ONE ×3 (09:02→18:01)
--- NOTE | 2021-01-11 10:25 | PN ---
Date of Progress Note: 01/11/2021 Subjective: The patient is seen at the bedside. No overnight events reported. The patient is compl aining of abdominal pain and not able to eat well. The patient had heart rate up into the 140s to 15 0s last night. He was continued on IV fluids. Blood pressure has shown improvement up into the 140s . Physical Examination: Vital Signs: Blood pressure 142/88, pulse 114, afebrile. GENERAL: No acute distress. Heart: Tachycardic, regular. No murmurs, rubs, gallops. Lungs: Clear to auscultation. Abdomen: Soft, nontender. Extremities: No edema. Laboratory Data: Shows WBC 15, hemoglobin 12, hematocrit 35.9, platelet count not noted. Serum chem istry; BUN and creatinine 27 and 1.53, sodium 145, chloride 111, glucose 277. Phosphorus today morni ng 1.8. AST elevated at 93. BNP 5874. Troponin midnight had improved to 22.5. UA yesterday was no tamra. Medications: Of note, the patient continues on heparin drip, methadone, sodium chloride at 75 mL an hour as well as sertraline as well as full-dose aspirin was given x1 dose. Impression: 1.Renal insufficiency, likely related to volume depletion with underlying chronic kidney disease. 2.Non-ST segment elevation myocardial infarction. 3.Hypophosphatemia, likely from decreased p.o. intake as well as diabetic ketoacidosis. 4.Diabetes, diabetic ketoacidosis. 5.History of coronary artery disease, stents. Plan: The patient's IV fluids will be changed to half NS at 75 mL an hours. Blood pressure is impro josue. Blood sugar management has also improved. Sodium phosphate 20 millimoles also ordered for 1 do se. Protonix was also added IV once a day to treat the patient's reflux and improve p.o. intake. Th e patient should be on a diabetic renal diet. SE/MODL Voice ID: [id number] Report ID: [id number]
[2021-01-11] MEDS ORDERED: HEPARIN/D5W 25,000 UNIT/500 ML BAG IV ONE (11:41)
[2021-01-11] MEDS: METHADONE HCL 40 MG DISPERSIBLE TAB PO SCH (16:43)
[2021-01-11] MEDS: HEPARIN 5000 UNIT/ML 1 ML VIAL IV SCH (17:00)
--- NOTE | 2021-01-11 19:49 | PN ---
Date of Progress Note: 01/11/2021 Subjective: Seen by bedside. He still appears uncomfortable. This patient has the troponins trendi ng down, last was 22 down from 71. Overall condition is better. However, he appears to be in DKA ag ain today. Review of Systems: Mild chest pain is present. Appears anxious. No nausea, vomiting, or diarrhea. No dysuria, polyuri a, and urinary urgency. All other systems reviewed and negative. Physical Examination: Vital Signs: Temperature is 98.4, pulse is 100, breathing at 12, blood pressure 142/91, saturating 9 9%. General: Pleasant young male, in no distress. Head exam neck: Pupils are equal, reactive to light. Intact eye movements. No JVD. No cervical ly mphadenopathy. Neck: Supple. Thyroid is not enlarged. Lungs: Clear to auscultation bilaterally. No rhonchi, rales, or crackles. No accessory muscle use. Heart: Regular rate and rhythm. No extra sounds. Abdomen: Soft, nontender. Bowel sounds positive. No organomegaly. No tenderness. No rigidity or rebound.. Extremities: No clubbing, cyanosis. Intact pulses. Skin: No rash. Neurologic: Alert, awake, oriented x3. No acute focal deficits appreciated. Investigations: Labs are reviewed. Assessment And Recommendation: 1.Non-ST elevation myocardial infarction. Transfer process is in place; however, no beds were avail able. The patient stays into the hospital till tomorrow. I will plan for coronary angiogram. Pleas e keep him n.p.o., but before doing coronary angiogram, the diabetic ketoacidosis needs to be correct ed. The patient is severely acidotic today. 2.Diabetic ketoacidosis. Diabetic ketoacidosis is to be corrected prior to the coronary angiogram. SR/MODL Voice ID: [id number] Report ID: [id number]
[2021-01-12] MEDS: NACHLORIDE 0.45% 1,000 ML IV SCH ×2 (01:06→11:54)
[2021-01-12] MEDS ORDERED: NACHLORIDE 0.45% 1,000 ML IV ONE (01:33)
[2021-01-12 03:08] LABS: Absolute Lymphocytes (CBC) 1.8 K/uL (0.7-4.9); Basophils % 0.4 % (0-1.3); Hematocrit 27.4 % (39.6-49.0); Lymphocytes % 17.5 % (15.3-44.8); MPV 8.7 fL (7.6-11.3); RBC Red Blood Cell Count 3.16 M/uL (4.33-5.43)
[2021-01-12 03:22] LABS: Albumin 2.6 g/dL (3.4-5.0); Bilirubin Total 0.4 mg/dL (0.2-1.0); Magnesium 1.7 mg/dL (1.8-2.4); Phosphorus 2.2 mg/dL (2.5-4.9); Potassium 3.2 mmol/L (3.5-5.1); Protein, Total 5.3 g/dL (6.4-8.2)
[2021-01-12] MEDS: INSULIN -REGULAR HUMAN 50 UNIT/0.5 ML ML SQ SCH ×4 (07:30→20:58)
[2021-01-12] MEDS ORDERED: NITROGLYCERIN/D5W 50 MG/250 ML BTL IV ONE (07:56)
[2021-01-12] MEDS: INSULIN GLARGINE 100 UNITS/ML SQ SCH (08:00)
[2021-01-12] MEDS ORDERED: LIDOCAINE 1% 20 ML MDV ONE (08:24)
[2021-01-12] MEDS ORDERED: HEPA 1000U/500MLS 1,000 UNIT/500 ML BAG IV ONE (08:24)
[2021-01-12] MEDS ORDERED: FENTANYL CITR 100 MCG/2 ML ONE (08:38)
[2021-01-12] MEDS ORDERED: MIDAZOLAM HCL 2 MG/2 ML INJ ONE (08:38)
[2021-01-12] MEDS ORDERED: ATROPINE SULF 1 MG/10 ML SYR IV ONE (08:39)
[2021-01-12] MEDS ORDERED: NA CHLORIDE 0.9% 50 ML ONE (08:39)
[2021-01-12] MEDS ORDERED: NITROGLYCERIN 100 MCG/ML SYR (for cath lab use only) IV ONE (08:39)
[2021-01-12] MEDS ORDERED: NITROGLYCERIN/D5W 25 MG/250 ML BTL IV ONE (08:39)
[2021-01-12] MEDS: SERTRALINE HCL 100 MG TAB PO SCH (09:00)
[2021-01-12] MEDS: PANTOPRAZOLE 40 MG INJ IVP SCH (09:00)
[2021-01-12] MEDS: SERTRALINE HCL 50 MG TAB PO SCH (09:00)
[2021-01-12] MEDS ORDERED: NA CHLORIDE 0.9% 500 ML ONE (09:11)
[2021-01-12] MEDS ORDERED: METOPROLOL TARTRATE 5 MG/5 ML INJ IV ONE (09:20)
[2021-01-12] MEDS ORDERED: METOPROLOL TAR 50 MG TAB ONE (09:21)
[2021-01-12] MEDS ORDERED: ASPIRIN 325 MG TAB ONE (09:39)
[2021-01-12] MEDS ORDERED: CLOPIDOGREL 75 MG TABLET ONE (09:39)
--- NOTE | 2021-01-12 09:43 | OP ---
Date of Procedure: 01/12/2021 Surgeon: Tyler Carey MD Asw Specialist: Mr. Isra Banda. Indication: Admitted to Dr. Silva on 01/09/2021 with non-STEMI and DKA. The patient has had a histo ry of CAD and stents in the LAD in the past. This has been done within the last year. He came in an d his troponin went up to 70. He was brought to the geochemical laboratory technician today on 01/12/2021, was having his diabetes cared for over the weekend. He was on a heparin drip, nitroglycerin drip. He was hype rtensive and tachycardic when he came into the geochemical laboratory technician. He did get 5 mg of IV Lopressor and was sta rted on metoprolol 50 mg 1 p.o. b.i.d. Procedure In Detail: In the geochemical laboratory technician, he was prepped and draped in the routine sterile fashion. Giv en Versed and fentanyl for sedation. A 6-Chinese sheath was introduced in the right common femoral ar yamilet successfully. Angiography there was normal. Angio-Seal was used to close the case. [place]imbola ca theter left and right were used to do the diagnostic catheterization. RCA was dominant, had a 30% to 40% mid stenosis in 2 different locations, but no significant stenosis. The left main was long and normal. The circumflex was completely occluded with GRACE 1 flow. Looks like it was a small nondomin ant vessel. The LAD had 2 stents in the middle of it. Both of those were patent, but there was a ne w 80% ulcerated plaque type of stenosis in the proximal LAD. The patient received Angiomax. He rece ived 300 of Plavix. He received aspirin. XBLAD 3.5 with side-hole guide was placed in the left main . A [place] wire 0.014 extra-support was used to cross the lesion successfully. A 3.5 x 16 Synergy s tent was deployed at 11 atmospheres with 0% residual. There were no complications. Blood Loss: 5 mL. Anesthesia: Total conscious sedation was 60 minutes. Postoperative Diagnoses: 1.Coronary artery disease, status post successful primary LAD stent. He is status post Angiomax, as pirin, Plavix, and he was already on heparin drip, which I will stop. 2.Hypertension poorly controlled with sinus tachycardia. I am going to start him on metoprolol 50 b .i.d. He already got 5 mg IV push here. He will obviously be need to have his diabetes well address ed and he needs to be on statins. As far as I am concerned, he can probably go home tomorrow, but I will discuss the case further with Dr. Plummer. ANDRIY/DORIE Voice ID: [id number] Report ID: [id number]
[2021-01-12] MEDS ORDERED: MEPERIDINE HCL 25 MG/ML SYR IV PRN (12:23)
[2021-01-12] MEDS ORDERED: ONDANSETRON 4 MG/2 ML VIAL IV PRN (12:24)
[2021-01-12] MEDS ORDERED: DIAZEPAM 5 MG TABLET PO PRN (12:25)
[2021-01-12] MEDS: ALPRAZOLAM 0.5 MG TABLET PO PRN ×2 (12:31→20:59)
[2021-01-12] MEDS ORDERED: ACETAMINOPHEN 325 MG TABLET PO PRN (13:00)
[2021-01-12] MEDS ORDERED: NITROGLYCERIN 0.4 MG/TAB SL PRN (13:00)
--- NOTE | 2021-01-12 17:11 | P.PN ---
Subjective Date of Service: 01/12/21 Chief Complaint: DKA, chest pain Subjective: Improving, Doing well Physical Examination - Vital Signs Temperature: 97.7 F Blood Pressure: 150/92 Pulse: 70 Respirations: 18 Pulse Ox (%): 97 Assessment & Plan Discharge Plan: Home Plan to discharge in: 24 Hours Physician Review Additional Text: Heart catheterization: Date of Procedure: 01/12/2021 Surgeon: Tyler Carey MD Brass Reclaimer: Mr. Isra Banda. Procedure In Detail: RCA was dominant, had a 30% to 40% mid stenosis in 2 different locations, but no significant stenosis. The left main was long and normal. The circumflex was completely occluded with GRACE 1 flow. Looks like it was a small nondominant vessel. The LAD had 2 stents in the middle of it. Both of those were patent, but there was a new 80% ulcerated plaque type of stenosis in the proximal LAD. The patient received Angiomax. He received 300 of Plavix. He received aspirin. XBLAD 3.5 with side-hole guide was placed in the left main. A [place] wire 0.014 extra-support was used to cross the lesion successfully. A 3.5 x 16 Synergy stent was deployed at 11 atmospheres with 0% residual. There were no complications. Blood Loss: 5 mL. Anesthesia: Total conscious sedation was 60 minutes. Postoperative Diagnoses: 1. Coronary artery disease, status post successful primary LAD stent. He is status post Angiomax, aspirin, Plavix, and he was already on heparin drip, which I will stop. 2. Hypertension poorly controlled with sinus tachycardia. I am going to start him on metoprolol 50 b.i.d. He already got 5 mg IV push here. He will obvious ly be need to have his diabetes well addressed and he needs to be on statins. As far as I am concerned, he can probably go home tomorrow, but I will discuss the case further with Dr. Plummer. Physical Exam: GENERAL: The patient is a well-developed, well-nourished, in no apparent distress. Alert and oriented x3. VITAL SIGNS: Reviewed HEENT: Head is normocephalic and atraumatic. Extraocular muscles are intact. Pupils are equal, round, and reactive to light and accommodation. Nares appeared normal. Mouth is well hydrated and without lesions. Mucous membranes are moist. NECK: Supple. No carotid bruits. No lymphadenopathy or thyromegaly. LUNGS: Clear to auscultation. No crackles or wheezes are heard. HEART: Regular rate and rhythm, no appreciable gallops, rubs, murmurs or extra heart sounds ABDOMEN: Soft, nontender, and nondistended. Positive bowel sounds. No hepatosplenomegaly was noted. EXTREMITIES: Without any cyanosis, clubbing, rash, lesions or peripheral edema. NEUROLOGIC: The patient is oriented to person, place and time. Strength and sensation are grossly intact. Face is symmetric. SKIN: Normal color, turgor and temperature. No ulcerations or rashes noted. Impression: DKA resolved with diabetes mellitus type 1 NSTEMI with CAD status post heart catheterization showing new 80% ulcerated plaque of stenosis in the proximal LAD status post stent Hypertension uncontrolled Acute on chronic renal failure stage III Depression with anxiety Hyperlipidemia Plan: Patient had a cardiac catheterization done today. LAD stenosis noted. Stent placed. Cardiology plans to continue aspirin, Plavix. Patient needs better blood pressure control. Patient started on metoprolol. We will continue on statin medication. Continue with diabetic control. Possible discharge tomorrow if okay with cardiology. Continue IV fluids. Will discuss with nephrology as well. Continue with nephrology recommendations. Code Status: Full Code DVT prophylaxis: Heparin Advanced Care Planning-30 minutes: Home at discharge Time Spent Managing Pts Care (In Minutes): 55
[2021-01-12] MEDS: METOPROLOL TAR 50 MG TAB PO SCH (21:00)
[2021-01-13 01:04] VITALS: O2SAT 97
--- NOTE | 2021-01-13 06:31 | P.PN ---
Subjective Date of Service: 01/13/21 Primary Care Provider: Dr. Mabry Chief Complaint: DKA, chest pain Subjective: Improving, Doing well Physical Examination - Vital Signs Temperature: 97.7 F Blood Pressure: 160/96 Pulse: 74 Respirations: 18 Pulse Ox (%): 97 Assessment & Plan Discharge Plan: Home Plan to discharge in: 24 Hours Physician Review Additional Text: Heart catheterization: Date of Procedure: 01/12/2021 Surgeon: Tyler Carey MD Polishing Machine Operator: Mr. Isra Banda. Procedure In Detail: RCA was dominant, had a 30% to 40% mid stenosis in 2 different locations, but no significant stenosis. The left main was long and normal. The circumflex was completely occluded with GRACE 1 flow. Looks like it was a small nondominant vessel. The LAD had 2 stents in the middle of it. Both of those were patent, but there was a new 80% ulcerated plaque type of stenosis in the proximal LAD. The patient received Angiomax. He received 300 of Plavix. He received aspirin. XBLAD 3.5 with side-hole guide was placed in the left main. A [place] wire 0.014 extra-support was used to cross the lesion successfully. A 3.5 x 16 Synergy stent was deployed at 11 atmospheres with 0% residual. There were no complications. Blood Loss: 5 mL. Anesthesia: Total conscious sedation was 60 minutes. Postoperative Diagnoses: 1. Coronary artery disease, status post successful primary LAD stent. He is status post Angiomax, aspirin, Plavix, and he was already on heparin drip, which I will stop. 2. Hypertension poorly controlled with sinus tachycardia. I am going to start him on metoprolol 50 b.i.d. He already got 5 mg IV push here. He will obviously be need to have his diabetes well addressed and he needs to be on statins. As far as I am concerned, he can probably go home tomorrow, but I will discuss the case further with Dr. Plummer. Physical Exam: GENERAL: The patient is a well-developed, well-nourished, in no apparent distress. Alert and oriented x3. VITAL SIGNS: Reviewed HEENT: Head is normocephalic and atraumatic. Extraocular muscles are intact. Pupils are equal, round, and reactive to light and accommodation. Nares appeared normal. Mouth is well hydrated and without lesions. Mucous membranes are moist. NECK: Supple. No carotid bruits. No lymphadenopathy or thyromegaly. LUNGS: Clear to auscultation. No crackles or wheezes are heard. HEART: Regular rate and rhythm, no appreciable gallops, rubs, murmurs or extra heart sounds ABDOMEN: Soft, nontender, and nondistended. Positive bowel sounds. No hepatosplenomegaly was noted. EXTREMITIES: Without any cyanosis, clubbing, rash, lesions or peripheral edema. NEUROLOGIC: The patient is oriented to person, place and time. Strength and sensation are grossly intact. Face is symmetric. SKIN: Normal color, turgor and temperature. No ulcerations or rashes noted. Impression: DKA resolved with diabetes mellitus type 1 NSTEMI with CAD status post heart catheterization showing new 80% ulcerated plaque of stenosis in the proximal LAD status post stent Hypertension uncontrolled Acute on chronic renal failure stage III Depression with anxiety Hyperlipidemia Plan: Patient had a cardiac catheterization done yesterday. LAD stenosis noted. Stent placed. Patient will continue with aspirin, Plavix and metoprolol. Will plan for discharge today. Patient will need close follow-up with cardiology. Needs follow-up with his PCP. Needs better control of his diabetes as an outpatient. Code Status: Full Code DVT prophylaxis: Heparin Advanced Care Planning-30 minutes: Home at discharge Time Spent Managing Pts Care (In Minutes): 55
[2021-01-13 06:58] LABS: Absolute Lymphocytes (CBC) 1.7 K/uL (0.7-4.9); Hematocrit 28.5 % (39.6-49.0); Lymphocytes % 28.4 % (15.3-44.8); MPV 9.1 fL (7.6-11.3); RBC Red Blood Cell Count 3.27 M/uL (4.33-5.43)
[2021-01-13 07:20] LABS: ALT/SGPT 18 U/L (12-78); AST/SGOT 22 U/L (15-37); Albumin 2.5 g/dL (3.4-5.0); Alkaline Phosphatase 62 U/L (45-117); BUN Blood Urea Nitrogen 12 mg/dL (7-18); Bicarbonate 26 mmol/L (21-32); Bilirubin Total 0.3 mg/dL (0.2-1.0); Glucose Level 176 mg/dL (74-106); Potassium 3.4 mmol/L (3.5-5.1); Protein, Total 5.3 g/dL (6.4-8.2); Sodium Level 142 mmol/L (136-145)
[2021-01-13] MEDS: INSULIN -REGULAR HUMAN 50 UNIT/0.5 ML ML SQ SCH ×2 (07:30→11:30)
[2021-01-13] MEDS: ASPIRIN 81 MG CHEWABLE TABLET PO SCH ×2 (09:00→09:02)
[2021-01-13] MEDS ORDERED: CLOPIDOGREL 75 MG TABLET PO SCH (09:00)
[2021-01-13] MEDS: SERTRALINE HCL 50 MG TAB PO SCH ×2 (09:00→09:02)
[2021-01-13] MEDS ORDERED: POTASSIUM CL SA 10 MEQ TAB PO ONE (09:00)
[2021-01-13] MEDS: PANTOPRAZOLE 40 MG INJ IVP SCH ×2 (09:00→09:01)
[2021-01-13] MEDS: SERTRALINE HCL 100 MG TAB PO SCH ×2 (09:00→09:02)
[2021-01-13] MEDS: METOPROLOL TAR 50 MG TAB PO SCH ×2 (09:00→09:02)
[2021-01-13] MEDS: ALPRAZOLAM 0.5 MG TABLET PO PRN (09:01)
[2021-01-13] MEDS: NACHLORIDE 0.45% 1,000 ML IV SCH ×2 (09:01→13:10)
[2021-01-13] MEDS: INSULIN GLARGINE 100 UNITS/ML SQ SCH (09:01)
--- NOTE | 2021-01-13 09:04 | ECHO ---
HEIGHT: 6 ft 0 in WEIGHT: 137 lb 6.4 oz DATE OF STUDY: 01/12/[address]: Dominic Bradford 2-DIMENSIONAL: YES M.MODE: YES DOPPLER: YES COLOR FLOW: YES TDS: PORTABLE: DEFINITY: BUBBLE STUDY: DIAGNOSIS: ELEVATED TROPONIN CARDIAC HISTORY: CATHERIZATION: YES SURGERY: PROSTHETIC VALVE: PACEMAKER: MEASUREMENTS (cm) DIASTOLIC (NORMALS) SYSTOLIC (NORMALS) IVSd 1.3 (0.6-1.2) LA Diam 2.8 (1.9-4.0) LVEF 52% LVIDd 4.7 (3.5-5.7) LVIDs 3.5 (2.0-3.5) %FS 26% LVPWd 0.9 (0.6-1.2) Ao Diam 3.2 (2.0-3.7) 2 DIMENSIONAL ASSESSMENT: RIGHT ATRIUM: NORMAL LEFT ATRIUM: NORMAL RIGHT VENTRICLE: NORMAL LEFT VENTRICLE: MILD LEFT VENTRICULAR HYPERTROPHY TRICUSPID VALVE: NORMAL MITRAL VALVE: MILD MITRAL REGURGITATION PULMONIC VALVE: NORMAL AORTIC VALVE: NORMAL PERICARDIAL EFFUSION: TRACE AORTIC ROOT: NORMAL LEFT VENTRICULAR WALL MOTION: MILD INFERIOLATERAL HYPOKINESIS DOPPLER/COLOR FLOW: MILD MITRAL REGURGITATION COMMENTS: LOW NORMAL LEFT VENTRICULAR EJECTION FRACTION 50-55%. MILD INFERIOLATERAL HYPOKINESIS. MILD LEFT VENTRICULAR HYPERTROPHY. MILD MITRAL REGURGITATION. TECHNOLOGIST: ANKITA BEST
[2021-01-13] MEDS: METHADONE HCL 40 MG DISPERSIBLE TAB PO SCH (09:14)
--- NOTE | 2021-01-13 10:20 | P.DS ---
Admission Date: 01/09/21 Discharge Date: 01/13/21 Primary Care Provider: Dr. Mabry Disposition: ROUTINE DISCHARGE Discharge Condition: GOOD Reason for Admission: DKA, chest pain Consultations: Cardiology-Dr. Carey Nephrology-Dr. Jamison Procedures: COVID: Negative CXR: COMPARISON: 2019 FINDINGS: The lungs appear clear of acute infiltrate. The heart is normal size IMPRESSION: No acute abnormalities displayed CT scan: FINDINGS: The evaluation of mediastinum, minor, vessels and solid organs is limited secondary to the lack of IV contrast administration Some images are degraded by patient motion artifact Lungs are clear. Right hilar calcified node. No mediastinal or left hilar lymphadenopathy. A pleural effusion is not present. A pericardial effusion is not seen. Small hiatal hernia Small gallstones. No gallbladder wall thickening The liver, spleen, pancreas, adrenals and kidneys appear grossly normal There is no evidence of diverticulitis. The rectum is distended with stool measuring 6 centimeters. Moderate amount of stool is present within the transverse and right colon. IMPRESSION: The rectum is distended with stool measuring 6 centimeters. Moderate amount of stool is present within the transverse and right colon. Cholelithiasis without evidence of cholecystitis ECHO: MEASUREMENTS (cm) DIASTOLIC (NORMALS) SYSTOLIC (NORMALS) IVSd 1.3 (0.6-1.2) LA Diam 2.8 (1.9-4.0) LVEF 52% LVIDd 4.7 (3.5-5.7) LVIDs 3.5 (2.0-3.5) %FS 26% LVPWd 0.9 (0.6-1.2) Ao Diam 3.2 (2.0-3.7) 2 DIMENSIONAL ASSESSMENT: RIGHT ATRIUM: NORMAL LEFT ATRIUM: NORMAL RIGHT VENTRICLE: NORMAL LEFT VENTRICLE: MILD LEFT VENTRICULAR HYPERTROPHY TRICUSPID VALVE: NORMAL MITRAL VALVE: MILD MITRAL REGURGITATION PULMONIC VALVE: NORMAL AORTIC VALVE: NORMAL PERICARDIAL EFFUSION: TRACE AORTIC ROOT: NORMAL LEFT VENTRICULAR WALL MOTION: MILD INFERIOLATERAL HYPOKINESIS DOPPLER/COLOR FLOW: MILD MITRAL REGURGITATION COMMENTS: LOW NORMAL LEFT VENTRICULAR EJECTION FRACTION 50-55%. MILD INFERIOLATERAL HYPOKINESIS. MILD LEFT VENTRICULAR HYPERTROPHY. MILD MITRAL REGURGITATION. Heart catheterization: Date of Procedure: 01/12/2021 Surgeon: Tyler Carey MD Certified Orthotist Practice Manager: Mr. Isra Banda. Procedure In Detail: RCA was dominant, had a 30% to 40% mid stenosis in 2 different locations, but no significant stenosis. The left main was long and normal. The circumflex was completely occluded with GRACE 1 flow. Looks like it was a small nondominant vessel. The LAD had 2 stents in the middle of it. Both of those were patent, but there was a new 80% ulcerated plaque type of stenosis in the proximal LAD. The patient received Angiomax. He received 300 of Plavix. He received aspirin. XBLAD 3.5 with side-hole guide was placed in the left main. A [place] wire 0.014 extra-support was used to cross the lesion successfully. A 3.5 x 16 Synergy stent was deployed at 11 atmospheres with 0% residual. There were no complications. Blood Loss: 5 mL. Anesthesia: Total conscious sedation was 60 minutes. Postoperative Diagnoses: 1. Coronary artery disease, status post successful primary LAD stent. He is status post Angiomax, aspirin, Plavix, and he was already on heparin drip, which I will stop. 2. Hypertension poorly controlled with sinus tachycardia. I am going to start him on metoprolol 50 b.i.d. He already got 5 mg IV push here. He will obviously be need to have his diabetes well addressed and he needs to be on statins. As far as I am concerned, he can probably go home tomorrow, but I will discuss the case further with Dr. Plummer. Medical problem list: DKA resolved with diabetes mellitus type 1 NSTEMI with CAD status post heart catheterization showing new 80% ulcerated plaque of stenosis in the proximal LAD status post stent Hypertension uncontrolled Acute on chronic renal failure stage III Depression with anxiety Hyperlipidemia GERD with hiatal hernia Chronic pain on methadone History of noncompliance Brief History of Present Illness: 50-year-old male with history of diabetes mellitus type 1, hypertension, chronic pain on methadone, history of CAD with prior cardiac stent, history of CVA, chronic renal disease. Patient presented with chest pain, nausea and vomiting. Patient was found to have DKA. Patient admitted for treatment. Hospital Course: Patient presented with diabetic ketoacidosis. Patient with history of type 1 diabetes mellitus. Hemoglobin A1c 7.7. Patient with history of noncompliance in the past. Patient required hospitalization. Patient required IV insulin. His DKA resolved. Patient was transitioned to basal insulin with improvement. Diabetic education provided. His hospitalization was further complicated with NSTEMI. Patient with underlying CAD with prior stent. Cardiology was consulted to further evaluate. Heart catheterization was recommended. Heart catheterization showed RCA was dominant with 30 to 40% mid stenosis in 2 different locations but no significant stenosis noted. His left main artery was long and normal. Circumflex was completely occluded. This looked as a small nondominant vessel. The LAD had 2 stents. Both were patent. There was a new 80% ulcerated plaque type of stenosis in the proximal LAD. A stent was placed. Patient did well post heart catheterization. Patient doing well at this time. Patient will be discharged home. Follow-up with PCP in 1 week to follow-up his hospitalization. For his type 1 diabetes, the patient will continue with NPH insulin at 10 units subcu twice daily. The patient will also continue with insulin regular with mild sliding scale. This will be provided for him. Recommend blood sugar to maintain less than 140 fasting and less than 200 after meals. If blood sugars remain above 200 consistently his NPH insulin can be increased by 2 to 4 units for better control. This can be done with the help of his PCP. Recommend to check his blood sugars at least twice daily. Recommend to recheck hemoglobin A1c every 3 months to monitor his progress. Compliance with his insulin regimen will be important to decrease his chance of further recurrent DKA. Education on DKA and diabetes provided. Recommend follow-up with PCP within 1 week to follow-up his hospitalization and continue his care. For his CAD and recent stent placed to the proximal LAD, the patient will continue with aspirin 81 mg daily, Plavix 75 mg daily, metoprolol 50 mg 1 pill twice daily, lisinopril 5 mg daily, and Lipitor 20 mg daily. Compliance with his medications will be important. This was stressed in detail. Recommend follow-up with cardiology in 1 to 2 weeks to follow-up his hospitalization and continue his care. Education on CAD will be provided. Patient with Hypertension. Blood pressure medication adjusted for better control. At discharge the patient will continue with metoprolol 50 mg 1 pill twice daily and lisinopril 5 mg 1 pill daily. Recommend to monitor his blood pressure daily. Recommend to maintain blood pressure less than 140/80. If blood pressure remains above 140/90 consistently further adjustment in his medication may be required. This can be done with the help of his PCP or hydro station operator. Patient with chronic renal disease stage III. Overall stable. Recommend to recheck labBMP in 1 to 2 weeks. 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 Further monitoring can be done by his PCP. Patient with depression with anxiety. At discharge patient will continue with Zoloft 150 mg daily. Patient with hyperlipidemia. At discharge patient will start Lipitor 20 mg monalisa ly. Recommend to recheck fasting lipid panel in 4 to 6 weeks to monitor his progress. Further adjustment can be done by his PCP or hydro station operator. Patient with GERD and hiatal hernia. At discharge patient will continue with Protonix 40 mg daily. Patient with chronic pain. Currently on methadone 40 mg daily. Patient will continue with current medication. Follow-up at methadone clinic. Patient with history of noncompliance with his medications. The importance of taking his medications as recommended above will be important especially to decrease his chance for recurrent diabetic ketoacidosis and significant further CAD. This will need to be stressed by his PCP. Patient understands the consequence of not taking his medications. Vital Signs/Physical Exam: Temp Pulse Resp BP Pulse Ox 97.7 F 74 18 160/96 H 97 01/13/21 10:17 01/13/21 10:17 01/13/21 10:17 01/13/21 10:17 01/13/21 10:17 General: Alert, In no apparent distress, Oriented x3, Cooperative HEENT: Atraumatic Neck: Supple Respiratory: Clear to auscultation bilaterally, Normal air movement Cardiovascular: Normal pulses, Regular rate/rhythm Gastrointestinal: Normal bowel sounds, Soft and benign Musculoskeletal: No erythema, No tenderness, No warmth Integumentary: No tenderness/swelling, No erythema, No warmth, No cyanosis Neurological: Normal speech, Normal strength at 5/5 x4 extr, Normal tone Laboratory Data at Discharge: WBC 6.20 K/uL (4.3-10.9) D 01/13/21 06:39 Hgb 9.5 g/dL (13.6-17.9) L 01/13/21 06:39 Hct 28.5 % (39.6-49.0) L 01/13/21 06:39 Plt Count 135 K/uL (152-406) L D 01/13/21 06:39 PT 11.9 SECONDS (9.5-12.5) 01/09/21 18:24 INR 1.03 01/09/21 18:24 APTT 47.3 SECONDS (24.3-36.9) H 01/12/21 02:53 Sodium 142 mmol/L (136-145) 01/13/21 06:39 Potassium 3.5 mmol/L (3.5-5.1) 01/13/21 08:38 BUN 12 mg/dL (7-18) 01/13/21 06:39 Creatinine 0.72 mg/dL (0.55-1.3) 01/13/21 06:39 Glucose 176 mg/dL (74-106) H 01/13/21 06:39 Phosphorus 2.2 mg/dL (2.5-4.9) L 01/12/21 02:53 Magnesium 1.7 mg/dL (1.8-2.4) L 01/12/21 02:53 Total Bilirubin 0.3 mg/dL (0.2-1.0) 01/13/21 06:39 AST 22 U/L (15-37) 01/13/21 06:39 ALT 18 U/L (12-78) 01/13/21 06:39 Alkaline Phosphatase 62 U/L (45-117) 01/13/21 06:39 Troponin I 22.50 ng/mL (0.0-0.045) H* 01/11/21 00:08 Triglycerides 108 mg/dL (<150) 01/10/21 05:45 Cholesterol 193 mg/dL (<200) 01/10/21 05:45 HDL Cholesterol 48 mg/dL (40-60) 01/10/21 05:45 Cholesterol/HDL Ratio 4.02 01/10/21 05:45 Lipase 74 U/L (73-393) 01/09/21 18:24 Home Medications: Alprazolam [Xanax] 0.5 mg PO TID 02/19/20 Dicyclomine [Bentyl*] 20 mg PO Q12H 02/19/20 Methadone HCl [Methadone HCl*] 40 mg PO DAILY 02/19/20 Sertraline [Zoloft*] 150 mg PO DAILY 02/19/20 Aspirin [Adult Low Dose Aspirin EC] 81 mg PO DAILY #90 01/13/21 Atorvastatin Calcium [Lipitor*] 20 mg PO BEDTIME #30 tab 01/13/21 Clopidogrel Bisulfate [Plavix*] 75 mg PO DAILY #30 tablet 01/13/21 Insulin NPH Human Isophane [Novolin N] 10 unit SQ BID #1 vial 01/13/21 Insulin Regular, Human [Novolin R] See Protocol SQ ACHS #1 vial 01/13/21 Metoprolol Tartrate [Lopressor*] 50 mg PO BID #60 tab 01/13/21 Pantoprazole [Protonix Tab*] 40 mg PO DAILYAC #30 tab 01/13/21 lisinopriL [Lisinopril] 5 mg PO DAILY #30 01/13/21 New Medications: Aspirin [Adult Low Dose Aspirin EC] 81 mg PO DAILY #90 Atorvastatin Calcium [Lipitor*] 20 mg PO BEDTIME #30 tab lisinopriL [Lisinopril] 5 mg PO DAILY #30 Metoprolol Tartrate [Lopressor*] 50 mg PO BID #60 tab Insulin NPH Human Isophane [Novolin N] 10 unit SQ BID #1 vial Insulin Regular, Human [Novolin R] See Protocol SQ ACHS #1 vial Clopidogrel Bisulfate [Plavix*] 75 mg PO DAILY #30 tablet Pantoprazole [Protonix Tab*] 40 mg PO DAILYAC #30 tab Physician Discharge Instructions: Patient presented with diabetic ketoacidosis. Patient with history of type 1 diabetes mellitus. Hemoglobin A1c 7.7. Patient with history of noncompliance in the past. Patient required hospitalization. Patient required IV insulin. His DKA resolved. Patient was transitioned to basal insulin with improvement. Diabetic education provided. His hospitalization was further complicated with NSTEMI. Patient with underlying CAD with prior stent. Cardiology was consulted to further evaluate. Heart catheterization was recommended. Heart catheterization showed RCA was dominant with 30 to 40% mid stenosis in 2 different locations but no significant stenosis noted. His left main artery was long and normal. Circumflex was completely occluded. This looked as a small nondominant vessel. The LAD had 2 stents. Both were patent. There was a new 80% ulcerated plaque type of stenosis in the proximal LAD. A stent was placed. Patient did well post heart catheterization. Patient doing well at this time. Patient will be discharged home. Follow-up with PCP in 1 week to follow-up his hospitalization. For his type 1 diabetes, the patient will continue with NPH insulin at 10 units subcu twice daily. The patient will also continue with insulin regular with mild sliding scale. This will be provided for him. Recommend blood sugar to maintain less than 140 fasting and less than 200 after meals. If blood sugars remain above 200 consistently his NPH insulin can be increased by 2 to 4 units for better control. This can be done with the help of his PCP. Recommend to check his blood sugars at least twice daily. Recommend to recheck hemoglobin A1c every 3 months to monitor his progress. Compliance with his insulin regimen will be important to decrease his chance of further recurrent DKA. Education on DKA and diabetes provided. Recommend follow-up with PCP within 1 week to follow-up his hospitalization and continue his care. For his CAD and recent stent placed to the proximal LAD, the patient will continue with aspirin 81 mg daily, Plavix 75 mg daily, metoprolol 50 mg 1 pill twice daily, lisinopril 5 mg daily, and Lipitor 20 mg daily. Compliance with his medications will be important. This was stressed in detail. Recommend follow-up with cardiology in 1 to 2 weeks to follow-up his hospitalization and continue his care. Education on CAD will be provided. Patient with Hypertension. Blood pressure medication adjusted for better control. At discharge the patient will continue with metoprolol 50 mg 1 pill twice daily and lisinopril 5 mg 1 pill daily. Recommend to monitor his blood pressure daily. Recommend to maintain blood pressure less than 140/80. If blood pressure remains above 140/90 consistently further adjustment in his medication may be required. This can be done with the help of his PCP or hydro station operator. Patient with chronic renal disease stage III. Overall stable. Recommend to recheck labBMP in 1 to 2 weeks. 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 Further monitoring can be done by his PCP. Patient with depression with anxiety. At discharge patient will continue with Zoloft 150 mg daily. Patient with hyperlipidemia. At discharge patient will start Lipitor 20 mg daily. Recommend to recheck fasting lipid panel in 4 to 6 weeks to monitor his progress. Further adjustment can be done by his PCP or hydro station operator. Patient with GERD and hiatal hernia. At discharge patient will continue with Protonix 40 mg daily. Patient with chronic pain. Currently on methadone 40 mg daily. Patient will continue with current medication. Follow-up at methadone clinic. Patient with history of noncompliance with his medications. The importance of taking his medications as recommended above will be important especially to decrease his chance for recurrent diabetic ketoacidosis and significant further CAD. This will need to be stressed by his PCP. Patient understands the consequence of not taking his medications. Diet: ADA Activity: Ad feliciano Followup: Unknown,U [Primary Care Provider] - Time spent managing pt's care (in minutes): 55
[2021-01-13 13:41] VITALS: BP 134/80; TEMP 97.8
[2021-01-13] MEDS ORDERED: ATORVASTATIN 20 MG TAB PO SCH (21:00)
[2021-01-14] MEDS ORDERED: PANTOPRAZOLE 40MG TABLET PO SCH (06:30)
--- NOTE | 2021-01-14 12:55 | PN ---
Date of Progress Note: 01/13/2021 Mr. León is 50, who come in with DKA, non-STEMI. In the photographic laboratory supervisor yesterday, he underwent janae terization and primary stent of the proximal LAD. He had a completely occluded circumflex that appea rs to be old. The RCA showed some diffuse plaquing, but no focal stenosis. Overnight, he has no com plaint. His right groin is intact without any hematoma, with good femoral pulses. His vital signs a re stable. He was afebrile. His chest was clear. He had no edema. I am comfortable with him going home. He should be on aspirin, statin, beta blockers, Plavix, along with his diabetic medication. He can go home today. I will see him in the office in the next 2 weeks. Case was discussed with Dr. Plummer. ANDRIY/DORIE Voice ID: [id number] Report ID: [id number]
== END 2021-01-13 14:30 | disposition home or self-care (01) | DRG 981 ==
LOC: ER 17:50 → ERHOLD 20:58 → 2ND 01-12 09:45
PROVIDERS: ADMIT Internal Medicine; ATTEND Internal Medicine
PROC: 027034Z Dilation of Coronary Artery, One Artery with Drug-eluting Intraluminal Device, Percutaneous Approach (ICD-10-PCS; principal; 2021-01-12)
PROC: B201YZZ Plain Radiography of Multiple Coronary Arteries using Other Contrast (ICD-10-PCS; 2021-01-12)
DX: E10.10 Type 1 diabetes mellitus with ketoacidosis without coma (principal); I21.4 Non-ST elevation (NSTEMI) myocardial infarction; N17.9 Acute kidney failure, unspecified; N18.30 Chronic kidney disease, stage 3 unspecified; I25.10 Atherosclerotic heart disease of native coronary artery without angina pectoris; I12.9 Hypertensive chronic kidney disease with stage 1 through stage 4 chronic kidney disease, or unspecified chronic kidney disease; Z95.5 Presence of coronary angioplasty implant and graft; F41.8 Other specified anxiety disorders; E78.5 Hyperlipidemia, unspecified; K21.9 Gastro-esophageal reflux disease without esophagitis; K44.9 Diaphragmatic hernia without obstruction or gangrene; G89.29 Other chronic pain; Z86.73 Personal history of transient ischemic attack (TIA), and cerebral infarction without residual deficits; Z91.14 Patient's other noncompliance with medication regimen; R00.0 Tachycardia, unspecified; E83.39 Other disorders of phosphorus metabolism; Z20.822 Contact with and (suspected) exposure to COVID-19
CPT/HCPCS: 36415; 71045; 71250; 74176; 80048; 80053; 80061; 80076; 81003; 82010; 82310; 82947; 83036; 83605; 83690; 83735; 83880; 83930; 84100; 84132; 84145; 84439; 84443; 84484; 85025; 85347; 85610; 85730; 92928; 93005; 93306; 93454; 99285; C1725; C1760; C1877; C1893; C9113; J0583; J1644; J1815; J2250; J2405; J2550; J3010; J7030; J7040; J7042; J7050; J7120; U0003

== ENCOUNTER 2021-01-16 09:03 | Inpatient (IN) | payer SELFPAY ==
--- OUTSIDE RECORDS SUMMARY | 2021-01-16 09:05 | XMS REPORT | Continuity of Care Document ---
:1970 Author Organization [facility] t Address [address] [place] [address] Dr. W[address] [place] [address] Care Team Providers Name Role Phone Callie [...] 2020-11-18 2020-11-18 Patient Kelly Perrin [id number] 00:00:00 00:00:00 Outreach E Pavel [id number] [place] [phone] [id number] 2020-10-01 2020-10-01 Orders Doctor BEKAH [id number] 00:00:00 00:00:00 Only Unassigned, SANTO [id number] [place] [facility] [id number] 2020-09-16 2020-09-16 Patient Kelly Perrin [id number] 00:00:00 00:00:00 Outreach E Pavel [id number] [place] [id number] 2020-09-12 2020-09-12 Transition Delfina Downs [id number] 00:00:00 00:00:00 of Care Genevieve Zhao [id number] [place] [id number] 2020-09-12 2020-09-12 Telephone BEKAH Martinez 1.2.840.114 [id number] 00:00:00 00:00:00 Aaron BLANCHARD [id number] [facility] [id number] 2020-09-08 2020-09-11 [facility] Michelle Guyguanakitogwen Shahidnie 1.2.840 .114 [id number] 09:00:00 14:25:00 Encounter JuwanMichaelMelvin King [place] [id number] .[id number] [facility] [id number] 2020-09-09 2020-09-09 Transition Delfina Downs [id number] 00:00:00 00:00:00 of Care Genevieve Zhao [id number] [place] [id number] 2020-09-06 2020-09-07 [facility] Ike Soler [facility] 1.2.840.1 [id number] 17:29:00 12:00:00 Encounter Андрей Gamble [id number] [place] [id number] [place] [id number] [id number] 2019-12-17 2019-12-17 Emergency [facility] [id number] 18:51:00 20:05:00 Eliza Salinas [id number] [place] [id number] [place] [phone] [id number] Results This patient has no known results.
[2021-01-16] MEDS ORDERED: NA CHLORIDE 0.9% 1,000 ML ONE (09:58)
[2021-01-16] MEDS ORDERED: ONDANSETRON 4 MG/2 ML VIAL ONE ×2 (09:58→23:10)
[2021-01-16] MEDS ORDERED: FENTANYL CITR 100 MCG/2 ML ONE (09:58)
--- NOTE | 2021-01-16 10:07 | RAD REPORT ---
EXAM DESCRIPTION: RAD - Chest Single View - 01/16/2021 9:58 am CLINICAL HISTORY: CHEST PAIN Chest pain. COMPARISON: Chest Single View dated 01/09/2021; Abdomen 1 View (KUB) dated 11/19/2019; Chest Single Vie w dated 10/16/2019; Chest Single View dated 08/17/2019 FINDINGS: Portable technique limits examination quality. The lungs are grossly clear. The heart is normal in size. No displaced fractures. IMPRESSION: No acute intrathoracic process suspected.
[2021-01-16 10:18] LABS: Absolute Lymphocytes (CBC) 1.9 K/uL (0.7-4.9); Basophils % 0.2 % (0-1.3); Hematocrit 34.4 % (39.6-49.0); Lymphocytes % 10.2 % (15.3-44.8); MPV 9.7 fL (7.6-11.3); RBC Red Blood Cell Count 3.69 M/uL (4.33-5.43)
[2021-01-16 10:57] LABS: Albumin 3.3 g/dL (3.4-5.0); Bilirubin Direct 0.2 mg/dL (0-0.2); Bilirubin Total 0.7 mg/dL (0.2-1.0); Blood Morphology Comment NOT SEEN (NOT SEEN); Platelet Estimate ADEQ; Potassium 5.1 mmol/L (3.5-5.1); Protein, Total 7.2 g/dL (6.4-8.2)
--- NOTE | 2021-01-16 11:19 | ER ---
Nurse's Notes [facility] Name: Osbaldo León Age: 50 yrs Sex: Male : 1970 Arrival Date: 01/16/2021 Time: 09:10 Bed 8 Private MD: Diagnosis: Other specified diabetes mellitus with ketoacidosis without coma;Subsequent non-ST elevation (NSTEMI) myocardial infarction Presentation: 01/16 09:27 Chief complaint: Patient states: upper chest pain radiating down to stomach started iw last night, 02/22, had heart stent placed earlier this week with Dr. Carey , pt also diabetic HM=541, unable to obtain IV access , gave 324 ASA. Coronavirus screen: nausea, vomiting. Ebola Screen: Patient negative for fever greater than or equal to 101.5 degrees Fahrenheit, and additional compatible Ebola Virus Disease symptoms Patient denies exposure to infectious person. Patient denies travel to an Ebola-affected area in the 21 days before illness onset. No symptoms or risks identified at this time. Initial Sepsis Screen: Does the patient meet any 2 criteria? RR > 20 per min. HR > 90 bpm. Yes Does the patient have a suspected source of infection? No. Patient's initial sepsis screen is negative. Risk Assessment: Do you want to hurt yourself or someone else? Patient reports no desire to harm self or others. Onset of symptoms was January 15, 2021. 09:27 Method Of Arrival: EMS: [facility] iw 09:27 Acuity: [place] 2 iw Triage Assessment: 09:30 General: Appears distressed, uncomfortable, ill, unkempt, Behavior is cooperative, bp anxious, drowsy. Pain: Complains of pain in chest. EENT: No deficits noted. Neuro: Level of Consciousness is obeys commands, lethargic, Oriented to Appropriate for age. Cardiovascular: Rhythm is sinus tachycardia. Respiratory: No deficits noted. GI: Reports nausea, vomiting. : No signs and/or symptoms were reported regarding the genitourinary system. Derm: No deficits noted. Musculoskeletal: No deficits noted. Historical: - Allergies: 09:30 Clindamycin; iw 09:30 Morphine; iw - PMHx: :30 CVA; Diabetes - IDDM; Hypertension; MT; iw - PSHx: 09:30 cardiac stent; iw - Immunization history:: Client reports receiving the 2nd dose of the Covid vaccine. - Social history:: Smoking status: Patient denies any tobacco usage or history of. - Family history:: not pertinent. Screenin:51 Abuse screen: Denies threats or abuse. Denies injuries from another. Nutritional bp screening: No deficits noted. Tuberculosis screening: No symptoms or risk factors identified. Assessment: 09:30 General: SEE TRIAGE NOTE. bp 11:30 Reassessment: TRANSFER REQUESTED BY PROVIDER. Q1HR BGL STARTED WITH INSULIN GTT. bp 13:30 Reassessment: No changes from previously documented assessment. Patient and/or family bp updated on plan of care and expected duration. Pain level reassessed. 15:30 Reassessment: No changes from previously documented assessment. Patient and/or family bp updated on plan of care and expected duration. Pain level reassessed. Vital Signs: 09:15 BP 86 / 48; Pulse 111; Resp 38; Pulse Ox 100% ; bp 09:27 BP 88 / 48; Pulse 125; Resp 26 S; Temp 97.5; Pulse Ox 100% on R/A; Weight 74.84 kg; iw Height 6 ft. 0 in. (182.88 cm); Pain 10/10; 10:00 BP 89 / 56; Pulse 120; Resp 38; Pulse Ox 100% ; bp 11:00 BP 108 / 79; Pulse 126; Resp 40; Pulse Ox 100% ; bp 13:00 BP 99 / 15; Pulse 130; Resp 32; Temp 98; Pulse Ox 100% ; bp 14:00 BP 107 / 64; Pulse 125; Resp 41; Pulse Ox 100% ; bp 15:00 BP 93 / 32; Pulse 129; Resp 41; Pulse Ox 100% ; bp 16:00 BP 77 / 43; Pulse 124; Resp 40; Pulse Ox 100% ; bp 17:00 BP 78 / 47; Pulse 109; Resp 19; Pulse Ox 100% ; bp 09:27 Body Mass Index 22.38 (74.84 kg, 182.88 cm) iw ED Course: 09:10 Patient arrived in ED. iw 09:12 Dana Campbell MD is Attending Physician. ma2 09:14 Juliocesra Talley, RN is Primary Nurse. bp 09:30 Triage completed. iw 09:30 Arm band placed on. iw 09:58 CXR XRAY In Process Unspecified. EDMS 10:30 Inserted saline lock: 22 gauge in left wrist, using aseptic technique. bp 11:11 initiated transfer to [facility]. mt 11:18 [facility] denied due to being at full [place]. mt 11:22 initiated transfer to [facility]- denied due to all [place] facilities being mt at full capacity. 11:43 initiated transfer to [facility], denied due to being at full capacity. mt 11:53 [facility] denied due to being at full capacity. mt 11:54 [facility] denied due to being at full capacity. mt 12:32 COVID-19 : Document "Date of Symptom Onset" if Symptomatic. Sent. bp 15:08 Dirk Cohn MD is Hospitalizing Provider. ma2 04 19:48 Primary Nurse role handed off by Juliocesar Talley, MARU zb 19:48 Tanya Elliott, MARU is Primary Nurse. zb Administered Medications: 01/16 09:31 CANCELLED (given PTAa): Aspirin Chewable Tablet 324 mg PO once; 81 mg tablets x 4 iw 09:50 Drug: Zofran (Ondansetron) 4 mg Route: IVP; Site: right upper arm; bp 11:33 Follow up: Response: No adverse reaction bp 09:50 Drug: fentaNYL (PF) 50 mcg Route: IVP; Site: right upper arm; bp 11:32 Follow up: Response: Pain is decreased bp 10:00 Not Given (Hemodynamic Parameters): morphine 4 mg IVP once; RASS on ADMIN: Combtv4, bp Very Agttd3, Agttd2, Rstlss1, AlertClm0, Drwsy-1, Lt Sdtn-2, Mod Sdtn-3, Dp Sdtn-4, UnArsble-5 10:30 Drug: NS 0.9% 1000 ml Route: IV; Rate: 1 bolus; Site: left wrist; bp 11:33 Follow up: IV Status: Completed infusion; IV Intake: 1000ml bp 11:55 Drug: NS 0.9% 2000 ml Route: IV; Rate: 1 bolus; Site: left wrist; bp 11:55 Drug: Insulin Drip - (Insulin Regular Human 100 units, NS 0.9% 100 ml) {Co-Signature: bp aa5 (Joanne Deshpnade RN).} Route: IV; Rate: calculated rate; Site: left wrist; 11:55 Drug: Lovenox (enoxaparin) 80 mg Route: Sub-Q; Site: right lower abdomen; bp 13:36 Follow up: Response: No adverse reaction bp Intake: 11:33 IV: 1000ml; Total: 1000ml. bp Outcome: 11:19 ER care complete, transfer ordered by . ma2 15:09 Decision to Hospitalize by Provider. [facility] 01/18 16:14 Patient left the ED. iw Signatures: Dispatcher [employer] Priya Rodriguez, RN Catrachita Linares mt, Brian, RN RN Dana Jacome MD MD ma2 Tanya Elliott RN RN zb Joanne Deshpande RN aa5
--- NOTE | 2021-01-16 11:19 | EDPHYS ---
Physician Documentation [facility] Name: Osbaldo León Age: 50 yrs Sex: Male : 1970 Arrival Date: 01/16/2021 Time: 09:10 Bed 8 Private MD: ED Physician Dana Campbell HPI: 01/16 09:58 This 50 yrs old Male presents to ER via EMS with complaints of Chest Pain, ma2 Nausea/Vomiting. 09:58 The patient or guardian reports chest pain that is located primarily in the substernal ma2 area. Onset: gradually, 1 day(s) ago. The pain does not radiate. Associated signs and symptoms: Pertinent negatives: dizziness, lower extremity pain, lightheadedness, shortness of breath, vomiting. Severity of pain: At its worst the pain was moderate in the emergency department the pain is unchanged. The patient has experienced similar episodes in the past. Historical: - Allergies: 09:30 Clindamycin; iw 09:30 Morphine; iw - PMHx: 09:30 CVA; Diabetes - IDDM; Hypertension; MT; iw - PSHx: 09:30 cardiac stent; iw - Immunization history:: Client reports receiving the 2nd dose of the Covid vaccine. - Social history:: Smoking status: Patient denies any tobacco usage or history of. - Family history:: not pertinent. ROS: 09:58 Constitutional: Negative for fever, chills, and weight loss. ma2 09:58 All other systems are negative. Exam: 09:58 Constitutional: This is a well developed, well nourished patient who is awake, alert, ma2 and in no acute distress. Head/Face: Normocephalic, atraumatic. Eyes: Pupils equal round and reactive to light, extra-ocular motions intact. Lids and lashes normal. Conjunctiva and sclera are non-icteric and not injected. Cornea within normal limits. Periorbital areas with no swelling, redness, or edema. ENT: Nares patent. No nasal discharge, no septal abnormalities noted. Tympanic membranes are normal and external auditory canals are clear. Oropharynx with no redness, swelling, or masses, exudates, or evidence of obstruction, uvula midline. Mucous membranes moist. Neck: Trachea midline, no thyromegaly or masses palpated, and no cervical lymphadenopathy. Supple, full range of motion without nuchal rigidity, or vertebral point tenderness. No Meningismus. Chest/axilla: Normal chest wall appearance and motion. Nontender with no deformity. No lesions are appreciated. Cardiovascular: sinus tachycardia and Regular rhythm with a normal S1 and S2. No gallops, murmurs, or rubs. Normal PMI, no JVD. No pulse deficits. Respiratory: Lungs have equal breath sounds bilaterally, clear to auscultation and percussion. No rales, rhonchi or wheezes noted. No increased work of breathing, no retractions or nasal flaring. Abdomen/GI: Soft, non-tender, with normal bowel sounds. No distension or tympany. No guarding or rebound. No evidence of tenderness throughout. Back: No spinal tenderness. No costovertebral tenderness. Full range of motion. Skin: Warm, dry with normal turgor. Normal color with no rashes, no lesions, and no evidence of cellulitis. MS/ Extremity: Pulses equal, no cyanosis. Neurovascular intact. Full, normal range of motion. Neuro: Awake and alert, GCS 15, oriented to person, place, time, and situation. Cranial nerves II-XII grossly intact. Motor strength 5/5 in all extremities. Sensory grossly intact. Cerebellar exam normal. Normal gait. Vital Signs: 09:15 BP 86 / 48; Pulse 111; Resp 38; Pulse Ox 100% ; bp 09:27 BP 88 / 48; Pulse 125; Resp 26 S; Temp 97.5; Pulse Ox 100% on R/A; Weight 74.84 kg; iw Height 6 ft. 0 in. (182.88 cm); Pain 10/10; 10:00 BP 89 / 56; Pulse 120; Resp 38; Pulse Ox 100% ; bp 11:00 BP 108 / 79; Pulse 126; Resp 40; Pulse Ox 100% ; bp 13:00 BP 99 / 15; Pulse 130; Resp 32; Temp 98; Pulse Ox 100% ; bp 14:00 BP 107 / 64; Pulse 125; Resp 41; Pulse Ox 100% ; bp 15:00 BP 93 / 32; Pulse 129; Resp 41; Pulse Ox 100% ; bp 16:00 BP 77 / 43; Pulse 124; Resp 40; Pulse Ox 100% ; bp 17:00 BP 78 / 47; Pulse 109; Resp 19; Pulse Ox 100% ; bp 09:27 Body Mass Index 22.38 (74.84 kg, 182.88 cm) iw MDM: 09:14 Patient medically screened. ma2 09:58 Differential diagnosis: abnormal EKG, gastroesophageal reflux disease (GERD), ma2 myocarditis, pancreatitis, pneumonia, stable angina, unstable angina. HEART Score: History: Moderately Suspicious (1), ECG: Non specific repolarization disturbance / LBTB / PM (1), Age: > 45 and < 65 years (1), Risk Factors: > or = 3 Risk factors for atherosclerotic disease (2), Troponin: < or = 1 x Normal Limit (0), Total Score = 4. The patient was not given aspirin in the Emergency Department. Administered by EMS. 11:14 Data reviewed: vital signs, nurses notes. Data reviewed: EMS record, old medical ma2 records, lab test result(s), EKG. Counseling: I had a detailed discussion with the patient and/or guardian regarding: the historical points, exam findings, and any diagnostic results supporting the discharge/admit diagnosis, the presence of at least one elevated blood pressure reading (>120/80) during this emergency department visit, the need for outpatient follow up. Response to treatment: the patient's symptoms have markedly improved after treatment. 11:16 ED course: patient has a LAD stent placed 5 days ago, troponin today is elevated ma2 however at baseline. patient has DKA, AO x 4, patient needs ICU, discussed with Hospitalist, Colby, advised to transfer to higher level of care as no ICU bed available in our hospital. . 01/16 09:13 Order name: Basic Metabolic Panel [facility] 01/16 09:13 Order name: CBC with Diff me2 01/16 09:13 Order name: Hepatic Function me2 01/16 09:13 Order name: Lipase me2 01/16 09:14 Order name: Basic Metabolic Panel; Complete Time: 11:04 EDMS 01/16 09:14 Order name: CBC with Automated Diff; Complete Time: 11:04 EDMS 01/16 09:14 Order name: Liver (Hepatic) Function; Complete Time: 11:04 EDMS 01/16 09:14 Order name: Lipase; Complete Time: 11:04 EDMS 01/16 09:18 Order name: Troponin I; Complete Time: 11:04 me2 01/16 10:23 Order name: Manual Differential; Complete Time: 11:04 EDMS 01/16 11:19 Order name: COVID-19 : Document "Date of Symptom Onset" if Symptomatic. iw 01/16 11:19 Order name: CORONAVIRUS EDMS 01/16 13:23 Order name: BMP; Complete Time: 21:34 ma2 01/16 13:24 Order name: SARS-COV-2 RT PCR; Complete Time: 13:36 EDMS 01/16 13:35 Order name: Glucose bp 01/16 13:36 Order name: Glucose Level; Complete Time: 15:09 EDMS 01/16 13:51 Order name: Glucose, Ancillary Testing; Complete Time: 15:09 EDMS 01/16 14:50 Order name: Glucose, Ancillary Testing; Complete Time: 15:09 EDMS 01/16 16:08 Order name: Glucose, Ancillary Testing; Complete Time: 21:34 EDMS 01/16 18:09 Order name: ABG mt 01/16 18:09 Order name: BMP mn 01/16 20:33 Order name: ABG Arterial Blood Gas; Complete Time: 21:34 EDMS 01/16 20:33 Order name: Glucose, Ancillary Testing; Complete Time: 21:34 EDMS 01/16 20:33 Order name: Glucose, Ancillary Testing; Complete Time: 21:34 EDMS 01/16 22:13 Order name: Troponin I; Complete Time: 21:34 EDMS 01/16 22:22 Order name: Acetone Level; Complete Time: 21:34 EDMS 01/16 22:26 Order name: Glucose, Ancillary Testing; Complete Time: 21:34 EDMS 01/16 23:44 Order name: Glucose, Ancillary Testing; Complete Time: 21:34 EDMS 01/16 23:47 Order name: Glucose, Ancillary Testing; Complete Time: 21:34 EDMS 01/17 00:10 Order name: Hemoglobin; Complete Time: 21:34 EDMS 01/17 00:10 Order name: Hematocrit; Complete Time: 21:34 EDMS 01/17 00:21 Order name: Troponin I; Complete Time: 21:34 EDMS 01/17 00:24 Order name: Acetone Level; Complete Time: 21:34 EDMS 01/17 00:25 Order name: Protime (+INR); Complete Time: 21:34 EDMS 01/17 00:25 Order name: PTT, Activated Partial Thromb; Complete Time: 21:34 EDMS 01/17 00:32 Order name: Basic Metabolic Panel; Complete Time: 21:34 EDMS 01/17 00:51 Order name: Glucose, Ancillary Testing; Complete Time: :34 EDMS 01/17 00:54 Order name: Lactate; Complete Time: 21:34 EDMS 01/17 01:46 Order name: Glucose, Ancillary Testing; Complete Time: 21:34 EDMS 01/17 02:28 Order name: Ur Protein; Complete Time: 21:34 EDMS 01/17 02:46 Order name: Glucose, Ancillary Testing; Complete Time: 21:34 EDMS 01/17 03:44 Order name: Acetone Level; Complete Time: 21:34 EDMS 01/17 04:03 Order name: CBC with Automated Diff; Complete Time: :34 EDMS 01/17 04:07 Order name: Glucose, Ancillary Testing; Complete Time: 21:34 EDMS 01/17 04:31 Order name: Basic Metabolic Panel; Complete Time: : EDMS 01/17 04:31 Order name: Phosphorus; Complete Time: : EDMS 01/17 04:31 Order name: Albumin; Complete Time: 21:34 EDMS 01/17 04:31 Order name: Troponin I; Complete Time: 21:34 EDMS 01/17 04:31 Order name: Magnesium; Complete Time: : EDMS 01/17 04:35 Order name: Glucose, Ancillary Testing; Complete Time: :34 EDMS 01/17 04:42 Order name: Procalcitonin; Complete Time: :34 EDMS 01/17 04:59 Order name: ABG Arterial Blood Gas; Complete Time: : EDMS 01/17 05:31 Order name: Glucose, Ancillary Testing; Complete Time: 21:34 EDMS 01/17 06:20 Order name: Glucose, Ancillary Testing; Complete Time: 21:34 EDMS 01/17 07:27 Order name: Glucose, Ancillary Testing; Complete Time: 21:34 EDMS 01/17 08:39 Order name: Glucose, Ancillary Testing; Complete Time: 21:34 EDMS 01/17 09:05 Order name: Procalcitonin; Complete Time: 21:34 EDMS 01/17 09:20 Order name: Glucose, Ancillary Testing; Complete Time: 21:34 EDMS 01/17 09:33 Order name: Manual Differential; Complete Time: 21:34 EDMS 01/17 10:22 Order name: Glucose, Ancillary Testing; Complete Time: :34 EDMS 01/17 11:18 Order name: Lactate; Complete Time: :34 EDMS 01/16 09:13 Order name: IV Saline Lock; Complete Time: 10:40 me2 01/16 09:13 Order name: Labs collected and sent; Complete Time: 10:02 [facility] 01/16 09:18 Order name: EKG - Nurse/Tech; Complete Time: 09:31 me2 01/16 09:18 Order name: CXR XRAY; Complete Time: 11:04 [facility] 01/16 15:22 Order name: CONS Physician Consult EDFL 01/17 10:04 Order name: CT; Complete Time: 21:34 EDMS 01/17 11:23 Order name: Acetaminophen Level; Complete Time: :34 EDMS 01/17 11:31 Order name: Glucose, Ancillary Testing; Complete Time: : EDMS 01/17 11:36 Order name: US; Complete Time: : EDMS 01/17 11:37 Order name: Creatine Phosphokinase; Complete Time: : EDMS 01/17 11:37 Order name: Troponin I; Complete Time: : EDMS 01/17 11:44 Order name: Acetone Level; Complete Time: : EDMS 01/17 11:49 Order name: Salicylates Level; Complete Time: : EDMS 01/17 12:38 Order name: Basic Metabolic Panel; Complete Time: : EDMS 01/17 12:38 Order name: Magnesium; Complete Time: : EDMS 01/17 12:44 Order name: Glucose, Ancillary Testing; Complete Time: :34 EDMS 01/17 13:33 Order name: Glucose, Ancillary Testing; Complete Time: : EDMS 01/17 14:37 Order name: Glucose, Ancillary Testing; Complete Time: : EDMS 01/17 15:48 Order name: Glucose, Ancillary Testing; Complete Time: : EDMS 01/17 16:46 Order name: Glucose, Ancillary Testing; Complete Time: : EDMS 01/17 17:51 Order name: Glucose, Ancillary Testing; Complete Time: 21:34 EDMS 01/17 17:56 Order name: Basic Metabolic Panel; Complete Time: 21:34 EDMS 01/17 17:56 Order name: Phosphorus; Complete Time: 21:34 EDMS 01/17 17:56 Order name: Magnesium; Complete Time: 21:34 EDMS 01/17 18:45 Order name: Glucose, Ancillary Testing; Complete Time: 21:34 EDMS 01/17 19:51 Order name: Glucose, Ancillary Testing; Complete Time: 21:34 EDMS 01/17 20:53 Order name: Glucose, Ancillary Testing; Complete Time: 21:34 EDMS 01/17 22:45 Order name: Glucose, Ancillary Testing EDMS 01/17 23:47 Order name: Glucose, Ancillary Testing EDMS 01/18 00:07 Order name: Glucose, Ancillary Testing EDMS 01/18 00:49 Order name: Glucose, Ancillary Testing EDMS 01/18 01:23 Order name: Glucose, Ancillary Testing EDMS 01/18 02:29 Order name: Glucose, Ancillary Testing EDMS 01/18 03:24 Order name: Glucose, Ancillary Testing EDMS 01/18 04:34 Order name: Glucose, Ancillary Testing EDMS 01/18 04:45 Order name: CBC with Automated Diff EDMS 01/18 04:57 Order name: Basic Metabolic Panel EDMS 01/18 04:57 Order name: Phosphorus EDMS 01/18 04:57 Order name: Magnesium EDMS 01/18 05:19 Order name: Glucose, Ancillary Testing EDMS 01/18 06:23 Order name: Glucose, Ancillary Testing EDMS 01/18 07:26 Order name: RAD EDMS 01/18 07:36 Order name: Glucose, Ancillary Testing EDMS 01/18 15:40 Order name: Glucose, Ancillary Testing EDMS 01/18 15:40 Order name: Blood Culture EDMS 01/18 15:42 Order name: Glucose, Ancillary Testing EDMS 01/18 15:42 Order name: Glucose, Ancillary Testing EDMS 01/18 15:42 Order name: Glucose, Ancillary Testing EDMS 01/18 15:42 Order name: Glucose, Ancillary Testing EDMS 01/18 15:42 Order name: Glucose, Ancillary Testing EDMS 01/18 15:42 Order name: Glucose, Ancillary Testing EDMS Administered Medications: 09:31 CANCELLED (given PTAa): Aspirin Chewable Tablet 324 mg PO once; 81 mg tablets x 4 iw 09:50 Drug: Zofran (Ondansetron) 4 mg Route: IVP; Site: right upper arm; bp 11:33 Follow up: Response: No adverse reaction bp 09:50 Drug: fentaNYL (PF) 50 mcg Route: IVP; Site: right upper arm; bp 11:32 Follow up: Response: Pain is decreased bp 10:00 Not Given (Hemodynamic Parameters): morphine 4 mg IVP once; RASS on ADMIN: Combtv4, bp Very Agttd3, Agttd2, Rstlss1, AlertClm0, Drwsy-1, Lt Sdtn-2, Mod Sdtn-3, Dp Sdtn-4, UnArsble-5 10:30 Drug: NS 0.9% 1000 ml Route: IV; Rate: 1 bolus; Site: left wrist; bp 11:33 Follow up: IV Status: Completed infusion; IV Intake: 1000ml bp 11:55 Drug: NS 0.9% 2000 ml Route: IV; Rate: 1 bolus; Site: left wrist; bp 11:55 Drug: Insulin Drip - (Insulin Regular Human 100 units, NS 0.9% 100 ml) {Co-Signature: bp aa5 (Joanne Deshpande RN).} Route: IV; Rate: calculated rate; Site: left wrist; 11:55 Drug: Lovenox (enoxaparin) 80 mg Route: Sub-Q; Site: right lower abdomen; bp 13:36 Follow up: Response: No adverse reaction bp Disposition: 11:16 Critical Care:. ma2 Disposition Summary: 01/16/21 15:09 Hospitalization Ordered Hospitalization Status: Inpatient Admission ma2 Provider: Dirk Cohn ma2 Condition: Stable(01/16/21 15:09) ma2 Problem: new(01/16/21 15:09) ma2 Symptoms: are unchanged(01/16/21 15:09) ma2 Bed/Room Type: Standard [facility] Location: [facility] ER HOLD(01/16/21 22:12) cg Room Assignment: ERHOLD-(01/16/21 22:12) cg Diagnosis - Other specified diabetes mellitus with ketoacidosis without coma ma2 - Subsequent non-ST elevation (NSTEMI) myocardial infarction(01/16/21 15:09) ma2 Forms: - Medication Reconciliation Form ma2 - SBAR form ma2 Critical care time excluding procedures: 11:16 Critical care time: Bedside Care: 30 minutes, Consultation: 10 minutes, Family ma2 Intervention: 5 minutes. Total time: 45 minutes Signatures: Dispatcher [employer] EDPriya Lynne, RN MARU iw Marcela Dozier RN RN Juliocesar Jacob RN RN bp Alzahri, Mohammad, MD MD ma2 Rigoberto Chairez la3 Joanne Deshpande RN aa5 Corrections: (The following items were deleted from the chart) 09:22 09:14 Abdomen Limited+US.RAD.BRZ ordered. EDMS EDMS 09:30 09:14 Abdomen Pelvis W Con+CT.RAD.BRZ ordered. EDMS EDMS 09:31 09:31 Aspirin Chewable Tablet 324 mg PO once; 81 mg tablets x 4 ordered. me2 iw 12:31 11:20 CORONAVIRUS+MR.LAB.BRZ ordered. EDMS EDMS 15:08 11:19 osh ma2 ma2 15:08 11:19 Other Acute Care Facility ma2 ma2 15:08 11:19 Higher level of care ma2 ma2 15:08 11:19 Critical ma2 ma2 15:08 11:19 new ma2 ma2 15:08 11:19 have improved ma2 ma2 15:08 11:19 Subsequent non-ST elevation (NSTEMI) myocardial infarction ma2 ma2 15:08 11:19 Type 1 diabetes mellitus with ketoacidosis without coma ma2 ma2 22:12 15:09 Telemetry/MedSurg (Inpatient) me2 cg 22:12 15:09 me2
[2021-01-16] MEDS ORDERED: INSULIN -REGULAR HUMAN 100 UNIT in NA CHLORIDE 0.9% 100 ML IV SCH ×2 (12:00→19:38)
[2021-01-16] MEDS ORDERED: NA CHLORIDE 0.9% 2,000 ML ONE (12:06)
[2021-01-16] MEDS ORDERED: ENOXAPARIN 80 MG/0.8 ML SQ ONE (12:06)
--- NOTE | 2021-01-16 16:53 | P.HP ---
Certification for Inpatient Patient admitted to: Inpatient With expected LOS: >2 Midnights Patient will require the following post-hospital care: None Practitioner: I am a practitioner with admitting privileges, knowledge of patient current condition, hospital course, and medical plan of care. Services: Services provided to patient in accordance with Admission requirements found in Title 42 Section 412.3 of the Code of Federal Regulations Patient History Date of Service: 01/16/21 Primary Care Provider: none Reason for admission: DKA History of Present Illness: This is a 50-year-old male patient that was recently admitted for DKA and had a heart stent placed about 3 days ago. Came back today via EMS with chest pain, nausea vomiting, shortness of breath. Patient was worked up in the emergency room and found to have a sodium of 132, potassium 5.1, chloride 93, bicarb 7, BUN of 20, creatinine of 1.94, glucose 625. Patient's white cell count was 18.6 hemoglobin 10.7 hematocrit 34.4 and platelet of 357. Patient had a troponin of 1.14. Patient in active diabetic ketoacidosis. Patient was started on insulin drip and fluids in the emergency room. Medicine consulted at that time for admission. Review of current labs from previous visit shows that patient is in acute renal failure as well. Allergies propoxyphene Allergy (Verified 02/19/20 15:33) Nausea/Vomiting morphine Adverse Reaction (Intermediate, Verified 02/19/20 15:33) pt does not like the way he feels Clindamycin Allergy (Uncoded 02/19/20 15:33) Hives/Rash Home Medications: Alprazolam [Xanax] 0.5 mg PO TID 02/19/20 Dicyclomine [Bentyl*] 20 mg PO Q12H 02/19/20 Methadone HCl [Methadone HCl*] 40 mg PO DAILY 02/19/20 Sertraline [Zoloft*] 150 mg PO DAILY 02/19/20 Aspirin [Aspirin EC 81 MG] 81 mg PO DAILY #90 tablet. 01/13/21 Atorvastatin Calcium [Lipitor] 20 mg PO BEDTIME #30 tab 01/13/21 Clopidogrel Bisulfate [Plavix] 75 mg PO DAILY #30 tablet 01/13/21 Insulin NPH Human Isophane [Novolin N] 10 unit SQ BID #1 vial 01/13/21 Insulin Regular, Human [Novolin R] See Protocol SQ ACHS #1 vial 01/13/21 Metoprolol Tartrate [Lopressor] 50 mg PO BID #60 tab 01/13/21 Pantoprazole [Protonix Tab] 40 mg PO DAILY #30 tab 01/13/21 lisinopriL [Lisinopril] 5 mg PO DAILY #30 tablet 01/13/21 - Past Medical/Surgical History Has patient received pneumonia vaccine in the past: No Diabetic: Yes -: HTN -: Insulin-dependent diabetes mellitus -: cva, weaker on the left side, and has slight numbness noted to left side -: opioid abuse -: injury to right eye, poor vision -: depression -: panic attacks -: ibs -: NH 2020 -: cardiac stent 2020 - Family History Father -: Heart disease Brother -: Diabetes - Social History Smoking Status: Never smoker Smoking therapy provided: No Alcohol use: Yes CD- Drugs: No Caffeine use: No Place of Residence: Home Review of Systems General: Malaise Eyes: Unremarkable ENT: Unremarkable Respiratory: Shortness of Breath Cardiovascular: Chest Pain Gastrointestinal: Nausea, Vomiting Musculoskeletal: Unremarkable Integumentary: Unremarkable Neurological: Unremarkable Lymphatics: Unremarkable Physical Examination - Vital Signs Temperature: 97.5 F Blood Pressure: 96/54 Pulse: 125 Respirations: 26 Pulse Ox (%): 100 (RA) - Physical Exam General: Alert, Oriented x3, Cooperative, Mild distress HEENT: PERRLA, Other (Mucous membranes dry), EOMI Neck: Supple, 2+ carotid pulse no bruit, JVD not distended Respiratory: Clear to auscultation bilaterally, Normal air movement, Other (Tachypneic) Cardiovascular: No edema, Normal pulses, Normal S1 S2, Irregular heart rate/rhythm (Tachycardic) Capillary refill: <2 Seconds Gastrointestinal: Normal bowel sounds, Soft and benign, Non-distended, No ascites, No masses, No rebound, No guarding, Tenderness (Epigastric region) Musculoskeletal: No clubbing, No swelling, No contractures, No erythema, No ten derness, No warmth Integumentary: No rashes, No breakdown, No significant lesion, No tenderness/swelling, No erythema, No warmth, No cyanosis Neurological: Normal speech, Normal strength at 5/5 x4 extr, Normal tone, Sensation intact, Cranial nerves 3-12 intact, Normal affect Lymphatics: No axilla or inguinal lymphadenopathy - Studies Laboratory Data (last 24 hrs) 01/16/21 13:40: Glucose 554 H* 01/16/21 09:55: Troponin I 1.14 H* 01/16/21 09:55: WBC 18.60 H D, Hgb 10.7 L, Hct 34.4 L D, Plt Count 357 D 01/16/21 09:55: Sodium 132 L, Potassium 5.1, BUN 20 H, Creatinine 1.94 H D, Glucose 625 H*, Total Bilirubin 0.7, AST 10 L, ALT 12, Alkaline Phosphatase 74, Lipase 19 L Assessment and Plan - Problems (Diagnosis) (1) Acute renal failure Current Visit: Yes Status: Acute Qualifiers: Acute renal failure type: unspecified Qualified Code(s): N17.9 - Acute kidney failure, unspecified (2) Hypotension Current Visit: Yes Status: Acute Qualifiers: Hypotension type: hypotension due to hypovolemia Qualified Code(s): I95.89 - Other hypotension; E86.1 - Hypovolemia (3) Elevated troponin Current Visit: Yes Status: Acute (4) DKA (diabetic ketoacidoses) Current Visit: No Status: Acute Qualifiers: Diabetes mellitus type: type 1 Diabetes mellitus complication detail: without coma Qualified Code(s): E10.10 - Type 1 diabetes mellitus with ketoacidosis without coma - Plan 1. Patient admitted to the intensive care unit for further evaluation of his diabetic ketoacidosis and hypotension 2. Patient is on DKA protocol. Insulin will be adjusted as blood sugar goes down. We will continue to moderately hydrate patient. Adjust bicarb as needed. Have consulted nephrology as well for the acute renal failure process. 3. Cardiology has been consulted as patient still has elevation in troponin with recent chest pain and stent placement 4. Vital signs per protocol 5. DVT prophylaxis 6. Labs daily and as needed. Will trend white cell count and chemistries along with his renal function Discharge Plan: Home Plan to discharge in: 48 Hours - Advance Directives Does patient have a Living Will: No Does patient have a Durable POA for Healthcare: No - Code Status/Comfort Care Code Status Assessed: Yes Code Status: Full Code Critical Care: Yes (Time spent reviewing labs and treatments, discussing care with patient.) Time Spent Managing Pts Care (In Minutes): 80
[2021-01-16] MEDS ORDERED: NACHLORIDE 0.45% 1,000 ML IV ONE (17:44)
[2021-01-16 18:30] LABS: Arterial Blood Carboxyhemoglob 1.8 % (0-1.5); Blood Gas Oxyhemoglobin 95.6 % (94-97); Blood O2 Saturation 98.5 % (92-98.5)
[2021-01-16 19:05] LABS: Potassium 3.7 mmol/L (3.5-5.1)
[2021-01-16] MEDS ORDERED: D5.45NS W/KCL 20MEQ 1,000 ML IV SCH (19:38)
[2021-01-16] MEDS ORDERED: ONDANSETRON 4 MG/2 ML VIAL IV PRN (19:38)
[2021-01-16] MEDS: NA CHLORIDE 0.9% 1,000 ML IV SCH ×2 (19:38→21:38)
[2021-01-16] MEDS: D5W 1,000 ML IV SCH (19:52)
[2021-01-16] MEDS ORDERED: D5 0.45 NS 0 ML IV ONE (19:52)
[2021-01-16] MEDS ORDERED: D5W 1,000 ML IV ONE (19:55)
[2021-01-16] MEDS ORDERED: NOREPINEPHRINE 4 MG in D5W 250 ML IV PRN (20:12)
[2021-01-16] MEDS ORDERED: KCL 20 MEQ/100 mL IVPB 20 MEQ/100 ML BAG IV ONE (20:37)
[2021-01-16] MEDS ORDERED: NA CHLORIDE 0.9% 250 ML ONE (20:37)
[2021-01-16] MEDS ORDERED: NOREPINEPHRINE 4 MG/4 ML VIAL ONE (20:37)
[2021-01-16] MEDS ORDERED: SODIUM CHLORIDE 0.9% 10ML INJ IV PRN (20:58)
[2021-01-16] MEDS: PANTOPRAZOLE 40 MG INJ IVP SCH (21:00)
[2021-01-16] MEDS ORDERED: VANCOMYCIN/NS 1 gm 1 GM/250 ML BAG IVPB SCH (21:15)
[2021-01-16] MEDS ORDERED: VANCOMYCIN 1.5 GM in NA CHLORIDE 0.9% 500 ML IVPB ONE (22:00)
[2021-01-16] MEDS ORDERED: KCL 20 MEQ/100 mL IVPB 20 MEQ/100 ML BAG IV SCH ×2 (22:00)
[2021-01-16] MEDS ORDERED: PANTOPRAZOLE 40 MG INJ ONE (23:10)
[2021-01-17 00:08] LABS: Hematocrit 33.1 % (39.6-49.0)
[2021-01-17 00:17] LABS: Protime INR 1.03
[2021-01-17] MEDS ORDERED: NA CHLORIDE 0.9% 250 ML ONE ×3 (00:22→20:52)
[2021-01-17] MEDS ORDERED: VANCOMYCIN 1 GM/VIAL ONE ×2 (00:22→20:52)
[2021-01-17 00:31] LABS: BUN Blood Urea Nitrogen 27 mg/dL (7-18); Glucose Level 376 mg/dL (74-106); Potassium 4.3 mmol/L (3.5-5.1); Sodium Level 140 mmol/L (136-145)
[2021-01-17 00:32] LABS: Bicarbonate 8 mmol/L (21-32)
[2021-01-17] MEDS ORDERED: LORazepam 2 MG/ML VIAL IV ONE (01:45)
[2021-01-17] MEDS ORDERED: LORazepam 2 MG/ML VIAL ONE (01:48)
[2021-01-17] MEDS ORDERED: INSULIN -REGULAR HUMAN 50 UNIT/0.5 ML ML ONE (02:01)
[2021-01-17] MEDS ORDERED: NA CHLORIDE 0.9% 100 ML ONE ×2 (02:01→11:32)
[2021-01-17 02:28] LABS: UR PROTEIN 42.2 mg/dL (<11.9); Urine Protein/Creatinine Ratio 0.88 ratio (<0.15)
[2021-01-17] MEDS ORDERED: NOREPINEPHRINE 4 MG/4 ML VIAL ONE (03:46)
[2021-01-17] MEDS ORDERED: D5W 1,000 ML IV ONE ×3 (03:46→18:57)
[2021-01-17 03:57] LABS: Absolute Lymphocytes (CBC) 2.2 K/uL (0.7-4.9); Basophils % 0.1 % (0-1.3); Hematocrit 34.1 % (39.6-49.0); Lymphocytes % 9.4 % (15.3-44.8); MPV 9.1 fL (7.6-11.3); RBC Red Blood Cell Count 3.84 M/uL (4.33-5.43)
[2021-01-17] MEDS: D5W 1,000 ML IV SCH ×3 (04:00→20:00)
[2021-01-17 04:06] LABS: Albumin 2.9 g/dL (3.4-5.0); BUN Blood Urea Nitrogen 22 mg/dL (7-18); Glucose Level 268 mg/dL (74-106); Magnesium 1.7 mg/dL (1.8-2.4); Phosphorus 1.6 mg/dL (2.5-4.9); Potassium 3.8 mmol/L (3.5-5.1); Sodium Level 139 mmol/L (136-145)
[2021-01-17 04:30] LABS: Bicarbonate 12 mmol/L (21-32)
[2021-01-17] MEDS ORDERED: MAGNESIUM SULFATE 1 gm IVPB 1 GM/100 ML BAG IV ONE (04:47)
[2021-01-17] MEDS ORDERED: POTASSIUM PHOS IN 0.9 % NACL 15 MMOL/250 ML BAG IV ONE ×2 (04:54→09:00)
[2021-01-17 04:57] LABS: Arterial Blood Carboxyhemoglob 1.9 % (0-1.5); Blood Gas Oxyhemoglobin 95.8 % (94-97); Blood O2 Saturation 98.8 % (92-98.5)
[2021-01-17] MEDS ORDERED: KCL 20 MEQ/100 mL IVPB 20 MEQ/100 ML BAG IV SCH (05:00)
[2021-01-17] MEDS ORDERED: Magnesium Sulfate 2gm IVPB 2 G/50 ML BAG IV ONE (05:27)
[2021-01-17] MEDS ORDERED: KCL 20 MEQ/100 mL IVPB 20 MEQ/100 ML BAG IV ONE (05:28)
[2021-01-17] MEDS ORDERED: CEFTRIAXONE 1 GM/NS 50 ML 50 ML IV SCH (09:00)
[2021-01-17] MEDS: ASPIRIN 81 MG CHEWABLE TABLET PO SCH (09:00)
[2021-01-17] MEDS: PANTOPRAZOLE 40 MG INJ IVP SCH (09:00)
[2021-01-17] MEDS ORDERED: CEFEPIME 1 GM/VIAL IV SCH (09:00)
[2021-01-17] MEDS: ENOXAPARIN 40 MG/0.4 ML SQ SCH (09:00)
[2021-01-17] MEDS ORDERED: CEFTRIAXONE/SWI 1gm 1 GM/10 ML SYR IV SCH (09:00)
[2021-01-17] MEDS: CEFEPIME/SWI 1gm 10 ML IV SCH ×2 (09:00→20:59)
[2021-01-17 09:33] LABS: Blood Morphology Comment NOT SEEN (NOT SEEN); Platelet Estimate ADEQ
--- NOTE | 2021-01-17 10:04 | RAD REPORT ---
EXAM DESCRIPTION: CT - Chest Abd Pelvis Wo Con - 01/17/2021 9:44 am CLINICAL HISTORY: Sepsis. Chest and abdominal pain COMPARISON: January 09, 2021 TECHNIQUE: Computed axial tomography of the chest, abdomen and pelvis was obtained. Oral contrast wa s given. IV contrast was not requested. All CT scans are performed using dose optimization technique as appropriate and may include automated exposure control or mA/KV adjustment according to patient size. FINDINGS: The evaluation of mediastinum, minor, vessels and solid organs is limited secondary to the lack of IV contrast administration 3 centimeter ground-glass opacity right upper lobe. The left lung is clear No mediastinal or hilar lymphadenopathy is seen. A pleural effusion is not present. A pericardial effusion is not seen. Gallstones. Gallbladder wall is not thickened. The liver, spleen, pancreas, adrenals and kidneys appear grossly normal There is no evidence of diverticulitis. A Anne catheter is present within the bladder. The superior aspect of tube abuts and indents the sup erior aspect of bladder Tiny umbilical hernia IMPRESSION: 3 centimeter ground-glass opacity right upper lobe may indicate pneumonia A Anne catheter is present within the bladder. The superior aspect of tube abuts and indents the sup erior aspect of bladder
[2021-01-17] MEDS ORDERED: NOREPINEPHRINE 4mg/D5W 250mL 4 MG/250 ML BAG IV ONE (11:08)
[2021-01-17] MEDS ORDERED: PANTOPRAZOLE 40 MG INJ ONE (11:32)
[2021-01-17] MEDS ORDERED: ASPIRIN 81 MG CHEWABLE TABLET ONE (11:32)
[2021-01-17] MEDS ORDERED: CEFEPIME/SWI 1gm 10 ML ONE ×2 (11:33→20:52)
[2021-01-17 11:36] LABS: Troponin I 16.4 ng/mL (0.0-0.045)
--- NOTE | 2021-01-17 11:36 | RAD REPORT ---
EXAM DESCRIPTION: US - Renal Ultrasound-Complete - 01/17/2021 11:17 am CLINICAL HISTORY: Acute renal insufficiency COMPARISON: None. FINDINGS: The right kidney measures 11 cm with a normal echotexture. The left kidney measures 9 cm with a normal echotexture. Hydronephrosis is not seen. Anne catheter is present within a collapsed bladder. IMPRESSION: Unremarkable exam
[2021-01-17 12:36] LABS: Magnesium 1.7 mg/dL (1.8-2.4); Potassium 4.1 mmol/L (3.5-5.1)
--- NOTE | 2021-01-17 15:14 | EKG ---
Test Date: 2021-01-16 Test Time: 09:14:23 Digital Publishing Specialist: CHASIDY MEASUREMENT RESULTS: Intervals: Rate: 122 ID: [id number] QRSD: 82 QT: 324 QTc: 461 [place]: P: 74 ID: [id number] QRS: 72 T: 66 INTERPRETIVE STATEMENTS: Sinus tachycardia Possible Left atrial enlargement Nonspecific ST abnormality Abnormal ECG Compared to ECG 01/10/2021 21:48:29 Right-axis deviation no longer present ST (T wave) deviation still present Electronically Signed On 01-17-21 15:11:05 CDT by Tyler Carey
[2021-01-17 17:20] LABS: Magnesium 1.8 mg/dL (1.8-2.4); Phosphorus 1.9 mg/dL (2.5-4.9); Potassium 3.5 mmol/L (3.5-5.1)
--- NOTE | 2021-01-17 17:20 | P.PN ---
Subjective Date of Service: 01/17/21 Primary Care Provider: none Chief Complaint: DKA Subjective: Improving (Patient reports feeling about the same, may be slightly better. Tired, weak all over. Denies pain, denies nausea, denies shortness of breath) Review of Systems 10-point ROS is otherwise unremarkable Physical Examination - Vital Signs Temperature: 98.2 F Blood Pressure: 131/69 Pulse: 102 Respirations: 30 Pulse Ox (%): 100 Assessment & Plan Physician Review Additional Text: Physical exam GEN: Alert, oriented, NAD HEENT: Normal conjunctiva, sclera anicteric CV: Regular rate and rhythm, no edema Pulm: Nonlabored respiration on room air ABD: Soft, nontender, nondistended MSK: No joint tenderness Integumentary: No rashes Neuro: Normal speech, normal affect Problem list Acute renal failure, without CKD Uncontrolled diabetes mellitus type 1, with DKA septic shock secondary to pneumonia NSTEMI noncompliant Continue ICU level of care Femoral central line placed in the ED yesterday Has been oozing overnight, add Surgicel, may need surgical consult if no improvement Cardiology consulted, patient with recent stent placement, has not been taking his medications, recommended to continue medications previously prescribed Continue insulin drip, IV fluids Broadened antibiotics on 01/16 Patient remained hypotensive despite IV fluid resuscitation, pressors initiated on 01/16, concern for septic shock CT chest abdomen/pelvis, concern for possible right upper lobe pneumonia Code: full Dispo: Continue ICU level of care Time Spent Managing Pts Care (In Minutes): 45
--- NOTE | 2021-01-17 18:13 | CON ---
The patient is a 50-year-old who was admitted to Dr. Cohn's service on 01/16/2021. I was consulted because of elevated troponin, acute renal failure, and DKA. History Of Present Illness: Mr. León just left the hospital 2 days ago after an LAD stent. He had a completely occluded circumflex with some mild disease in the RCA. He was here with DKA and no n-STEMI, but apparently when he went home, he did not take any of his medication and he came back wit h another DKA but no chest pain. Troponin was still elevated as expected. Denied any chest pain, na usea, vomiting, versus his main complaint. He denied congestive heart failure symptoms. Past Medical History: Include LAD stent recently, CVA, diabetes, and hyper hyperlipidemia. Allergies: TO NAPROSYN AND MORPHINE. Review of Systems: Negative. Social History: Positive for tobacco and alcohol. Family History: Positive for diabetes. Medications: At home include aspirin, insulin, metoprolol, lisinopril, Lipitor, Plavix, Zoloft, and Protonix, but is not taking any of these. Physical Examination: Vital Signs: His respiratory rate was 28. Heart rate sinus tachycardia, 116. HEENT: Negative. Neck: Supple. No bruit. Chest: Clear. Cardiac: Revealed tachycardia. Abdomen: Benign. Extremities: Revealed no clubbing, cyanosis, or edema. Diagnostic Data: Showed a white count of 24,000. Elevated troponin. Creatinine 1.69. Chest x-ray revealed possible pneumonia. Impression And Plan: This is a patient with noncompliance recent left anterior descending stent. El evated troponin is expected from his recent myocardial infarction and is exacerbated by diabetic keto acidosis and elevated creatinine. No further cardiac workup recommended at this point. If he stays here till Tuesday, would be reasonable to get an echocardiogram to make sure he does not have any new wall motion abnormalities. His EKG is not showing anything acute and established diabetic ketoacidos is treated aggressively and needs to have all his medications that he is supposed to take at home to be restarted. He needs to have serious counseling. I think social and human services assistant involvement may be reasona ble. I will follow him as needed. ANDRIY/DONITAL Voice ID: [id number] Report ID: [id number]
--- NOTE | 2021-01-17 18:22 | CON ---
Date of Consultation: 01/17/2021 Chief Complaint: Acute kidney injury. History Of Present Illness: Patient has nonoliguric kidney injury and elevated creatinine up to 1.94, BUN 20. On arrival to the hospital, he was found to have electrolyte abnormalities and metabolic acidosis with high anion gap. Patient was found to have DKA and is on insulin drip. He has multiple medical problems. He was recently admitted for DKA. He had cardiac stent placed about 3 days ago. He came yesterday to the hospital via EMS because of chest pain, nausea, vomiting, shortness of breath. His troponin level severely elevated. Patient is in ICU and nephrology consultation is requested for acute kidney injury. Patient was started on insulin IV drip in the emergency room. Review of Systems: Patient is somewhat lethargic, cannot provide review of systems. He denies pain and nausea, vomiting, abdominal pain. Denies dysuria, hematuria, kidney colic. Past Medical History: Hypertension, insulin-dependent diabetes mellitus, CVA. He has a weakness on the left side due to old CVA. Opiate abuse, depression, panic attack, IBS, myocardial infarction, coronary artery disease, status post stent in 2020. Family History: Father had diabetes. Brother had diabetes. Social History: Denies tobacco or alcohol. Physical Examination: General: Patient is awake, alert, although he is lethargic. He denies shortness of breath. Vital Signs: Blood pressure 98/50, heart rate is 115, respiratory rate is 20, and SpO2 is 98%. Eyes: Anicteric sclerae. EOMI. Ears, Nose, Mouth, and Throat: Oral mucosa is moist. No pallor. Neck: Supple. No bruits. Lungs: Few crackles at the bases. Heart: S1, S2. No pericardial friction rub. Abdomen: Soft, benign, nontender. No rebound. No guarding. Extremities: Minimal peripheral edema. Laboratory Data: Glucose 554. Troponin is 1.14. Hemoglobin 10.7, platelet count 357. Sodium 132, potassium 5.1, BUN 20, creatinine 1.94, glucose 625, lipase 10. AP 74, AST 10, ALT 12, total bilirubin 0.7. Lab work today shows sodium 158, potassium 4.1, chloride 107, CO2 of 12, BUN 18, creatinine 1.22, and glucose 301. CK level 385. On arrival to the hospital, troponin was 1.14 and in the morning 26.5, although in the afternoon is 16.4. Urine protein creatinine ratio 0.88. Urinalysis pending. Impression And Plan: 1. Acute kidney injury. There is no evidence of obstructive uropathy. Renal ultrasound did not show hydronephrosis. Right kidney is 11 cm, and left kidney is 9 cm. Patient will need to have Doppler of the renal artery to rule out renal artery stenosis and at this point, patient will continue pressor because he is hypotensive. 2. Diabetic ketoacidosis. Continue IV insulin drip. Monitor electrolytes. The patient will have replacement for hypophosphatemia. Monitor magnesium level. 3. Metabolic acidosis and high anion gap. I ordered lactic acid to be re- evaluated and plan is to monitor diabetic ketoacidosis parameters. 4. Hypomagnesemia. Magnesium 1 dose given. Continue to replace. EB/MODL Voice ID: [id number] Report ID: [id number] NAM
[2021-01-17] MEDS ORDERED: VANCOMYCIN 1.25 GM in NA CHLORIDE 0.9% 250 ML IVPB SCH ×4 (21:00)
[2021-01-18] MEDS: D5W 1,000 ML IV SCH ×3 (03:00→11:46)
[2021-01-18] MEDS ORDERED: D5W 1,000 ML IV ONE ×2 (03:15→10:57)
[2021-01-18] MEDS ORDERED: NA CHLORIDE 0.9% 500 ML IV ONE (03:15)
[2021-01-18] MEDS ORDERED: NA CHLORIDE 0.9% 500 ML ONE (03:41)
[2021-01-18 04:39] LABS: Absolute Lymphocytes (CBC) 1.5 K/uL (0.7-4.9); Basophils % 0.5 % (0-1.3); Hematocrit 24.9 % (39.6-49.0); Lymphocytes % 12.1 % (15.3-44.8); MPV 8.3 fL (7.6-11.3); RBC Red Blood Cell Count 2.87 M/uL (4.33-5.43)
[2021-01-18 04:57] LABS: Magnesium 1.7 mg/dL (1.8-2.4); Phosphorus 1.7 mg/dL (2.5-4.9); Potassium 3.1 mmol/L (3.5-5.1)
--- NOTE | 2021-01-18 06:57 | P.PN ---
Subjective Date of Service: 01/19/21 Primary Care Provider: none Chief Complaint: DKA Subjective: No new changes (Patient reports still nauseous, no appetite, feels about the same. Off pressors this morning) Review of Systems 10-point ROS is otherwise unremarkable ([facility]) Physical Examination - Vital Signs Temperature: 98.2 F Blood Pressure: 132/82 Pulse: 96 Respirations: 27 Pulse Ox (%): 100 Assessment & Plan Physician Review Additional Text: Physical exam GEN: fatigued, responds slowly to questions HEENT: Normal conjunctiva, sclera anicteric CV: Regular rate and rhythm, no edema Pulm: Nonlabored respiration on room air ABD: Soft, nontender, nondistended L femoral line in place Neuro: slow speech, AAOx3, moves extremities Problem list Acute renal failure, without CKD Uncontrolled diabetes mellitus type 1, with DKA septic shock secondary to pneumonia NSTEMI noncompliant Continue ICU level of care Femoral central line placed in the ED Bleeding at central line resolved with Surgicel placement Cardiology consulted, patient with recent stent placement, has not been taking his medications, recommended to continue medications previously prescribed Continue insulin drip, IV fluids Broadened antibiotics on 01/16 Off pressors, will try to advance diet CT chest abdomen/pelvis, concern for possible right upper lobe pneumonia Code: full Dispo: Continue ICU level of care Time Spent Managing Pts Care (In Minutes): 40
--- NOTE | 2021-01-18 07:25 | RAD REPORT ---
EXAM DESCRIPTION: RAD - Chest Single View - 01/18/2021 7:10 am CLINICAL HISTORY: Follow-up ?pneumonia COMPARISON: Chest Single View dated 01/16/2021; Chest Single View dated 01/09/2021; Abdomen 1 View (KUB ) dated 11/19/2019; Chest Single View dated 10/16/2019; Chest Abd Pelvis Wo Con dated 01/17/2021 FINDINGS: Lines: None. Lungs: Mild increased hazy opacities which have developed in the right lung. The left lung remains cl ear. Pleural: No significant pleural effusions or pneumothorax. Cardiac: The heart size is within normal limits. Bones: No acute fractures. Other: IMPRESSION: Mild increased hazy airspace disease in the right lung could indicate worsening pneumoni a in the right lung. The findings are mild, however. The left lung remains well aerated.
[2021-01-18] MEDS ORDERED: THIAMINE 200 MG/2 ML INJ IVP SCH (09:00)
[2021-01-18] MEDS ORDERED: POTASSIUM PHOS IN 0.9 % NACL 15 MMOL/250 ML BAG IV ONE (09:00)
[2021-01-18] MEDS ORDERED: PANTOPRAZOLE 40 MG INJ IVP SCH (09:00)
[2021-01-18] MEDS ORDERED: KCL 20 MEQ/100 mL IVPB 20 MEQ/100 ML BAG IV SCH ×2 (09:00→13:00)
[2021-01-18] MEDS ORDERED: MAGNESIUM SULFATE 1 gm IVPB 1 GM/100 ML BAG IV ONE ×2 (09:00→09:35)
[2021-01-18] MEDS: CEFEPIME/SWI 1gm 10 ML IV SCH (09:00)
[2021-01-18] MEDS: ASPIRIN 81 MG CHEWABLE TABLET PO SCH (09:00)
[2021-01-18] MEDS: ENOXAPARIN 40 MG/0.4 ML SQ SCH (09:00)
[2021-01-18] MEDS ORDERED: POTASSIUM PHOS 10 MM in NA CHLORIDE 0.9% 250 ML IV ONE (09:00)
[2021-01-18] MEDS ORDERED: PANTOPRAZOLE 40 MG INJ ONE (09:34)
[2021-01-18] MEDS ORDERED: THIAMINE 200 MG/2 ML INJ ONE (09:34)
[2021-01-18] MEDS ORDERED: ENOXAPARIN 40 MG/0.4 ML SQ ONE (09:35)
[2021-01-18] MEDS ORDERED: CEFEPIME/SWI 1gm 10 ML ONE (09:35)
[2021-01-18 09:57] VITALS: BMI 22.4
[2021-01-18 18:45] VITALS: O2SAT 100
[2021-01-19 16:41] VITALS: BP 132/82; TEMP 98.2
--- NOTE | 2021-01-19 16:53 | P.DS ---
Admission Date: 01/16/21 Discharge Date: 01/19/21 Primary Care Provider: none Disposition: AMA-LEFT AGAINST MEDICAL ADVIC Discharge Condition: FAIR Reason for Admission: DKA Brief History of Present Illness: Patient was recently discharged a few days prior to admission. He presented in severe DKA and was admitted to the ICU for further care. Hospital Course: Patient was given a significant amount of IV fluids, persistent with hypotension. Work-up concerning for pneumonia, patient's clinical status consistent with septic shock. A femoral central line was placed in the ED on a dmission, and patient required pressors. He was empirically covered with antibiotics. He had gradual improvement. On 01/18, patient was able to tolerate some sips of water, and apparently felt well enough that he wanted to leave the hospital. Despite multiple attempts, the patient was adamant in leaving AGAINST MEDICAL ADVICE. I explained to him that he likely has an infection and is requiring an tibiotics, and that we should wait for cultures to come back for him to have further improvement. I also explained that he was recovering from severe DKA and still on an insulin drip as he has just started to tolerate sips of water. Patient was alert and oriented x3, he appeared to have decision-making capacity, stated in his own words that he understood the risk of if he were to leave the hospital AGAINST MEDICAL ADVICE. He threatened to pull the femoral catheter out himself and walk out. Patient signed AMA paperwork, and asked the nurse to remove the Anne catheter. I tried to convince the patient to leave to remain for bedrest, which he did not. Vital Signs/Physical Exam: Temp Pulse Resp BP Pulse Ox 98.2 F 96 H 27 H 132/82 100 01/19/21 16:47 01/19/21 16:47 01/19/21 16:47 01/19/21 16:47 01/19/21 16:47 Laboratory Data at Discharge: WBC 12.50 K/uL (4.3-10.9) H D 01/18/21 04:24 Hgb 8.3 g/dL (13.6-17.9) L D 01/18/21 04:24 Hct 24.9 % (39.6-49.0) L D 01/18/21 04:24 Plt Count 224 K/uL (152-406) D 01/18/21 04:24 PT 11.9 SECONDS (9.5-12.5) 01/16/21 23:38 INR 1.03 01/16/21 23:38 APTT 25.9 SECONDS (24.3-36.9) 01/16/21 23:38 Sodium 137 mmol/L (136-145) 01/18/21 04:24 Potassium 3.1 mmol/L (3.5-5.1) L 01/18/21 04:24 BUN 9 mg/dL (7-18) 01/18/21 04:24 Creatinine 0.97 mg/dL (0.55-1.3) 01/18/21 04:24 Glucose 252 mg/dL (74-106) H 01/18/21 04:24 Phosphorus 1.7 mg/dL (2.5-4.9) L 01/18/21 04:24 Magnesium 1.7 mg/dL (1.8-2.4) L 01/18/21 04:24 Total Bilirubin 0.7 mg/dL (0.2-1.0) 01/16/21 09:55 AST 10 U/L (15-37) L 01/16/21 09:55 ALT 12 U/L (12-78) 01/16/21 09:55 Alkaline Phosphatase 74 U/L (45-117) 01/16/21 09:55 Troponin I 16.40 ng/mL (0.0-0.045) H* D 01/17/21 10:50 Lipase 19 U/L (73-393) L 01/16/21 09:55 Home Medications: RX: Alprazolam [Xanax] 0.5 mg PO TID 02/19/20 RX: Dicyclomine [Bentyl*] 20 mg PO Q12H 02/19/20 RX: Methadone HCl [Methadone HCl*] 40 mg PO DAILY 02/19/20 RX: Sertraline [Zoloft*] 150 mg PO DAILY 02/19/20 Aspirin [Aspirin EC 81 MG] 81 mg PO DAILY #90 tablet. 01/13/21 Atorvastatin Calcium [Lipitor] 20 mg PO BEDTIME #30 tab 01/13/21 Clopidogrel Bisulfate [Plavix] 75 mg PO DAILY #30 tablet 01/13/21 Insulin Regular, Human [Novolin R] See Protocol SQ ACHS #1 vial 01/13/21 Metoprolol Tartrate [Lopressor] 50 mg PO BID #60 tab 01/13/21 Pantoprazole [Protonix Tab] 40 mg PO DAILY #30 tab 01/13/21 RX: Insulin NPH Human Isophane [Novolin N] 10 unit SQ BID #1 vial 01/13/21 lisinopriL [Lisinopril] 5 mg PO DAILY #30 tablet 01/13/21 Followup: NONE,NONE [Primary Care Provider] - Time spent managing pt's care (in minutes): 60
== END 2021-01-18 16:00 | disposition left against medical advice (07) | DRG 871 ==
LOC: ER 09:03 → ERHOLD 15:21
PROVIDERS: ADMIT Hospitalist; ATTEND Hospitalist
DX: A41.9 Sepsis, unspecified organism (principal); E10.10 Type 1 diabetes mellitus with ketoacidosis without coma; J18.9 Pneumonia, unspecified organism; R65.21 Severe sepsis with septic shock; I21.4 Non-ST elevation (NSTEMI) myocardial infarction; N17.9 Acute kidney failure, unspecified; I69.354 Hemiplegia and hemiparesis following cerebral infarction affecting left non-dominant side; Z91.19 Patient's noncompliance with other medical treatment and regimen; Z53.29 Procedure and treatment not carried out because of patient's decision for other reasons; I25.10 Atherosclerotic heart disease of native coronary artery without angina pectoris; Z95.5 Presence of coronary angioplasty implant and graft; E83.42 Hypomagnesemia; Z20.822 Contact with and (suspected) exposure to COVID-19
CPT/HCPCS: 36415; 71045; 71250; 74176; 76770; 80048; 80076; 80329; 82010; 82040; 82550; 82570; 82805; 82947; 83605; 83690; 83735; 84100; 84145; 84156; 84484; 85014; 85018; 85025; 85610; 85730; 87040; 93005; 96372; 99285; C9113; J0692; J1650; J2405; J3010; J3370; J3411; J3475; J3480; J7030; J7040; J7050; J7799; U0003

== ENCOUNTER 2021-01-20 14:35 | Inpatient (IN) | payer SELFPAY ==
--- OUTSIDE RECORDS SUMMARY | 2021-01-20 14:37 | XMS REPORT | Continuity of Care Document ---
:1970 Author Organization [facility] t Address [address] [place] [address] Care Team Providers Name Role Phone Callie Perrin RN Attending Clinician Doctor Unassigned, Name Attending Clinician Unavailable Himanshu Attending Clinician Lalit Martinez MD Attending Clinician Kai Guy MD Attending Clinician Felipe ROBBINS Attending Clinician Astrid Arce Attending Clinician yTe ROBBINS Attending Clinician Yin Craig DO Attending [...] 2020-11-18 2020-11-18 Patient Kelly Perrin [id number] 00:00:00 00:00:00 Outreach E Pavel [id number] [place] [id number] 2020-10-01 2020-10-01 Orders Doctor BEKAH [id number] 00:00:00 00:00:00 Only Unassigned, SANTO [id number] [place] [facility] [id number] 2020-09-16 2020-09-16 Patient Kelly Perrin Delfina [id number] 00:00:00 00:00:00 Outreach E Pavel [id number] [place] [id number] 2020-09-12 2020-09-12 Transition Delfina Downs [id number] 00:00:00 00:00:00 of Care Genevievedee Hernandezy [id number] [place] [id number] 2020-09-12 2020-09-12 Telephone BEKAH Martinez [id number] 00:00:00 00:00:00 Aaron BLANCHARD [id number] [facility] [id number] 2020-09-08 2020-09-11 [facility] JuanSanju roberts 1.2.840 .114 [id number] 09:00:00 14:25:00 Encounter Argenisdeirdre Melvin S[place] [id number] .[id number] [id number] 2020-09-09 2020-09-09 Transition Delfina Downs [id number] 00:00:00 00:00:00 of Care Genevieve Zhao [id number] [place] [id number] 2020-09-06 2020-09-07 [facility] Ike Soler [facility] [id number] 17:29:00 12:00:00 Encounter Андрей Gamble [id number] [place] [id number] [place] [id number] 2019-12-17 2019-12-17 [facility] [id number] 18:51:00 20:05:00 Eliza Salinas [id number] [place] [id number] [place] [id number] Results This patient has no known results.
[2021-01-20] MEDS ORDERED: D50W 25 GM/50 ML SYRINGE IV PRN (15:31)
[2021-01-20] MEDS ORDERED: GLUCAGON 1 MG/VIAL IM PRN (15:31)
[2021-01-20 15:33] LABS: Arterial Blood Carboxyhemoglob 1.3 % (0-1.5); Blood Gas Oxyhemoglobin 93.5 % (94-97); Blood O2 Saturation 96.2 % (92-98.5)
[2021-01-20] MEDS ORDERED: NA CHLORIDE 0.9% 2,000 ML ONE ×2 (15:38→16:37)
[2021-01-20 15:39] LABS: Basophils % 0.5 % (0-1.3); Lymphocytes % 12.2 % (15.3-44.8); MPV 9.8 fL (7.6-11.3)
[2021-01-20 15:40] LABS: Protime INR 1.02
[2021-01-20] MEDS ORDERED: INSULIN -REGULAR HUMAN 100 UNIT in NA CHLORIDE 0.9% 100 ML IV SCH (15:45)
[2021-01-20] MEDS ORDERED: D5W 1,000 ML with NA BICARB 8.4% 150 MEQ IV SCH ×2 (16:00)
[2021-01-20 16:10] LABS: ALT/SGPT 19 U/L (12-78); AST/SGOT 21 U/L (15-37); Albumin 3.6 g/dL (3.4-5.0); Alkaline Phosphatase 107 U/L (45-117); BUN Blood Urea Nitrogen 28 mg/dL (7-18); Bilirubin Direct 0.1 mg/dL (0-0.2); Bilirubin Total 0.6 mg/dL (0.2-1.0); Glucose Level 905 mg/dL (74-106); Magnesium 2.5 mg/dL (1.8-2.4); NT PRO-BNP 5085 pg/mL (<125); Potassium 5.4 mmol/L (3.5-5.1); Sodium Level 130 mmol/L (136-145); Troponin (Emerg Dept Use Only) 1.95 ng/mL (0.0-0.045)
[2021-01-20 16:13] LABS: Bicarbonate 3 mmol/L (21-32)
[2021-01-20 16:18] LABS: Hematocrit 38.7 % (39.6-49.0); RBC Red Blood Cell Count 4.06 M/uL (4.33-5.43)
[2021-01-20] MEDS ORDERED: NOREPINEPHRINE 4 MG/4 ML VIAL ONE (16:37)
--- NOTE | 2021-01-20 16:44 | RAD REPORT ---
EXAM DESCRIPTION: RAD - Chest Single View - 01/20/2021 4:29 pm CLINICAL HISTORY: DYSPNEA COMPARISON: Portable January 18 TECHNIQUE: AP portable chest image was obtained 01/20/2021 4:29 pm . FINDINGS: Lung volumes are reduced compared to the prior study. Interstitial pattern is not clearly different. No peripheral mass or consolidation. Heart and vasculature are normal. No measurable pleur al effusion and no pneumothorax. No acute bony abnormality seen. No acute aortic findings suspected. IMPRESSION: No acute cardiopulmonary process. No new or progressive finding from the January 18 study.
[2021-01-20] MEDS ORDERED: NOREPINEPHRINE 4mg/D5W 250mL 4 MG/250 ML BAG IV ONE ×2 (16:46→22:17)
--- NOTE | 2021-01-20 17:36 | EDPHYS ---
Physician Documentation [facility] Name: Osbaldo León Age: 50 yrs Sex: Male : 1970 Arrival Date: 01/20/2021 Time: 14:37 Bed DX3 Private MD: ED Physician Daniele Rivera HPI: 01/20 17:21 This 50 yrs old Male presents to ER via EMS with complaints of High Blood jr8 Sugar. 17:21 Onset: The symptoms/episode began/occurred gradually. Associated signs and symptoms: jr8 Pertinent positives: altered mentation. Current symptoms: In the emergency department the patient's symptoms are unchanged from the initial presentation. The patient has experienced similar episodes in the past, a few times. The patient has been recently seen by a physician:. Patient was recently admitted for DKA and left AMA. Came in today unresponsive with rapid respirations. Patient groans to painful stimulus only. Historical: - Allergies: 15:00 Clindamycin; aj2 15:00 Morphine; aj2 - Home Meds: 15:00 aspirin 81 mg Oral tab 1 tab once daily [Active]; Insulin: Novolin N 10 units Sub-Q aj2 nightly [Active]; Insulin: Novolin R 10 units Sub-Q every morning [Active]; lisinopril 5 mg Oral tab 1 tab once daily [Active]; Methadone 90 mg Oral 1 tab once daily [Active]; Plavix 75 mg Oral tab 1 tab once daily [Active]; Seroquel 200 mg Oral tab 1 tab nightly [Active]; Suboxone sublingual [Active]; Zoloft 150 mg Oral 1 tab once daily [Active]; - PMHx: 15:00 CVA; Hypertension; Diabetes - IDDM; [place]; aj2 - PSHx: 15:00 cardiac stent; aj2 - Immunization history:: Adult Immunizations unknown. - Social history:: Smoking status: . ROS: 17:21 Unable to obtain ROS due to altered mental status, obtunded state. jr8 Exam: 17:21 Eyes: Pupils equal round and reactive to light. Lids and lashes normal. Conjunctiva jr8 and sclera are non-icteric and not injected. Cornea within normal limits. Periorbital areas with no swelling, redness, or edema. ENT: Nares patent. No nasal discharge, no septal abnormalities noted. Oropharynx with no redness, swelling, or masses, exudates, or evidence of obstruction, uvula midline. Mucous membranes dry. 17:21 Constitutional: The patient appears lethargic, in obvious distress, pale. 17:21 Cardiovascular: Rate: tachycardic, Rhythm: regular, Pulses: Pulses are 2+ in right radial artery and left radial artery. Heart sounds: normal, normal S1and S2, no S3 or S4, no murmur, no rub, no gallop, Edema: is not appreciated. 17:21 Respiratory: moderate respiratory distress is noted, Respirations: tachypnea, Breath sounds: are clear throughout, no bronchial sounds, no decreased breath sounds, no rales, rhonchi, no stridor, no wheezing. 17:21 Abdomen/GI: Inspection: abdomen appears normal, Bowel sounds: active, Palpation: soft, in all quadrants. 17:21 Skin: Appearance: Color: pale, Temperature: cool, Moisture: dry. 17:21 Neuro: Orientation: Not oriented to person, place, time, situation, Mentation: unable to follow commands, responsive to pain, Memory: unable to test, Cranial nerves: unable to test, seizure activity, is not displayed by the patient, Abnormal movements: there are no abnormal movements. Vital Signs: 15:27 BP 102 / 74; Pulse 133; Resp 18; Temp 96.9; Pulse Ox 100% ; kg 16:13 Weight 68.04 kg; kg [place] Coma Score: 15:27 Eye Response: none(1). Verbal Response: none(1). Motor Response: none(1). Total: 3. kg 17:21 Eye Response: none(1). Verbal Response: none(1). Motor Response: withdraws from jr8 pain(4). Total: 6. Procedures: 17:21 Central Line: the site was prepped with Betadine, in sterile fashion, a triple lumen jr8 catheter was inserted, in the right femoral vein, in 1 attempts. placement was verified, by blood return, the site was dressed with 4X4s, Tegaderm, foam tape, using sterile technique, the patient tolerated the procedure, well. MDM: 15:04 Patient medically screened. jr8 17:21 Data reviewed: vital signs, nurses notes, lab test result(s), EKG, radiologic studies, jr8 plain films. Data interpreted: Pulse oximetry: on 2L(s) per nasal canula, is 100 %. Interpretation: normal. Counseling: I had a detailed discussion with the patient and/or guardian regarding: the historical points, exam findings, and any diagnostic results supporting the discharge/admit diagnosis, lab results, radiology results, the need for further work-up and treatment in the hospital. 01/20 15:12 Order name: Basic Metabolic Panel; Complete Time: 16:15 01/20 15:12 Order name: CBC with Diff; Complete Time: 16:25 01/20 15:12 Order name: LFT's; Complete Time: 16:15 01/20 15:12 Order name: Magnesium; Complete Time: 16:15 01/20 15:12 Order name: NT PRO-BNP; Complete Time: 16:15 01/20 15:12 Order name: PT-INR; Complete Time: 16:15 01/20 15:12 Order name: Troponin (emerg Dept Use Only); Complete Time: 16:15 01/20 15:12 Order name: ABG; Complete Time: 16:15 01/20 15:12 Order name: Ketone, Serum; Complete Time: 16:15 8 01/20 15:35 Order name: Glucose, Ancillary Testing; Complete Time: 16:15 EDMS 01/20 17:24 Order name: SARS-COV-2 RT PCR; Complete Time: 17:27 EDMS 01/20 17:27 Order name: Glucose; Complete Time: 18:21 bd 01/20 17:37 Order name: Glucose, Ancillary Testing; Complete Time: 17:51 EDMS 01/20 18:34 Order name: ABG Arterial Blood Gas; Complete Time: 18:41 EDMS 01/20 18:53 Order name: Glucose; Complete Time: 19:31 kg 01/20 18:58 Order name: Glucose, Ancillary Testing; Complete Time: 19:04 EDMS 01/20 22:33 Order name: Acetone Level; Complete Time: 23:22 EDMS 01/20 22:50 Order name: ABG Arterial Blood Gas; Complete Time: 22:57 EDMS 01/20 23:15 Order name: Glucose, Ancillary Testing; Complete Time: 23:22 EDMS 01/20 23:17 Order name: Basic Metabolic Panel; Complete Time: 23:22 EDMS 01/20 23:17 Order name: Troponin I; Complete Time: 23:22 EDMS 01/20 23:19 Order name: Glucose, Ancillary Testing; Complete Time: 23:22 EDMS 01/20 23:43 Order name: Glucose Level; Complete Time: 23:45 EDMS 01/21 00:39 Order name: Glucose, Ancillary Testing; Complete Time: 00:51 EDMS 01/21 01:19 Order name: Glucose, Ancillary Testing; Complete Time: 01:34 EDMS 01/21 02:55 Order name: Acetone Level; Complete Time: 03:05 EDMS 01/21 02:57 Order name: Basic Metabolic Panel; Complete Time: 03:05 EDMS 01/21 03:24 Order name: Glucose, Ancillary Testing; Complete Time: 15:14 EDMS 01/21 04:19 Order name: Glucose, Ancillary Testing; Complete Time: 15:14 EDMS 01/21 05:17 Order name: Glucose, Ancillary Testing; Complete Time: 15:14 EDMS 01/21 05:35 Order name: Acetone Level; Complete Time: 15:14 EDMS 01/21 05:42 Order name: Basic Metabolic Panel; Complete Time: 15:14 EDMS 01/21 05:50 Order name: Calcium Level; Complete Time: 15:14 EDMS 01/21 05:50 Order name: Phosphorus; Complete Time: 15:14 EDMS 01/21 05:50 Order name: Lipid Profile; Complete Time: 15:14 EDMS 01/21 05:50 Order name: Magnesium; Complete Time: 15:14 EDMS 01/21 06:01 Order name: Troponin I; Complete Time: 15:14 EDMS 01/21 06:03 Order name: CBC with Automated Diff; Complete Time: 15:14 EDMS 01/21 06:10 Order name: Glucose, Ancillary Testing; Complete Time: 15:14 EDMS 01/21 06:59 Order name: Blood Culture; Complete Time: 01:00 EDMS 01/21 07:53 Order name: Glucose, Ancillary Testing; Complete Time: 15:14 EDMS 01/21 07:55 Order name: Manual Differential; Complete Time: 15:14 EDMS 01/21 09:03 Order name: Glucose, Ancillary Testing; Complete Time: 15:14 EDMS 01/21 10:10 Order name: Glucose, Ancillary Testing; Complete Time: 15:14 EDMS 01/21 12:24 Order name: Potassium; Complete Time: 15:14 EDMS 01/21 12:46 Order name: Osmolality, Serum; Complete Time: 15:14 EDMS 01/21 13:46 Order name: Glucose, Ancillary Testing; Complete Time: 15:14 EDMS 01/21 15:09 Order name: Glucose, Ancillary Testing; Complete Time: 15:14 EDMS 01/21 15:11 Order name: Glucose, Ancillary Testing; Complete Time: 15:14 EDMS 01/21 17:42 Order name: Glucose, Ancillary Testing; Complete Time: 17:50 EDMS 01/21 19:31 Order name: Troponin I; Complete Time: 19:47 EDMS 01/21 20:52 Order name: Potassium; Complete Time: 21:00 EDMS 01/21 21:27 Order name: Troponin I; Complete Time: 21:44 EDMS 01/22 00:57 Order name: Glucose, Ancillary Testing; Complete Time: 01:00 EDMS 01/22 02:31 Order name: CBC with Automated Diff; Complete Time: 02:45 EDMS 01/22 02:36 Order name: Calcium Level; Complete Time: 02:45 EDMS 01/22 02:36 Order name: Phosphorus; Complete Time: 02:45 EDMS 01/22 02:36 Order name: Magnesium; Complete Time: 02:45 EDMS 01/22 08:30 Order name: Glucose, Ancillary Testing EDMS 01/22 09:30 Order name: CBC with Automated Diff EDMS 01/22 10:19 Order name: Basic Metabolic Panel EDMS 01/20 15:12 Order name: XRAY Chest (1 view); Complete Time: 16:53 jr8 01/20 15:12 Order name: EKG; Complete Time: 15:13 jr8 01/20 15:12 Order name: Cardiac monitoring; Complete Time: 15:19 jr8 01/20 15:12 Order name: EKG - Nurse/Tech; Complete Time: 16:20 01/20 15:12 Order name: IV Saline Lock; Complete Time: 15:19 8 01/20 15:12 Order name: Labs collected and sent; Complete Time: 15:19 8 01/20 15:12 Order name: O2 Per Protocol; Complete Time: 16:20 01/20 15:12 Order name: O2 Sat Monitoring; Complete Time: 16:20 jr8 01/20 15:12 Order name: Glucose Level; Complete Time: 16:20 jr8 01/20 15:12 Order name: Anne; Complete Time: 15:44 jr8 01/22 10:19 Order name: Troponin I EDMS 01/22 10:19 Order name: Magnesium EDMS 01/22 13:22 Order name: Glucose, Ancillary Testing EDMS 01/22 17:27 Order name: Glucose, Ancillary Testing EDMS 01/22 23:33 Order name: Glucose, Ancillary Testing EDMS 01/23 04:13 Order name: CBC with Automated Diff EDMS 01/23 04:17 Order name: Calcium Level EDMS 01/23 04:17 Order name: Phosphorus EDMS 01/23 04:17 Order name: Magnesium EDMS 01/23 08:04 Order name: Osmolality, Serum EDMS 01/23 08:14 Order name: Glucose, Ancillary Testing EDMS Administered Medications: 15:18 Drug: NS 0.9% 1000 ml Route: IV; Rate: 1000 ml; Site: left antecubital; kg 15:19 Drug: NS 0.9% 1000 ml Route: IV; Rate: 1000 ml; Site: left antecubital; kg 15:45 Drug: Sodium Bicarbonate 2 amp Route: IVP; Site: left antecubital; kg 16:18 Drug: Insulin Drip - (Insulin Regular Human 100 units, NS 0.9% 100 ml) {Co-Signature: kg ss (Carey Jewell RN).} Route: IV; Rate: calculated rate; Site: right femoral; 16:20 Not Given (Duplicate Order): NS 0.9% 1000 ml IV at 1000 ml once kg 16:20 Not Given (Duplicate Order): NS 0.9% 1000 ml IV at 1000 ml once kg 16:41 Drug: NS 0.9% 1000 ml Route: IV; Rate: 1000 ml; Site: right femoral; ss 16:41 Drug: NS 0.9% 1000 ml Route: IV; Rate: 1000 ml; Site: right forearm; ss 16:41 Drug: Levophed (norepinephrine) (4 mg/250 mL D5W 4 mcg/min {Note: started at 5 mcg/ min ss .} Route: IV; Rate: calculated rate; Site: right femoral; 21:00 Drug: NS 0.45 % 1000 ml Route: IV; Rate: 250 ml/hr; Site: right femoral; ea Disposition Summary: 01/20/21 17:35 Hospitalization Ordered Hospitalization Status: Inpatient Admission jr8 Provider: Dana Hernandez Condition: Serious jr8 Problem: new jr8 Symptoms: have improved jr8 Bed/Room Type: Standard [facility] Location: [facility] ER HOLD(01/20/21 19:24) Room Assignment: ERHOLD-(01/20/21 19:24) cg Diagnosis - Type 1 diabetes mellitus with ketoacidosis with coma jr8 - Hypovolemic shock jr8 Forms: - Medication Reconciliation Form jr8 - SBAR form jr8 Critical care time excluding procedures: 17:35 Critical care time: Bedside Care: 20 minutes, Consultation: 10 minutes. Total time: 30 jr8 minutes Addendum: 01/24/2021 20:13 Co-signature as Attending Physician, Daniele Rivera MD I agree with the assessment and c [place] plan of care. Signatures: Dispatcher [employer] Daniele Chávez MD MD cha Nieto, Roman, MD MD rn Smirch, Shelby, MARU MAHONEY ss Colby Douglass PA PA jr8 Marcela Dozier RN RN cg Ute Nicholson RN RN ea Graham, Kristen, RN RN Whitley Oliveros Carey Jewell RN ss Corrections: (The following items were deleted from the chart) 01/20 16:00 15:53 CORONAVIRUS+ ordered. EDFL EDFL 19:24 17:35 Intensive Care Unit jr8 19:24 17:35 jr8 cg
--- NOTE | 2021-01-20 17:36 | ER ---
Nurse's Notes [facility] Name: Osbaldo León Age: 50 yrs Sex: Male : 1970 Arrival Date: 01/20/2021 Time: 14:37 Bed DX3 Private MD: Diagnosis: Type 1 diabetes mellitus with ketoacidosis with coma;Hypovolemic shock Presentation: 01/20 14:47 Chief complaint: Patient states: Ambulance reports father of patient called EMS after aj2 patient was on their bathroom floor for 3hrs. Report patient left hospital AMA last week after receiving a central line. EMS reports B/S read HI > 600 upon arrival. Coronavirus screen: Vaccine status: Patient reports receiving the 2nd dose of the covid vaccine. Patient reports receiving the 1st dose of the Covid vaccine. Patient reports being unvaccinated. Patient reports having had a previously documented Covid positive illness. At this time, unable to obtain information related to travel outside the [place] Ebola Screen: No symptoms or risks identified at this time. Risk Assessment: Do you want to hurt yourself or someone else? Patient reports no desire to harm self or others. Unable to obtain. Onset of symptoms was January 20, 2021. 14:47 Acuity: [place] 1 ss 14:47 Initial Sepsis Screen: Does the patient meet any 2 criteria? RR > 20 per min. HR > 90 ss bpm. Does the patient have a suspected source of infection? No. Patient's initial sepsis screen is negative. 14:58 Method Of Arrival: EMS[facility] Triage Assessment: 15:00 General: Appears. aj2 Historical: - Allergies: 15:00 Clindamycin; aj2 15:00 Morphine; aj2 - Home Meds: 15:00 aspirin 81 mg Oral tab 1 tab once daily [Active]; Insulin: Novolin N 10 units Sub-Q aj2 nightly [Active]; Insulin: Novolin R 10 units Sub-Q every morning [Active]; lisinopril 5 mg Oral tab 1 tab once daily [Active]; Methadone 90 mg Oral 1 tab once daily [Active]; Plavix 75 mg Oral tab 1 tab once daily [Active]; Seroquel 200 mg Oral tab 1 tab nightly [Active]; Suboxone sublingual [Active]; Zoloft 150 mg Oral 1 tab once daily [Active]; - PMHx: 15:00 CVA; Hypertension; Diabetes - IDDM; [place]; aj2 - PSHx: 15:00 cardiac stent; aj2 - Immunization history:: Adult Immunizations unknown. - Social history:: Smoking status: . Screenin:27 Abuse screen: Unable to obtain. Nutritional screening: unable to obtain. Tuberculosis kg screening: No symptoms or risk factors identified. Fall Risk None identified. Assessment: 15:27 Pain: Unable to use pain scale. Patient is disoriented. kg 16:20 Reassessment: Bicarb drip started now at 100 ml/ hr as ordered by YVETTE Herron. kg 01/21 19:38 Reassessment: Radha (sister) [id number]. ea Vital Signs: 01/20 15:27 BP 102 / 74; Pulse 133; Resp 18; Temp 96.9; Pulse Ox 100% ; kg 16:13 Weight 68.04 kg; kg [place] Coma Score: 15:27 Eye Response: none(1). Verbal Response: none(1). Motor Response: none(1). Total: 3. kg 17:21 Eye Response: none(1). Verbal Response: none(1). Motor Response: withdraws from jr8 pain(4). Total: 6. ED Course: 14:37 Patient arrived in ED. ss 14:47 Whitley Oliveros is Primary Nurse. aj2 15:00 Triage completed. aj2 15:03 Colby Douglass PA is PHCP. jr8 15:03 Daniele Rivera MD is Attending Physician. jr8 15:10 Inserted saline lock: 18 gauge in left antecubital area, using aseptic technique. kg 15:19 Basic Metabolic Panel Sent. kg 15:19 CBC with Diff Sent. kg 15:19 LFT's Sent. kg 15:19 Magnesium Sent. kg 15:19 NT PRO-BNP Sent. kg 15:19 PT-INR Sent. kg 15:19 Troponin (emerg Dept Use Only) Sent. kg 15:25 Anne cath inserted, using sterile technique, 16 Fr., by fl, balloon inflated, to kg gravity drainage. 15:27 IV is patent, is intact, Flushed left. kg 15:40 Arm band placed on left wrist. kg 16:29 XRAY Chest (1 view) In Process Unspecified. EDMS 17:32 Dana Hernandez MD is Hospitalizing Provider. jr8 01/21 00:01 No provider procedures requiring assistance completed. Patient admitted, IV remains in ea place. 19:17 Primary Nurse role handed off by Whitley Oliveros mw2 01/22 00:40 Zoila Maldonado is Primary Nurse. kc4 07:08 Primary Nurse role handed off by Zoila Maldonado bp 07:08 Juliocesar Talley RN is Primary Nurse. bp Administered Medications: 01/20 15:18 Drug: NS 0.9% 1000 ml Route: IV; Rate: 1000 ml; Site: left antecubital; kg 15:19 Drug: NS 0.9% 1000 ml Route: IV; Rate: 1000 ml; Site: left antecubital; kg 15:45 Drug: Sodium Bicarbonate 2 amp Route: IVP; Site: left antecubital; kg 16:18 Drug: Insulin Drip - (Insulin Regular Human 100 units, NS 0.9% 100 ml) {Co-Signature: kg ss (Carey Jewell RN).} Route: IV; Rate: calculated rate; Site: right femoral; 16:20 Not Given (Duplicate Order): NS 0.9% 1000 ml IV at 1000 ml once kg 16:20 Not Given (Duplicate Order): NS 0.9% 1000 ml IV at 1000 ml once kg 16:41 Drug: NS 0.9% 1000 ml Route: IV; Rate: 1000 ml; Site: right femoral; ss 16:41 Drug: NS 0.9% 1000 ml Route: IV; Rate: 1000 ml; Site: right forearm; ss 16:41 Drug: Levophed (norepinephrine) (4 mg/250 mL D5W 4 mcg/min {Note: started at 5 mcg/ min ss .} Route: IV; Rate: calculated rate; Site: right femoral; 21:00 Drug: NS 0.45 % 1000 ml Route: IV; Rate: 250 ml/hr; Site: right femoral; ea Outcome: 17:35 Decision to Hospitalize by Provider. jr8 01/21 00:01 Admitted to ER Hold. Please see [facility] for further documentation. ea Condition: stable Instructed on the need for admit. 01/23 11:21 Patient left the ED. ss Signatures: Dispatcher [facility] Carey Jewell RN RN ss Colby Douglass PA PA jr8 Ute Nicholson RN RN Juliocesar Chen RN RN Eula Harris 2 Yumiko Lindquist RN RN Whitley Alba aj2 Zoila Maldonado kc4 Carey Jewell RN ss Corrections: (The following items were deleted from the chart) 01/20 15:51 14:47 Acuity: [place] 5 2
[2021-01-20 18:34] LABS: Arterial Blood Carboxyhemoglob 0.7 % (0-1.5); Blood Gas Oxyhemoglobin 95.4 % (94-97); Blood O2 Saturation 97.5 % (92-98.5)
[2021-01-20] MEDS ORDERED: NACHLORIDE 0.45% 1,000 ML IV ONE ×2 (19:16→23:24)
[2021-01-20] MEDS ORDERED: NOREPINEPHRINE 4 MG in D5W 250 ML IV PRN (21:57)
[2021-01-20] MEDS ORDERED: ONDANSETRON 4 MG/2 ML VIAL IV PRN (21:57)
[2021-01-20] MEDS: HEPARIN 5000 UNIT/ML 1 ML VIAL SQ SCH (21:57)
--- NOTE | 2021-01-20 22:06 | P.HP ---
Certification for Inpatient Patient admitted to: Inpatient With expected LOS: >2 Midnights Patient will require the following post-hospital care: None Practitioner: I am a practitioner with admitting privileges, knowledge of patient current condition, hospital course, and medical plan of care. Services: Services provided to patient in accordance with Admission requirements found in Title 42 Section 412.3 of the Code of Federal Regulations <Dominic Bradford Denise - Last Filed: 01/20/21 22:35> Patient History Date of Service: 01/20/21 Reason for admission: DKA History of Present Illness: Mr. León is a 50 yo M with IDDM, HTN, opiate use disorder on methadone, history of [place] s/p 3 stent placements and CVA in 2018 who was brought in unresponsive with rapid respirations. Patient has been recently admitted twice in the last two weeks - the first with DKA and NSTEMI requiring stent placement and again with DKA with possible pneumonia, but he left AMA at that time. Today Na 130 K 5.4 Cl 9 CO3 3 BUN 28 Cr 2.09 GFR 34 Glu 905 trop 1.95 BNP 5085. DKA protocol, bicarb drip, levophed initiated in the ED. CXR shows no new findings, repeat CT Chest may be beneficial when patient is more stable. Spoke to daughter who says her and her aunt believe that the patient is under a lot of stress with the worsening dementia and healthcare issues of his dad. Patient asked his daughter to move to [place] from [place] a few weeks ago but she was financially unable to at that time. - Past Medical/Surgical History Diabetic: Yes -: HTN -: Insulin-dependent diabetes mellitus -: cva, weaker on the left side, and has slight numbness noted to left side -: opioid abuse -: injury to right eye, poor vision -: depression -: panic attacks -: ibs -: [place] 2020 -: cardiac stent 2020 - Family History Family History: Reviewed- Non-Contributory - Family History Father -: Heart disease Brother -: Diabetes - Social History Smoking Status: Unknown if ever smoked Alcohol use: Yes CD- Drugs: No Caffeine use: No Place of Residence: Home <Dominic Bradford - Last Filed: 01/20/21 22:35> Date of Service: 01/20/21 <Dana Hernandez - Last Filed: 01/22/21 08:21> Allergies propoxyphene Allergy (Verified 02/19/20 15:33) Nausea/Vomiting morphine Adverse Reaction (Intermediate, Verified 02/19/20 15:33) pt does not like the way he feels Clindamycin Allergy (Uncoded 02/19/20 15:33) Hives/Rash Home Medications: Alprazolam [Xanax] 0.5 mg PO TID 02/19/20 Dicyclomine [Bentyl*] 20 mg PO Q12H 02/19/20 Methadone HCl [Methadone HCl*] 40 mg PO DAILY 02/19/20 Sertraline [Zoloft*] 150 mg PO DAILY 02/19/20 Aspirin [Aspirin EC 81 MG] 81 mg PO DAILY #90 tablet. 01/13/21 Atorvastatin Calcium [Lipitor] 20 mg PO BEDTIME #30 tab 01/13/21 Clopidogrel Bisulfate [Plavix] 75 mg PO DAILY #30 tablet 01/13/21 Insulin NPH Human Isophane [Novolin N] 10 unit SQ BID #1 vial 01/13/21 Insulin Regular, Human [Novolin R] See Protocol SQ ACHS #1 vial 01/13/21 Metoprolol Tartrate [Lopressor] 50 mg PO BID #60 tab 01/13/21 Pantoprazole [Protonix Tab] 40 mg PO DAILY #30 tab 01/13/21 lisinopriL [Lisinopril] 5 mg PO DAILY #30 tablet 01/13/21 Review of Systems is unable to be obtained <Dominic Bradford - Last Filed: 01/20/21 22:35> Physical Examination - Physical Exam General: Unresponsive HEENT: Atraumatic, PERRLA, Mucous membr. moist/pink, Sclerae nonicteric Neck: Supple, 2+ carotid pulse no bruit, No LAD, Without JVD or thyroid abnormality Respiratory: Diminished Cardiovascular: No edema, Normal S1 S2, No gallops, No rubs, No murmurs, Irregular heart rate/rhythm (tachycardic) Gastrointestinal: Normal bowel sounds, No tenderness Musculoskeletal: No tenderness Integumentary: No rashes Neurological: Other (responsive to painful stimuli ) Lymphatics: No axilla or inguinal lymphadenopathy Urinary: Anne catheter - Studies Laboratory Data (last 24 hrs) 01/20/21 18:58: Glucose 801 H* 01/20/21 17:50: Glucose 840 H* 01/20/21 15:20: PT 11.7, INR 1.02 01/20/21 15:20: WBC 8.40 D, Hgb 12.0 L D, Hct 38.7 L D, Plt Count 412 H D 01/20/21 15:20: Sodium 130 L, Potassium 5.4 H, BUN 28 H, Creatinine 2.09 H D, Glucose 905 H*, Magnesium 2.5 H D, Total Bilirubin 0.6, AST 21, ALT 19, Alkaline Phosphatase 107 <Dominic Bradford S - Last Filed: 01/20/21 22:35> Assessment and Plan - Plan ICU, on telemetry DKA protocol, BMP and ABG q4hr, BG checks q4hr, will titrate insulin continue IVF hydration and bicarb drip until pH >7.1 on ABG continue levophed to maintain MAP >65 nephrology consulted for ARF cardiology consulted for elevated troponin, trend troponin, ECHO ordered per cardiology recommendations will initiate IV antibiotics, repeat blood cultures DVT ppx Discharge Plan: Home Plan to discharge in: Greater than 2 days - Advance Directives Does patient have a Living Will: No Does patient have a Durable POA for Healthcare: No - Code Status/Comfort Care Code Status Assessed: Yes (full code ) Critical Care: Yes Time Spent Managing Pts Care (In Minutes): 70 <Dominic Bradford S - Last Filed: 01/20/21 22:35> - Problems (Diagnosis) (1) DKA (diabetic ketoacidoses) Current Visit: No Status: Acute Qualifiers: Diabetes mellitus type: type 1 Diabetes mellitus complication detail: without coma Qualified Code(s): E10.10 - Type 1 diabetes mellitus with ketoacidosis without coma (2) Elevated troponin Current Visit: No Status: Acute (3) TIA (transient ischemic attack) Current Visit: No Status: Acute (4) CAD (coronary artery disease) Current Visit: No Status: Chronic Qualifiers: Coronary Disease-Associated Artery/Lesion type: [place] artery [place] vs. transplanted heart: [place] heart Associated angina: unspecified whether angina present Qualified Code(s): I25.10 - Atherosclerotic heart disease of [place] coronary artery without angina pectoris (5) HTN (hypertension) Current Visit: No Status: Chronic Qualifiers: Hypertension type: primary hypertension Qualified Code(s): I10 - Essential (primary) hypertension (6) History of CVA (cerebrovascular accident) Current Visit: No Status: Chronic (7) Substance abuse Current Visit: No Status: Chronic <Dana Hernandez - Last Filed: 01/22/21 08:21> Date of Service: 01/20/21 Subjective Continue with plan of care as mentioned above. Agree as mentioned Review of Systems 10-point ROS is otherwise unremarkable Physical Examination - Vital Signs Reviewed - Physical Exam General: Alert, In no apparent distress, Confused Respiratory: Clear to auscultation bilaterally, Normal air movement Cardiovascular: Regular rate/rhythm, Normal S1 S2, No murmurs Gastrointestinal: Normal bowel sounds, Soft and benign, Non-distended, No tenderness Musculoskeletal: No clubbing, No swelling, No tenderness Neurological: Sensation intact, Cranial nerves 3-12 intact - Studies Medications List Reviewed: Yes Assessment & Plan - Problems (Diagnosis) (1) DKA (diabetic ketoacidoses) Current Visit: No Status: Acute Qualifiers: Diabetes mellitus type: type 1 Diabetes mellitus complication detail: without coma Qualified Code(s): E10.10 - Type 1 diabetes mellitus with ketoacidosis without coma (2) Elevated troponin Current Visit: No Status: Acute (3) TIA (transient ischemic attack) Current Visit: No Status: Acute (4) CAD (coronary artery disease) Current Visit: No Status: Chronic Qualifiers: Coronary Disease-Associated Artery/Lesion type: [place] artery [place] vs. transplanted heart: [place] heart Associated angina: unspecified whether angina present Qualified Code(s): I25.10 - Atherosclerotic heart disease of [place] coronary artery without angina pectoris (5) HTN (hypertension) Current Visit: No Status: Chronic Qualifiers: Hypertension type: primary hypertension Qualified Code(s): I10 - Essential (primary) hypertension (6) History of CVA (cerebrovascular accident) Current Visit: No Status: Chronic (7) Substance abuse Current Visit: No Status: Chronic - Plan Continue with plan of care. 1. Continue with IV hydration 2. Discontinue Insulin drip and start long-acting insulin 3. Accu-Cheks q.4 hr 4. Check labs every 12 hr 5. Resume diet 6. Diabetic education 7. Appreciate cardiology consultation. Made repeat echocardiogram 8. GI and DVT prophylaxis Discharge Plan: Home Plan to discharge in: Greater than 2 days - Advance Directives Does patient have a Living Will: No Does patient have a Durable POA for Healthcare: No - Code Status/Comfort Care Code Status Assessed: Yes Code Status: Full Code Critical Care: No Time Spent Managing PTS Care (In Minutes): 35 <Dana Hernandez - Last Filed: 01/22/21 08:21>
[2021-01-20] MEDS ORDERED: PIPER/TAZO/NS 3.375gm 3.375 GM/100 ML BAG IV ONE (22:30)
[2021-01-20 22:43] LABS: Arterial Blood Carboxyhemoglob 1.6 % (0-1.5); Blood Gas Oxyhemoglobin 96.8 % (94-97); Blood O2 Saturation 99.5 % (92-98.5)
[2021-01-20] MEDS: NACHLORIDE 0.45% 1,000 ML IV SCH (23:00)
[2021-01-20] MEDS ORDERED: HEPARIN 5000 UNIT/ML 1 ML VIAL ONE (23:13)
[2021-01-20] MEDS ORDERED: PIPERACIL/TAZO 3.375 GM VIAL IV ONE (23:13)
[2021-01-20] MEDS ORDERED: NA CHLORIDE 0.9% 100 ML ONE (23:13)
[2021-01-20 23:15] LABS: BUN Blood Urea Nitrogen 25 mg/dL (7-18); Potassium 3.4 mmol/L (3.5-5.1); Sodium Level 140 mmol/L (136-145)
[2021-01-20 23:16] LABS: Bicarbonate 13 mmol/L (21-32)
[2021-01-20 23:17] LABS: Glucose Level 626 mg/dL (74-106)
[2021-01-20 23:45] VITALS: BMI 23.5
[2021-01-20] MEDS ORDERED: KCL 20 MEQ/100 mL IVPB 20 MEQ/100 ML BAG IV ONE (23:56)
[2021-01-21] MEDS ORDERED: D5 0.45 NS 1,000 ML IV ONE (01:30)
[2021-01-21 02:55] LABS: BUN Blood Urea Nitrogen 21 mg/dL (7-18); Bicarbonate 20 mmol/L (21-32); Glucose Level 324 mg/dL (74-106); Sodium Level 143 mmol/L (136-145)
[2021-01-21] MEDS: NACHLORIDE 0.45% 1,000 ML IV SCH (03:00)
[2021-01-21] MEDS ORDERED: NACHLORIDE 0.45% 1,000 ML IV ONE (03:22)
[2021-01-21] MEDS ORDERED: INSULIN -REGULAR HUMAN 50 UNIT/0.5 ML ML ONE ×2 (03:34→18:01)
[2021-01-21] MEDS ORDERED: NA CHLORIDE 0.9% 100 ML ONE ×2 (03:34→09:18)
[2021-01-21] MEDS: D5 0.45 NS 1,000 ML IV SCH ×2 (04:15→05:40)
[2021-01-21 05:29] LABS: Basophils % 0.3 % (0-1.3); Hematocrit 25.4 % (39.6-49.0); Lymphocytes % 16.1 % (15.3-44.8); MPV 8.1 fL (7.6-11.3); RBC Red Blood Cell Count 2.95 M/uL (4.33-5.43)
[2021-01-21 05:41] LABS: BUN Blood Urea Nitrogen 19 mg/dL (7-18); Bicarbonate 23 mmol/L (21-32); Glucose Level 171 mg/dL (74-106); Sodium Level 144 mmol/L (136-145)
[2021-01-21 05:42] LABS: Potassium 2.5 mmol/L (3.5-5.1)
[2021-01-21 05:46] LABS: Magnesium 1.6 mg/dL (1.8-2.4); Phosphorus 1.2 mg/dL (2.5-4.9)
[2021-01-21] MEDS ORDERED: NACHLORIDE 0.45% 1,000 ML with POTASSIUM CL 20 MEQ IV SCH ×2 (06:00)
[2021-01-21] MEDS ORDERED: INSULIN GLARGINE 100 UNITS/ML SQ ONE ×3 (06:00→17:14)
[2021-01-21] MEDS ORDERED: POTASSIUM CHLORIDE-0.45% NACL 20 MEQ/1,000 ML BAG IV SCH (06:00)
[2021-01-21] MEDS ORDERED: D5.45NS W/KCL 20MEQ 1,000 ML IV SCH (06:00)
[2021-01-21] MEDS ORDERED: POTASSIUM 25 MEQ EFFERV TAB PO ONE (06:04)
[2021-01-21] MEDS ORDERED: KCL 20 MEQ/100 mL IVPB 20 MEQ/100 ML BAG IV ONE (06:20)
[2021-01-21] MEDS ORDERED: D5 0.45 NS 1,000 ML IV SCH ×2 (07:00→09:28)
[2021-01-21] MEDS ORDERED: KCL 20 MEQ/100 mL IVPB 20 MEQ/100 ML BAG IV SCH (07:00)
[2021-01-21] MEDS ORDERED: MAGNESIUM SULFATE 1 gm IVPB 1 GM/100 ML BAG IV ONE ×2 (07:00→10:08)
[2021-01-21] MEDS: INSULIN -REGULAR HUMAN 50 UNIT/0.5 ML ML SQ SCH ×8 (07:30→21:00)
[2021-01-21 07:54] LABS: Blood Morphology Comment NOT SEEN (NOT SEEN); Platelet Estimate INCR
[2021-01-21] MEDS: PIPER/TAZO/NS 3.375gm 3.375 GM/100 ML BAG IV SCH ×2 (08:00→16:00)
[2021-01-21] MEDS: HEPARIN 5000 UNIT/ML 1 ML VIAL SQ SCH ×2 (09:00→21:00)
[2021-01-21] MEDS ORDERED: HEPARIN 5000 UNIT/ML 1 ML VIAL ONE (09:17)
[2021-01-21 09:41] VITALS: O2SAT 100
[2021-01-21] MEDS ORDERED: POTASSIUM CL SA 10 MEQ TAB PO ONE ×2 (10:07→11:01)
[2021-01-21] MEDS ORDERED: Magnesium Sulfate 2gm IVPB 2 G/50 ML BAG IV ONE ×2 (10:08→11:01)
[2021-01-21] MEDS ORDERED: PIPER/TAZO/NS 3.375gm 3.375 GM/100 ML BAG ONE (10:09)
[2021-01-21] MEDS ORDERED: POTASSIUM PHOS 20 MM in NA CHLORIDE 0.9% 500 ML IV ONE (10:30)
--- NOTE | 2021-01-21 11:28 | EKG ---
Test Date: 2021-01-20 Test Time: 15:33:05 Sales Record Clerk: MARCELINO MEASUREMENT RESULTS: Intervals: Rate: 130 CA: 156 QRSD: 96 QT: 292 QTc: 429 [place]: P: 60 CA: 156 QRS: 37 T: 63 INTERPRETIVE STATEMENTS: Sinus tachycardia Possible Left atrial enlargement ST depression, consider subendocardial injury or digitalis effect Abnormal ECG Compared to ECG 01/16/2021 09:14:23 No significant changes Electronically Signed On 01-21-21 11:26:38 CDT by Tyler Carey
--- NOTE | 2021-01-21 13:03 | ECHO ---
HEIGHT: 5 ft 7 in WEIGHT: 150 lb 0.04 oz DATE OF STUDY: 01/21/[address]: Dominic Bradford 2-DIMENSIONAL: YES M.MODE: YES DOPPLER: YES COLOR FLOW: YES TDS: NO PORTABLE: NO DEFINITY: NO BUBBLE STUDY: NO DIAGNOSIS: WALL MOTION ABNORMALITY CARDIAC HISTORY: CATHERIZATION: SURGERY: PROSTHETIC VALVE: PACEMAKER: MEASUREMENTS (cm) DIASTOLIC (NORMALS) SYSTOLIC (NORMALS) IVSd 1.2 (0.6-1.2) LA Diam (1.9-4.0) LVEF 60-65% LVIDd 4.9 (3.5-5.7) LVIDs 3.9 (2.0-3.5) %FS % LVPWd 1.2 (0.6-1.2) Ao Diam 2.9 (2.0-3.7) 2 DIMENSIONAL ASSESSMENT: RIGHT ATRIUM: NORMAL LEFT ATRIUM: NORMAL RIGHT VENTRICLE: NORMAL LEFT VENTRICLE: NORMAL TRICUSPID VALVE: NORMAL MITRAL VALVE: NORMAL PULMONIC VALVE: NORMAL AORTIC VALVE: NORMAL PERICARDIAL EFFUSION: NONE AORTIC ROOT: NORMAL LEFT VENTRICULAR WALL MOTION: NORMAL DOPPLER/COLOR FLOW: NORMAL COMMENTS: NORMAL 2D ECHOCARDIOGRAM WITH DOPPLER. NO WALL MOTION ABNORMALITY. NO EFFUSION. TECHNOLOGIST: Nolvia BEST
[2021-01-21] MEDS: POTASSIUM CL 40 MEQ in NA CHLORIDE 0.9% 500 ML IV SCH ×2 (15:00→19:00)
--- NOTE | 2021-01-21 15:25 | CON ---
Date of Consultation: 01/21/2021 Reason For Consultation: Elevated BUN and creatinine, acidosis. History Of Present Illness: All the information has been obtained from the record as the patient obt unded. This is a 50-year-old gentleman with significant past medical history of insulin-dependent di abetes, hypertension, opioid abuse, CVA with stent placement. The patient came to the hospital as unresponsive. Primary workup showed DKA with non-ST elevation [place] with acute kidney injury. Creatinine was 2. For that reason, we have been consulted. There is no mention of any nonsteroidal but on his medication, the patient being on ROB inhibitor and PPI, otherwise no other . T he patient was started on hydration and bicarb; kidney function started improving, acidosis has been resolved. But the patient's mental status has been deteriorated. Past Medical History: 1.Hypertension. 2.Diabetes. 3.CVA status post stenting. 4.Opioid abuse. 5.Panic attack. Home Medications: Include alprazolam, doxycycline, methadone, Zoloft, atorvastatin, Plavix, insulin, metoprolol, Pantoprazole and lisinopril. Past Surgical History: Include; 1.Stent placement for the CVA. 2.PTCA for cardiac. Family History: Positive for hypertension. Social History: Drug use. Denied smoking. Review of Systems: None obtainable. Physical Examination: Vital Signs: Blood pressure 148/89, pulse of 111, afebrile. Chest: Clear to auscultation. Heart: S1, S2 regular. Abdomen: Soft, nontender. Extremity: No edema. Neuro: Sleepy, follow simple command. Moving 4 extremities without any focality. Laboratory Data: WBC 12.7, H and H 8.6/25.4. Sodium 144, potassium 2.5, bicarb 23, BUN 19, creatini ne 1.3, GFR of 55, calcium 7.1. Upon arrival to the hospital; sodium 140, potassium 5.4, bicarb 3, B UN 28, creatinine 2, GFR of 34, blood sugar above 900. ABG, pH 6.9, CO2 7.5, O2 147, base access -18 . Assessment And Plan: 1.Acute kidney injury secondary to prerenal, secondary to diuresis, superimposed with ROB inhibitor. On the recovery we will continue hydration. 2.Hyponatremia secondary to depletional/pseudohyponatremia secondary to hyperglycemia. Corrected so dium within normal limit. 3.Hyperkalemia, currently hypokalemia. We will supplement given the recovery from the acidosis. 4.High anion gap metabolic acidosis with contraction alkalosis secondary to diabetic ketoacidosis, r ecovered, resolved. Continue aggressive hydration. 5.Acute kidney injury as above secondary to diuresis, ROB inhibitor. On the recovery I wi ll continue aggressive hydration. 6.Altered mental status as by primary. 7.Anemia of chronic kidney disease. We will follow up H and H. SURJIT/DORIE Voice ID: [id number] Report ID: [id number]
[2021-01-21] MEDS: NA CHLORIDE 0.9% 1,000 ML IV SCH (16:56)
[2021-01-21] MEDS ORDERED: NA CHLORIDE 0.9% 1,000 ML ONE (17:14)
[2021-01-22] MEDS ORDERED: POTASSIUM 25 MEQ EFFERV TAB PO ONE (01:32)
[2021-01-22 02:30] LABS: Absolute Lymphocytes (CBC) 2.5 K/uL (0.7-4.9); Basophils % 0.2 % (0-1.3); Hematocrit 26.4 % (39.6-49.0); Lymphocytes % 19.7 % (15.3-44.8); MPV 8.3 fL (7.6-11.3); RBC Red Blood Cell Count 3.06 M/uL (4.33-5.43)
[2021-01-22 02:32] LABS: Magnesium 1.8 mg/dL (1.8-2.4); Phosphorus 2.6 mg/dL (2.5-4.9)
[2021-01-22] MEDS ORDERED: POTASSIUM 25 MEQ EFFERV TAB ONE (03:33)
[2021-01-22] MEDS: NA CHLORIDE 0.9% 1,000 ML IV SCH ×2 (07:18→21:36)
[2021-01-22] MEDS: INSULIN -REGULAR HUMAN 50 UNIT/0.5 ML ML SQ SCH ×6 (07:30→16:30)
[2021-01-22] MEDS: PIPER/TAZO/NS 3.375gm 3.375 GM/100 ML BAG IV SCH ×3 (08:00→16:00)
--- NOTE | 2021-01-22 08:18 | P.PN ---
Subjective Date of Service: 01/21/21 Patient doing more alert and awake this afternoon. This morning still obtunded and was pending MRI of the brain but he was more alert this afternoon so will Dc it. Patient also a recent stent placement cell unable to do the MRI. If his mentation worsens may need CT of the brain. Troponins are elevated and Cardiology did not recommend any intervention at this time. No chest pain. Patient clinically improving and may discharge tomorrow Review of Systems 10-point ROS is otherwise unremarkable Physical Examination - Vital Signs Temperature: 97.7 F Blood Pressure: 144/96 Pulse: 110 Respirations: 18 Pulse Ox (%): 100 - Physical Exam General: Alert, In no apparent distress, Confused Respiratory: Clear to auscultation bilaterally, Normal air movement Cardiovascular: Regular rate/rhythm, Normal S1 S2, No murmurs Gastrointestinal: Normal bowel sounds, Soft and benign, Non-distended, No tenderness Musculoskeletal: No clubbing, No swelling, No tenderness Neurological: Sensation intact, Cranial nerves 3-12 intact - Studies Medications List Reviewed: Yes Assessment & Plan - Problems (Diagnosis) (1) DKA (diabetic ketoacidoses) Current Visit: No Status: Acute Qualifiers: Diabetes mellitus type: type 1 Diabetes mellitus complication detail: without coma Qualified Code(s): E10.10 - Type 1 diabetes mellitus with k etoacidosis without coma (2) Elevated troponin Current Visit: No Status: Acute (3) TIA (transient ischemic attack) Current Visit: No Status: Acute (4) CAD (coronary artery disease) Current Visit: No Status: Chronic Qualifiers: Coronary Disease-Associated Artery/Lesion type: [place] artery [place] vs. transplanted heart: [place] heart Associated angina: unspecified whether angina present Qualified Code(s): I25.10 - Atherosclerotic heart disease of [place] coronary artery without angina pectoris (5) HTN (hypertension) Current Visit: No Status: Chronic Qualifiers: Hypertension type: primary hypertension Qualified Code(s): I10 - Essential (primary) hypertension (6) History of CVA (cerebrovascular accident) Current Visit: No Status: Chronic (7) Substance abuse Current Visit: No Status: Chronic - Plan 1. Continue with IV hydration 2. Discontinue Insulin drip and start long-acting insulin 3. Accu-Cheks q.4 hr 4. Check labs every 12 hr 5. Resume diet 6. Diabetic education 7. Appreciate cardiology consultation. Made repeat echocardiogram 8. Physical therapy evaluation if not ambulating 9. GI and DVT prophylaxis Discharge Plan: Home Plan to discharge in: Greater than 2 days - Advance Directives Does patient have a Living Will: No Does patient have a Durable POA for Healthcare: No - Code Status/Comfort Care Code Status Assessed: Yes Code Status: Full Code Critical Care: No Time Spent Managing PTS Care (In Minutes): 35
[2021-01-22] MEDS: HEPARIN 5000 UNIT/ML 1 ML VIAL SQ SCH ×2 (09:00→21:00)
[2021-01-22 09:26] LABS: Absolute Lymphocytes (CBC) 1.8 K/uL (0.7-4.9); Basophils % 0.2 % (0-1.3); Hematocrit 27.4 % (39.6-49.0); Lymphocytes % 16.4 % (15.3-44.8); MPV 8.2 fL (7.6-11.3); RBC Red Blood Cell Count 3.13 M/uL (4.33-5.43)
[2021-01-22 09:55] LABS: BUN Blood Urea Nitrogen 8 mg/dL (7-18); Bicarbonate 18 mmol/L (21-32); Glucose Level 241 mg/dL (74-106); Magnesium 1.7 mg/dL (1.8-2.4); Potassium 3.3 mmol/L (3.5-5.1); Sodium Level 142 mmol/L (136-145)
[2021-01-22] MEDS ORDERED: INSULIN -REGULAR HUMAN 50 UNIT/0.5 ML ML ONE ×2 (10:05→18:04)
[2021-01-22 10:18] LABS: Troponin I 6.24 ng/mL (0.0-0.045)
--- NOTE | 2021-01-22 13:39 | PN ---
Date of Progress Note: 01/22/2021 Subjective: The patient was admitted with acute kidney injury secondary to prerenal, secondary to gl ucose diuresis, dehydration. The patient was started on aggressive hydration. Objective: Vital Signs: When I saw the patient; blood pressure 144/96, pulse of 110; afebrile. The patient had good urine output of 2600, positive of 2700. Chest: Clear to auscultation. heart: S1, S2 regular. Abdomen: Soft, nontender. Extremities: No edema. Neurologic: Alert, follow command. Laboratory Data: WBC 11.2, H and H 9.3/27.4. Sodium 142, potassium 3.3, bicarb 18, BUN 8, creatinin e 0.6, calcium 7.4, magnesium 1.7. Troponin 6.2. Current Medications: The patient on include: 1.Zosyn. 2.Zofran. Assessment And Plan: 1.Acute kidney injury secondary to prerenal, secondary to glucose diuresis, recovered, resolved. 2.Acidosis secondary to diabetic ketoacidosis. Currently acceptable. Discontinue bicarb. Continue diabetes treatment. 3.Hypokalemia, hypomagnesemia. We will supplement. 4.Dnq-MI-nzivydwjt myocardial infarction, as by Cardiology. 5.Altered mental status secondary to metabolic, recovering. Will follow up with the primary. RASHAD Voice ID: [id number] Report ID: [id number]
[2021-01-22] MEDS ORDERED: INSULIN 70/30 100 UNITS/ML SQ SCH (16:30)
[2021-01-22] MEDS ORDERED: INSULIN GLARGINE 100 UNITS/ML SQ SCH (17:00)
[2021-01-22] MEDS ORDERED: INSULIN 70/30 100 UNITS/ML SQ ONE (18:03)
[2021-01-22] MEDS ORDERED: INSULIN GLARGINE 100 UNITS/ML SQ ONE (18:03)
[2021-01-22] MEDS ORDERED: HEPARIN 5000 UNIT/ML 1 ML VIAL ONE (22:24)
[2021-01-23 04:07] LABS: Absolute Lymphocytes (CBC) 1.4 K/uL (0.7-4.9); Basophils % 0.4 % (0-1.3); Hematocrit 28.3 % (39.6-49.0); MPV 8.8 fL (7.6-11.3); RBC Red Blood Cell Count 3.27 M/uL (4.33-5.43)
[2021-01-23 04:17] LABS: Magnesium 1.8 mg/dL (1.8-2.4); Phosphorus 2.4 mg/dL (2.5-4.9)
[2021-01-23] MEDS: INSULIN -REGULAR HUMAN 50 UNIT/0.5 ML ML SQ SCH (07:30)
[2021-01-23] MEDS: PIPER/TAZO/NS 3.375gm 3.375 GM/100 ML BAG IV SCH ×3 (08:00)
--- NOTE | 2021-01-23 08:32 | P.PN ---
Subjective Date of Service: 01/23/21 Chief Complaint: DKA Physical Examination - Vital Signs Temperature: 98.6 F Blood Pressure: 117/64 Pulse: 78 Respirations: 20 Pulse Ox (%): 99 - Studies Medications List Reviewed: Yes Assessment And Plan - Plan 1. Acute kidney injury secondary to prerenal, secondary to glucose diuresis, recovered, resolved. 2. Acidosis secondary to diabetic ketoacidosis. Currently acceptable. Discontinue bicarb. Continue diabetes treatment. 3. Hypokalemia, hypomagnesemia. We will supplement. 4. Ypt-CD-iaxkfrlut myocardial infarction, as by Cardiology. 5. Altered mental status secondary to metabolic, recovering. Will follow up with the primary.
[2021-01-23] MEDS ORDERED: INSULIN 70/30 100 UNITS/ML SQ ONE (09:29)
[2021-01-23] MEDS ORDERED: HEPARIN 5000 UNIT/ML 1 ML VIAL ONE (09:30)
[2021-01-23 12:39] VITALS: BP 137/77; TEMP 98.1
--- NOTE | 2021-01-26 01:21 | P.PN ---
Date of Service: 01/22/21 Subjective Patient is doing better. Patient is more awake and tolerating diet. However, his strength is still diminished and will ambulate am in get his strength built back up prior to discharge. Review of Systems 10-point ROS is otherwise unremarkable Physical Examination - Vital Signs Reviewed - Physical Exam General: Alert, In no apparent distress, Confused Respiratory: Clear to auscultation bilaterally, Normal air movement Cardiovascular: Regular rate/rhythm, Normal S1 S2, No murmurs Gastrointestinal: Normal bowel sounds, Soft and benign, Non-distended, No tenderness Musculoskeletal: No clubbing, No swelling, No tenderness Neurological: Sensation intact, Cranial nerves 3-12 intact Assessment & Plan - Problems (Diagnosis) (1) DKA (diabetic ketoacidoses) Current Visit: No Status: Acute Qualifiers: Diabetes mellitus type: type 1 Diabetes mellitus complication detail: without coma Qualified Code(s): E10.10 - Type 1 diabetes mellitus with ketoacidosis without coma (2) Elevated troponin Current Visit: No Status: Acute (3) TIA (transient ischemic attack) Current Visit: No Status: Acute (4) CAD (coronary artery disease) Current Visit: No Status: Chronic Qualifiers: Coronary Disease-Associated Artery/Lesion type: [place] artery [place] vs. transplanted heart: [place] heart Associated angina: unspecified whether angina present Qualified Code(s): I25.10 - Atherosclerotic heart disease of [place] coronary artery without angina pectoris (5) HTN (hypertension) Current Visit: No Status: Chronic Qualifiers: Hypertension type: primary hypertension Qualified Code(s): I10 - Essential (primary) hypertension (6) History of CVA (cerebrovascular accident) Current Visit: No Status: Chronic (7) Substance abuse Current Visit: No Status: Chronic - Plan Continue with plan of care as mentioned below: 1. Continue with IV hydration 2. Continue with long-acting insulin 3. Accu-Cheks q.4 hr 4. Check labs every 12 hr 5. Resume diet 6. Diabetic education 7. Appreciate cardiology consultation. Echocardiogram with normal ejection fraction with no other abnormalities 8. Physical therapy evaluation if not ambulating 9. GI and DVT prophylaxis
--- NOTE | 2021-01-26 01:22 | P.DS ---
Discharge Date: 01/23/21 Disposition: ROUTINE DISCHARGE Discharge Condition: GOOD Reason for Admission: DKA - Problems (1) DKA (diabetic ketoacidoses) Status: Acute Qualifiers: Diabetes mellitus type: type 1 Diabetes mellitus complication detail: without coma Qualified Code(s): E10.10 - Type 1 diabetes mellitus with ketoacidosis without coma (2) Elevated troponin Status: Acute (3) TIA (transient ischemic attack) Status: Acute (4) CAD (coronary artery disease) Status: Chronic Qualifiers: Coronary Disease-Associated Artery/Lesion type: [place] artery [place] vs. transplanted heart: [place] heart Associated angina: unspecified whether angina present Qualified Code(s): I25.10 - Atherosclerotic heart disease of [place] coronary artery without angina pectoris (5) HTN (hypertension) Status: Chronic Qualifiers: Hypertension type: primary hypertension Qualified Code(s): I10 - Essential (primary) hypertension (6) History of CVA (cerebrovascular accident) Status: Chronic (7) Substance abuse Status: Chronic Brief History of Present Illness: Mr. León is a 50 yo M with IDDM, HTN, opiate use disorder on methadone, history of IA s/p 3 stent placements and CVA in 2018 who was brought in unresponsive with rapid respirations. Patient has been recently admitted twice in the last two weeks - the first with DKA and NSTEMI requiring stent placement and again with DKA with possible pneumonia, but he left AMA at that time. Today Na 130 K 5.4 Cl 9 CO3 3 BUN 28 Cr 2.09 GFR 34 Glu 905 trop 1.95 BNP 5085. DKA protocol, bicarb drip, levophed initiated in the ED. CXR shows no new findings, repeat CT Chest may be beneficial when patient is more stable. Spoke to daughter who says her and her aunt believe that the patient is under a lot of stress with the worsening dementia and healthcare issues of his dad. Patient asked his daughter to move to [place] from [place] a few weeks ago but she was financially unable to at that time. Hospital Course: Patient is clinically doing better. Patient is tolerating his diet and able to keep his blood sugars fairly well controlled. Patient is ambulating with assistance. Patient is stable for discharge with family. Outpatient follow-up will be warranted and patient needs to follow up very closely. Vital Signs/Physical Exam: Temp Pulse Resp BP Pulse Ox 98.1 F 102 H 17 137/77 99 01/23/21 08:00 01/23/21 08:00 01/23/21 08:00 01/23/21 08:00 01/23/21 04:00 General: Alert, In no apparent distress, Oriented x3 Laboratory Data at Discharge: WBC 9.80 K/uL (4.3-10.9) 01/23/21 03:37 Hgb 9.7 g/dL (13.6-17.9) L 01/23/21 03:37 Hct 28.3 % (39.6-49.0) L 01/23/21 03:37 Plt Count 225 K/uL (152-406) 01/23/21 03:37 PT 11.7 SECONDS (9.5-12.5) 01/20/21 15:20 INR 1.02 01/20/21 15:20 Sodium 142 mmol/L (136-145) 01/22/21 09:13 Potassium 3.3 mmol/L (3.5-5.1) L 01/22/21 09:13 BUN 8 mg/dL (7-18) 01/22/21 09:13 Creatinine 0.65 mg/dL (0.55-1.3) 01/22/21 09:13 Glucose 241 mg/dL (74-106) H 01/22/21 09:13 Phosphorus 2.4 mg/dL (2.5-4.9) L 01/23/21 03:37 Magnesium 1.8 mg/dL (1.8-2.4) 01/23/21 03:37 Total Bilirubin 0.6 mg/dL (0.2-1.0) 01/20/21 15:20 AST 21 U/L (15-37) 01/20/21 15:20 ALT 19 U/L (12-78) 01/20/21 15:20 Alkaline Phosphatase 107 U/L (45-117) 01/20/21 15:20 Troponin I 6.24 ng/mL (0.0-0.045) H* 01/22/21 09:13 Triglycerides 107 mg/dL (<150) 01/21/21 05:07 Cholesterol 114 mg/dL (<200) 01/21/21 05:07 HDL Cholesterol 43 mg/dL (40-60) 01/21/21 05:07 Cholesterol/HDL Ratio 2.65 01/21/21 05:07 Home Medications: Alprazolam [Xanax] 0.5 mg PO TID 02/19/20 Dicyclomine [Bentyl*] 20 mg PO Q12H 02/19/20 Sertraline [Zoloft*] 150 mg PO DAILY 02/19/20 Aspirin [Aspirin EC 81 MG] 81 mg PO DAILY #90 tablet. 01/13/21 Atorvastatin Calcium [Lipitor*] 20 mg PO BEDTIME #30 tab 01/13/21 Clopidogrel Bisulfate [Plavix*] 75 mg PO DAILY #30 tablet 01/13/21 Insulin NPH Human Isophane [Novolin N] 10 unit SQ BID #1 vial 01/13/21 Insulin Regular, Human [Novolin R] See Protocol SQ ACHS #1 vial 01/13/21 Metoprolol Tartrate [Lopressor*] 50 mg PO BID #60 tab 01/13/21 Pantoprazole [Protonix Tab*] 40 mg PO DAILY #30 tab 01/13/21 lisinopriL [Lisinopril] 5 mg PO DAILY #30 tablet 01/13/21 Methadone HCl [Methadone HCl*] 20 mg PO DAILY #30 tab 01/23/21 New Medications: Methadone HCl [Methadone HCl*] 20 mg PO DAILY #30 tab Physician Discharge Instructions: OK TO DC IV AND DC home FOLLOW-UP WITH PRIMARY CARE PROVIDER IN 1-2 WEEKS FOLLOW-UP WITH CARDIOLOGY IN 1-2 WEEKS RETURN TO THE ER IF symptoms worsen CALL or TEXT DR. MEANS AT [phone] IF ANY QUESTIONS REGARDING HOSPITAL STAY. PLEASE CALL THE FLOOR AT [phone] IF ANY MEDICATION OR NURSING QUESTIONS. Diet: ADA (Heart healthy) Activity: Fall precautions Followup: NONE,NONE [Primary Care Provider] - Time spent managing pt's care (in minutes): 35
== END 2021-01-23 11:19 | disposition home or self-care (01) | DRG 637 ==
LOC: ER 14:35 → ERHOLD 20:46
PROVIDERS: ADMIT Hospitalist; ATTEND Hospitalist
PROC: 06HY33Z Insertion of Infusion Device into Lower Vein, Percutaneous Approach (ICD-10-PCS; principal; 2021-01-20)
DX: E10.10 Type 1 diabetes mellitus with ketoacidosis without coma (principal); I21.4 Non-ST elevation (NSTEMI) myocardial infarction; N17.9 Acute kidney failure, unspecified; I69.354 Hemiplegia and hemiparesis following cerebral infarction affecting left non-dominant side; G45.9 Transient cerebral ischemic attack, unspecified; R77.8 Other specified abnormalities of plasma proteins; I25.10 Atherosclerotic heart disease of native coronary artery without angina pectoris; F11.10 Opioid abuse, uncomplicated; E87.6 Hypokalemia; E83.42 Hypomagnesemia; E87.5 Hyperkalemia; D63.8 Anemia in other chronic diseases classified elsewhere; E86.0 Dehydration; I25.2 Old myocardial infarction; Z95.5 Presence of coronary angioplasty implant and graft; Z20.822 Contact with and (suspected) exposure to COVID-19
CPT/HCPCS: 36415; 51702; 71045; 80048; 80061; 80076; 82010; 82310; 82805; 82947; 83735; 83880; 83930; 84100; 84132; 84484; 85025; 85610; 87040; 93005; 93306; 97161; 99291; 99292; J1644; J1815; J2543; J3475; J3480; J7030; J7040; J7799; U0003

== ENCOUNTER 2021-01-30 11:08 | Emergency (ER) | payer SELFPAY ==
[2021-01-30] MEDS ORDERED: NA CHLORIDE 0.9% 1,000 ML ONE ×4 (11:41→20:30)
[2021-01-30 11:54] LABS: Arterial Blood Carboxyhemoglob 1.1 % (0-1.5); Blood Gas Oxyhemoglobin 93.7 % (94-97); Blood O2 Saturation 95.9 % (92-98.5)
[2021-01-30] MEDS ORDERED: INSULIN -REGULAR HUMAN 50 UNIT/0.5 ML ML ONE ×2 (11:58→22:04)
[2021-01-30] MEDS ORDERED: INSULIN -REGULAR HUMAN 100 UNIT in NA CHLORIDE 0.9% 100 ML IV SCH (12:00)
--- NOTE | 2021-01-30 12:06 | RAD REPORT ---
EXAM DESCRIPTION: RAD - Chest Single View - 01/30/2021 11:59 am CLINICAL HISTORY: Altered mental status COMPARISON: January 20, 2021 TECHNIQUE: AP portable chest image was obtained 01/30/2021 11:59 am . FINDINGS: Lung volumes are low. No peripheral mass consolidation. Interstitial pattern is similar to comparison. Heart and vasculature are normal. No measurable pleural effusion and no pneumothorax. No acute bony abnormality seen. No acute aortic findings suspected. IMPRESSION: No acute cardiopulmonary process. No significant change from comparison study.
[2021-01-30] MEDS ORDERED: NA CHLORIDE 0.9% 1,000 ML with NA BICARB 8.4% 50 MEQ IV SCH ×2 (12:15)
[2021-01-30 12:26] LABS: Urine Blood 1+ (Negative); Urine Glucose 2+ (Negative); Urine Protein Negative (Negative); Urine Specific Gravity 1.015 (1.005-1.030)
[2021-01-30] MEDS ORDERED: SODIUM BICARB 50 MEQ/50ML VIAL ONE (12:46)
[2021-01-30 12:57] LABS: Albumin 2.7 g/dL (3.4-5.0); Bilirubin Total 0.5 mg/dL (0.2-1.0); CKMB Creatine Kinase MB 3.4 ng/mL (1.0-3.6); Protein, Total 6.5 g/dL (6.4-8.2)
[2021-01-30 13:16] LABS: Urine Amorphous Sediment 2+ /HPF (NONE SEEN); Urine Bacteria NONE SEEN /HPF (NONE SEEN); Urine RBC <5 /HPF (NONE SEEN)
[2021-01-30 13:28] LABS: Bilirubin Direct 0.2 mg/dL (0-0.2)
[2021-01-30 13:30] LABS: Troponin (Emerg Dept Use Only) 0.53 ng/mL (0.0-0.045)
[2021-01-30] MEDS ORDERED: CALCIUM GLUCONATE 1 GM IVPB 1 GM/50 ML BAG IV ONE (14:14)
[2021-01-30] MEDS ORDERED: ALBUTEROL 2.5 MG/3 ML NEB SOL ONE (14:14)
[2021-01-30] MEDS ORDERED: SOD POLYSTYREN SUL 15 GM/60 ML UCUP ONE (14:14)
[2021-01-30 15:18] LABS: Absolute Lymphocytes (CBC) 1.3 K/uL (0.7-4.9); Basophils % 0.5 % (0-1.3); Lymphocytes % 9.5 % (15.3-44.8); MPV 9.9 fL (7.6-11.3)
[2021-01-30 15:21] LABS: RBC Red Blood Cell Count 2.81 M/uL (4.33-5.43)
[2021-01-30 15:22] LABS: Hematocrit 28.4 % (39.6-49.0)
[2021-01-30 15:36] LABS: Arterial Blood Carboxyhemoglob 2.1 % (0-1.5); Blood Gas Oxyhemoglobin 95.4 % (94-97); Blood O2 Saturation 98.6 % (92-98.5)
[2021-01-30 15:36] LABS: Protime INR 0.98
[2021-01-30 16:27] LABS: Blood Morphology Comment NOT SEEN (NOT SEEN); Platelet Estimate ADEQ
--- NOTE | 2021-01-30 18:22 | EKG ---
Test Date: 2021-01-30 Test Time: 11:11:29 Non Ferrous Material Handler: HB MEASUREMENT RESULTS: Intervals: Rate: 113 NJ: 158 QRSD: 114 QT: 364 QTc: 499 [place]: P: 51 NJ: 158 QRS: 182 T: 49 INTERPRETIVE STATEMENTS: Sinus tachycardia with fusion complexes Right superior axis deviation Pulmonary disease pattern Incomplete right bundle branch block Right ventricular hypertrophy ST depression, consider subendocardial injury Abnormal ECG Compared to ECG 01/20/2021 15:33:05 Fusion complex(es) now present Right superior axis now present Incomplete right bundle-branch block now present Right ventricular hypertrophy now present ST (T wave) deviation still present Electronically Signed On 01-30-21 18:20:49 CDT by Tyler Carey
[2021-01-30 19:15] LABS: Albumin 2.5 g/dL (3.4-5.0); Bilirubin Total 0.3 mg/dL (0.2-1.0); Potassium 3.7 mmol/L (3.5-5.1); Protein, Total 5.8 g/dL (6.4-8.2)
[2021-01-30 19:16] LABS: Troponin (Emerg Dept Use Only) 31.4 ng/mL (0.0-0.045)
--- NOTE | 2021-01-30 19:53 | EDPHYS ---
Physician Documentation [facility] Name: Osbaldo León Age: 50 yrs Sex: Male : 1970 Arrival Date: 01/30/2021 Time: 11:14 Bed 3 Private MD: ED Physician Ubaldo Castorena HPI: 01/31 07:33 This 50 yrs old Male presents to ER via EMS with complaints of Altered mental kdr altered mental status. 07:33 The patient presents with decreased mental status, decreased responsiveness. Onset: The kdr symptoms/episode began/occurred just prior to arrival, today, at an unknown time. Possible causes: DKA. Associated signs and symptoms: The patient has no apparent associated signs or symptoms. Current symptoms: In the emergency department the patient's symptoms are unchanged from the initial presentation. Patient's baseline: Neuro: alert and fully oriented, Motor: no deficits, Ambulation: walks without assistance. The patient has experienced similar episodes in the past, multiple times. The patient has been recently seen by a physician: The patient has been recently seen at the [facility] Emergency Department, The patient has been recently been admitted at [facility], The patient patient has recurrent visits for DKA. Historical: - Allergies: 01/30 12:06 Clindamycin; ll1 12:06 Morphine; ll1 - PMHx: 12:06 CVA; Diabetes - IDDM; Hypertension; NH; ll1 - PSHx: 12:06 cardiac stent; ll1 - Immunization history:: Adult Immunizations unknown. - Social history:: Smoking status: unknown. ROS: 01/31 07:33 Constitutional: unobtainable secondary to altered mental status kdr Unable to obtain ROS due to altered mental status. Exam: 07:41 Constitutional: This is a well developed, well nourished patient who is obtunded and kdr in mild to moderate distress. With [place] breathing Head/Face: Normocephalic, atraumatic. Eyes: Pupils equal round and reactive to light, extra-ocular motions intact. Lids and lashes normal. Conjunctiva and sclera are non-icteric and not injected. Cornea within normal limits. Periorbital areas with no swelling, redness, or edema. Neck: Trachea midline, no thyromegaly or masses palpated, and no cervical lymphadenopathy. Supple, full range of motion without nuchal rigidity, or vertebral point tenderness. No Meningismus. Chest/axilla: Normal chest wall appearance and motion. Nontender with no deformity. No lesions are appreciated. Cardiovascular: Regular rate and rhythm with a normal S1 and S2. No gallops, murmurs, or rubs. Normal PMI, no JVD. No pulse deficits. Abdomen/GI: Soft, non-tender, with normal bowel sounds. No distension or tympany. No guarding or rebound. No evidence of tenderness throughout. Back: No spinal tenderness. No costovertebral tenderness. Full range of motion. Skin: Warm, dry with normal turgor. Normal color with no rashes, no lesions, and no evidence of cellulitis. MS/ Extremity: Pulses equal, no cyanosis. Neurovascular intact. Full, normal range of motion. Neuro: Awake and alert, GCS 15, oriented to person, place, time, and situation. Cranial nerves II-XII grossly intact. Motor strength 5/5 in all extremities. Sensory grossly intact. Cerebellar exam normal. Normal gait. Psych: Awake, alert, with orientation to person, place and time. Behavior, mood, and affect are within normal limits. 07:41 Respiratory: mild respiratory distress is noted, moderate respiratory distress is noted, Respirations: labored breathing, that is moderate, Breath sounds: are clear throughout. 08:20 ECG was reviewed by the Attending Physician. kdr Vital Signs: 01/30 11:30 BP 161 / 125; Pulse 113; Resp 28; ll1 11:49 BP 167 / 142; Pulse 102; Resp 30; Temp 98.3; Pulse Ox 93% ; Weight 72 kg; Height 5 ft. ll1 10 in. (177.80 cm) (R); 12:00 BP 77 / 50; Pulse 104; Resp 26; Pulse Ox 100% on R/A; ll1 12:33 BP 72 / 49; Pulse 115; Resp 28; Pulse Ox 100% ; ll1 13:45 BP 87 / 66; Pulse 118; Resp 24; Pulse Ox 100% ; ll1 14:25 BP 98 / 64; Pulse 124; Resp 23; Pulse Ox 98% on Simple Mask; ll1 15:10 BP 101 / 66; Pulse 116; Resp 19; Pulse Ox 100% ; ll1 15:46 BP 106 / 69; Pulse 115; Resp 18; Pulse Ox 100% on R/A; ll1 17:42 BP 117 / 78; Pulse 116; Resp 19; Pulse Ox 99% on R/A; ll1 18:05 BP 127 / 77; Pulse 116; Resp 17; Pulse Ox 99% on R/A; ll1 18:39 BP 112 / 69; Pulse 114; Resp 19; Pulse Ox 100% on R/A; ll1 19:00 BP 117 / 73; Pulse 110; Resp 18; Pulse Ox 98% ; ea 20:00 BP 125 / 77; Pulse 113; Resp 20; Pulse Ox 98% ; ea 22:04 BP 135 / 90; Pulse 117; Resp 20; Temp 98; Pulse Ox 99% ; ea 11:49 Body Mass Index 22.78 (72.00 kg, 177.80 cm) ll1 MDM: 19:52 Patient medically screened. [facility] 01/31 07:41 Data reviewed: vital signs, nurses notes, lab test result(s), radiologic studies. kdr Counseling: I had a detailed discussion with the patient and/or guardian regarding: the historical points, exam findings, and any diagnostic results supporting the discharge/admit diagnosis, lab results, radiology results, the need to transfer to another facility. ED course: The patient showed steady improvement with the interventions given. He was transferred to [facility] in much improved condition. His anion gap continue to exist but was improving. His pH/acidosis had significantly improved. His hyperkalemia had also considerably improved and was now out of the danger zone.. 01/30 11:27 Order name: Amylase, Serum [facility] 01/30 11:27 Order name: Basic Metabolic Panel [facility] 01/30 11:27 Order name: Blood Culture Adult (2) [facility] 01/30 11:27 Order name: CBC with Diff [facility] 01/30 11:27 Order name: CPK kdr 01/30 11:27 Order name: Ckmb kdr 01/30 11:27 Order name: LFT's; Complete Time: 15:59 [facility] 01/30 11:27 Order name: Lactate; Complete Time: 12:57 [facility] 01/30 11:27 Order name: Lipase; Complete Time: 15:59 [facility] 01/30 11:27 Order name: Procalcitonin; Complete Time: 15:59 [facility] 01/30 11:27 Order name: Protime (+inr); Complete Time: 15:59 [facility] 01/30 11:27 Order name: Ptt, Activated; Complete Time: 15:59 [facility] 01/30 11:27 Order name: Troponin (emerg Dept Use Only); Complete Time: 15:59 [facility] 01/30 11:27 Order name: Urine Microscopic Only; Complete Time: 15:59 [facility] 01/30 11:27 Order name: Amylase; Complete Time: 15:59 [facility] 01/30 11:27 Order name: Basic Metabolic Panel; Complete Time: 15:59 [facility] 01/30 11:27 Order name: Blood Culture [facility] 01/30 11:27 Order name: CBC with Automated Diff; Complete Time: 18:42 [facility] 01/30 11:27 Order name: Creatine Phosphokinase; Complete Time: 15:59 [facility] 01/30 11:27 Order name: CKMB Creatine Kinase MB; Complete Time: 15:59 [facility] 01/30 11:53 Order name: ABG Arterial Blood Gas; Complete Time: 12:57 [facility] 01/30 12:14 Order name: COVID-19 : Document "Date of Symptom Onset" if Symptomatic. 01/30 12:26 Order name: Urine Dipstick-Ancillary; Complete Time: 12:57 [facility] 01/30 13:17 Order name: Glucose, Ancillary Testing; Complete Time: 15:59 [facility] 01/30 13:17 Order name: Glucose; Complete Time: 18:42 ll1 01/30 13:40 Order name: ABG [facility] 01/30 13:41 Order name: ABG Arterial Blood Gas; Complete Time: 15:59 [facility] 01/30 14:33 Order name: Glucose, Ancillary Testing; Complete Time: 15:59 [facility] 01/30 14:34 Order name: Glucose, Ancillary Testing [facility] 01/30 15:15 Order name: Glucose, Ancillary Testing; Complete Time: 15:59 [facility] 01/30 11:27 Order name: Chest Single View XRAY; Complete Time: 12:57 [facility] 01/30 11:27 Order name: Accucheck; Complete Time: 17:53 [facility] 01/30 11:27 Order name: Cardiac monitoring; Complete Time: 11:36 [facility] 01/30 11:27 Order name: EKG - Nurse/Tech; Complete Time: 11:36 [facility] 01/30 11:27 Order name: IV Saline Lock - Large Bore; Complete Time: 11: [facility] 01/30 11:27 Order name: Labs collected and sent; Complete Time: [facility] 01/30 11:27 Order name: O2 Per Protocol; Complete Time: [facility] 01/30 11:27 Order name: O2 Sat Monitoring; Complete Time: [facility] 01/30 11:27 Order name: Urine Dipstick-Ancillary (obtain specimen); Complete Time: 12:20 [facility] 01/30 14:14 Order name: EKG Electrocardiogram; Complete Time: 17:51 [facility] 01/30 16:20 Order name: Glucose, Ancillary Testing; Complete Time: 18:42 [facility] 01/30 16:26 Order name: Manual Differential; Complete Time: 18:42 [facility] 01/30 16:48 Order name: SARS-COV-2 RT PCR; Complete Time: 18:42 [facility] 01/30 17:21 Order name: Glucose, Ancillary Testing; Complete Time: 18:42 [facility] 01/30 18:11 Order name: CMP; Complete Time: 19:52 [facility] 01/30 18:11 Order name: Troponin (emerg Dept Use Only); Complete Time: 19:52 1 01/30 18:21 Order name: Lactate; Complete Time: 19:52 1 01/30 18:22 Order name: Glucose, Ancillary Testing; Complete Time: 18:42 [facility] 01/30 20:00 Order name: Glucose, Ancillary Testing [facility] 01/30 21:31 Order name: Glucose, Ancillary Testing EDMS EC:20 Rate is 113 beats/min. Rhythm is regular, Sinus tachycardia with Right bundle branch kdr block. IA interval is normal. QRS interval is normal. QT interval is normal. Clinical impression: NSR w/ Non-specific ST/T Changes. Administered Medications: 01/30 11:28 Drug: NS 0.9% 2000 ml Route: IV; Rate: 2 bolus; Site: Other; ll1 12:30 Follow up: Response: No adverse reaction; IV Status: Completed infusion; IV Intake: ll1 2000ml 11:44 Drug: Insulin Regular Human 10 units {Co-Signature: hb (Anastasia Ureña RN).} Route: ll1 IVP; Rate: bolus; Site: scalp; 18:57 Follow up: Response: No adverse reaction ll1 11:56 Drug: Insulin Drip - (Insulin Regular Human 100 units, NS 0.9% 100 ml) {Co-Signature: ll1 hb (Anastasia Ureña RN).} Route: IV; Rate: calculated rate; Site: Other; 18:57 Follow up: Response: No adverse reaction ll1 12:30 Drug: Sodium Bicarbonate 2 amp Route: IVP; Site: Other; ll1 18:55 Follow up: Response: No adverse reaction ll1 12:33 Drug: NS 0.9% 1000 ml Route: IV; Rate: 250 ml/hr; Site: scalp; ll1 18:58 Follow up: Response: No adverse reaction ll1 12:40 Drug: Sodium Bicarbonate 8.4 mEq Route: IV; Rate: 200 ml/hr; Site: Other; ll1 18:58 Follow up: Response: No adverse reaction ll1 19:15 Follow up: Response: No adverse reaction; IV Status: Completed infusion; IV Intake: ll1 1000ml 14:01 Drug: Albuterol 2.5 mg Route: Inhalation; ll1 14:01 Drug: Calcium Gluconate 1 grams Route: IVPB; Infused Over: 60 mins; Site: scalp; ll1 15:00 Follow up: Response: No adverse reaction; IV Status: Completed infusion; IV Intake: ll1 100ml 14:01 Drug: Kayexalate 30 grams Route: PO; ll1 18:54 Follow up: Response: No adverse reaction ll1 14:21 Drug: Albuterol 2.5 mg Route: Inhalation; ll1 14:41 Drug: Albuterol 2.5 mg Route: Inhalation; ll1 18:56 Follow up: Response: No adverse reaction ll1 20:10 Drug: NS 0.9% 1000 ml Route: IV; Rate: 1000 ml; Site: left hand; ea 22:05 Follow up: Response: No adverse reaction; IV Status: Completed infusion ea 20:20 Drug: Heparin (NH-Bolus No thrombolytic) - HEParin 60 units/kg {Co-Signature: ch4 ea (Paula Horne RN).} Route: IVP; Site: left hand; 22:06 Follow up: Response: No adverse reaction ea 20:20 Drug: Heparin (NH Drip) 12 units/kg/hr - (HEParin 71677 units, D5W 500 ml) ea {Co-Signature: ch4 (Paula Horne RN).} Route: IV; Rate: calculated rate; Site: left hand; 22:06 Follow up: Response: No adverse reaction; IV Status: Completed infusion ea Disposition Summary: 01/30/21 19:52 Transfer Ordered Transfer Location: [facility] kdr Reason: Higher level of care kdr Condition: Serious kdr Problem: an acute exacerbation kdr Symptoms: have improved kdr Accepting Physician: [facility]: ICU Dr. Cowan(01/30/21 22:07) ea Diagnosis - Diabetic ketoacidosis kdr Forms: - Medication Reconciliation Form kdr - SBAR form kdr Signatures: Dispatcher [employer] EDMS Ubaldo Castorena MD MD kdr Rigoberto Chairez, ASSISTANT BOYS TRACK COACH-C ASSISTANT BOYS TRACK COACH-Cla1 Ute Nicholson RN RN Eddie Marquez RN RN [facility] Anastasia Ureña RN Paula Horne RN ch4 Corrections: (The following items were deleted from the chart) 20:19 19:52 [facility] kdr kdr 22:07 20:19 [facility]: ICU Dr. Cowan kdr ea
--- NOTE | 2021-01-30 19:53 | ER ---
Nurse's Notes [facility] Name: Osbaldo León Age: 50 yrs Sex: Male : 1970 Arrival Date: 01/30/2021 Time: 11:14 Bed 3 Private MD: Diagnosis: Diabetic ketoacidosis Presentation: 01/30 11:49 Chief complaint: EMS states: Unresponsive, found down at home by family. GLU over ll1 600mg/dl, tachy, hypotensive. Coronavirus screen: unable to obtain. Ebola Screen: Unable to complete the Ebola screening because: Patient is unresponsive. Risk Assessment: Do you want to hurt yourself or someone else? Unable to obtain. 11:49 Method Of Arrival: EMS: [facility] ll1 11:49 Acuity: [place] 1 ll1 12:05 Initial Sepsis Screen: Does the patient meet any 2 criteria? RR > 20 per min. Systolic ll1 BP < 90 mmHg. Altered Mental Status. HR > 90 bpm. Yes Does the patient have a suspected source of infection? Yes: Other: DKA. Onset of symptoms is unknown. Historical: - Allergies: 12:06 Clindamycin; ll1 12:06 Morphine; ll1 - PMHx: 12:06 CVA; Diabetes - IDDM; Hypertension; AL; ll1 - PSHx: 12:06 cardiac stent; ll1 - Immunization history:: Adult Immunizations unknown. - Social history:: Smoking status: unknown. Screenin:07 Abuse screen: Denies threats or abuse. Nutritional screening: No deficits noted. ll1 Tuberculosis screening: No symptoms or risk factors identified. Fall Risk IV access (20 points). Gait- Impaired (20 pts.). Mental Status- Overestimates/Forgets Limitations (15 pts.). Total Brown Fall Scale indicates High Risk Score (45 or more points). Fall prevention measures have been instituted. Side Rails Up X 2 Placed Close to Nursing Station Frequent Obs/Assessments Occuring As available patient and family educated on Fall Prevention Program and Strategies. Assessment: 11:15 General: Appears ill, Behavior is unresponsive. Pain: Denies pain. Neuro: Level of ll1 Consciousness is unresponsive, Oriented to none unresponsive, no gag reflex. Cardiovascular: No deficits noted. Respiratory: No deficits noted. GI: No deficits noted. 12:00 Reassessment: No changes from previously documented assessment. Patient and/or family hb updated on plan of care and expected duration. Pain level reassessed. 13:00 Reassessment: No changes from previously documented assessment. Patient and/or family ll1 updated on plan of care and expected duration. Pain level reassessed. 14:00 Reassessment: No changes from previously documented assessment. Patient and/or family ll1 updated on plan of care and expected duration. Pain level reassessed. Patient is alert, oriented x 3, equal unlabored respirations, skin warm/dry/pink. 15:00 Reassessment: No changes from previously documented assessment. Patient and/or family ll1 updated on plan of care and expected duration. Pain level reassessed. Patient is alert, oriented x 3, equal unlabored respirations, skin warm/dry/pink. 16:00 Reassessment: No changes from previously documented assessment. Patient and/or family ll1 updated on plan of care and expected duration. Pain level reassessed. Patient is alert, oriented x 3, equal unlabored respirations, skin warm/dry/pink. 17:00 Reassessment: No changes from previously documented assessment. Patient and/or family ll1 updated on plan of care and expected duration. Pain level reassessed. 18:00 Reassessment: No changes from previously documented assessment. Patient and/or family ll1 updated on plan of care and expected duration. Pain level reassessed. Patient states symptoms have improved. 19:00 Reassessment: No changes from previously documented assessment. Patient and/or family ll1 updated on plan of care and expected duration. Pain level reassessed. Patient states symptoms have improved. 21:12 Reassessment: [address] [facility] received. Accepting physician stephanie Pappas. 21:14 Reassessment: EMS notified of need for pt transfer. stephanie 21:57 Reassessment: Patient and/or family updated on plan of care and expected duration. Pain ea level reassessed. Patient is alert, oriented x 3, equal unlabored respirations, skin warm/dry/pink. Pt transferred to [facility] ICU, report given to receiving nurse. [facility] at facility for transfer. Report given to EMS. Pt left ED via EMS stretcher per EMS tolerating well. Patient states symptoms have improved. Vital Signs: 11:30 BP 161 / 125; Pulse 113; Resp 28; ll1 11:49 BP 167 / 142; Pulse 102; Resp 30; Temp 98.3; Pulse Ox 93% ; Weight 72 kg; Height 5 ft. ll1 10 in. (177.80 cm) (R); 12:00 BP 77 / 50; Pulse 104; Resp 26; Pulse Ox 100% on R/A; ll1 12:33 BP 72 / 49; Pulse 115; Resp 28; Pulse Ox 100% ; ll1 13:45 BP 87 / 66; Pulse 118; Resp 24; Pulse Ox 100% ; ll1 14:25 BP 98 / 64; Pulse 124; Resp 23; Pulse Ox 98% on Simple Mask; ll1 15:10 BP 101 / 66; Pulse 116; Resp 19; Pulse Ox 100% ; ll1 15:46 BP 106 / 69; Pulse 115; Resp 18; Pulse Ox 100% on R/A; ll1 17:42 BP 117 / 78; Pulse 116; Resp 19; Pulse Ox 99% on R/A; ll1 18:05 BP 127 / 77; Pulse 116; Resp 17; Pulse Ox 99% on R/A; ll1 18:39 BP 112 / 69; Pulse 114; Resp 19; Pulse Ox 100% on R/A; ll1 19:00 BP 117 / 73; Pulse 110; Resp 18; Pulse Ox 98% ; ea 20:00 BP 125 / 77; Pulse 113; Resp 20; Pulse Ox 98% ; ea 22:04 BP 135 / 90; Pulse 117; Resp 20; Temp 98; Pulse Ox 99% ; ea 11:49 Body Mass Index 22.78 (72.00 kg, 177.80 cm) [facility] ED Course: 11:10 Arm band placed on Patient placed in an exam room, on a stretcher. ll1 11:14 Patient arrived in ED. iw 11:15 Inserted saline lock: 20 gauge in left ,using aseptic technique. SCALP Blood collected. 1 11:25 Ubaldo Castorena MD is Attending Physician. kdr 11:25 Initial lab(s) drawn, by hi, sent to lab. Missed attempt(s): 20 gauge in left 3 antecubital area. Bleeding controlled, band aid applied, catheter tip intact. 11:28 First set of blood cultures drawn by ED staff. [facility] 11:29 Eddie Pedraza, RN is Primary Nurse. ll1 11:30 Second set of blood cultures drawn by ED staff. 3 11:30 Inserted saline lock: 20 gauge in right ,using aseptic technique. SCALP Blood collected.1 11:54 Triage completed. ll1 11:59 Chest Single View XRAY In Process Unspecified. EDMS 12:07 Patient has correct armband on for positive identification. Bed in low position. Call 1 light in reach. Side rails up X2. engine monitor on. Pulse ox on. NIBP on. 12:15 Anne cath inserted, using sterile technique, 16 Fr., by hi, balloon inflated, to [facility] gravity drainage, urine specimen collected. 12:22 Lab(s) recollected, by hi, sent to lab. 3 13:00 Blood sugar reads HI. Unable to obtain specimen for lab for glucose check after [address] Castorena informed. 14:00 Blood sugar reads HI. Unable to obtain glucose specimen to send to lab to check. [facility] Raffaele informed. 14:06 initiated a transfer with Cedgomez Flores from the [facility] Transfer Center. eb 14:59 initiated a transfer with Maricel from the [facility] Transfer Center. eb 15:05 Blood sugar still reads HI. Specimen drawn by lab personnel. ll1 15:05 per Maricel from the [facility] Transfer Center they will have to decline the patient in eb transfer due to all [facility] campuses at ICU Saturation. 15:14 initiated a transfer with Julia from the [facility] Transfer Center. eb 15:20 Julia called from the [facility] Transfer Center to decline the patient in transfer eb due to being at capacity. 15:45 initiated a transfer with Emilee from the [facility] Transfer Center. eb 16:00 Blood sugar reads HI. Unable to obtain specimen to send to lab, Dr. Castorena informed. ll1 16:02 per Emilee from the [facility] transfer center all [facility] facilities are at capacity and will have eb to decline the patient in transfer. 16:02 initiated a transfer with Quang from the [facility] [place]. eb 16:16 per Quang from the [facility] [place] they will have to decline the eb patient in transfer due to being at capacity. 17:00 Blood sugar reads HI. Unable to obtain specimen to send to lab. Dr. Castorena informed. ll1 17:53 Blood Culture Adult (2) Sent. ll1 17:53 CBC with Diff Sent. ll1 17:53 CPK Sent. ll1 17:53 Ckmb Sent. ll1 17:53 Basic Metabolic Panel Sent. ll1 17:53 Amylase, Serum Sent. ll1 17:54 ABG Sent. ll1 17:55 Glucose, Ancillary Testing Sent. ll1 18:15 Blood sugar reads HI. CMP, lactate, and troponin drawn and sent to lab. ll1 18:28 Inserted Mid line RUE by Judah Chairez NP. ll1 20:48 No provider procedures requiring assistance completed. Patient transferred, IV remains ea in place. Administered Medications: 11:28 Drug: NS 0.9% 2000 ml Route: IV; Rate: 2 bolus; Site: Other; ll1 12:30 Follow up: Response: No adverse reaction; IV Status: Completed infusion; IV Intake: ll1 2000ml 11:44 Drug: Insulin Regular Human 10 units {Co-Signature: hb (Anastasia Ureña RN).} Route: ll1 IVP; Rate: bolus; Site: scalp; 18:57 Follow up: Response: No adverse reaction 1 11:56 Drug: Insulin Drip - (Insulin Regular Human 100 units, NS 0.9% 100 ml) {Co-Signature: ll1 hb (Anastasia Ureña RN).} Route: IV; Rate: calculated rate; Site: Other; 18:57 Follow up: Response: No adverse reaction ll1 12:30 Drug: Sodium Bicarbonate 2 amp Route: IVP; Site: Other; ll1 18:55 Follow up: Response: No adverse reaction ll1 12:33 Drug: NS 0.9% 1000 ml Route: IV; Rate: 250 ml/hr; Site: scalp; ll1 18:58 Follow up: Response: No adverse reaction ll1 12:40 Drug: Sodium Bicarbonate 8.4 mEq Route: IV; Rate: 200 ml/hr; Site: Other; ll1 18:58 Follow up: Response: No adverse reaction ll1 19:15 Follow up: Response: No adverse reaction; IV Status: Completed infusion; IV Intake: ll1 1000ml 14:01 Drug: Albuterol 2.5 mg Route: Inhalation; ll1 14:01 Drug: Calcium Gluconate 1 grams Route: IVPB; Infused Over: 60 mins; Site: scalp; ll1 15:00 Follow up: Response: No adverse reaction; IV Status: Completed infusion; IV Intake: ll1 100ml 14:01 Drug: Kayexalate 30 grams Route: PO; ll1 18:54 Follow up: Response: No adverse reaction ll1 14:21 Drug: Albuterol 2.5 mg Route: Inhalation; ll1 14:41 Drug: Albuterol 2.5 mg Route: Inhalation; ll1 18:56 Follow up: Response: No adverse reaction ll1 20:10 Drug: NS 0.9% 1000 ml Route: IV; Rate: 1000 ml; Site: left hand; ea 22:05 Follow up: Response: No adverse reaction; IV Status: Completed infusion ea 20:20 Drug: Heparin (AL-Bolus No thrombolytic) - HEParin 60 units/kg {Co-Signature: ch4 ea (Paula Horne RN).} Route: IVP; Site: left hand; 22:06 Follow up: Response: No adverse reaction ea 20:20 Drug: Heparin (AL Drip) 12 units/kg/hr - (HEParin 75857 units, D5W 500 ml) ea {Co-Signature: ch4 (Paula Horne RN).} Route: IV; Rate: calculated rate; Site: left hand; 22:06 Follow up: Response: No adverse reaction; IV Status: Completed infusion ea Intake: 12:30 IV: 2000ml; Total: 2000ml. ll1 15:00 IV: 100ml; Total: 2100ml. ll1 19:15 IV: 1000ml; Total: 3100ml. ll1 Output: 18:05 Urine: 1000ml (Anne); Total: 1000ml. ll1 Outcome: 19:52 ER care complete, transfer ordered by . kdr 20:48 Instructed on the need for transfer. ea 21:57 Transferred by ground EMS to [facility], Transfer form completed. ea 21:57 Condition: stable 22:07 Patient left the ED. ea Signatures: Dispatcher [employer] EDMS Ubaldo Castorena MD MD [facility] Kassandra Preston RN MARU Priya Craig RN RN Anastasia Ureña RN RN Penny Greene [facility] Ute Nicholson RN RN ea Botello, Elizabeth eb Lewis, Lynsay, RN RN [facility] Anastasia Ureña RN Paula Horne RN ch4 Corrections: (The following items were deleted from the chart) 21:14 21:12 Reassessment: 2018 admin approval to [facility] received. stephanie brown
[2021-01-30] MEDS ORDERED: HEPARIN 5000 UNIT/ML 1 ML VIAL ONE (20:21)
[2021-01-30] MEDS ORDERED: HEPARIN/D5W 25,000 UNIT/500 ML BAG IV ONE (20:22)
[2021-01-30] MEDS ORDERED: NA CHLORIDE 0.9% 100 ML ONE (22:04)
[2021-01-30 22:58] VITALS: BP 135/90; TEMP 98; O2SAT 99
== END 2021-01-30 22:07 | disposition short-term general hospital (02) ==
LOC: ER 11:08
DX: E11.10 Type 2 diabetes mellitus with ketoacidosis without coma (principal); I10 Essential (primary) hypertension; Z88.3 Allergy status to other anti-infective agents; Z88.5 Allergy status to narcotic agent; Z20.822 Contact with and (suspected) exposure to COVID-19
CPT/HCPCS: 36415; 51702; 71045; 80048; 80053; 80076; 81003; 81015; 82150; 82550; 82553; 82805; 82947; 83605; 83690; 84145; 84484; 85025; 85610; 85730; 87040; 87205; 93005; 99291; 99292; J0610; J1644; J7030; U0003

== ENCOUNTER 2021-02-02 18:38 | Inpatient (IN) | payer SELFPAY ==
[2021-02-02] MEDS ORDERED: NA CHLORIDE 0.9% 500 ML ONE (21:22)
[2021-02-02] MEDS ORDERED: NA CHLORIDE 0.9% 1,000 ML ONE (21:22)
--- NOTE | 2021-02-02 21:36 | RAD REPORT ---
EXAM DESCRIPTION: CT - Head Brain Wo Cont - 02/02/2021 9:29 pm CLINICAL HISTORY: CONFUSED COMPARISON: Head Brain Wo Cont dated 07/31/2017 TECHNIQUE: All CT scans are performed using dose optimization technique as appropriate and may inclu de automated exposure control or mA/KV adjustment according to patient size. FINDINGS: Moderate sized basal ganglia and huang radiata hypoattenuation on the left side.This is n ew from prior. No acute intracranial hemorrhage. No mass effect or midline shift. No hydrocephalus. The paranasal sinuses and mastoids are clear. The calvarium is intact. IMPRESSION: Findings concerning for acute left basal ganglia/huang radiata infarct. MRI could confi rm.
--- NOTE | 2021-02-02 21:37 | RAD REPORT ---
EXAM DESCRIPTION: RAD - Chest Single View - 02/02/2021 9:28 pm CLINICAL HISTORY: COUGH COMPARISON: Chest Single View dated 01/30/2021; Chest Single View dated 01/20/2021; Chest Single View d ated 01/18/2021; Chest Single View dated 01/16/2021 FINDINGS: Lines: None. Lungs: Increasing basilar opacities. Pleural: New small bilateral pleural effusions. Cardiac: The heart size is within normal limits. Bones: No acute fractures. Other: IMPRESSION: New small bilateral pleural effusions and likely associated atelectasis which may be sec ondary to edema. Pneumonia less likely.
[2021-02-02 21:44] LABS: Absolute Lymphocytes (CBC) 1.6 K/uL (0.7-4.9); Basophils % 0.3 % (0-1.3); Lymphocytes % 17.2 % (15.3-44.8); MPV 9.2 fL (7.6-11.3); Protime INR 1.03; RBC Red Blood Cell Count 3.53 M/uL (4.33-5.43)
[2021-02-02 21:46] LABS: ALT/SGPT 54 U/L (12-78); AST/SGOT 34 U/L (15-37); Albumin 2.5 g/dL (3.4-5.0); Alkaline Phosphatase 110 U/L (45-117); BUN Blood Urea Nitrogen 11 mg/dL (7-18); Bicarbonate 28 mmol/L (21-32); Bilirubin Direct 0.1 mg/dL (0-0.2); Bilirubin Total 0.5 mg/dL (0.2-1.0); Glucose Level 131 mg/dL (74-106); Lipase 37 U/L (73-393); Magnesium 1.8 mg/dL (1.8-2.4); NT PRO-BNP 10926 pg/mL (<125); Protein, Total 5.9 g/dL (6.4-8.2); Sodium Level 147 mmol/L (136-145)
[2021-02-02 21:50] LABS: Troponin (Emerg Dept Use Only) 3.57 ng/mL (0.0-0.045)
[2021-02-02] MEDS ORDERED: CEFTRIAXONE 1000 MG/VIAL ONE (21:57)
[2021-02-02 22:50] LABS: Urine Blood Negative (Negative); Urine Glucose Negative (Negative); Urine Protein 1+ (Negative); Urine Specific Gravity 1.025 (1.005-1.030); Urine pH 7.5 (5.0-7.0)
--- NOTE | 2021-02-02 23:11 | EDPHYS ---
Physician Documentation [facility] Name: Osbaldo León Age: 50 yrs Sex: Male : 1970 Arrival Date: 02/02/2021 Time: 18:41 Bed 18 Private MD: ED Physician Daniele Rivera HPI: 02/02 20:53 This 50 yrs old Male presents to ER via EMS with complaints of Lethargy. deb 20:53 ams, weak , glucose 80, hx dka. The patient presents with confusion. Onset: The deb symptoms/episode began/occurred at an unknown time. Possible causes: CVA or TIA, low blood sugar, sepsis. Associated signs and symptoms: Pertinent positives: confusion. Onset: The symptoms/episode began/occurred 1 week(s) ago. Current symptoms: In the emergency department the patient's symptoms are unchanged from the initial presentation. Patient's baseline: Neuro: alert but confused, Motor: no deficits, Ambulation: walks without assistance. Severity of symptoms: At their worst the symptoms were mild in the emergency department the symptoms are unchanged. Historical: - Allergies: 18:46 Clindamycin; hb 18:46 Morphine; hb - PMHx: 18:46 CVA; Diabetes - IDDM; Hypertension; GA; hb - PSHx: 18:46 cardiac stent; hb - Immunization history:: Adult Immunizations unknown. - Social history:: Smoking status: unknown. - Family history:: not pertinent. ROS: 20:53 Constitutional: Negative for fever, chills, and weight loss, Eyes: Negative for injury, deb pain, redness, and discharge, ENT: Negative for injury, pain, and discharge, Neck: Negative for injury, pain, and swelling, Cardiovascular: Negative for chest pain, palpitations, and edema, Respiratory: Negative for shortness of breath, cough, wheezing, and pleuritic chest pain, Abdomen/GI: Negative for abdominal pain, nausea, vomiting, diarrhea, and constipation, Back: Negative for injury and pain, : Negative for injury, bleeding, discharge, and swelling, MS/Extremity: Negative for injury and deformity, Skin: Negative for injury, rash, and discoloration, Psych: Negative for depression, anxiety, suicide ideation, homicidal ideation, and hallucinations, Allergy/Immunology: Negative for hives, rash, and allergies, Endocrine: Negative for neck swelling, polydipsia, polyuria, polyphagia, and marked weight changes, Hematologic/Lymphatic: Negative for swollen nodes, abnormal bleeding, and unusual bruising. 20:53 Neuro: Positive for altered mental status, weakness. Exam: 20:53 Constitutional: This is a well developed, well nourished patient who is awake, alert, deb and in no acute distress. Head/Face: Normocephalic, atraumatic. Eyes: Pupils equal round and reactive to light, extra-ocular motions intact. Lids and lashes normal. Conjunctiva and sclera are non-icteric and not injected. Cornea within normal limits. Periorbital areas with no swelling, redness, or edema. ENT: Nares patent. No nasal discharge, no septal abnormalities noted. Tympanic membranes are normal and external auditory canals are clear. Oropharynx with no redness, swelling, or masses, exudates, or evidence of obstruction, uvula midline. Mucous membranes moist. Neck: Trachea midline, no thyromegaly or masses palpated, and no cervical lymphadenopathy. Supple, full range of motion without nuchal rigidity, or vertebral point tenderness. No Meningismus. Chest/axilla: Normal chest wall appearance and motion. Nontender with no deformity. No lesions are appreciated. Respiratory: Lungs have equal breath sounds bilaterally, clear to auscultation and percussion. No rales, rhonchi or wheezes noted. No increased work of breathing, no retractions or nasal flaring. Abdomen/GI: Soft, non-tender, with normal bowel sounds. No distension or tympany. No guarding or rebound. No evidence of tenderness throughout. Back: No spinal tenderness. No costovertebral tenderness. Full range of motion. Male : Normal genitalia with no discharge or lesions. Skin: Warm, dry with normal turgor. Normal color with no rashes, no lesions, and no evidence of cellulitis. MS/ Extremity: Pulses equal, no cyanosis. Neurovascular intact. Full, normal range of motion. Neuro: Awake and alert, GCS 15, oriented to person, place, time, and situation. Cranial nerves II-XII grossly intact. Motor strength 5/5 in all extremities. Sensory grossly intact. Cerebellar exam normal. Normal gait. Psych: Awake, alert, with orientation to person, place and time. Behavior, mood, and affect are within normal limits. 20:53 Cardiovascular: Rate: tachycardic, Rhythm: regular, Pulses: no pulse deficits are appreciated, Heart sounds: normal, Edema: 1+ edema to level of left midcalf and right midcalf, JVD: is not appreciated. 22:07 ECG was reviewed by the Attending Physician. deb Vital Signs: 18:41 BP 149 / 91; Pulse 113; Resp 20; Temp 98.8; Pulse Ox 97% on R/A; Pain 0/10; hb 21:56 BP 163 / 116 LA Sitting (auto/reg); Pulse 118; Resp 16; Pulse Ox 98% ; Pain 0/10; sj1 22:53 Weight 77.2 kg; Height 6 ft. 0 in. (182.88 cm); sj1 23:18 BP 149 / 103 LA Sitting (auto/reg); Pulse 106; Resp 17; Pulse Ox 97% on R/A; Pain 0/10; sj1 02/03 00:00 BP 138 / 97 LA Sitting (auto/reg); Pulse 90; Resp 16; Pulse Ox 96% on R/A; Pain 0/10; sj1 02/02 22:53 Body Mass Index 23.08 (77.20 kg, 182.88 cm) [facility] NIH Stroke Scale Scores: 02/02 23:19 NIHSS Score: 0 1 [place] Coma Score: 21:56 Eye Response: spontaneous(4). Verbal Response: confused(4). Motor Response: obeys sj1 commands(6). Total: 14. MDM: 20:42 Patient medically screened. deb 20:55 Differential Diagnosis altered mental status. Differential Diagnosis: CVA, electrolyte deb abnormality, hypoglycemia, intracranial bleed, overdose, sepsis, TIA, UTI, volume depletion. Data reviewed: vital signs, nurses notes, lab test result(s), EKG, radiologic studies, CT scan, plain films. Data interpreted: jammer operator: rate is 113 beats/min, rhythm is regular, Pulse oximetry: on room air. Test interpretation: by ED physician or midlevel provider: ECG, plain radiologic studies. Counseling: I had a detailed discussion with the patient and/or guardian regarding: the historical points, exam findings, and any diagnostic results supporting the discharge/admit diagnosis, the presence of at least one elevated blood pressure reading (>120/80) during this emergency department visit, lab results, radiology results. 23:13 Physician consultation: Kael Shelby MD and will see patient in inpatient room, no [facility] tpa. 02/02 20:52 Order name: Basic Metabolic Panel; Complete Time: 22:29 [facility] 02/02 20:52 Order name: CBC with Diff; Complete Time: 22:29 [facility] 02/02 20:52 Order name: LFT's; Complete Time: 22:29 [facility] 02/02 20:52 Order name: Magnesium; Complete Time: 22:29 [facility] 02/02 20:52 Order name: NT PRO-BNP; Complete Time: 22:29 [facility] 02/02 20:52 Order name: PT-INR; Complete Time: 22:29 [facility] 02/02 20:52 Order name: Troponin (emerg Dept Use Only); Complete Time: 22:29 [facility] 02/02 20:52 Order name: Urine Culture [facility] 02/02 20:52 Order name: Lipase; Complete Time: 22:29 [facility] 02/02 20:56 Order name: Blood Culture Adult (2) [facility] 02/02 20:56 Order name: Lactate; Complete Time: 22:29 [facility] 02/02 20:57 Order name: COVID-19 : Document "Date of Symptom Onset" if Symptomatic. [facility] 02/02 22:49 Order name: Urine Dipstick-Ancillary; Complete Time: 22:56 [facility] 02/02 23:25 Order name: SARS-COV-2 RT PCR EDNM 02/03 00:08 Order name: Lactate EDNM 02/03 00:10 Order name: Urine Drug Screen EDNM 02/03 00:10 Order name: Comprehensive Metabolic Panel EDNM 02/03 00:10 Order name: Lipid Profile EDMS 02/03 00:10 Order name: Magnesium EDMS 02/03 00:10 Order name: Phosphorus EDMS 02/03 00:10 Order name: Protime (+INR) EDMS 02/03 00:10 Order name: PTT, Activated Partial Thromb EDMS 02/03 00:10 Order name: T4,Total EDMS 02/03 00:10 Order name: Thyroid Stimulating Hormone EDMS 02/03 00:10 Order name: Troponin I EDMS 02/03 00:10 Order name: Troponin I EDMS 02/03 00:10 Order name: CBC with Automated Diff EDMS 02/03 01:00 Order name: Lactate Sepsis 2 HR Follow-up EDMS 02/03 09:27 Order name: Glucose, Ancillary Testing [facility] 02/02 20:52 Order name: XRAY Chest (1 view); Complete Time: 22:29 [facility] 02/02 20:52 Order name: EKG; Complete Time: 20:53 [facility] 02/02 20:52 Order name: Cardiac monitoring; Complete Time: 21:17 [facility] 02/02 20:52 Order name: EKG - Nurse/Tech; Complete Time: 22:13 [facility] 02/02 20:52 Order name: IV Saline Lock; Complete Time: 21:17 [facility] 02/02 20:52 Order name: Labs collected and sent; Complete Time: 21:28 [facility] 02/02 20:52 Order name: O2 Per Protocol; Complete Time: 21:17 [facility] 02/02 20:52 Order name: O2 Sat Monitoring; Complete Time: 21:18 [facility] 02/02 20:52 Order name: CT Head Brain wo Cont; Complete Time: 22:29 [facility] 02/02 20:52 Order name: Urine Dipstick-Ancillary (obtain specimen); Complete Time: 22:54 [facility] 02/02 23:06 Order name: US Carotid Artery Bilateral [facility] 02/02 23:42 Order name: CONS Physician Consult [facility] 02/03 00:08 Order name: Echo with Doppler [facility] 02/03 00:08 Order name: Stroke Protocol [facility] 02/03 00:08 Order name: Physical Therapy Consult [facility] 02/03 00:08 Order name: Social Service Consult [facility] 02/03 00:08 Order name: NPO [facility] 02/03 00:09 Order name: Speech Therapy Consult [facility] 02/03 07:48 Order name: US [facility] 02/03 10:05 Order name: PTT, Activated Partial Thromb EDNM EC:07 Rate is 103 beats/min. Rhythm is regular. QRS Ina is Normal. MT interval is normal. [facility] QRS interval is normal. QT interval is normal. No Q waves. T waves are Normal. No ST changes noted. Clinical impression: Sinus tachycardia and No evidence of ischemia. Interpreted by me. Reviewed by me. Administered Medications: 21:16 Drug: NS 0.9% 500 ml Route: IV; Rate: bolus; Site: left forearm; sj1 22:13 Follow up: IV Status: Completed infusion; IV Intake: 500ml [facility] 21:17 Drug: NS 0.9% 1000 ml Route: IV; Rate: 125 ml/hr; Site: left forearm; sj1 22:32 Follow up: Rate change 75 ml/hr sj1 21:50 Drug: Rocephin (cefTRIAXone) 1 grams Route: IV; Rate: per protocol; Site: left forearm; sj1 23:06 CANCELLED (Duplicate Order): Heparin (GA-Bolus No thrombolytic) - HEParin 60 units/kg deb IVP once; Max 5000 units 23:13 Drug: Lopressor (metoprolol TARTRATE) 50 mg Route: PO; sj1 23:14 Drug: foLIC Acid 1 mg Route: IVPB; Site: left forearm; sj1 23:14 Drug: Aspirin Chewable Tablet 324 mg Route: PO; sj1 23:57 Drug: Heparin (GA-Bolus No thrombolytic) - HEParin 60 units/kg {Co-Signature: bs2 sj1 (Rosemary Oconnor RN).} Route: IVP; Site: left forearm; 23:57 Drug: PlaVIX (clopidogrel) 75 mg Route: PO; sj1 23:58 Drug: Heparin (GA Drip) 12 units/kg/hr - (HEParin 78878 units, D5W 500 ml) sj1 {Co-Signature: bs2 (Rosemary Oconnor RN).} Route: IV; Rate: calculated rate; Site: left forearm; 02/03 01:00 Not Given (Hemodynamic Parameters; p): Lopressor (metoprolol) 5 mg IVP once; Hold for bs2 SBP <100 or HR <60. Disposition Summary: 02/02/21 23:10 Hospitalization Ordered Hospitalization Status: Inpatient Admission deb Provider: Dana Hernandez deb Condition: Stable deb Problem: new deb Symptoms: have improved deb Bed/Room Type: Standard deb Location: [facility] ER HOLD(02/03/21 00:31) cg Room Assignment: ERHOLD-(02/03/21 00:31) cg Diagnosis - Cerebral infarction, unspecified - left basal gangilia/huang radiata infarct deb - Non ST elevation [place] deb - Type 1 diabetes mellitus with hyperglycemia deb - Essential (primary) hypertension deb - Altered mental status, unspecified deb - Pleural effusion in other conditions classified elsewhere - BILATERAL deb - Atelectasis deb Forms: - Medication Reconciliation Form deb - SBAR form deb NIH Stroke Scale - NIH Stroke Score Date: 02/02/2021 Time: 23:19 Total Score = 0 1a. Level of Consciousness (LOC) - 0(Alert) 1b. Level of Consciousness (LOC) (Month \\T\\ Age) - 0(Both) 1c. LOC Commands (Open \\T\\ Closes Eyes/Epic Kaleidoscope Analyst) - 0(Both) 2. Best Gaze (Lateral Gaze Paresis) - 0(Normal) 3. Visual Field Loss - 0(No visual loss) 4. Facial Palsy - 0(Normal) 5a. Left Arm: Motor (10-second hold) - 0(No drift) 5b. Right Arm: Motor (10-second hold) - 0(No drift) 6a. Left Leg: Motor (5-second hold - always test supine) - 0(No drift) 6b. Right Leg: Motor (5-second hold - always test supine) - 0(No drift) 7. Limb Ataxia (finger/nose \\T\\ heel/ortega - test with eyes open) - 0(Absent) 8. Sensory Loss (pinprick arms/legs/face) - 0(Normal) 9. Best Language: Aphasia (description/naming/reading) - 0(No aphasia) 10. Dysarthria (speech clarity - read or repeat words) - 0(Normal) 11. Extinction and Inattention (visual/tactile/auditory/spatial/personal) - 0(No abnormality) Initials: sj1 Signatures: Dispatcher [employer] EDMS Daniele Rivera MD MD cha Garcia, Cindy, Anastasia Padilla RN, RN RN hb Johnson, Sade, RN RN sj1 Rosemary Oconnor RN bs2 Rosemary Oconnor RN bs2 Corrections: (The following items were deleted from the chart) 02/02 21:57 20:58 CORONAVIRUS ordered. EDNM EDMS 23:06 22:33 Heparin (GA-Bolus No thrombolytic) - HEParin 60 units/kg IVP once; Max deb 5000 units ordered. [facility] 02/03 00:31 02/02 23:10 Intensive Care Unit [facility] 02/03 00:31 02/02 23:10 deb
--- NOTE | 2021-02-02 23:11 | ER ---
Nurse's Notes [facility] Name: Osbaldo León Age: 50 yrs Sex: Male : 1970 Arrival Date: 02/02/2021 Time: 18:41 Bed 18 Private MD: Diagnosis: Cerebral infarction, unspecified-left basal gangilia/hunag radiata infarct;Non ST elevation [place];Type 1 diabetes mellitus with hyperglycemia;Essential (primary) hypertension;Altered mental status, unspecified;Pleural effusion in other conditions classified elsewhere-BILATERAL;Atelectasis Presentation: 02/02 18:41 Chief complaint: EMS states: Family called for lethargy and confusion, on scene pt was hb awake in bed, refusing to answer questions. VS WNL, BGL 80. Coronavirus screen: At this time, the client does not indicate any symptoms associated with coronavirus-19. Ebola Screen: No symptoms or risks identified at this time. Initial Sepsis Screen: Does the patient meet any 2 criteria? No. Patient's initial sepsis screen is negative. Does the patient have a suspected source of infection? No. Patient's initial sepsis screen is negative. Risk Assessment: Do you want to hurt yourself or someone else? Patient reports no desire to harm self or others. Onset of symptoms is unknown. 18:41 Method Of Arrival: EMS: [facility] hb 18:41 Acuity: [place] 3 hb Historical: - Allergies: 18:46 Clindamycin; hb 18:46 Morphine; hb - PMHx: 18:46 CVA; Diabetes - IDDM; Hypertension; [place]; hb - PSHx: 18:46 cardiac stent; hb - Immunization history:: Adult Immunizations unknown. - Social history:: Smoking status: unknown. - Family history:: not pertinent. Screenin:19 Abuse screen: Denies threats or abuse. Nutritional screening: No deficits noted. sj1 Tuberculosis screening: No symptoms or risk factors identified. The patient has not been NPO before screening. The patient is alert, able to follow commands. The patient does not exhibit slurred or garbled speech The patient is not exhibiting difficulty speaking. The patient does not exhibit difficulty understanding words. The patient is able to swallow own secretions with no drooling or need for suction. Patient tolerated one teaspoon of water. No drooling, immediate coughing, gurgling, or clearing of the throat was noted. The patient tolerated 90mL of water. No drooling, immediate coughing, gurgling, or clearing of the throat was noted. The patient passed the bedside swallow screening. Oral medications may be given as ordered. Contact Physician for further diet orders. Fall Risk IV access (20 points). Gait- Weak (10 pts.). Assessment: 21:51 General: Appears in no apparent distress. comfortable, Behavior is cooperative. Pain: sj1 Denies pain. Neuro: Level of Consciousness is awake, alert, confused, Oriented to person. Cardiovascular: No deficits noted. Cardiovascular: No deficits noted. bilat pedal edema . Rhythm is sinus rhythm Chest pain is denied. Respiratory: No deficits noted. GI: No deficits noted. : Reports inability to void, poor historian - pt does not remember when he last voided. EENT: No deficits noted. Derm: Skin is pale. Musculoskeletal: No deficits noted. 22:21 Neuro: Church Secretary are equal bilaterally Moves all extremities. Full function Speech is sj1 normal, Facial symmetry appears normal, Intact. Vital Signs: 18:41 BP 149 / 91; Pulse 113; Resp 20; Temp 98.8; Pulse Ox 97% on R/A; Pain 0/10; hb 21:56 BP 163 / 116 LA Sitting (auto/reg); Pulse 118; Resp 16; Pulse Ox 98% ; Pain 0/10; sj1 22:53 Weight 77.2 kg; Height 6 ft. 0 in. (182.88 cm); sj1 23:18 BP 149 / 103 LA Sitting (auto/reg); Pulse 106; Resp 17; Pulse Ox 97% on R/A; Pain 0/10; sj1 02/03 00:00 BP 138 / 97 LA Sitting (auto/reg); Pulse 90; Resp 16; Pulse Ox 96% on R/A; Pain 0/10; sj1 02/02 22:53 Body Mass Index 23.08 (77.20 kg, 182.88 cm) sj1 Vitals: 02/02 21:56 Cardiac Rhythm Assessment Regular Sinus tach. sj1 [place] Coma Score: 21:56 Eye Response: spontaneous(4). Verbal Response: confused(4). Motor Response: obeys sj1 commands(6). Total: 14. NIH Stroke Scale Scores: 23:19 NIHSS Score: 0 1 ED Course: 18:41 Patient arrived in ED. hb 18:45 Triage completed. hb 18:46 Arm band placed on. hb 20:42 Daniele Rivera MD is Attending Physician. deb 20:54 Rosemary Oconnor, RN is Primary Nurse. bs2 21:15 Inserted saline lock: 18 gauge in left forearm, using aseptic technique. sj1 21:17 Lipase Sent. sj1 21:17 XRAY Chest (1 view) Sent. sj1 21:18 Basic Metabolic Panel Sent. sj1 21:18 CBC with Diff Sent. sj1 21:18 LFT's Sent. sj1 21:18 Magnesium Sent. sj1 21:18 NT PRO-BNP Sent. sj1 21:18 PT-INR Sent. sj1 21:18 Troponin (emerg Dept Use Only) Sent. sj1 21:27 Lactate Sent. sj1 21:27 Blood Culture Adult (2) Sent. sj1 21:27 Lipase Sent. sj1 21:28 XRAY Chest (1 view) In Process Unspecified. EDMS 21:28 Basic Metabolic Panel Sent. sj1 21:28 CBC with Diff Sent. sj1 21:28 LFT's Sent. sj1 21:28 Magnesium Sent. sj1 21:28 NT PRO-BNP Sent. sj1 21:28 PT-INR Sent. sj1 21:28 Troponin (emerg Dept Use Only) Sent. sj1 21:28 CT Head Brain wo Cont Sent. sj1 21:29 CT Head Brain wo Cont In Process Unspecified. EDMS 21:50 COVID-19 : Document "Date of Symptom Onset" if Symptomatic. Sent. sj1 21:50 Lactate Sent. sj1 21:50 Blood Culture Adult (2) Sent. sj1 22:13 Blood Culture Adult (2) Sent. sj1 22:54 Urine Culture Sent. sj1 23:07 Dana Hernandez MD is Hospitalizing Provider. deb 23:59 US Carotid Artery Bilateral Sent. sj1 02/03 00:00 Urine Culture Sent. sj1 03:58 Inserted saline lock: 20 gauge in right antecubital area, using aseptic technique. bs2 Administered Medications: 02/02 21:16 Drug: NS 0.9% 500 ml Route: IV; Rate: bolus; Site: left forearm; sj1 22:13 Follow up: IV Status: Completed infusion; IV Intake: 500ml sj1 21:17 Drug: NS 0.9% 1000 ml Route: IV; Rate: 125 ml/hr; Site: left forearm; sj1 22:32 Follow up: Rate change 75 ml/hr sj1 21:50 Drug: Rocephin (cefTRIAXone) 1 grams Route: IV; Rate: per protocol; Site: left forearm; sj1 23:06 CANCELLED (Duplicate Order): Heparin (VA-Bolus No thrombolytic) - HEParin 60 units/kg deb IVP once; Max 5000 units 23:13 Drug: Lopressor (metoprolol TARTRATE) 50 mg Route: PO; sj1 23:14 Drug: foLIC Acid 1 mg Route: IVPB; Site: left forearm; sj1 23:14 Drug: Aspirin Chewable Tablet 324 mg Route: PO; sj1 23:57 Drug: Heparin ([place]-Bolus No thrombolytic) - HEParin 60 units/kg {Co-Signature: bs2 sj1 (Rosemary Oconnor RN).} Route: IVP; Site: left forearm; 23:57 Drug: PlaVIX (clopidogrel) 75 mg Route: PO; sj1 23:58 Drug: Heparin ([place] Drip) 12 units/kg/hr - (HEParin 78577 units, D5W 500 ml) [facility] {Co-Signature: bs2 (Rosemary Oconnor RN).} Route: IV; Rate: calculated rate; Site: left forearm; 02/03 01:00 Not Given (Hemodynamic Parameters; p): Lopressor (metoprolol) 5 mg IVP once; Hold for bs2 SBP <100 or HR <60. Intake: 02/02 22:13 IV: 500ml; Total: 500ml. 1 Outcome: 23:10 Decision to Hospitalize by Provider. [facility] 02/03 10:49 Patient left the ED. NIH Stroke Scale - NIH Stroke Score Date: 02/02/2021 Time: 23:19 Total Score = 0 1a. Level of Consciousness (LOC) - 0(Alert) 1b. Level of Consciousness (LOC) (Month \\T\\ Age) - 0(Both) 1c. LOC Commands (Open \\T\\ Closes Eyes/Research Environmental Scientist) - 0(Both) 2. Best Gaze (Lateral Gaze Paresis) - 0(Normal) 3. Visual Field Loss - 0(No visual loss) 4. Facial Palsy - 0(Normal) 5a. Left Arm: Motor (10-second hold) - 0(No drift) 5b. Right Arm: Motor (10-second hold) - 0(No drift) 6a. Left Leg: Motor (5-second hold - always test supine) - 0(No drift) 6b. Right Leg: Motor (5-second hold - always test supine) - 0(No drift) 7. Limb Ataxia (finger/nose \\T\\ heel/ortega - test with eyes open) - 0(Absent) 8. Sensory Loss (pinprick arms/legs/face) - 0(Normal) 9. Best Language: Aphasia (description/naming/reading) - 0(No aphasia) 10. Dysarthria (speech clarity - read or repeat words) - 0(Normal) 11. Extinction and Inattention (visual/tactile/auditory/spatial/personal) - 0(No abnormality) Initials: sj1 Signatures: Dispatcher [employer] EDMS Daniele Rivera MD MD cha Smirch, Shelby, RN RN Anastasia Ureña RN RN Rosemary Oconnor RN RN bs2 Becka Bradford RN RN [facility] Rosemary Oconnor RN bs2 Corrections: (The following items were deleted from the chart) 02/02 21:57 21:50 CORONAVIRUS drawn and sent. [facility] LEX
[2021-02-02] MEDS ORDERED: ASPIRIN 81 MG CHEWABLE TABLET ONE (23:25)
[2021-02-02] MEDS ORDERED: HEPARIN 5000 UNIT/ML 1 ML VIAL ONE (23:25)
[2021-02-02] MEDS ORDERED: METOPROLOL TAR 50 MG TAB ONE (23:25)
[2021-02-02] MEDS ORDERED: FOLIC ACID 5 MG/ML VIAL ONE (23:27)
[2021-02-02] MEDS ORDERED: CLOPIDOGREL 75 MG TABLET ONE (23:47)
[2021-02-02] MEDS ORDERED: HEPARIN/D5W 25,000 UNIT/500 ML BAG IV ONE (23:48)
[2021-02-03] MEDS ORDERED: NACHLORIDE 0.45% 1,000 ML IV SCH (00:06)
[2021-02-03] MEDS ORDERED: HEPARIN/D5W 25,000 UNIT/500 ML BAG IV SCH (00:06)
[2021-02-03] MEDS ORDERED: IPRATROPIUM BROM 0.5MG/2.5ML NEB PRN (00:06)
[2021-02-03] MEDS ORDERED: D50W 25 GM/50 ML SYRINGE IV PRN (00:06)
[2021-02-03] MEDS ORDERED: ACETAMINOPHEN 500 MG TAB PO PRN (00:06)
[2021-02-03] MEDS ORDERED: GLUCAGON 1 MG/VIAL IM PRN (00:06)
[2021-02-03] MEDS ORDERED: ONDANSETRON 4 MG/2 ML VIAL IV PRN (00:06)
[2021-02-03] MEDS ORDERED: ALBUTEROL 2.5 MG/3 ML NEB SOL NEB PRN (00:06)
--- NOTE | 2021-02-03 00:53 | P.HP ---
Certification for Inpatient Patient admitted to: Inpatient With expected LOS: >2 Midnights Patient will require the following post-hospital care: None Practitioner: I am a practitioner with admitting privileges, knowledge of patient current condition, hospital course, and medical plan of care. Services: Services provided to patient in accordance with Admission requirements found in Title 42 Section 412.3 of the Code of Federal Regulations <Dominic Bradford - Last Filed: 02/03/21 01:02> Patient History Date of Service: 02/02/21 Reason for admission: CVA History of Present Illness: Mr León is a 50 yo M with DM, HTN, CAD, history of CVA who was brought in from home for AMS. Patient is alert to person place and time but is unable to say why he was brought to the hospital. He says he remembers feeling at baseline. Now he can only say he does not feel like his normal self. Able to follow commands. He says he has been taking his insulin, but has not started other cardiac medications prescribed at last discharge (ASA, plavix, metoprolol, lisinopril, atorvastatin). CT show findings concerning for acute left basal gang tracie/huang radiata infarct. CXR shows new small bilateral pleural effusions and likely associated atelectasis which may be secondary to edema. Na 147, Cl114, Glu 131, Lactate 2.2, Trop 3.57, BNP 28649. Of note, patient has been admitted several times over the past few weeks for NSTEMI, ARF, DKA. He recently had a stent placed by cardiology, with normal followup ECHO. 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 His daughter lives out of town. - Past Medical/Surgical History Diabetic: Yes -: HTN -: Insulin-dependent diabetes mellitus -: cva, weaker on the left side, and has slight numbness noted to left side -: opioid abuse -: injury to right eye, poor vision -: depression -: panic attacks -: ibs -: [place] 2020 -: cardiac stent 2020 - Family History Father -: Heart disease Brother -: Diabetes - Social History Smoking Status: Unknown if ever smoked Alcohol use: Yes CD- Drugs: No Caffeine use: No Place of Residence: Home <Dominic Bradford - Last Filed: 02/03/21 01:02> Date of Service: 02/02/21 <Xiang Hernandezgwen Yulisa - Last Filed: 02/09/21 11:52> Allergies propoxyphene Allergy (Verified 02/19/20 15:33) Nausea/Vomiting morphine Adverse Reaction (Intermediate, Verified 02/19/20 15:33) pt does not like the way he feels Clindamycin Allergy (Uncoded 02/19/20 15:33) Hives/Rash Home Medications: Alprazolam [Xanax] 0.5 mg PO TID 02/19/20 Dicyclomine [Bentyl*] 20 mg PO Q12H 02/19/20 Sertraline [Zoloft*] 150 mg PO DAILY 02/19/20 Aspirin [Aspirin EC 81 MG] 81 mg PO DAILY #90 tablet. 01/13/21 Atorvastatin Calcium [Lipitor*] 20 mg PO BEDTIME #30 tab 01/13/21 Clopidogrel Bisulfate [Plavix*] 75 mg PO DAILY #30 tablet 01/13/21 Insulin NPH Human Isophane [Novolin N] 10 unit SQ BID #1 vial 01/13/21 Insulin Regular, Human [Novolin R] See Protocol SQ ACHS #1 vial 01/13/21 Metoprolol Tartrate [Lopressor*] 50 mg PO BID #60 tab 01/13/21 Pantoprazole [Protonix Tab*] 40 mg PO DAILY #30 tab 01/13/21 lisinopriL [Lisinopril] 5 mg PO DAILY #30 tablet 01/13/21 Methadone HCl [Methadone HCl*] 20 mg PO DAILY #30 tab 01/23/21 Review of Systems 10-point ROS is otherwise unremarkable General: Weakness Neurological: Weakness, Numbness, Confusion, As per HPI <Dominic Bradford - Last Filed: 02/03/21 01:02> Physical Examination - Physical Exam General: Alert, In no apparent distress, Oriented x3, Cooperative, Confused HEENT: Atraumatic, PERRLA, Mucous membr. moist/pink, EOMI, Sclerae nonicteric Neck: Supple, 2+ carotid pulse no bruit, No LAD, Without JVD or thyroid abnormality Respiratory: Clear to auscultation bilaterally, Normal air movement Cardiovascular: Regular rate/rhythm, Normal S1 S2 Gastrointestinal: Normal bowel sounds, No tenderness Musculoskeletal: No tenderness Integumentary: No rashes Neurological: Normal speech, Normal strength at 5/5 x4 extr, Normal tone, Cranial nerves 3-12 intact, Normal affect, Abnormal sensation Lymphatics: No axilla or inguinal lymphadenopathy - Studies Laboratory Data (last 24 hrs) 02/02/21 21:13: PT 11.9, INR 1.03 02/02/21 21:13: WBC 9.40 D, Hgb 10.4 L, Hct 32.0 L, Plt Count 222 D 02/02/21 21:13: Sodium 147 H, Potassium 4.0, BUN 11, Creatinine 0.80 D, Glucose 131 H, Magnesium 1.8, Total Bilirubin 0.5, AST 34 D, ALT 54, Alkaline Phosphatase 110, Lipase 37 L <Dominic Bradford - Last Filed: 02/03/21 01:02> Assessment and Plan - Problems (Diagnosis) (1) CVA (cerebral vascular accident) Status: Acute Qualifiers: CVA mechanism: unspecified Qualified Code(s): I63.9 - Cerebral infarction, unspecified (2) T1DM (type 1 diabetes mellitus) Status: Chronic Qualifiers: Diabetes mellitus complication status: without complication Qualified Code(s): E10.9 - Type 1 diabetes mellitus without complications (3) Elevated troponin Status: Acute (4) CAD (coronary artery disease) Status: Chronic Qualifiers: Coronary Disease-Associated Artery/Lesion type: ca[place]o artery [place] vs. transplanted heart: cahto heart Associated angina: unspecified whether angina present Qualified Code(s): I25.10 - Atherosclerotic heart disease of cahto coronary artery without angina pectoris (5) HTN (hypertension) Status: Chronic Qualifiers: Hypertension type: primary hypertension Qualified Code(s): I10 - Essential (primary) hypertension - Plan on telemetry neurology consulted, speech therapy consulted, PT consulted, social work consulted MRI in the AM, carotid US pending, ECHO pending trend troponins daily ASA, plavix, statin, folic acid continue heparin drip, continue gentle IVF hydration, continue IV lasix reconcile and continue home medications permissive hypertension sliding scale insulin and accuchecks, novolin n BID Discharge Plan: Home Plan to discharge in: 48 Hours - Advance Directives Does patient have a Living Will: No Does patient have a Durable POA for Healthcare: No - Code Status/Comfort Care Code Status Assessed: Yes (full code ) Critical Care: No Time Spent Managing Pts Care (In Minutes): 70 <Dominic Bradford - Last Filed: 02/03/21 01:02> Date of Service: 02/03/21 Chart reviewed and agree with plan of care as mentioned above. Patient will be admitted to the hospital. <Dana Hernandez - Last Filed: 02/09/21 11:52>
[2021-02-03 01:18] VITALS: TEMP 98.5
[2021-02-03] MEDS ORDERED: NACHLORIDE 0.45% 1,000 ML IV ONE (02:09)
[2021-02-03 04:07] LABS: Absolute Lymphocytes (CBC) 1.8 K/uL (0.7-4.9); Basophils % 0.7 % (0-1.3); Hematocrit 26.8 % (39.6-49.0); Lymphocytes % 23.8 % (15.3-44.8); MPV 8.7 fL (7.6-11.3); RBC Red Blood Cell Count 2.96 M/uL (4.33-5.43)
[2021-02-03 04:12] LABS: Protime INR 1.09
[2021-02-03 04:32] VITALS: BP 144/102
[2021-02-03 04:58] LABS: ALT/SGPT 42 U/L (12-78); AST/SGOT 25 U/L (15-37); Albumin 2.1 g/dL (3.4-5.0); Alkaline Phosphatase 95 U/L (45-117); BUN Blood Urea Nitrogen 10 mg/dL (7-18); Bicarbonate 25 mmol/L (21-32); Bilirubin Total 0.4 mg/dL (0.2-1.0); Glucose Level 110 mg/dL (74-106); HDL Cholesterol 44 mg/dL (40-60); LDL Cholesterol, Calculated 47 (<130); Magnesium 1.7 mg/dL (1.8-2.4); Phosphorus 3.1 mg/dL (2.5-4.9); Potassium 3.2 mmol/L (3.5-5.1); Protein, Total 4.9 g/dL (6.4-8.2); Sodium Level 144 mmol/L (136-145); T4,Total 7.6 ug/dL (4.5-12.1)
[2021-02-03 05:12] LABS: Troponin I 3.27 ng/mL (0.0-0.045)
[2021-02-03] MEDS ORDERED: POTASSIUM 25 MEQ EFFERV TAB PO ONE (06:18)
[2021-02-03] MEDS ORDERED: POTASSIUM 25 MEQ EFFERV TAB ONE (06:47)
[2021-02-03] MEDS ORDERED: INSULIN -REGULAR HUMAN 50 UNIT/0.5 ML ML SQ SCH (07:30)
--- NOTE | 2021-02-03 07:47 | RAD REPORT ---
EXAM DESCRIPTION: USCarotid Artery Bilateral02/03/2021 1:06 am CLINICAL HISTORY: CVA COMPARISON: None FINDINGS: The velocity of the right internal carotid artery equals 51 cm/sec. The right ICA/CCA rati o 0.8 The velocity of the left internal carotid artery equals 44 cm/sec. The left ICA/CCA ratio 1. Mild plaque is present within the carotid arteries. The vertebral arteries demonstrate antegrade flow IMPRESSION: Mild plaque within the carotid arteries without evidence of a hemodynamically significan t stenosis NASCET criteria used. Mild 0-49% stenosis Moderate 50-69% stenosis Severe 70-99% stenosis
[2021-02-03] MEDS ORDERED: NPH (HUMAN) 100 UNITS/ML INSULIN SQ SCH (08:00)
[2021-02-03] MEDS ORDERED: NPH (HUMAN) 100 UNITS/ML INSULIN SQ ONE (08:00)
[2021-02-03] MEDS ORDERED: ASPIRIN EC 81 MG TAB PO SCH (09:00)
[2021-02-03] MEDS ORDERED: FOLIC ACID 1 MG TABLET PO SCH (09:00)
[2021-02-03] MEDS ORDERED: CLOPIDOGREL 75 MG TABLET PO SCH (09:00)
[2021-02-03] MEDS ORDERED: FUROSEMIDE 40 MG/4 ML VIAL IV SCH (09:00)
[2021-02-03 09:36] VITALS: O2SAT 95
[2021-02-03] MEDS ORDERED: INSULIN -REGULAR HUMAN 50 UNIT/0.5 ML ML ONE (10:21)
[2021-02-03] MEDS ORDERED: INSULIN 70/30 100 UNITS/ML SQ ONE (10:21)
--- NOTE | 2021-02-03 10:23 | EKG ---
Test Date: 2021-02-02 Test Time: 21:59:56 Monitor Worker: MEASUREMENT RESULTS: Intervals: Rate: 103 IL: 156 QRSD: 84 QT: 362 QTc: 474 [place]: P: 58 IL: 156 QRS: 20 T: 55 INTERPRETIVE STATEMENTS: Sinus tachycardia Possible Left atrial enlargement Nonspecific ST abnormality Abnormal ECG Compared to ECG 01/30/2021 11:11:29 Fusion complex(es) no longer present Right superior axis no longer present Incomplete right bundle-branch block no longer present Right ventricular hypertrophy no longer present ST (T wave) deviation still present Electronically Signed On 02-03-21 10:21:50 CDT by Tyler Carey
[2021-02-03] MEDS ORDERED: CLOPIDOGREL 75 MG TABLET ONE (10:24)
[2021-02-03] MEDS ORDERED: FOLIC ACID 1 MG TABLET ONE (10:24)
[2021-02-03] MEDS ORDERED: ASPIRIN 81 MG CHEWABLE TABLET ONE (10:24)
[2021-02-03] MEDS ORDERED: FUROSEMIDE 40 MG/4 ML VIAL ONE (10:25)
[2021-02-03] MEDS ORDERED: ATORVASTATIN 40 MG TAB PO SCH (21:00)
--- NOTE | 2021-02-09 11:51 | P.DS ---
Discharge Date: 02/03/21 Disposition: AMA-LEFT AGAINST MEDICAL ADVIC Discharge Condition: SERIOUS Reason for Admission: CVA Brief History of Present Illness: Patient was admitted for possible CVA. Patient had Ct of the head that was unremarkable. Admission for observation. Hospital Course: Patient left against medical advise. Vital Signs/Physical Exam: Temp Pulse Resp BP Pulse Ox 98.5 F 93 H 16 144/102 H 94 02/03/21 01:12 02/03/21 04:31 02/03/21 04:31 02/03/21 04:31 02/03/21 04:31 General: Alert, In no apparent distress, Oriented x3 Laboratory Data at Discharge: WBC 7.50 K/uL (4.3-10.9) D 02/03/21 03:54 Hgb 8.9 g/dL (13.6-17.9) L 02/03/21 03:54 Hct 26.8 % (39.6-49.0) L D 02/03/21 03:54 Plt Count 177 K/uL (152-406) D 02/03/21 03:54 PT 12.5 SECONDS (9.5-12.5) 02/03/21 03:54 INR 1.09 02/03/21 03:54 APTT 43.2 SECONDS (24.3-36.9) H 02/03/21 09:51 Sodium 144 mmol/L (136-145) 02/03/21 03:54 Potassium Cancelled 02/03/21 12:00 BUN 10 mg/dL (7-18) 02/03/21 03:54 Creatinine 0.50 mg/dL (0.55-1.3) L 02/03/21 03:54 Glucose 110 mg/dL (74-106) H 02/03/21 03:54 Phosphorus 3.1 mg/dL (2.5-4.9) 02/03/21 03:54 Magnesium 1.7 mg/dL (1.8-2.4) L 02/03/21 03:54 Total Bilirubin 0.4 mg/dL (0.2-1.0) 02/03/21 03:54 AST 25 U/L (15-37) 02/03/21 03:54 ALT 42 U/L (12-78) 02/03/21 03:54 Alkaline Phosphatase 95 U/L (45-117) 02/03/21 03:54 Troponin I Cancelled 02/03/21 13:00 Triglycerides 107 mg/dL (<150) 02/03/21 03:54 Cholesterol 112 mg/dL (<200) 02/03/21 03:54 HDL Cholesterol 44 mg/dL (40-60) 02/03/21 03:54 Cholesterol/HDL Ratio 2.55 02/03/21 03:54 Lipase 37 U/L (73-393) L 02/02/21 21:13 Home Medications: Alprazolam [Xanax] 0.5 mg PO TID 02/19/20 Dicyclomine [Bentyl*] 20 mg PO Q12H 02/19/20 Sertraline [Zoloft*] 150 mg PO DAILY 02/19/20 Aspirin [Aspirin EC 81 MG] 81 mg PO DAILY #90 tablet. 01/13/21 Atorvastatin Calcium [Lipitor*] 20 mg PO BEDTIME #30 tab 01/13/21 Clopidogrel Bisulfate [Plavix*] 75 mg PO DAILY #30 tablet 01/13/21 Insulin NPH Human Isophane [Novolin N] 10 unit SQ BID #1 vial 01/13/21 Insulin Regular, Human [Novolin R] See Protocol SQ ACHS #1 vial 01/13/21 Metoprolol Tartrate [Lopressor*] 50 mg PO BID #60 tab 01/13/21 Pantoprazole [Protonix Tab*] 40 mg PO DAILY #30 tab 01/13/21 lisinopriL [Lisinopril] 5 mg PO DAILY #30 tablet 01/13/21 Methadone HCl [Methadone HCl*] 20 mg PO DAILY #30 tab 01/23/21 Physician Discharge Instructions: Patient left against medical advice Followup: NONE,NONE [Primary Care Provider] - Time spent managing pt's care (in minutes): 20
== END 2021-02-03 10:49 | disposition left against medical advice (07) | DRG 66 ==
LOC: ER 18:38 → ERHOLD 23:41
PROVIDERS: ADMIT Hospitalist; ATTEND Hospitalist
DX: I63.9 Cerebral infarction, unspecified (principal); I10 Essential (primary) hypertension; R77.8 Other specified abnormalities of plasma proteins; E10.9 Type 1 diabetes mellitus without complications; I25.10 Atherosclerotic heart disease of native coronary artery without angina pectoris; Z95.5 Presence of coronary angioplasty implant and graft; Z86.73 Personal history of transient ischemic attack (TIA), and cerebral infarction without residual deficits; Z53.29 Procedure and treatment not carried out because of patient's decision for other reasons; Z20.822 Contact with and (suspected) exposure to COVID-19
CPT/HCPCS: 36415; 70450; 71045; 80048; 80053; 80061; 80076; 81003; 82947; 83605; 83690; 83735; 83880; 84100; 84436; 84443; 84484; 85025; 85610; 85730; 87040; 87086; 87088; 92610; 93005; 93880; 94760; 96361; 96374; 96375; 99285; J1644; J1815; J1940; J7030; J7040; U0003

== ENCOUNTER 2021-02-21 13:24 | Observation (INO) | payer SELFPAY ==
[2021-02-21] MEDS ORDERED: INSULIN -REGULAR HUMAN 50 UNIT/0.5 ML ML ONE (14:31)
[2021-02-21 14:32] LABS: Arterial Blood Carboxyhemoglob 2.1 % (0-1.5); Blood Gas Oxyhemoglobin 72.7 % (94-97)
[2021-02-21] MEDS ORDERED: NA CHLORIDE 0.9% 2,000 ML ONE (14:32)
--- NOTE | 2021-02-21 14:51 | RAD REPORT ---
EXAM DESCRIPTION: CT - Head Brain Wo Cont - 02/21/2021 2:35 pm CLINICAL HISTORY: AMS Headache, drowsiness COMPARISON: Head Brain Wo Cont dated 02/02/2021; Head Brain Wo Cont dated 07/31/2017 TECHNIQUE: All CT scans are performed using dose optimization technique as appropriate and may inclu de automated exposure control or mA/KV adjustment according to patient size. FINDINGS: No intracranial hemorrhage, hydrocephalus or extra-axial fluid collection.Mild diminished density in the left basal ganglia anteriorly is unchanged since prior study.No areas of brain edema o r evidence of midline shift. 18 mm mucous retention cyst versus polyp right maxillary antrum. Paranasal sinuses and mastoids are o therwise clear. The calvarium is intact. IMPRESSION: No acute intracranial abnormality.
--- NOTE | 2021-02-21 14:52 | RAD REPORT ---
EXAM DESCRIPTION: RAD - Chest Single View - 02/21/2021 2:43 pm CLINICAL HISTORY: AMS Chest pain. COMPARISON: Chest Single View dated 02/02/2021; Chest Single View dated 01/30/2021; Chest Single View dated 01/20/2021; Chest Single View dated 01/18/2021; Head Brain Wo Cont dated 02/21/2021 FINDINGS: Portable technique limits examination quality. Mild to moderate pulmonary edema is present. The heart is mildly enlarged in size. Bilateral pleural effusions, small to moderate. IMPRESSION: Mild to moderate CHF versus volume overload pattern.
[2021-02-21] MEDS ORDERED: D50W 25 GM/50 ML SYRINGE IV PRN (15:17)
[2021-02-21] MEDS ORDERED: GLUCAGON 1 MG/VIAL IM PRN (15:17)
[2021-02-21 15:37] LABS: Absolute Lymphocytes (CBC) 0.4 K/uL (0.7-4.9); Basophils % 0.4 % (0-1.3); Lymphocytes % 5.4 % (15.3-44.8); MPV 9.1 fL (7.6-11.3)
[2021-02-21 15:53] LABS: BUN Blood Urea Nitrogen 19 mg/dL (7-18); Lipase 15 U/L (73-393); Potassium 5.2 mmol/L (3.5-5.1); Sodium Level 138 mmol/L (136-145)
[2021-02-21 15:54] LABS: Hematocrit 34.1 % (39.6-49.0); RBC Red Blood Cell Count 3.71 M/uL (4.33-5.43)
[2021-02-21 15:55] LABS: Bicarbonate 13 mmol/L (21-32); Glucose Level 734 mg/dL (74-106)
[2021-02-21] MEDS ORDERED: INSULIN -REGULAR HUMAN 100 UNIT in NA CHLORIDE 0.9% 100 ML IV SCH (16:00)
--- NOTE | 2021-02-21 16:54 | ER ---
Nurse's Notes [facility] Name: Osbaldo León Age: 50 yrs Sex: Male : 1970 Arrival Date: 02/21/2021 Time: 13:30 Bed 4 Private MD: Diagnosis: Diabetes mellitus due to underlying condition with ketoacidosis without coma;Dehydration;Altered mental status, unspecified Presentation: 02/21 13:41 Chief complaint: EMS states: AMS for unknown period of time. BGL >600. Coronavirus ss screen: Client denies travel out of the [place] in the last 14 days. Ebola Screen: Patient denies exposure to infectious person. Patient denies travel to an Ebola-affected area in the 21 days before illness onset. Initial Sepsis Screen: Does the patient meet any 2 criteria? No. Patient's initial sepsis screen is negative. Does the patient have a suspected source of infection? No. Patient's initial sepsis screen is negative. Risk Assessment: Do you want to hurt yourself or someone else? Patient reports no desire to harm self or others. Onset of symptoms is unknown. Care prior to arrival: Medication(s) given: Normal saline infusion, 1000 mL, IV initiated. 22 GA, in the left hand. 13:41 Method Of Arrival: EMS: [facility] 13:41 Acuity: [place] 2 ss Historical: - Allergies: 13:44 Clindamycin; ss 13:44 Morphine; ss - PMHx: 13:44 CVA; Diabetes - IDDM; Hypertension; LA; ss - PSHx: 13:44 cardiac stent; ss - Immunization history:: unknown, unable to obtain . - Social history:: Smoking status: unknown. - Family history:: not pertinent. - History obtained from: EMS. Screenin:50 Abuse screen: AMS< unable to obtain. Nutritional screening: No deficits noted. hb Tuberculosis screening: AMS< unable to obtain. Fall Risk Total Brown Fall Scale indicates High Risk Score (45 or more points). Fall prevention measures have been instituted. Side Rails Up X 2 Frequent Obs/Assessments Occuring As available patient and family educated on Fall Prevention Program and Strategies. Assessment: 14:00 General: Appears ill, Behavior is flat. Pain: Unable to use pain scale. FLACC scale hb score is 0 out of 10. Neuro: Level of Consciousness is obtunded. Cardiovascular: Patient's skin is warm and dry. Rhythm is sinus tachycardia. Respiratory: Respiratory effort is shallow, Respiratory pattern is tachypnea. GI: No deficits noted. : No deficits noted. EENT: No deficits noted. Derm: Skin is dry, Skin is pale, Skin temperature is warm. Musculoskeletal: No deficits noted. 14:40 Reassessment: Charge Nurse Carey RN at bedside for US guided PIV placement. hb 15:30 Reassessment: No changes from previously documented assessment. VSS. hb 16:00 Reassessment: No changes from previously documented assessment. hb 17:00 Reassessment: No changes from previously documented assessment. Reassessment: Insulin hb drip continues. 18:10 Reassessment: BGL 480, Dr. Cohn notified, insulin drip decreased to 5 units/hr. Pt hb remains obtunded. VSS. Vital Signs: 13:41 BP 128 / 76; Pulse 121; Resp 28; Temp 97.5(TE); Pulse Ox 98% on R/A; ss 14:51 BP 129 / 86; Pulse 115; Resp 26; Pulse Ox 98% on R/A; hb 16:07 BP 129 / 85; Pulse 110; Resp 15; Pulse Ox 99% on R/A; hb 16:15 Weight 77 kg; Height 6 ft. 0 in. (182.88 cm); sv 17:00 BP 130 / 82; Pulse 109; Resp 25; Pulse Ox 99% on R/A; hb 18:00 BP 131 / 87; Pulse 105; Resp 27; Pulse Ox 100% on R/A; hb 16:15 Body Mass Index 23.02 (77.00 kg, 182.88 cm) sv ED Course: 13:30 Patient arrived in ED. ss 13:44 Chris Cohn MD is Attending Physician. rn 13:44 Triage completed. ss 13:44 Arm band placed on right wrist. ss 14:35 CT Head Brain wo Cont In Process Unspecified. EDMS 14:43 XRAY Chest (1 view) In Process Unspecified. EDMS 14:55 Initial lab(s) drawn, by ED staff, sent to lab. sv 15:50 CBC with Diff Sent. sv 15:56 Notified ED physician of a critical lab result(s). Bicarb 13, blood glucose 734, and ll1 lactate 5.7. Dr. Cohn informed. 16:53 Dana Hernandez MD is Hospitalizing Provider. rn 02/22 07:16 Carlie Herbert, RN is Primary Nurse. tw2 Administered Medications: 02/21 14:14 Drug: Insulin Regular Human 10 units {Co-Signature: sv (Kenisha Medel RN).} Route: hb Sub-Q; Site: abdomen; 16:22 Follow up: Response: No adverse reaction sv 14:20 Drug: NS 0.9% 1000 ml Route: IV; Rate: 1000 ml; Site: left hand; hb 18:12 Follow up: Response: No adverse reaction; IV Status: Completed infusion; IV Intake: sv 1000ml 14:20 Drug: NS 0.9% 1000 ml Route: IV; Rate: 1000 ml; Site: left hand; hb 15:30 Follow up: Response: No adverse reaction; IV Status: Completed infusion; IV Intake: sv 1000ml 16:22 Drug: Insulin Drip - (Insulin Regular Human 100 units, NS 0.9% 100 ml) {Co-Signature: sv ss (Carey Jewell RN).} Route: IV; Rate: calculated rate; Site: right upper arm; 18:13 Follow up: Rate change 5 calculated rate sv Intake: 15:30 IV: 1000ml; Total: 1000ml. sv 18:12 IV: 1000ml; Total: 2000ml. sv Outcome: 16:54 Decision to Hospitalize by Provider. rn 02/22 15:29 Patient left the ED. ss Signatures: Dispatcher [employer] Kenisha Naqvi RN RN sv Nieto, Roman, MD MD rn Smirch, Shelby, RN RN ss Anastasia Ureña RN RN Carlie Herbert RN RN tw2 Eddie Pedraza RN RN ll1 Kenisha Medel RN sv Carey Jewell RN ss
--- NOTE | 2021-02-21 16:54 | EDPHYS ---
Physician Documentation [facility] Name: Osbaldo León Age: 50 yrs Sex: Male : 1970 Arrival Date: 02/21/2021 Time: 13:30 Bed 4 Private MD: ED Physician Chris Cohn HPI: 02/21 16:11 This 50 yrs old Male presents to ER via EMS with complaints of High Blood rn Sugar, Altered Mental Status. 16:11 The patient or guardian reports hyperglycemia, that was potentially precipitated by rn Unknown. Onset: The symptoms/episode began/occurred at an unknown time. Associated signs and symptoms: Pertinent negatives: diarrhea, seizure activity. Current symptoms: In the emergency department the patient's symptoms are unchanged from the initial presentation. The patient has experienced similar episodes in the past. It is unknown whether or not the patient has recently seen a physician. Patient brought in for altered mental status and high blood sugar. Blood sugar read high. Family unaware how long symptoms have been present. Patient well-known to us with multiple episodes of DKA. Unknown when last treatment. Patient denies any focal pain or injury.. Historical: - Allergies: 13:44 Clindamycin; ss 13:44 Morphine; ss - PMHx: 13:44 CVA; Diabetes - IDDM; Hypertension; MD; ss - PSHx: 13:44 cardiac stent; ss - Immunization history:: unknown, unable to obtain . - Social history:: Smoking status: unknown. - Family history:: not pertinent. - History obtained from: EMS. ROS: 16:11 Unable to obtain ROS due to altered mental status. rn Exam: 16:11 Constitutional: Pale patient who is altered and mumbles answers Head/Face: rn Normocephalic, atraumatic. Eyes: Periorbital areas with no swelling, redness, or edema. Cardiovascular: Tachycardic, regular. No pulse deficits. Respiratory: No increased work of breathing, no retractions or nasal flaring. Abdomen/GI: Soft, non-tender Male : Mildly edematous penis without signs of infection Skin: Chronic wound to outside right heel without drainage or surrounding erythema MS/ Extremity: Pulses equal, no cyanosis. Neuro: Awake, altered, moves all 4 extremities, mumbles answers and some words are understood. 17:33 ECG was reviewed by the Attending Physician. rn Vital Signs: 13:41 BP 128 / 76; Pulse 121; Resp 28; Temp 97.5(TE); Pulse Ox 98% on R/A; ss 14:51 BP 129 / 86; Pulse 115; Resp 26; Pulse Ox 98% on R/A; hb 16:07 BP 129 / 85; Pulse 110; Resp 15; Pulse Ox 99% on R/A; hb 16:15 Weight 77 kg; Height 6 ft. 0 in. (182.88 cm); sv 17:00 BP 130 / 82; Pulse 109; Resp 25; Pulse Ox 99% on R/A; hb 18:00 BP 131 / 87; Pulse 105; Resp 27; Pulse Ox 100% on R/A; hb 16:15 Body Mass Index 23.02 (77.00 kg, 182.88 cm) sv MDM: 13:44 Patient medically screened. rn 16:52 Differential diagnosis: DKA. Differential diagnosis: hyperglycemia, Dehydration, rn electrolyte disorder. Data reviewed: vital signs, nurses notes, lab test result(s). Data interpreted: ekg monitor tech: rate is 110 beats/min, rhythm is sinus tachycardia, with no ectopy, Interpretation: tachycardia, Pulse oximetry: on room air is 99 %. Interpretation: normal. Counseling: I had a detailed discussion with the patient and/or guardian regarding: the historical points, exam findings, and any diagnostic results supporting the discharge/admit diagnosis, lab results, radiology results, the need for further work-up and treatment in the hospital. Response to treatment: the patient's symptoms have mildly improved after treatment, and as a result, I will admit patient. Admission orders: after a detailed discussion of the patient's condition and case, the admit orders are written by me. ED course: Patient admitted to hospitalist service for DKA.. 02/21 13:56 Order name: ABG; Complete Time: 15:07 rn 02/21 13:57 Order name: CBC with Diff rn 02/21 13:57 Order name: Basic Metabolic Panel; Complete Time: 16:51 rn 02/21 13:57 Order name: Lactate; Complete Time: 16:51 rn 02/21 13:57 Order name: Ketone, Serum; Complete Time: 16:51 rn 02/21 13:57 Order name: Lipase; Complete Time: 16:51 rn 02/21 13:58 Order name: CBC with Automated Diff; Complete Time: 07:16 EDMS 10 14:41 Order name: SARS-COV-2 RT PCR; Complete Time: 16:51 EDMS 02/21 15:09 Order name: Glucose, Ancillary Testing; Complete Time: 15:39 EDMS 02/21 18:20 Order name: Glucose, Ancillary Testing; Complete Time: 07:16 EDMS 02/21 19:40 Order name: Glucose, Ancillary Testing; Complete Time: 07:16 EDMS 02/21 20:19 Order name: Lactate Sepsis 2 HR Follow-up; Complete Time: 07:16 EDMS 02/21 21:03 Order name: Glucose, Ancillary Testing; Complete Time: 07:16 EDMS 02/21 21:15 Order name: Basic Metabolic Panel; Complete Time: 07:16 EDMS 02/21 21:15 Order name: NT PRO-BNP; Complete Time: 07:16 EDMS 02/21 21:22 Order name: Acetone Level; Complete Time: 07:16 EDMS 02/21 21:23 Order name: Urinalysis; Complete Time: 07:16 EDMS 02/21 22:02 Order name: Glucose, Ancillary Testing; Complete Time: 07:16 EDMS 02/21 22:50 Order name: Glucose, Ancillary Testing; Complete Time: 07:16 EDMS 02/21 23:52 Order name: Glucose, Ancillary Testing; Complete Time: 07:16 EDMS 02/22 00:33 Order name: Acetone Level; Complete Time: 07:16 EDMS 02/22 00:40 Order name: Basic Metabolic Panel; Complete Time: 07:16 EDMS 02/22 00:46 Order name: Glucose, Ancillary Testing; Complete Time: 07:16 EDMS 02/22 01:59 Order name: Glucose, Ancillary Testing; Complete Time: 07:16 EDMS 02/22 02:45 Order name: Glucose, Ancillary Testing; Complete Time: 07:16 EDMS 02/22 03:25 Order name: Glucose, Ancillary Testing; Complete Time: 07:16 EDMS 02/22 03:45 Order name: Glucose, Ancillary Testing; Complete Time: 07:16 EDMS 02/22 04:16 Order name: Glucose, Ancillary Testing; Complete Time: 07:16 EDMS 02/22 04:47 Order name: Glucose, Ancillary Testing; Complete Time: 07:16 EDMS 02/21 13:57 Order name: IV Start; Complete Time: 14:21 rn 02/21 13:57 Order name: EKG; Complete Time: 13:58 rn 02/21 13:57 Order name: EKG - Nurse/Tech; Complete Time: 16:23 rn 02/21 13:57 Order name: XRAY Chest (1 view); Complete Time: 15:07 rn 02/21 13:58 Order name: CT Head Brain wo Cont; Complete Time: 15:07 rn 02/22 05:05 Order name: CBC with Automated Diff; Complete Time: 07:16 EDMS 02/22 05:11 Order name: Basic Metabolic Panel; Complete Time: 07:16 EDMS 02/22 05:13 Order name: Calcium Level; Complete Time: 07:16 EDMS 02/22 05:13 Order name: Phosphorus; Complete Time: 07:16 EDMS 02/22 05:13 Order name: Lipid Profile; Complete Time: 07:16 EDMS 02/22 05:13 Order name: Magnesium; Complete Time: 07:16 EDMS 02/22 05:18 Order name: Acetone Level; Complete Time: 07:16 EDMS 02/22 05:42 Order name: Glucose, Ancillary Testing; Complete Time: 07:16 EDMS 02/22 06:05 Order name: Osmolality, Serum; Complete Time: 07:16 EDMS 02/22 06:39 Order name: Glucose, Ancillary Testing; Complete Time: 07:16 EDMS 02/22 07:37 Order name: Glucose, Ancillary Testing EDMS 02/22 10:55 Order name: RAD EDMS 02/22 11:37 Order name: Glucose, Ancillary Testing EDMS EC:33 Rate is 126 beats/min. Rhythm is regular. Extreme Right axis deviation noted. QRS is rn negative in leads I, aVF. NC interval is normal. QRS interval is normal. QT interval is normal. No Q waves. T waves are Normal. No ST changes noted. Clinical impression: Sinus tachycardia. Interpreted by me. Reviewed by me. Administered Medications: 14:14 Drug: Insulin Regular Human 10 units {Co-Signature: sv (Kenisha Medel RN).} Route: hb Sub-Q; Site: abdomen; 16:22 Follow up: Response: No adverse reaction sv 14:20 Drug: NS 0.9% 1000 ml Route: IV; Rate: 1000 ml; Site: left hand; hb 18:12 Follow up: Response: No adverse reaction; IV Status: Completed infusion; IV Intake: sv 1000ml 14:20 Drug: NS 0.9% 1000 ml Route: IV; Rate: 1000 ml; Site: left hand; hb 15:30 Follow up: Response: No adverse reaction; IV Status: Completed infusion; IV Intake: sv 1000ml 16:22 Drug: Insulin Drip - (Insulin Regular Human 100 units, NS 0.9% 100 ml) {Co-Signature: jose alfredo ss (Carey Jewell RN).} Route: IV; Rate: calculated rate; Site: right upper arm; 18:13 Follow up: Rate change 5 calculated rate sv Disposition Summary: 02/21/21 16:54 Hospitalization Ordered Hospitalization Status: Inpatient Admission rn Provider: Dana Hernandez rn Condition: Fair rn Problem: new rn Symptoms: have improved rn Bed/Room Type: Standard rn Location: [facility] ER HOLD(02/21/21 19:23) Room Assignment: ERHOLD-(02/21/21 19:23) Diagnosis - Diabetes mellitus due to underlying condition with ketoacidosis without coma rn - Dehydration rn - Altered mental status, unspecified rn Forms: - Medication Reconciliation Form rn - SBAR form shoe turner time excluding procedures: 16:52 Critical care time: Bedside Care: 35 minutes. Total time: 35 minutes rn Signatures: Dispatcher [employer] Kenisha Naqvi RN RN Alina cMkee RN MARU Chris Cohn MD MD rn Smirch, Shelby, RN RN Anastasia Ureña RN RN Kenisha Medel RN Carey Jewell RN Corrections: (The following items were deleted from the chart) 14:41 14:21 CORONAVIRUS+.BRZ ordered. LEX BURNETT 19:23 16:54 Intensive Care Unit rn jai 19:23 16:54 rn jai
[2021-02-21 17:57] LABS: Blood Morphology Comment NOT SEEN (NOT SEEN); Platelet Estimate ADEQ; White Blood Cell Scan OK (OK)
--- NOTE | 2021-02-21 18:49 | P.HP ---
Certification for Inpatient Patient admitted to: Inpatient With expected LOS: >2 Midnights Patient will require the following post-hospital care: None Practitioner: I am a practitioner with admitting privileges, knowledge of patient current condition, hospital course, and medical plan of care. Services: Services provided to patient in accordance with Admission requirements found in Title 42 Section 412.3 of the Code of Federal Regulations Patient History Date of Service: 02/21/21 Primary Care Provider: unknown Reason for admission: DKA History of Present Illness: Chest Single View - 02/21/2021 2:43 pm CLINICAL HISTORY: AMS Chest pain. COMPARISON: Chest Single View dated 02/02/2021; Chest Single View dated 01/30/2021; Chest Single View dated 01/20/2021; Chest Single View dated 01/18/2021; Head Brain Wo Cont dated 02/21/2021 FINDINGS: Portable technique limits examination quality. Mild to moderate pulmonary edema is present. The heart is mildly enlarged in size. Bilateral pleural effusions, small to moderate. IMPRESSION: Mild to moderate CHF versus volume overload pattern. CT - Head Brain Wo Cont - 02/21/2021 2:35 pm CLINICAL HISTORY: AMS Headache, drowsiness COMPARISON: Head Brain Wo Cont dated 02/02/2021; Head Brain Wo Cont dated 2017 FINDINGS: No intracranial hemorrhage, hydrocephalus or extra-axial fluid collection.Mild diminished density in the left basal ganglia anteriorly is unchanged since prior study.No areas of brain edema or evidence of midline shift. 18 mm mucous retention cyst versus polyp right maxillary antrum. Paranasal sinuses and mastoids are otherwise clear. The calvarium is intact. IMPRESSION: No acute intracranial abnormality. ABG is remarkable for a pH of 7.21 PO2 of 50.4 and PCO2 of 36.6 bicarb is 14.1. His potassium was elevated at 5.2, carbon dioxide was 13, BUN 19 creatinine 1.34. His initial glucose was 734 and his lactic acid was 5.7 Patient is a 50-year-old white male with a history of diabetic ketoacidosis and poorly managed diabetes. He arrived by ambulance with no history and no family. He was unresponsive at the time and remains obtunded. He is arousable to pain but does not respond meaningfully. Currently he has an insulin drip running and is awaiting admission. During his stay he has had a negative head CT and an x- ray showing mild congestive heart failure. Allergies propoxyphene Allergy (Verified 02/19/20 15:33) Nausea/Vomiting morphine Adverse Reaction (Intermediate, Verified 02/19/20 15:33) pt does not like the way he feels Clindamycin Allergy (Uncoded 02/19/20 15:33) Hives/Rash Home medications list reviewed: No Home Medications: Alprazolam [Xanax] 0.5 mg PO TID 02/19/20 Dicyclomine [Bentyl*] 20 mg PO Q12H 02/19/20 Sertraline [Zoloft*] 150 mg PO DAILY 02/19/20 Aspirin [Aspirin EC 81 MG] 81 mg PO DAILY #90 tablet.dr 01/13/21 Atorvastatin Calcium [Lipitor*] 20 mg PO BEDTIME #30 tab 01/13/21 Clopidogrel Bisulfate [Plavix*] 75 mg PO DAILY #30 tablet 01/13/21 Insulin NPH Human Isophane [Novolin N] 10 unit SQ BID #1 vial 01/13/21 Insulin Regular, Human [Novolin R] See Protocol SQ ACHS #1 vial 01/13/21 Metoprolol Tartrate [Lopressor*] 50 mg PO BID #60 tab 01/13/21 Pantoprazole [Protonix Tab*] 40 mg PO DAILY #30 tab 01/13/21 lisinopriL [Lisinopril] 5 mg PO DAILY #30 tablet 01/13/21 Methadone HCl [Methadone HCl*] 20 mg PO DAILY #30 tab 01/23/21 - Past Medical/Surgical History Diabetic: Yes -: HTN -: Insulin-dependent diabetes mellitus -: cva, weaker on the left side, and has slight numbness noted to left side -: opioid abuse -: injury to right eye, poor vision -: depression -: panic attacks -: ibs -: [place] 2020 -: cardiac stent 2020 Psychosocial/ Personal History: Unable to interview pt - Family History Father -: Heart disease Brother -: Diabetes - Social History Smoking Status: Smoker current status UNK Alcohol use: Yes CD- Drugs: No Caffeine use: No Review of Systems is unable to be obtained Physical Examination - Physical Exam General: Unresponsive (Responds to pain, moans) HEENT: Atraumatic, Normocephalic, PERRLA Neck: Supple, 2+ carotid pulse no bruit Respiratory: Clear to auscultation bilaterally, Normal air movement Cardiovascular: Normal pulses, Regular rate/rhythm, Edema (Lower extremities with pitting edema) Capillary refill: <2 Seconds Gastrointestinal: Soft and benign, Non-distended Musculoskeletal: No clubbing, No contractures, No tenderness Integumentary: Rash(es) (Feet with either fungus or reaction to something) Neurological: Other (Pt obtunded), Abnormal speech External genitalia: Deferred Rectal: Deferred - Studies Laboratory Data (last 24 hrs) 02/21/21 14:55: Sodium 138, Potassium 5.2 H, BUN 19 H, Creatinine 1.34 H, Glucose 734 H*, Lipase 15 L 02/21/21 14:55: WBC 7.60, Hgb 10.5 L, Hct 34.1 L, Plt Count 367 Assessment and Plan - Plan Assessment: DKA Plan: DKA: Admit to ICU. DKA protocol. Monitor anion gap. Transition from insulin IV as possible. Monitor BNP DVT PPx: Lovenox 40mg SQ CODE STATUS: Full Code Discharge Plan: Home Plan to discharge in: Unknown - Advance Directives Does patient have a Living Will: No Does patient have a Durable POA for Healthcare: No - Code Status/Comfort Care Code Status Assessed: No (Pt obtunded) Code Status: Full Code Critical Care: No Time Spent Managing Pts Care (In Minutes): 70
[2021-02-21] MEDS: D5 0.45 NS 1,000 ML IV SCH (19:43)
[2021-02-21] MEDS: NACHLORIDE 0.45% 1,000 ML IV SCH (19:43)
[2021-02-21] MEDS ORDERED: ONDANSETRON 4 MG/2 ML VIAL IV PRN (19:43)
[2021-02-21 21:07] LABS: BUN Blood Urea Nitrogen 15 mg/dL (7-18); Bicarbonate 23 mmol/L (21-32); NT PRO-BNP 9956 pg/mL (<125); Potassium 3.8 mmol/L (3.5-5.1); Sodium Level 142 mmol/L (136-145)
[2021-02-21 21:14] LABS: Glucose Level 404 mg/dL (74-106)
[2021-02-21 21:21] LABS: Urine Appearance CLEAR (Clear); Urine Bilirubin NEGATIVE (Negative); Urine Blood NEGATIVE (Negative); Urine Color YELLOW (Yellow); Urine Glucose 3+ (Negative); Urine Protein NEGATIVE (Negative); Urine Specific Gravity >=1.030 (1.005-1.030); Urine Urobilinogen 0.2 mg/dL (0.2-1.0)
[2021-02-21 21:22] LABS: Urine Microscopic Reflex NO UMIC
[2021-02-21] MEDS ORDERED: KCL 20 MEQ/100 mL IVPB 20 MEQ/100 ML BAG IV SCH (23:00)
[2021-02-21] MEDS ORDERED: KCL 20 MEQ/100 mL IVPB 20 MEQ/100 ML BAG IV ONE (23:47)
[2021-02-22] MEDS ORDERED: D5 0.45 NS 1,000 ML IV ONE ×2 (00:26→08:00)
[2021-02-22] MEDS: D5 0.45 NS 1,000 ML IV SCH (00:36)
[2021-02-22 00:39] LABS: BUN Blood Urea Nitrogen 14 mg/dL (7-18); Bicarbonate 27 mmol/L (21-32); Glucose Level 218 mg/dL (74-106); Potassium 3.5 mmol/L (3.5-5.1); Sodium Level 144 mmol/L (136-145)
[2021-02-22] MEDS: FUROSEMIDE 40 MG/4 ML VIAL IV SCH ×2 (01:53→07:54)
[2021-02-22] MEDS ORDERED: KCL 20 MEQ/100 mL IVPB 20 MEQ/100 ML BAG IV SCH (02:00)
[2021-02-22] MEDS ORDERED: KCL 20 MEQ/100 mL IVPB 20 MEQ/100 ML BAG IV ONE (02:48)
[2021-02-22] MEDS ORDERED: FUROSEMIDE 40 MG/4 ML VIAL ONE ×2 (02:49→08:00)
[2021-02-22 04:39] LABS: Absolute Lymphocytes (CBC) 2.4 K/uL (0.7-4.9); Hematocrit 32.5 % (39.6-49.0); Lymphocytes % 24.4 % (15.3-44.8); MPV 8.1 fL (7.6-11.3); RBC Red Blood Cell Count 3.68 M/uL (4.33-5.43)
[2021-02-22 05:11] LABS: BUN Blood Urea Nitrogen 13 mg/dL (7-18); Bicarbonate 27 mmol/L (21-32); Glucose Level 177 mg/dL (74-106); Potassium 3.8 mmol/L (3.5-5.1); Sodium Level 143 mmol/L (136-145)
[2021-02-22 05:13] LABS: Phosphorus 2.5 mg/dL (2.5-4.9)
[2021-02-22] MEDS: NACHLORIDE 0.45% 1,000 ML IV SCH (05:33)
[2021-02-22] MEDS ORDERED: POTASSIUM PHOS 20 MEQ in NA CHLORIDE 0.9% 250 ML IV ONE ×2 (05:39→09:00)
[2021-02-22] MEDS: INSULIN -REGULAR HUMAN 50 UNIT/0.5 ML ML SQ SCH ×2 (07:54→11:42)
[2021-02-22] MEDS ORDERED: INSULIN -REGULAR HUMAN 50 UNIT/0.5 ML ML ONE ×2 (08:00→12:02)
[2021-02-22 08:27] VITALS: O2SAT 95
[2021-02-22] MEDS ORDERED: ENOXAPARIN 40 MG/0.4 ML SQ SCH (09:00)
[2021-02-22] MEDS ORDERED: FUROSEMIDE 40 MG/4 ML VIAL IV SCH (09:00)
[2021-02-22] MEDS ORDERED: CEFTRIAXONE 1 GM/NS 50 ML 1 GM/50 ML BAG IV SCH (09:00)
[2021-02-22] MEDS ORDERED: ENOXAPARIN 40 MG/0.4 ML SQ ONE (09:08)
[2021-02-22] MEDS ORDERED: D5 0.45 NS 1,000 ML IV SCH (10:00)
--- NOTE | 2021-02-22 10:55 | RAD REPORT ---
EXAM DESCRIPTION: RAD - Chest Single View - 02/22/2021 10:23 am CLINICAL HISTORY: Volume overload COMPARISON: February 21 TECHNIQUE: AP portable chest image was obtained 02/22/2021 10:23 am . FINDINGS: Bilateral pleural effusions are present. Lung base atelectasis and/ or infiltrate again no tamra. Central vasculature is prominent. Heart size is upper normal, similar to comparison. No pneumoth orax. No acute bony abnormality seen. No acute aortic findings suspected. IMPRESSION: Bilateral pleural effusions with bilateral lung base atelectasis or infiltrate again not ed. Chest findings are stable from prior day imaging.
--- NOTE | 2021-02-22 13:49 | P.DS ---
Admission Date: 02/21/21 Discharge Date: 02/22/21 Primary Care Provider: unknown Disposition: ROUTINE DISCHARGE Discharge Condition: FAIR Reason for Admission: DKA - Problems (1) DKA (diabetic ketoacidoses) Current Visit: No Status: Acute Qualifiers: Diabetes mellitus type: type 1 Diabetes mellitus complication detail: without coma Qualified Code(s): E10.10 - Type 1 diabetes mellitus with ketoacidosis without coma (2) HTN (hypertension) Current Visit: No Status: Chronic Qualifiers: Hypertension type: primary hypertension Qualified Code(s): I10 - Essential (primary) hypertension Brief History of Present Illness: Patient is a 50-year-old man with a history of multiple admissions for diabetic ketoacidosis, poorly managed type 1 diabetes, and substance abuse. He arrived by ambulance unresponsive. Patient noted to be in DKA. CT head negative. Chest x-ray demonstrated mild CHF and small bilateral pleural effusion. No sepsis. Patient started on insulin drip and admitted for further management. Hospital Course: Patient admitted to the ICU with DKA protocol. Insulin drip was weaned off overnight after his anion gap closed. Patient started on D5 half-normal saline, he became more awake and alert this morning, tolerated diet and started on subcutaneous insulin. Patient requests to go home. DKA has resolved. Patient tested baseline. He is discharged per his request. He is given refills for his insulin. Vital Signs/Physical Exam: Temp Pulse Resp BP Pulse Ox 97.7 F 114 H 24 H 138/90 97 02/22/21 11:43 02/22/21 11:43 02/22/21 11:43 02/22/21 11:43 02/22/21 11:43 General: Alert, In no apparent distress HEENT: Mucous membr. moist/pink Neck: JVD not distended Respiratory: Clear to auscultation bilaterally, Normal air movement Cardiovascular: Regular rate/rhythm, Normal S1 S2 Gastrointestinal: Soft and benign, Non-distended Musculoskeletal: No swelling Integumentary: No rashes Neurological: Normal strength at 5/5 x4 extr, Cranial nerves 3-12 intact Laboratory Data at Discharge: WBC 9.70 K/uL (4.3-10.9) D 02/22/21 04:29 Hgb 10.3 g/dL (13.6-17.9) L 02/22/21 04:29 Hct 32.5 % (39.6-49.0) L 02/22/21 04:29 Plt Count 375 K/uL (152-406) 02/22/21 04:29 Sodium 143 mmol/L (136-145) 02/22/21 04:29 Potassium 3.8 mmol/L (3.5-5.1) 02/22/21 04:29 BUN 13 mg/dL (7-18) 02/22/21 04:29 Creatinine 0.85 mg/dL (0.55-1.3) 02/22/21 04:29 Glucose 177 mg/dL (74-106) H 02/22/21 04:29 Phosphorus 2.5 mg/dL (2.5-4.9) 02/22/21 04:29 Magnesium 2.0 mg/dL (1.8-2.4) 02/22/21 04:29 Triglycerides 97 mg/dL (<150) 02/22/21 04:29 Cholesterol 93 mg/dL (<200) 02/22/21 04:29 HDL Cholesterol 53 mg/dL (40-60) 02/22/21 04:29 Cholesterol/HDL Ratio 1.75 02/22/21 04:29 Lipase 15 U/L (73-393) L 02/21/21 14:55 Home Medications: Alprazolam [Xanax] 0.5 mg PO TID 02/19/20 Dicyclomine [Bentyl*] 20 mg PO Q12H 02/19/20 Sertraline [Zoloft*] 150 mg PO DAILY 02/19/20 Aspirin [Aspirin EC 81 MG] 81 mg PO DAILY #90 tablet. 01/13/21 Atorvastatin Calcium [Lipitor*] 20 mg PO BEDTIME #30 tab 01/13/21 Clopidogrel Bisulfate [Plavix*] 75 mg PO DAILY #30 tablet 01/13/21 Metoprolol Tartrate [Lopressor*] 50 mg PO BID #60 tab 01/13/21 Pantoprazole [Protonix Tab*] 40 mg PO DAILY #30 tab 01/13/21 lisinopriL [Lisinopril] 5 mg PO DAILY #30 tablet 01/13/21 Methadone HCl [Methadone HCl*] 20 mg PO DAILY #30 tab 01/23/21 Insulin NPH Human Isophane [Novolin N] 10 unit SQ BID #10 ml 02/22/21 Insulin Regular, Human [Novolin R] See Protocol SQ ACHS #1 vial 02/22/21 New Medications: Insulin NPH Human Isophane [Novolin N] 10 unit SQ BID #10 ml Insulin Regular, Human [Novolin R] See Protocol SQ ACHS #1 vial Diet: ADA Activity: Fall precautions Followup: Unknown,U [Primary Care Provider] - Time spent managing pt's care (in minutes): 38
[2021-02-22 15:23] VITALS: BP 155/102; TEMP 99.3
== END 2021-02-22 15:33 | disposition home or self-care (01) ==
LOC: ER 13:24 → ERHOLD 17:37 → INTOOBSV 17:37
PROVIDERS: ADMIT Internal Medicine; ATTEND Internal Medicine
DX: E10.10 Type 1 diabetes mellitus with ketoacidosis without coma (principal); I11.0 Hypertensive heart disease with heart failure; I50.9 Heart failure, unspecified; E86.0 Dehydration; I69.954 Hemiplegia and hemiparesis following unspecified cerebrovascular disease affecting left non-dominant side; I69.998 Other sequelae following unspecified cerebrovascular disease; R20.0 Anesthesia of skin; F11.10 Opioid abuse, uncomplicated; K58.9 Irritable bowel syndrome, unspecified; I25.2 Old myocardial infarction; F32.A Depression, unspecified; F41.0 Panic disorder [episodic paroxysmal anxiety]; H54.7 Unspecified visual loss; Z87.828 Personal history of other (healed) physical injury and trauma; Z95.5 Presence of coronary angioplasty implant and graft; Z20.822 Contact with and (suspected) exposure to COVID-19; Z79.82 Long term (current) use of aspirin; Z79.02 Long term (current) use of antithrombotics/antiplatelets; Z79.4 Long term (current) use of insulin; Z88.6 Allergy status to analgesic agent; Z88.3 Allergy status to other anti-infective agents; Z82.49 Family history of ischemic heart disease and other diseases of the circulatory system; Z83.3 Family history of diabetes mellitus
CPT/HCPCS: 36415; 70450; 71045; 80048; 80061; 81003; 82010; 82310; 82805; 82947; 83605; 83690; 83735; 83880; 83930; 84100; 85025; 93005; 96361; 96372; 96374; 99285; G0378; J0696; J1650; J1940; J3480; J7030; J7050; J7799; U0003